=== PATIENT | female | born 1935 | race Two or more races ===

== ENCOUNTER 2020-01-13 12:36 | Inpatient (IN) | payer MEDICARE, OTHER ==
[~2020-01-13] VITALS: Ht 160 cm; Wt 52.6 kg
[2020-01-13] VITALS (15 sets, daily range): BP systolic 106–122; BP diastolic 63–88
--- NOTE | 2020-01-13 12:50 | NUR ---
ED Nurse Note: Pt brought in with ambulance. Pt was picked up from street walking around, but states she lives with larissa. Pt has abdominal pain in lower section 07/03. Pt is primarily swazi speaking. Pt is alerta and orientedx1, confused, rambling. Pt denies nausea and vomiting. Pt is set up on monitor.
--- NOTE | 2020-01-13 13:00 | NUR ---
ED Nurse Note: Pt taken to CT.
[2020-01-13 13:19] LABS: BASOPHILS % (AUTO) 1.7 % (0.0-2.0); EOSINOPHILS % (AUTO) 0.4 % (0.0-3.0); HEMATOCRIT 32.7 % (37.0-47.0); HEMOGLOBIN 11.4 G/DL (12.0-16.0); LYMPHOCYTES % (AUTO) 6.6 % (20.0-45.0); MEAN CORPUSCULAR VOLUME 109 FL (80-99); MONOCYTES % (AUTO) 8.7 % (1.0-10.0); NEUTROPHILS % (AUTO) 82.6 % (45.0-75.0); PLATELET COUNT 309 K/UL (150-450); RED CELL DISTRIBUTION WIDTH 12.2 % (11.6-14.8); WHITE BLOOD COUNT 7.4 K/UL (4.8-10.8)
--- NOTE | 2020-01-13 13:28 | Emergency Room Report ---
History of Present Illness General Chief Complaint: Abdominal Pain Source: Patient Present Illness HPI Patient presents from being found on the street with reports of abdominal pain Patient appears poorly kept disheveled Patient has flight of thought and appears confused Patient does complain of diffuse abdominal pain Denies vomiting or diarrhea however requires multiple times of refocusing in order to obtain any further history Unknown regarding trauma patient denies any pain to the extremities She is also repetitive with complaining of pain without giving any specific location Allergies: Coded Allergies: No Known Allergies (Unverified , 01/13/20) Patient History Limited by: medical condition Past Medical History: see triage record Reviewed Nursing Documentation: PMH: Agreed; PSxH: Agreed Nursing Documentation-PMH Past Medical History: No History, Except For Hx Hypertension: Yes Hx Diabetes: Yes Review of Systems All Other Systems: limited - Other than the ones mentioned in the history of present illness all others are reviewed however they do stay limited due to the patient's mental status Physical Exam Vital Signs Date Time Temp Pulse Resp B/P (MAP) Pulse Ox O2 Delivery O2 Flow Rate FiO2 01/13/20 12:32 98.8 82 18 116/60 (78) 99 Room Air Sp02 EP Interpretation: reviewed, normal General Appearance: mild distress - appears confused Head: normocephalic, atraumatic Eyes: bilateral eye PERRL, bilateral eye EOMI ENT: dry mucus membranes Neck: supple Respiratory: lungs clear, no respiratory distress, no retraction Cardiovascular #1: regular rate, rhythm Gastrointestinal: non tender, soft, other - However subjectively points diffusely throughout the abdomen for discomfort Genitourinary: no CVA tenderness Musculoskeletal: other - Difficult to fully evaluate patient moves both lower extremities, she is holding her left arm at an elevated angle however moving all digits appropriately Neurologic: other - Patient is verbal, follows some commands however,no focal findings Skin: no rash Lymphatic: normal inspection Medical Decision Making Diagnostic Impression: Primary Impression: Encephalopathy ER Course Multiple differentials and consideration including but not limited to neurological, neurosurgical, infectious process CT head does not show any acute process CT abdomen pelvis has multiple Findings will follow further closely patient further hydrated Urine sample is clear and at this time will require further Investigation Labs Test 01/13/20 13:01 White Blood Count 7.4 K/UL (4.8-10.8) Red Blood Count 3.00 M/UL (4.20-5.40) Hemoglobin 11.4 G/DL (12.0-16.0) Hematocrit 32.7 % (37.0-47.0) Mean Corpuscular Volume 109 FL (80-99) Mean Corpuscular Hemoglobin 38.0 PG (27.0-31.0) Mean Corpuscular Hemoglobin Concent 34.9 G/DL (32.0-36.0) Red Cell Distribution Width 12.2 % (11.6-14.8) Platelet Count 309 K/UL (150-450) Mean Platelet Volume 10.9 FL (6.5-10.1) Neutrophils (%) (Auto) 82.6 % (45.0-75.0) Lymphocytes (%) (Auto) 6.6 % (20.0-45.0) Monocytes (%) (Auto) 8.7 % (1.0-10.0) Eosinophils (%) (Auto) 0.4 % (0.0-3.0) Basophils (%) (Auto) 1.7 % (0.0-2.0) Sodium Level 146 MMOL/L (136-145) Potassium Level 4.6 MMOL/L (3.5-5.1) Chloride Level 108 MMOL/L (98-107) Carbon Dioxide Level 27 MMOL/L (21-32) Anion Gap 12 mmol/L (5-15) Blood Urea Nitrogen 43 mg/dL (7-18) Creatinine 1.7 MG/DL (0.55-1.30) Estimat Glomerular Filtration Rate 28.6 mL/min (>60) Glucose Level 118 MG/DL (74-106) Calcium Level 8.8 MG/DL (8.5-10.1) Total Bilirubin 0.4 MG/DL (0.2-1.0) Aspartate Amino Transf (AST/SGOT) 23 U/L (15-37) Alanine Aminotransferase (ALT/SGPT) 29 U/L (12-78) Alkaline Phosphatase 69 U/L (46-116) Total Creatine Kinase 92 U/L (26-308) Troponin I 0.036 ng/mL (0.000-0.056) Total Protein 7.1 G/DL (6.4-8.2) Albumin 3.7 G/DL (3.4-5.0) Globulin 3.4 g/dL Albumin/Globulin Ratio 1.1 (1.0-2.7) Lipase 95 U/L (73-393) Rhythm Strip Diag. Results EP Interpretation: yes Rate: 77 Rhythm: NSR, no PVC's, no ectopy Chest X-Ray Diagnostic Results Chest X-Ray Diagnostic Results : Chest X-Ray Ordered: Yes # of Views/Limited/Complete: 1 View Indication: Chest Pain EP Interpretation: Yes Interpretation: no consolidation, no effusion, no pneumothorax Impression: No acute disease - Chronic findings with nodular regions Electronically Signed by: Radha Wayne DO CT/MRI/US Diagnostic Results CT/MRI/US Diagnostic Results : Impression ct abd/pelvis:mpression: Very questionable subtle tiny foci of hyperattenuation at the left ureteral orifice. Suspect that this is an artifact of image noise, but tiny distal ureteral calculi cannot be ruled out. There is no hydronephrosis or hydroureter, however. Recommend correlation with clinical and laboratory findings Limited assessment of the GI tract, due to lack of enteric contrast administration Mild rectal distention with feces. Early rectal fecal impaction possible. Correlate with clinical findings Moderate retained stool elsewhere throughout the colon. May indicate constipation. Colonic diverticulosis. No evidence of acute diverticulitis borderline cardiomegaly Bilateral basilar pulmonary parenchymal groundglass opacity. This is nonspecific , could indicate mild pulmonary edema, among other possibilities L2 vertebral body wedge compression fracture deformity, age-indeterminate. Consider MRI to better characterize if is considered clinically relevant Other findings as noted, including lumbar spondylosis, bilateral sacral nerve root sleeve cysts, right middle lobe and lingular pulmonary parenchymal scarring, left renal cyst CT head no acute disease Last Vital Signs Date Time Temp Pulse Resp B/P (MAP) Pulse Ox O2 Delivery O2 Flow Rate FiO2 01/13/20 12:32 98.8 82 18 116/60 (78) 99 Room Air Status: improved Disposition: ADMITTED INPATIENT Condition: Serious Scripts Unable to Obtain Active Prescriptions or Reported Meds Radha Wayne DO Jan 13, 2020 13:28
[2020-01-13 13:32] LABS: ANION GAP 12 mmol/L (5-15); BLOOD UREA NITROGEN 43 mg/dL (7-18); CALCIUM 8.8 MG/DL (8.5-10.1); CARBON DIOXIDE 27 MMOL/L (21-32); CHLORIDE 108 MMOL/L (98-107); CREATININE 1.7 MG/DL (0.55-1.30); POTASSIUM 4.6 MMOL/L (3.5-5.1); SODIUM 146 MMOL/L (136-145)
[2020-01-13 13:36] LABS: ALANINE AMINOTRANSFERASE 29 U/L (12-78); ALBUMIN 3.7 G/DL (3.4-5.0); ALBUMIN/GLOBULIN RATIO 1.1 (1.0-2.7); ALKALINE PHOSPHATASE 69 U/L (46-116); ASPARTATE AMINO TRANSFERASE 23 U/L (15-37); BILIRUBIN,TOTAL 0.4 MG/DL (0.2-1.0); CREATINE KINASE 92 U/L (26-308)
--- NOTE | 2020-01-13 13:40 | Diagnostic Imaging Report ---
Indications: Altered mental status Technique: Spiral acquisitions obtained through the brain. Angled axial and coronal 5 x 5 mm slices were reconstructed. Total dose length product 992 mGycm. CTDI vol(s) 53 mGy. Dose reduction achieved using automated exposure control Comparison: None. Findings: There is age-related enlargement of the ventricles and extra-axial CSF spaces. There is extensive periventricular deep white matter low-attenuation, consistent with chronic microvascular ischemic changes. Old lacunar infarct is seen in the left cerebellar hemisphere. No acute intracranial hemorrhage or edema. No mass defect nor midline shift. Visualized orbits are unremarkable. The mastoids are clear. The sinuses are clear. 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
--- NOTE | 2020-01-13 13:55 | Diagnostic Imaging Report ---
Indication: Abdominal pain Technique: Spiral acquisitions obtained through the abdomen and pelvis. No oral contrast utilized, per emergency room physician request No IV contrast utilized, per referring physician request.. Multiplanar reconstructions were generated. Total dose length product 180 mGycm. CTDIvol(s) 3 mGy. Dose reduction achieved using automated exposure control Comparison: None Findings: Lack of enteric contrast limits assessment of the GI tract. The rectum is mildly distended with stool, measures up to 6 x 5 cm in diameter. No rectal wall thickening or perirectal fat infiltration demonstrated. Considerable retained stool is seen throughout the remainder of the colon as well. There is colonic diverticulosis. No evidence of acute diverticulitis. The appendix is not definitely identified, but no findings to suggest acute appendicitis are evident. No small bowel distention. No free or loculated intraperitoneal gas or fluid is evident. The distal esophagus, stomach, duodenum are unremarkable. Lack of IV contrast limits assessment of solid organs. The liver, gallbladder, bile ducts, pancreas, spleen, adrenals, right kidney are all unremarkable. The left kidney demonstrates an upper pole cyst. 2 questionable very subtle foci of high attenuation are seen at the left ureteral orifice. There is no hydronephrosis or hydroureter demonstrated. The bladder is unremarkable. The uterus and adnexal structures are unremarkable. The bones demonstrate a very mild wedge compression deformity of the L2 vertebral body. There are degenerative changes of the lumbar spine. There are multiple sizable sacral nerve root sleeve cysts incidentally noted. The included lung bases demonstrate some scarring in the right middle lobe and in the lingula. There is bilateral basilar groundglass opacity. The heart is borderline enlarged. There are mitral annular calcifications. Impression: Very questionable subtle tiny foci of hyperattenuation at the left ureteral orifice. Suspect that this is an artifact of image noise, but tiny distal ureteral calculi cannot be ruled out. There is no hydronephrosis or hydroureter, however. Recommend correlation with clinical and laboratory findings Limited assessment of the GI tract, due to lack of enteric contrast administration Mild rectal distention with feces. Early rectal fecal impaction possible. Correlate with clinical findings Moderate retained stool elsewhere throughout the colon. May indicate constipation. Colonic diverticulosis. No evidence of acute diverticulitis borderline cardiomegaly Bilateral basilar pulmonary parenchymal groundglass opacity. This is nonspecific, could indicate mild pulmonary edema, among other possibilities L2 vertebral body wedge compression fracture deformity, age-indeterminate. Consider MRI to better characterize if is considered clinically relevant Other findings as noted, including lumbar spondylosis, bilateral sacral nerve root sleeve cysts, right middle lobe and lingular pulmonary parenchymal scarring, left renal cyst The CT scanner at [facility] is accredited by the [employer] and the scans are performed using protocols designed to limit radiation exposure to as low as reasonably achievable to attain images of sufficient resolution adequate for diagnostic evaluation.
[2020-01-13 14:27] LABS: APPEARANCE,URINE CLEAR; BILIRUBIN, URINE NEGATIVE (NEGATIVE); COLOR,URINE PALE YELLOW; GLUCOSE, URINE (UA) NEGATIVE (NEGATIVE); KETONES,URINE NEGATIVE (NEGATIVE); LEUKOCYTE ESTERASE ,URINE NEGATIVE (NEGATIVE); NITRITE,URINE NEGATIVE (NEGATIVE); PH,URINE 5 (4.5-8.0); PROTEIN,URINE NEGATIVE (NEGATIVE); UROBILINOGEN,URINE NORMAL MG/DL (0.0-1.0)
--- NOTE | 2020-01-13 14:59 | Diagnostic Imaging Report ---
Indication: Chest Technique: One view of the chest Comparison: none Findings: Nodular scarring is seen in the right perihilar region. There is central bronchial wall thickening. There is a linear scarring in the left perihilar region. No definite acute infiltrate. Normal heart size. Pleural spaces are clear No definite acute infiltrate Impression: Chronic findings, as described. No definite acute process
[2020-01-13] MEDS ORDERED: Metoclopramide 10mg/2ml Inj IVP PRN (16:00)
[2020-01-13] MEDS ORDERED: DiphenhydrAMINE 25mg Tab ORAL PRN (16:00)
[2020-01-13] MEDS ORDERED: Nitroglycerin Subl 0.4mg tab SL PRN (16:00)
[2020-01-13] MEDS ORDERED: Haloperidol 5mg/ml Inj IM ONE (16:00)
[2020-01-13] MEDS ORDERED: LORazepam Inj 2mg/ml 1ml IV ONE (16:15)
[2020-01-13] MEDS: D5 1/2NS 1,000 ML IV SCH ×2 (16:23→22:26)
--- NOTE | 2020-01-13 18:13 | Diagnostic Imaging Report ---
Indication: Abnormal renal function tests Technique: Trevino-scale and duplex images of the upper abdomen were obtained Comparison: Reference made to abdomen pelvis CT of earlier the same day Findings: Exam is somewhat limited due to patient being restrained and unable to cooperate optimally. Gallbladder demonstrate a questionable gallstone. Versus occult on prior CT No gallbladder wall thickening nor pericholecystic fluid. sonographic Mckeon sign could not be assessed. Common bile duct measures 5 mm in diameter. No intrahepatic biliary ductal dilatation. Liver demonstrates normal echogenicity, no focal abnormality. Portal vein and hepatic veins are patent. Pancreas is unremarkable. Spleen is unremarkable. Left kidney measures 9.2 cm in length. Right kidney measures 9.1 cm length. Both kidneys demonstrate normal echogenicity. There is no hydronephrosis. Left kidney demonstrates a small upper pole cyst. Abdominal aorta is partially obscured by bowel gas, visualized portions are non-aneurysmal . Impression: Suspect cholelithiasis. Negative for dilated bile ducts Incidental finding small left renal cyst Note inability to visualize portions of the abdominal aorta This agrees with the preliminary interpretation [facility].
--- NOTE | 2020-01-13 19:14 | NUR ---
ED Nurse Note: pt received from DADA Kc. pt is in bed repeatedly mumbling, safety precautions are in place, pt does not appear to be in any distress at this time. pt is AOx1 Addendum: 01/13/20 at 2215 by JAVAN restraints were removed from patient, safety precautions are in place, pt no longer needed restraints. TOMI hoang
--- NOTE | 2020-01-13 19:37 | NUR ---
TRANSFER TO FLOOR: Patient transferred to as ordered, per ERMD. Report given to DADA Walker. Belongings and medications sent [facility] pt
--- NOTE | 2020-01-13 19:40 | NUR ---
NURSE NOTES: Recieved report from ER nurse to the unit Lis. Will wait for pt arrival
--- NOTE | 2020-01-13 19:45 | NUR ---
NURSE NOTES: Pt arrived to the unit, via ER bed. Pt is confused and unable to answer simple questions soft restraints in place , Transferred pt. performed skin assessments skin intact.Breaths regular and unlabored .Vitals Bp 128/64 P 98 T 98.1 O2sat 96 at RA RR21.. Pt has Left AC 20g with no i.v fluids . will notify md for orders
--- NOTE | 2020-01-13 20:04 | History & Physical ---
History and Physical History & Physicial Dictated for Int Med-DR High no. [id number] Jonas Scott MD Jan 13, 2020 20:04
[2020-01-13] MEDS ORDERED: Miralax 17gm pkt ORAL PRN (21:00)
--- NOTE | 2020-01-13 21:00 | History and Physical Report ---
DATE OF ADMISSION: 01/13/2020 CHIEF COMPLAINT: The patient is an 84-year-old female, who presents with chief complaint of abdominal pain. HISTORY OF PRESENT ILLNESS: The patient was apparently found wandering on the streets complaining of abdominal pain. The patient was confused. The patient presented to [place] emergency room. The patient appeared to be disheveled and was complaining of generalized abdominal pain. The patient was very confused. The patient is admitted with altered mental status and abdominal pain. REVIEW OF SYSTEMS: Unable to assess secondary to the patient's mental status. PAST MEDICAL HISTORY: Unknown. PAST SURGICAL HISTORY: Unknown. CURRENT MEDICATIONS: Unknown. ALLERGIES: No known drug allergies. SOCIAL HISTORY: Unknown. PHYSICAL EXAMINATION: VITAL SIGNS: Temperature 98.8, respirations 18, pulse 71, blood pressure 113/77. GENERAL: The patient is a well-developed, well-nourished female, disheveled, and very confused. HEENT: Eyes, pupils are equal and responsive to light and accommodation. Extraocular movements are intact. NECK: Supple without lymphadenopathy. CHEST: Lungs are clear to auscultation bilaterally without wheezes or rales. CARDIOVASCULAR: Regular rhythm and rate. S1 and S2 are normal without murmurs, rubs, or gallops. ABDOMEN: Soft, diffusely tender to palpation, with decreased bowel sounds. No evidence of hepatosplenomegaly. Currently, no rebound or guarding noted. EXTREMITIES: Negative for clubbing, cyanosis, or edema. RECTAL: Not performed. GENITAL: Not performed. NEUROLOGIC: Cranial nerves II through XII are grossly intact without focal deficits. Motor strength is 5/5 bilaterally. Deep tendon reflexes are 2+ plantar. LABORATORY AND DIAGNOSTIC DATA: Laboratory studies, WBC 7.4, hemoglobin 11.4, hematocrit 32.7, and platelets 309,000. Sodium 146, potassium 4.6, chloride 108, CO2 27, BUN 43, creatinine 1.7, glucose 118. Urinalysis was within normal limits. A CT scan of the abdomen and pelvis revealed fecal impaction versus constipation. A chest x-ray is reported as no acute disease. A CT scan of the brain failed to demonstrate acute intracranial bleed or mass effect. An abdominal ultrasound was essentially within normal limits. ASSESSMENT: This is an 84-year-old female with: 1. Altered mental status. 2. Abdominal pain. TREATMENT: 1. Altered mental status. Reason for altered mental status is unknown. An MRI of the brain is pending. The patient may have had cerebrovascular accident versus Alzheimer's dementia and just got loss. A Neurology consultation has been obtained with Dr. Navarro. 2. Abdominal pain. Workup so far has been within normal limits. A Gastroenterology consultation has been obtained with Dr. Yomi Sloan. Jonas Scott M.D. DR: MARYANN JOB#: [id number] CC:
--- NOTE | 2020-01-13 21:20 | NUR ---
NURSE NOTES: Orders received and carried
[2020-01-13] MEDS: Heparin 5000 units/ml inj SUBQ SCH (22:12)
[2020-01-13] MEDS: LORazepam Inj 2mg/ml 1ml IV PRN (22:34)
[2020-01-14] VITALS: BP 126/77
[2020-01-14 04:00] VITALS: BP 149/74
[2020-01-14] MEDS: LORazepam Inj 2mg/ml 1ml IV PRN ×4 (04:24→17:42)
[2020-01-14 06:59] LABS: BASOPHILS % (AUTO) 1.3 % (0.0-2.0); EOSINOPHILS % (AUTO) 0.2 % (0.0-3.0); HEMATOCRIT 30.8 % (37.0-47.0); HEMOGLOBIN 10.7 G/DL (12.0-16.0); LYMPHOCYTES % (AUTO) 7.3 % (20.0-45.0); MEAN CORPUSCULAR VOLUME 108 FL (80-99); MONOCYTES % (AUTO) 8.3 % (1.0-10.0); PLATELET COUNT 231 K/UL (150-450); RED BLOOD COUNT 2.85 M/UL (4.20-5.40); RED CELL DISTRIBUTION WIDTH 12.1 % (11.6-14.8); WHITE BLOOD COUNT 7.8 K/UL (4.8-10.8)
--- NOTE | 2020-01-14 07:35 | NUR ---
NURSE NOTES: WALKING ROUNDS DONE WITH NIGHT RN. PATIENT AGITATED . ATTEMPTED TO ORIENT BUT UNSUCCESSFUL. PATIENT CONFUSED UNABLE TO ANSWER SIMPLE QUESTIONS. REPEATING WORDS IN KYRGYZ. PATIENT CARE PROVIDED AND SOFT WRIST RESTRAINTS IN PLACE AND SECURED PROPERLY.SKIN ASSESSMENT CHECKED AND INTACT.OPTIFOAM PLACED TO BONY PROMINENCES FOR PREVENTION.BED IN LOW AND LOCKED POSITION. CALL LIGHT WITHIN REACH. WILL CONTINUE TO MONITOR.
[2020-01-14 08:00] VITALS: BP 138/72
[2020-01-14 08:14] LABS: ALANINE AMINOTRANSFERASE 26 U/L (12-78); ALBUMIN 3.2 G/DL (3.4-5.0); ALKALINE PHOSPHATASE 76 U/L (46-116); AMYLASE 71 U/L (25-115); ANION GAP 15 mmol/L (5-15); ASPARTATE AMINO TRANSFERASE 32 U/L (15-37); BILIRUBIN,TOTAL 0.5 MG/DL (0.2-1.0); BLOOD UREA NITROGEN 32 mg/dL (7-18); CALCIUM 8.8 MG/DL (8.5-10.1); CARBON DIOXIDE 21 MMOL/L (21-32); CHLORIDE 110 MMOL/L (98-107); CREATININE 1.2 MG/DL (0.55-1.30); POTASSIUM 3.8 MMOL/L (3.5-5.1); SODIUM 146 MMOL/L (136-145)
--- NOTE | 2020-01-14 08:19 | NUR ---
HAND-OFF: Report given to DADA Alejandra.
[2020-01-14] MEDS: Pantoprazole Inj IV SCH (09:35)
[2020-01-14] MEDS: Heparin 5000 units/ml inj SUBQ SCH ×2 (09:37→21:20)
--- NOTE | 2020-01-14 10:26 | NUR ---
NURSE NOTES: PATIENT STILL AGITATED AND TRYING TO GET OOB. ATTEMPTED TO RE-ORIENT BUT UNSUCCESSFUL. ADMINISTERED ATIVAN 0.5 MG IVP. PATIENT REPOSITIONED IN BED WITH SOFT WRIST RESTRAINTS SECURED TO WRIST. NO RESPIRATORY DISTRESS NOTED. BED IN LOW AND LOCKED POSITION. CALL LIGHT WITHIN REACH.
[2020-01-14] MEDS: D5 1/2NS 1,000 ML IV SCH (10:28)
--- NOTE | 2020-01-14 11:44 | NUR ---
NURSE NOTES: PATIENT SLEPT APPROXIMATELY 45 MINS. PATIENT AWAKE AND AGITATED AGAIN. DENIES PAIN OR SOB. PATIENT STATES SHE WANTS TO BE LEFT ALONE INTERPRETED BY NURSE THAT SPEAKS TURKISH. ATTEMPTED TO RE-ORIENT AGAIN WHERE SHE IS AND THE MEDICAL ATTENTION NEEDED. PLACED CALL TO PCP. NEW ATIVAN ORDER RECEIVED. MEDICATION ADMINISTERED. PATIENT REPOSITIONED IN BED. BILATERAL WRIST RESTRAINTS SECURED TO PATIENT AND BED PER [facility] [place] [place] [facility]. WILL CONTINUE RE-ASSESS AND PROVIDE ALTERNATE MEASURES.BED REMAINS IN LOW AND LOCKED POSITION.
--- NOTE | 2020-01-14 11:50 | NUR ---
NURSE NOTES: ADMINISTERED ATIVAN 1 MG IVP ORDERED BY . NOTED MED NOT SCANNED WHEN CHECKED ON EMAR. WITNESSED BY AN DY CHARGE NURSE WHEN GIVEN AND WASTED AT [facility].
[2020-01-14 12:00] VITALS: BP 139/64
--- NOTE | 2020-01-14 12:40 | NUR ---
CASE MANAGEMENT:INITIAL REVIEW 84 YR OLD FEMALE BIBA FROM STREET [facility];ABDOMINAL PAIN SI;ENCEPHALOPATHY. 98.8 88 16 113/77 97% ON RA NA+ 146 CL 108 BUN 43 CR 1.7 CXR - CHRONIC FINDINGS. NO ACUTE PROCESS. ABD/PELVIS CT= COLONIC DIVERTICULOSIS.Very questionable subtle tiny foci of hyperattenuation at the left ureteral orifice. HEAD CT = NEGATIVE ABD US=Suspect cholelithiasis. Negative for dilated bile ducts IS;IVF NS BOLUS OLAZAPINE PO ZOFRAN IV ADMITTED TO MED SURG MED SURG STATUS DCP;FROM HOME
--- NOTE | 2020-01-14 14:36 | Consultation ---
History of Present Illness General Date patient seen: Jan 14, 2020 Chief Complaint: Abdominal Pain Present Illness HPI 84 year old female with unknown PMHx brought in by paramedics because she was on street by herself complaining of abdominal pain. Pt was confused and was complaining of pain all over. She had a CT abdomen in ER which showed fecal impaction and L3 fracture. She has been admitted to medical floor and has been confused since then. Allergies: Coded Allergies: No Known Allergies (Unverified , 01/13/20) Medication History Unable to Obtain Active Prescriptions or Reported Meds Patient History Healthcare decision maker Resuscitation status Full Code Advanced Directive on File Past Medical/Surgical History Past Medical/Surgical History: (1) No significant past medical history Review of Systems Constitutional: Reports: no symptoms Eye: Reports: no symptoms Physical Exam General Appearance: cachetic, thin Lines, tubes and drains: peripheral HEENT: normocephalic, atraumatic Neck: non-tender, normal alignment Respiratory/Chest: chest wall non-tender, normal breath sounds Breasts: no masses Cardiovascular/Chest: normal peripheral pulses Genitourinary/Rectal: normal genital exam Extremities: normal range of motion Last 24 Hour Vital Signs Date Time Temp Pulse Resp B/P (MAP) Pulse Ox O2 Delivery O2 Flow Rate FiO2 01/14/20 12:00 97.4 82 20 139/64 (89) 94 01/14/20 09:00 Room Air 01/14/20 08:00 97.9 73 18 138/72 (94) 96 01/14/20 04:00 99.2 92 22 149/74 (99) 96 01/14/20 00:00 98.4 69 19 126/77 (93) 96 01/13/20 23:08 Room Air 01/13/20 19:45 98.8 71 20 122/76 99 Room Air 99 01/13/20 18:56 76 20 99 Room Air 01/13/20 18:41 89 16 96 Room Air 01/13/20 18:26 79 18 96 Room Air 01/13/20 18:11 89 15 99 Room Air 01/13/20 17:56 79 20 96 Room Air 01/13/20 17:41 71 18 98 Room Air 01/13/20 17:26 77 18 97 Room Air 01/13/20 17:20 98.8 71 18 113/77 97 Room Air 01/13/20 17:11 70 17 99 Room Air 01/13/20 16:56 71 16 99 Room Air 01/13/20 16:41 88 16 100 Room Air 01/13/20 16:26 80 16 99 Room Air 01/13/20 16:11 83 19 98 Room Air 01/13/20 15:56 80 16 98 Room Air Intake and Output 01/13/20 01/14/20 19:00 07:00 Intake Total 0 ml 75 ml Balance 0 ml 75 ml Intake Oral 0 ml IV Total 75 ml # Voids 2 Laboratory Tests Test 01/14/20 05:20 White Blood Count 7.8 K/UL (4.8-10.8) Red Blood Count 2.85 M/UL (4.20-5.40) L Hemoglobin 10.7 G/DL (12.0-16.0) L Hematocrit 30.8 % (37.0-47.0) L Mean Corpuscular Volume 108 FL (80-99) H Mean Corpuscular Hemoglobin 37.3 PG (27.0-31.0) H Mean Corpuscular Hemoglobin Concent 34.6 G/DL (32.0-36.0) Red Cell Distribution Width 12.1 % (11.6-14.8) Platelet Count 231 K/UL (150-450) Mean Platelet Volume 9.8 FL (6.5-10.1) Neutrophils (%) (Auto) 83.0 % (45.0-75.0) H Lymphocytes (%) (Auto) 7.3 % (20.0-45.0) L Monocytes (%) (Auto) 8.3 % (1.0-10.0) Eosinophils (%) (Auto) 0.2 % (0.0-3.0) Basophils (%) (Auto) 1.3 % (0.0-2.0) Activated Partial Thromboplast Time 26 SEC (23-33) Sodium Level 146 MMOL/L (136-145) H Potassium Level 3.8 MMOL/L (3.5-5.1) Chloride Level 110 MMOL/L (98-107) H Carbon Dioxide Level 21 MMOL/L (21-32) Anion Gap 15 mmol/L (5-15) Blood Urea Nitrogen 32 mg/dL (7-18) H Creatinine 1.2 MG/DL (0.55-1.30) Estimat Glomerular Filtration Rate 42.7 mL/min (>60) Glucose Level 98 MG/DL (74-106) Calcium Level 8.8 MG/DL (8.5-10.1) Total Bilirubin 0.5 MG/DL (0.2-1.0) Aspartate Amino Transf (AST/SGOT) 32 U/L (15-37) Alanine Aminotransferase (ALT/SGPT) 26 U/L (12-78) Alkaline Phosphatase 76 U/L (46-116) Total Protein 6.3 G/DL (6.4-8.2) L Albumin 3.2 G/DL (3.4-5.0) L Globulin 3.1 g/dL Albumin/Globulin Ratio 1.0 (1.0-2.7) Amylase Level 71 U/L (25-115) Lipase 48 U/L (73-393) L Microbiology Date/Time Source Procedure Growth Status 01/13/20 17:55 Rectum Received Height (Feet): 5 Height (Inches): 3.00 Weight (Pounds): 115 Medications Current Medications Medications (Trade) Dose Ordered Sig/Dewayne Route PRN Reason Start Time Stop Time Status Last Admin Dose Admin Acetaminophen (Tylenol) 650 mg Q4H PRN ORAL fever 01/13/20 16:00 02/12/20 15:59 Dextrose (Dextrose 50%) 25 ml Q30M PRN IV Hypoglycemia 01/13/20 16:00 02/12/20 15:59 Dextrose (Dextrose 50%) 50 ml Q30M PRN IV Hypoglycemia 01/13/20 16:00 02/12/20 15:59 Dextrose/Sodium Chloride 1,000 ml @ 75 mls/hr [id number] IV 01/13/20 15:54 02/12/20 15:53 01/14/20 10:28 Diphenhydramine HCl (Benadryl) 25 mg Q6H PRN ORAL Itching/Pruritis 01/13/20 16:00 02/12/20 15:59 Heparin Sodium (Porcine) (Heparin 5000 units/ml) 5,000 units EVERY 12 HOURS SUBQ 01/13/20 21:00 02/12/20 20:59 01/14/20 09:37 Lorazepam (Ativan 2mg/ml 1ml) 1 mg Q4H PRN IV For Anxiety 2/21/20 11:45 01/21/20 11:44 01/14/20 11:36 Metoclopramide HCl (Reglan) 10 mg Q6H PRN IVP severe nausea 01/13/20 16:00 02/12/20 15:59 Nitroglycerin (Ntg) 0.4 mg Q5M X 3 DOSES PRN SL Prn Chest Pain 01/13/20 16:00 02/12/20 15:59 Ondansetron HCl (Zofran) 4 mg Q6H PRN IVP Nausea & Vomiting 01/13/20 16:00 02/12/20 15:59 Pantoprazole (Protonix) 40 mg DAILY IV 01/14/20 09:00 02/13/20 08:59 01/14/20 09:35 Polyethylene Glycol (Miralax) 17 gm HSPRN PRN ORAL Constipation 01/13/20 21:00 02/12/20 20:59 Temazepam (Restoril) 15 mg HSPRN PRN ORAL Insomnia 01/13/20 21:00 01/20/20 20:59 Assessment/Plan Problem List: (1) Fecal impaction ICD Codes: K56.41 - Fecal impaction SNOMED: 88302363 (2) Renal insufficiency ICD Codes: N28.9 - Disorder of kidney and ureter, unspecified SNOMED: 171909102, 978680712 (3) Encephalopathy ICD Codes: G93.40 - Encephalopathy, unspecified SNOMED: 06089652 (4) L2 vertebral fracture ICD Codes: S32.029A - Unspecified fracture of second lumbar vertebra, initial encounter for closed fracture SNOMED: 35092322, 842125627 (5) No significant past medical history SNOMED: 969632404 Assessment/Plan: NPO IV fluids GI evaluation Mineral oil enema pain management iv fluids check electrolytes renal studies Alyse Oconnor MD Jan 14, 2020 14:36
[2020-01-14] MEDS ORDERED: Fleet's Mineral Oil Enema RECTAL ONE (15:00)
--- NOTE | 2020-01-14 15:36 | NUR ---
*-* NO INSURANCE INFORMATION IN THE BAR UNABLE TO SEND CLINICALS *-*
[2020-01-14 16:00] VITALS: BP 143/78
--- NOTE | 2020-01-14 16:04 | NUR ---
NURSE NOTES: PATIENT CURRENTLY NOT AGITATED; ASLEEP. NEEDS MET AT THIS TIME. FREQUENT VISUAL CHECKS DONE. BED IN LOW AND LOCKED POSITION.
--- NOTE | 2020-01-14 18:26 | NUR ---
NURSE NOTES: PATIENT CONTINUES TO HAVE INTERMITTENT AGITATION REQUIRING ATIVAN ORDERED.PATIENT MANAGED TO SPEAK [place] FROM TIME TO TIME TO ADDRESS HER NEEDS.VSS.AFEBRILE. BED IN LOW AND LOCKED POSITION.
--- NOTE | 2020-01-14 19:12 | NUR ---
NURSE NOTES: Received report from Ny GARLAND, pt in bed sleeping in supine position, no s/s respiratory distress on RA breaths even regular and unlabored .. Pt has R hand 20G with i.v fluids running , patent and asymptomatic. Enema was given to pt . Call light with in reach, bed in low locked position, will continue to monitor.
--- NOTE | 2020-01-14 19:14 | NUR ---
HAND-OFF: Report given to RAMSEY LAURENT RN.
--- NOTE | 2020-01-14 19:15 | Internal Med Progress Note ---
Subjective Date of Service: Jan 14, 2020 Physician Name Jonas Scott Attending Physician Ulices High MD Current Medications Medications (Trade) Dose Ordered Sig/Dewayne Route PRN Reason Start Time Stop Time Status Last Admin Dose Admin Acetaminophen (Tylenol) 650 mg Q4H PRN ORAL fever 01/13/20 16:00 02/12/20 15:59 Dextrose (Dextrose 50%) 25 ml Q30M PRN IV Hypoglycemia 01/13/20 16:00 02/12/20 15:59 Dextrose (Dextrose 50%) 50 ml Q30M PRN IV Hypoglycemia 01/13/20 16:00 02/12/20 15:59 Dextrose/Sodium Chloride 1,000 ml @ 75 mls/hr [id number] IV 01/13/20 15:54 02/12/20 15:53 01/14/20 10:28 Diphenhydramine HCl (Benadryl) 25 mg Q6H PRN ORAL Itching/Pruritis 01/13/20 16:00 02/12/20 15:59 Heparin Sodium (Porcine) (Heparin 5000 units/ml) 5,000 units EVERY 12 HOURS SUBQ 01/13/20 21:00 02/12/20 20:59 01/14/20 09:37 Lorazepam (Ativan 2mg/ml 1ml) 1 mg Q4H PRN IV For Anxiety 01/14/20 11:45 01/21/20 11:44 01/14/20 17:42 Metoclopramide HCl (Reglan) 10 mg Q6H PRN IVP severe nausea 01/13/20 16:00 02/12/20 15:59 Nitroglycerin (Ntg) 0.4 mg Q5M X 3 DOSES PRN SL Prn Chest Pain 01/13/20 16:00 02/12/20 15:59 Ondansetron HCl (Zofran) 4 mg Q6H PRN IVP Nausea & Vomiting 01/13/20 16:00 02/12/20 15:59 Pantoprazole (Protonix) 40 mg DAILY IV 01/14/20 09:00 02/13/20 08:59 01/14/20 09:35 Polyethylene Glycol (Miralax) 17 gm HSPRN PRN ORAL Constipation 01/13/20 21:00 02/12/20 20:59 Temazepam (Restoril) 15 mg HSPRN PRN ORAL Insomnia 01/13/20 21:00 01/20/20 20:59 Allergies: Coded Allergies: No Known Allergies (Unverified , 01/13/20) ROS Limited/Unobtainable: Yes Subjective 84 YO F admitted with altered mental status and abdominal pain. Cover for Int [facility]- Dr High Objective Last Vital Signs Date Time Temp Pulse Resp B/P (MAP) Pulse Ox O2 Delivery O2 Flow Rate FiO2 01/14/20 16:00 97.5 88 18 143/78 (99) 98 01/14/20 09:00 Room Air 01/13/20 19:45 99 Laboratory Tests Test 01/14/20 05:20 White Blood Count 7.8 K/UL (4.8-10.8) Red Blood Count 2.85 M/UL (4.20-5.40) L Hemoglobin 10.7 G/DL (12.0-16.0) L Hematocrit 30.8 % (37.0-47.0) L Mean Corpuscular Volume 108 FL (80-99) H Mean Corpuscular Hemoglobin 37.3 PG (27.0-31.0) H Mean Corpuscular Hemoglobin Concent 34.6 G/DL (32.0-36.0) Red Cell Distribution Width 12.1 % (11.6-14.8) Platelet Count 231 K/UL (150-450) Mean Platelet Volume 9.8 FL (6.5-10.1) Neutrophils (%) (Auto) 83.0 % (45.0-75.0) H Lymphocytes (%) (Auto) 7.3 % (20.0-45.0) L Monocytes (%) (Auto) 8.3 % (1.0-10.0) Eosinophils (%) (Auto) 0.2 % (0.0-3.0) Basophils (%) (Auto) 1.3 % (0.0-2.0) Activated Partial Thromboplast Time 26 SEC (23-33) Sodium Level 146 MMOL/L (136-145) H Potassium Level 3.8 MMOL/L (3.5-5.1) Chloride Level 110 MMOL/L (98-107) H Carbon Dioxide Level 21 MMOL/L (21-32) Anion Gap 15 mmol/L (5-15) Blood Urea Nitrogen 32 mg/dL (7-18) H Creatinine 1.2 MG/DL (0.55-1.30) Estimat Glomerular Filtration Rate 42.7 mL/min (>60) Glucose Level 98 MG/DL (74-106) Calcium Level 8.8 MG/DL (8.5-10.1) Total Bilirubin 0.5 MG/DL (0.2-1.0) Aspartate Amino Transf (AST/SGOT) 32 U/L (15-37) Alanine Aminotransferase (ALT/SGPT) 26 U/L (12-78) Alkaline Phosphatase 76 U/L (46-116) Total Protein 6.3 G/DL (6.4-8.2) L Albumin 3.2 G/DL (3.4-5.0) L Globulin 3.1 g/dL Albumin/Globulin Ratio 1.0 (1.0-2.7) Amylase Level 71 U/L (25-115) Lipase 48 U/L (73-393) L Microbiology Date/Time Source Procedure Growth Status 01/13/20 17:55 Rectum Received Intake and Output 01/13/20 01/14/20 19:00 07:00 Intake Total 0 ml 75 ml Balance 0 ml 75 ml Intake Oral 0 ml IV Total 75 ml # Voids 2 Objective PHYSICAL EXAMINATION: GENERAL: The patient is a well-developed, well-nourished female, disheveled, and very confused. HEENT: Eyes, pupils are equal and responsive to light and accommodation. Extraocular movements are intact. NECK: Supple without lymphadenopathy. CHEST: Lungs are clear to auscultation bilaterally without wheezes or rales. CARDIOVASCULAR: Regular rhythm and rate. S1 and S2 are normal without murmurs, rubs, or gallops. ABDOMEN: Soft, diffusely tender to palpation, with decreased bowel sounds. No evidence of hepatosplenomegaly. Currently, no rebound or guarding noted. EXTREMITIES: Negative for clubbing, cyanosis, or edema. RECTAL: Not performed. GENITAL: Not performed. NEUROLOGIC: Cranial nerves II through XII are grossly intact without focal deficits. Motor strength is 5/5 bilaterally. Deep tendon reflexes are 2+ plantar. Assessment/Plan Assessment/Plan SSESSMENT: This is an 84-year-old female with: 1. Altered mental status. 2. Abdominal pain. TREATMENT: 1. Altered mental status. Reason for altered mental status is unknown. An MRI of the brain is pending. The patient may have had cerebrovascular accident versus Alzheimer's dementia and just got loss. A Neurology consultation has been obtained with Dr. Navarro. 2. Abdominal pain. Workup so far has been within normal limits. A Gastroenterology consultation has been obtained with Dr. Yomi Sloan. Jonas Scott MD Jan 14, 2020 19:15
[2020-01-14 20:00] VITALS: BP 139/78
[2020-01-15] VITALS: BP 142/82
[2020-01-15] MEDS: LORazepam Inj 2mg/ml 1ml IV PRN ×5 (00:30→22:35)
[2020-01-15] MEDS: D5 1/2NS 1,000 ML IV SCH ×2 (00:30→22:36)
[2020-01-15 04:00] VITALS: BP 138/82
[2020-01-15 06:43] LABS: BASOPHILS % (AUTO) 1.3 % (0.0-2.0); EOSINOPHILS % (AUTO) 0.5 % (0.0-3.0); HEMATOCRIT 31.7 % (37.0-47.0); HEMOGLOBIN 11.1 G/DL (12.0-16.0); LYMPHOCYTES % (AUTO) 7.4 % (20.0-45.0); MEAN CORPUSCULAR VOLUME 108 FL (80-99); NEUTROPHILS % (AUTO) 83.8 % (45.0-75.0); PLATELET COUNT 270 K/UL (150-450); RED BLOOD COUNT 2.95 M/UL (4.20-5.40); RED CELL DISTRIBUTION WIDTH 11.2 % (11.6-14.8); WHITE BLOOD COUNT 9.8 K/UL (4.8-10.8)
[2020-01-15 06:50] LABS: ALANINE AMINOTRANSFERASE 28 U/L (12-78); ALBUMIN/GLOBULIN RATIO 0.9 (1.0-2.7); ALKALINE PHOSPHATASE 84 U/L (46-116); ANION GAP 13 mmol/L (5-15); ASPARTATE AMINO TRANSFERASE 29 U/L (15-37); BILIRUBIN,TOTAL 1.1 MG/DL (0.2-1.0); BLOOD UREA NITROGEN 20 mg/dL (7-18); CALCIUM 8.5 MG/DL (8.5-10.1); CARBON DIOXIDE 22 MMOL/L (21-32); CHLORIDE 106 MMOL/L (98-107); CREATININE 1.3 MG/DL (0.55-1.30); PHOSPHORUS 3.4 MG/DL (2.5-4.9); POTASSIUM 4.1 MMOL/L (3.5-5.1); SODIUM 141 MMOL/L (136-145)
[2020-01-15 06:52] LABS: BILIRUBIN,DIRECT 0.3 MG/DL (0.0-0.3)
--- NOTE | 2020-01-15 07:31 | NUR ---
HAND-OFF: Report given to Leonard Greene RN.
--- NOTE | 2020-01-15 07:40 | NUR ---
NURSE NOTES: Patient is in bed moving around and talking to herself. RN attempted to reorient patient, but unsuccessful. Patient is in bilateral wrist restraints, CSM and release assessed, will continue to monitor. Restraints released and patient cleaned, dried, assessment done, then repositioned with 2 staff assist. Patient is agitated and restless. Patient back on restraints in bed in locked and lowest position with all safety measures provided. WIll continue to monitor.
[2020-01-15 08:00] VITALS: BP 147/108
[2020-01-15] MEDS: Lactulose 20gm/30ml UDC ORAL SCH ×2 (08:51→17:28)
[2020-01-15] MEDS: Docusate 100mg cap ORAL SCH ×2 (08:51→17:28)
[2020-01-15] MEDS: Pantoprazole Inj IV SCH (08:52)
[2020-01-15] MEDS: Heparin 5000 units/ml inj SUBQ SCH ×2 (08:54→22:35)
[2020-01-15 12:00] VITALS: BP 155/88
--- NOTE | 2020-01-15 12:12 | Pulmonology Progress Note ---
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 gentle IV fluid CT head noted -> old left lacunar infarct MRI brain pending carotid duplex lipid panel CXR with chronic changes , no acute cardiopulmonary pathology O2 HHN prn bowel regimen neuro and GI eval pending DVT, GI prophylaxis pain management CT abdomen pelvis noted abdominal ultrasound noted possible cholelithiasis monitor H&H with goal to keep hemoglobin above 7 monitor renal parameters, lytes, avoid nephrotoxic, TAMMIE resolved, likely due to dehydration? case discussed and evaluated by supervising physician Subjective Allergies: Coded Allergies: No Known Allergies (Unverified , 01/13/20) Subjective remains altered MRI pending UA unremarkable TSH WNL stable hemodynamically creat down to normal Objective Last 24 Hour Vital Signs Date Time Temp Pulse Resp B/P (MAP) Pulse Ox O2 Delivery O2 Flow Rate FiO2 01/15/20 09:00 Room Air 01/15/20 08:00 98.1 116 20 147/108 (121) 95 01/15/20 04:00 98.0 88 19 138/82 (100) 96 01/15/20 00:00 97.9 94 19 142/82 (102) 97 01/14/20 21:00 Room Air 01/14/20 20:00 98.6 96 17 139/78 (98) 98 01/14/20 16:00 97.5 88 18 143/78 (99) 98 Intake and Output 01/14/20 01/15/20 19:00 07:00 Intake Total 900 ml 525 ml Balance 900 ml 525 ml IV Total 900 ml 525 ml # Voids 4 4 General Appearance: other - drowsy, but arousable female HEENT: normocephalic, atraumatic, anicteric Respiratory/Chest: lungs clear, no respiratory distress, chest wall tender Cardiovascular: normal rate Abdomen: soft, non tender, non distended Extremities: no edema, pedal pulses normal Neurologic/Psychiatric: other - drowsy, arousable Musculoskeletal: atrophy - BLE Microbiology Date/Time Source Procedure Growth Status 01/13/20 17:55 Nasal Nares 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 Complete 01/13/20 17:55 Rectum VRE Culture - Final NO VANCOMYCIN RESISTANT ENTEROCOCCUS ... Complete 01/13/20 17:55 Rectum - Final NO CARBAPENEM-RESISTANT ENTEROBACTERI... Complete Laboratory Tests 01/15/20 05:10: White Blood Count 9.8, Red Blood Count 2.95L, Hemoglobin 11.1L, Hematocrit 31.7L , Mean Corpuscular Volume 108H, Mean Corpuscular Hemoglobin 37.7H, Mean Corpuscular Hemoglobin Concent 35.1, Red Cell Distribution Width 11.2L, Platelet Count 270, Mean Platelet Volume 9.4, Neutrophils (%) (Auto) 83.8H, Lymphocytes (%) (Auto) 7.4L, Monocytes (%) (Auto) 7.0, Eosinophils (%) (Auto) 0.5, Basophils (%) (Auto) 1.3, Erythrocyte Sedimentation Rate 53H, Sodium Level 141, Potassium Level 4.1, Chloride Level 106, Carbon Dioxide Level 22, Anion Gap 13, Blood Urea Nitrogen 20H, Creatinine 1.3, Estimat Glomerular Filtration Rate 39.0, Glucose Level 106, Calcium Level 8.5, Phosphorus Level 3.4, Magnesium Level 1.6L, Total Bilirubin 1.1H, Direct Bilirubin 0.3, Aspartate Amino Transf (AST/SGOT) 29, Alanine Aminotransferase (ALT/SGPT) 28, Alkaline Phosphatase 84, C-Reactive Protein, Quantitative 8.5H, Total Protein 6.5, Albumin 3.0L, Globulin 3.5, Albumin/Globulin Ratio 0.9L, Thyroid Stimulating Hormone (TSH) 1.425 Current Medications Medications (Trade) Dose Ordered Sig/Dewayne Route PRN Reason Start Time Stop Time Status Last Admin Dose Admin Acetaminophen (Tylenol) 650 mg Q4H PRN ORAL fever 01/13/20 16:00 02/12/20 15:59 01/15/20 08:51 Dextrose (Dextrose 50%) 25 ml Q30M PRN IV Hypoglycemia 01/13/20 16:00 02/12/20 15:59 Dextrose (Dextrose 50%) 50 ml Q30M PRN IV Hypoglycemia 01/13/20 16:00 02/12/20 15:59 Dextrose/Sodium Chloride 1,000 ml @ 75 mls/hr [id number] IV 01/13/20 15:54 02/12/20 15:53 01/15/20 00:30 Diphenhydramine HCl (Benadryl) 25 mg Q6H PRN ORAL Itching/Pruritis 01/13/20 16:00 02/12/20 15:59 Docusate Sodium (Colace) 100 mg TWICE A DAY ORAL 01/15/20 09:00 02/14/20 08:59 01/15/20 08:51 Heparin Sodium (Porcine) (Heparin 5000 units/ml) 5,000 units EVERY 12 HOURS SUBQ 01/13/20 21:00 02/12/20 20:59 01/15/20 08:54 Lactulose (Cephulac) 20 gm BID ORAL 01/15/20 09:00 02/14/20 08:59 01/15/20 08:51 Lorazepam (Ativan 2mg/ml 1ml) 1 mg Q4H PRN IV For Anxiety 01/14/20 11:45 01/21/20 11:44 01/15/20 09:47 Metoclopramide HCl (Reglan) 10 mg Q6H PRN IVP severe nausea 01/13/20 16:00 02/12/20 15:59 Nitroglycerin (Ntg) 0.4 mg Q5M X 3 DOSES PRN SL Prn Chest Pain 01/13/20 16:00 02/12/20 15:59 Ondansetron HCl (Zofran) 4 mg Q6H PRN IVP Nausea & Vomiting 01/13/20 16:00 02/12/20 15:59 Pantoprazole (Protonix) 40 mg DAILY IV 01/14/20 09:00 02/13/20 08:59 01/15/20 08:52 Polyethylene Glycol (Miralax) 17 gm HSPRN PRN ORAL Constipation 01/13/20 21:00 02/12/20 20:59 Temazepam (Restoril) 15 mg HSPRN PRN ORAL Insomnia 01/13/20 21:00 01/20/20 20:59 Rosamaria Stallings HOME APPLIANCE TECHNICIAN Jan 15, 2020 12:12
--- NOTE | 2020-01-15 13:15 | Consultation ---
DATE OF CONSULTATION: 01/14/2020 CONSULTING PHYSICIAN: Yomi Sloan M.D. CHIEF COMPLAINT: Abdominal pain. HISTORY OF PRESENT ILLNESS: Most of the history per chart. This is an 84-year-old female, was found on the street, was brought by paramedics to the hospital. She mainly complained of abdominal pain. I cannot get any history from her. She is very confused. PAST MEDICAL HISTORY: Unknown. MEDICATIONS: unknown. ALLERGIES: Unknown. SOCIAL HISTORY: Unknown. PAST SURGICAL HISTORY: Unknown. PHYSICAL EXAMINATION: GENERAL: Very anxious, the patient is currently actually on restraints. VITAL SIGNS: Temperature is 98, pulse is 88, respirations 19, blood pressure is 130/82. HEENT: Normocephalic, atraumatic. Sclerae anicteric. NECK: Supple. No evidence of obvious lymphadenopathy. CARDIOVASCULAR: Tachy. Regular rate. Plus S1 and S2. LUNGS: bilaterally. ABDOMEN: Positive bowel sounds. Soft and nontender. No rebound. No guarding. No peritoneal sign. EXTREMITIES: No cyanosis, no clubbing, no edema. LABORATORY DATA: White count is 9.8, hemoglobin 11, hematocrit 31, MCV of 108, platelet count is 270. Chem-7, sodium 141, potassium 4.1, BUN is 20, creatinine is 1.3. Liver function tests grossly normal. Lipase normal. Imaging studies, the patient had an abdominal ultrasound showed evidence of gallstones. Otherwise, no any other obvious pathology. Had a CT of the abdomen and pelvis done without contrast in the emergency room, which showed evidence of constipation, diverticulosis, and questionable kidney stone. ASSESSMENT AND PLAN: This is an 84-year-old female with abdominal pain, poor historian. Imaging studies are nondiagnostic for any acute findings. There is evidence of stool, maybe constipation, diverticulosis, gallstones, macrocytic anemia. Plan will be to do anemia workup. The patient most probably will benefit from Hematology consultation. Given this macrocytic anemia, possibly a myelodysplastic syndrome, I will going to send iron panel, B12, folate, stool for OB, thyroid panel. Give her bowel regimen to move her bowels. We will start her on diet and advance as tolerated. I want to thank, Dr. High, for this kind referral. Yomi Clay Sloan DR: MARYANNE JOB#: [id number] CC: Ulices High M.D.; Fax#: [phone]
--- NOTE | 2020-01-15 14:38 | Internal Med Progress Note ---
Subjective Date of Service: Jan 15, 2020 Physician Name SoniaJonas Attending Physician Ulices High MD Current Medications Medications (Trade) Dose Ordered Sig/Dewayne Route PRN Reason Start Time Stop Time Status Last Admin Dose Admin Acetaminophen (Tylenol) 650 mg Q4H PRN ORAL fever 01/13/20 16:00 02/12/20 15:59 01/15/20 08:51 Dextrose (Dextrose 50%) 25 ml Q30M PRN IV Hypoglycemia 01/13/20 16:00 02/12/20 15:59 Dextrose (Dextrose 50%) 50 ml Q30M PRN IV Hypoglycemia 01/13/20 16:00 02/12/20 15:59 Dextrose/Sodium Chloride 1,000 ml @ 75 mls/hr [id number] IV 01/13/20 15:54 02/12/20 15:53 01/15/20 00:30 Diphenhydramine HCl (Benadryl) 25 mg Q6H PRN ORAL Itching/Pruritis 01/13/20 16:00 02/12/20 15:59 Docusate Sodium (Colace) 100 mg TWICE A DAY ORAL 01/15/20 09:00 02/14/20 08:59 01/15/20 08:51 Heparin Sodium (Porcine) (Heparin 5000 units/ml) 5,000 units EVERY 12 HOURS SUBQ 01/13/20 21:00 02/12/20 20:59 01/15/20 08:54 Lactulose (Cephulac) 20 gm BID ORAL 01/15/20 09:00 02/14/20 08:59 01/15/20 08:51 Lorazepam (Ativan 2mg/ml 1ml) 1 mg Q4H PRN IV For Anxiety 01/14/20 11:45 01/21/20 11:44 01/15/20 09:47 Metoclopramide HCl (Reglan) 10 mg Q6H PRN IVP severe nausea 01/13/20 16:00 02/12/20 15:59 Nitroglycerin (Ntg) 0.4 mg Q5M X 3 DOSES PRN SL Prn Chest Pain 01/13/20 16:00 02/12/20 15:59 Ondansetron HCl (Zofran) 4 mg Q6H PRN IVP Nausea & Vomiting 01/13/20 16:00 02/12/20 15:59 Pantoprazole (Protonix) 40 mg DAILY IV 01/14/20 09:00 02/13/20 08:59 01/15/20 08:52 Polyethylene Glycol (Miralax) 17 gm HSPRN PRN ORAL Constipation 01/13/20 21:00 02/12/20 20:59 Temazepam (Restoril) 15 mg HSPRN PRN ORAL Insomnia 01/13/20 21:00 01/20/20 20:59 Allergies: Coded Allergies: No Known Allergies (Unverified , 01/13/20) ROS Limited/Unobtainable: Yes Subjective 84 YO F admitted with altered mental status and abdominal pain. Cover for Int Med- Dr High Objective Last Vital Signs Date Time Temp Pulse Resp B/P (MAP) Pulse Ox O2 Delivery O2 Flow Rate FiO2 01/15/20 12:00 98.4 20 155/88 (110) 95 01/15/20 09:00 Room Air 01/15/20 08:00 116 01/13/20 19:45 99 Laboratory Tests Test 01/15/20 05:10 White Blood Count 9.8 K/UL (4.8-10.8) Red Blood Count 2.95 M/UL (4.20-5.40) L Hemoglobin 11.1 G/DL (12.0-16.0) L Hematocrit 31.7 % (37.0-47.0) L Mean Corpuscular Volume 108 FL (80-99) H Mean Corpuscular Hemoglobin 37.7 PG (27.0-31.0) H Mean Corpuscular Hemoglobin Concent 35.1 G/DL (32.0-36.0) Red Cell Distribution Width 11.2 % (11.6-14.8) L Platelet Count 270 K/UL (150-450) Mean Platelet Volume 9.4 FL (6.5-10.1) Neutrophils (%) (Auto) 83.8 % (45.0-75.0) H Lymphocytes (%) (Auto) 7.4 % (20.0-45.0) L Monocytes (%) (Auto) 7.0 % (1.0-10.0) Eosinophils (%) (Auto) 0.5 % (0.0-3.0) Basophils (%) (Auto) 1.3 % (0.0-2.0) Erythrocyte Sedimentation Rate 53 MM/HR (0-30) H Sodium Level 141 MMOL/L (136-145) Potassium Level 4.1 MMOL/L (3.5-5.1) Chloride Level 106 MMOL/L (98-107) Carbon Dioxide Level 22 MMOL/L (21-32) Anion Gap 13 mmol/L (5-15) Blood Urea Nitrogen 20 mg/dL (7-18) H Creatinine 1.3 MG/DL (0.55-1.30) Estimat Glomerular Filtration Rate 39.0 mL/min (>60) Glucose Level 106 MG/DL (74-106) Calcium Level 8.5 MG/DL (8.5-10.1) Phosphorus Level 3.4 MG/DL (2.5-4.9) Magnesium Level 1.6 MG/DL (1.8-2.4) L Total Bilirubin 1.1 MG/DL (0.2-1.0) H Direct Bilirubin 0.3 MG/DL (0.0-0.3) Aspartate Amino Transf (AST/SGOT) 29 U/L (15-37) Alanine Aminotransferase (ALT/SGPT) 28 U/L (12-78) Alkaline Phosphatase 84 U/L (46-116) C-Reactive Protein, Quantitative 8.5 mg/dL (0.00-0.90) H Total Protein 6.5 G/DL (6.4-8.2) Albumin 3.0 G/DL (3.4-5.0) L Globulin 3.5 g/dL Albumin/Globulin Ratio 0.9 (1.0-2.7) L Thyroid Stimulating Hormone (TSH) 1.425 uiU/mL (0.358-3.740) Microbiology Date/Time Source Procedure Growth Status 01/13/20 17:55 Nasal Nares 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 Complete 01/13/20 17:55 Rectum VRE Culture - Final NO VANCOMYCIN RESISTANT ENTEROCOCCUS ... Complete 01/13/20 17:55 Rectum - Final NO CARBAPENEM-RESISTANT ENTEROBACTERI... Complete Intake and Output 01/14/20 01/15/20 19:00 07:00 Intake Total 900 ml 525 ml Balance 900 ml 525 ml IV Total 900 ml 525 ml # Voids 4 4 Objective PHYSICAL EXAMINATION: GENERAL: The patient is a well-developed, well-nourished female, disheveled, and very confused. HEENT: Eyes, pupils are equal and responsive to light and accommodation. Extraocular movements are intact. NECK: Supple without lymphadenopathy. CHEST: Lungs are clear to auscultation bilaterally without wheezes or rales. CARDIOVASCULAR: Regular rhythm and rate. S1 and S2 are normal without murmurs, rubs, or gallops. ABDOMEN: Soft, diffusely tender to palpation, with decreased bowel sounds. No evidence of hepatosplenomegaly. Currently, no rebound or guarding noted. EXTREMITIES: Negative for clubbing, cyanosis, or edema. RECTAL: Not performed. GENITAL: Not performed. NEUROLOGIC: Cranial nerves II through XII are grossly intact without focal deficits. Motor strength is 5/5 bilaterally. Deep tendon reflexes are 2+ plantar. Assessment/Plan Assessment/Plan SSESSMENT: This is an 84-year-old female with: 1. Altered mental status. 2. Abdominal pain. 3. Anemia TREATMENT: 1. Altered mental status. Reason for altered mental status is unknown. An MRI of the brain is pending. The patient may have had cerebrovascular accident versus Alzheimer's dementia and just got loss. A Neurology consultation has been obtained with Dr. Navarro. 2. Abdominal pain. Workup so far has been within normal limits. A Gastroenterology consultation has been obtained with Dr. Yomi Sloan. 3. Anemia workup Jonas Scott MD Jan 15, 2020 14:38
[2020-01-15 15:54] VITALS: BP 126/83
[2020-01-15] MEDS ORDERED: D5 1/2NS 1000ml IV ONE (16:02)
--- NOTE | 2020-01-15 19:00 | NUR ---
NURSE NOTES: Received report from Leonard Greene RN, pt in bed sleeping in supine position, agitated no s/s respiratory distress on RA breaths even regular and unlabored .. Pt has R hand 20G with i.v fluids running , patent and asymptomatic.lactulose was given to pt . Call light with in reach, bed in low locked position, will continue to monitor.
--- NOTE | 2020-01-15 19:47 | NUR ---
HAND-OFF: Report given to Aaron GARLAND. Patient is stable.
[2020-01-15 20:00] VITALS: BP 144/82
[2020-01-16] VITALS (9 sets, daily range): BP systolic 123–151; BP diastolic 73–95
--- NOTE | 2020-01-16 05:55 | NUR ---
NURSE NOTES: Pt found on the floor at the foot of the bed, with i.v fluids disconnected, pt was sitting and i asked what happened she was unable to described what happened because she is confused . Called rapid response. After team response , pt was helped up to the bed.Checked vital signs Bp 156/96 HR 129 RR22 O2sat 63 RR 24 , pt c/o of a headache and hip pain.
--- NOTE | 2020-01-16 06:00 | NUR ---
Continued to monitor pt,Notified Dr Sims , stat orders for CT and xray received and carried , also left ms for primary Md. Post fall paper work filled
--- NOTE | 2020-01-16 06:27 | General Progress Note ---
Assessment/Plan Assessment/Plan: macrocytic anemia constipation s/p fall gallstones diverticulosis start diet anemia work up bowel regimen will fu Subjective Allergies: Coded Allergies: No Known Allergies (Unverified , 01/13/20) Objective Last 24 Hour Vital Signs Date Time Temp Pulse Resp B/P (MAP) Pulse Ox O2 Delivery O2 Flow Rate FiO2 01/16/20 04:00 98.0 108 20 134/80 (98) 98 01/16/20 00:00 97.4 96 20 150/95 (113) 96 01/15/20 21:00 Room Air 01/15/20 20:00 97.4 104 20 144/82 (102) 96 01/15/20 15:54 97.5 127 20 126/83 (97) 96 01/15/20 12:00 98.4 20 155/88 (110) 95 01/15/20 09:00 Room Air 01/15/20 08:00 98.1 116 20 147/108 (121) 95 Intake and Output 01/15/20 01/16/20 19:00 07:00 # Voids 2 Laboratory Tests 01/16/20 04:45: White Blood Count [Pending], Red Blood Count [Pending], Hemoglobin [Pending], Hematocrit [Pending], Mean Corpuscular Volume [Pending], Mean Corpuscular Hemoglobin [Pending], Mean Corpuscular Hemoglobin Concent [Pending], Red Cell Distribution Width [Pending], Platelet Count [Pending], Mean Platelet Volume [ Pending], Neutrophils (%) (Auto) [Pending], Lymphocytes (%) (Auto) [Pending], Monocytes (%) (Auto) [Pending], Eosinophils (%) (Auto) [Pending], Basophils (%) (Auto) [Pending], Reticulocyte Count [Pending], Prothrombin Time [Pending], Prothromb Time International Ratio [Pending], Sodium Level [Pending], Potassium Level [Pending], Chloride Level [Pending], Carbon Dioxide Level [Pending], Blood Urea Nitrogen [Pending], Creatinine [Pending], Estimat Glomerular Filtration Rate [Pending], Glucose Level [Pending], Calcium Level [Pending], Phosphorus Level [Pending], Magnesium Level [Pending], Iron Level [Pending], Unsaturated Iron Binding [Pending], Ferritin [Pending], Total Bilirubin [Pending ], Aspartate Amino Transf (AST/SGOT) [Pending], Alanine Aminotransferase (ALT/ SGPT) [Pending], Alkaline Phosphatase [Pending], Total Protein [Pending], Albumin [Pending], Globulin [Pending], Amylase Level [Pending], Lipase [Pending] , Carcinoembryonic Antigen [Pending], Vitamin B12 Level [Pending], Free Thyroxine [Pending] Height (Feet): 5 Height (Inches): 3.00 Weight (Pounds): 115 General Appearance: confused EENT: normal ENT inspection Neck: supple Cardiovascular: normal rate Respiratory/Chest: decreased breath sounds Abdomen: normal bowel sounds, non tender, soft Extremities: non-tender Yomi Sloan MD Jan 16, 2020 06:27
[2020-01-16 07:18] LABS: HEMATOCRIT 31.6 % (37.0-47.0); HEMOGLOBIN 11.6 G/DL (12.0-16.0); MEAN CORPUSCULAR VOLUME 103 FL (80-99); PLATELET COUNT 269 K/UL (150-450); RED BLOOD COUNT 3.06 M/UL (4.20-5.40); WHITE BLOOD COUNT 7.9 K/UL (4.8-10.8)
[2020-01-16 07:31] LABS: ALANINE AMINOTRANSFERASE 30 U/L (12-78); ALBUMIN 2.9 G/DL (3.4-5.0); ALBUMIN/GLOBULIN RATIO 0.8 (1.0-2.7); ALKALINE PHOSPHATASE 94 U/L (46-116); AMYLASE 40 U/L (25-115); ANION GAP 10 mmol/L (5-15); ASPARTATE AMINO TRANSFERASE 21 U/L (15-37); BILIRUBIN,TOTAL 0.5 MG/DL (0.2-1.0); BLOOD UREA NITROGEN 16 mg/dL (7-18); CALCIUM 8.7 MG/DL (8.5-10.1); CARBON DIOXIDE 26 MMOL/L (21-32); CHLORIDE 107 MMOL/L (98-107); CREATININE 1.1 MG/DL (0.55-1.30); PHOSPHORUS 3.3 MG/DL (2.5-4.9); POTASSIUM 3.4 MMOL/L (3.5-5.1); SODIUM 143 MMOL/L (136-145)
[2020-01-16] MEDS: LORazepam Inj 2mg/ml 1ml IV PRN ×4 (07:36→20:47)
--- NOTE | 2020-01-16 08:00 | NUR ---
NURSE NOTES: Patient is in bed and is restless. Patient is moving around the bed with bilateral arms restrained. Safety measures provided. Patient is confused and is unable to follow commands. Patient kept clean and dry. Skin is c/d/i. Patient is in bed in locked and lowest position with call light within reach. All needs met at this time. Will continue to monitor.
[2020-01-16 08:08] LABS: % IRON SATURATION 11 % (15-50); IRON 24 ug/dL (50-175); TOTAL IRON BINDING CAPACITY 215 ug/dL (250-450)
[2020-01-16] MEDS ORDERED: LORazepam Inj 2mg/ml 1ml IV PRN (08:15)
--- NOTE | 2020-01-16 08:22 | NUR ---
HAND-OFF: Report given to DADA Valle.
--- NOTE | 2020-01-16 08:35 | Consultation ---
History of Present Illness General Chief Complaint: Abdominal Pain Present Illness Allergies: Coded Allergies: No Known Allergies (Unverified , 01/13/20) Medication History Unable to Obtain Active Prescriptions or Reported Meds Patient History Healthcare decision maker Resuscitation status Full Code Advanced Directive on File Physical Exam Last 24 Hour Vital Signs Date Time Temp Pulse Resp B/P (MAP) Pulse Ox O2 Delivery O2 Flow Rate FiO2 01/16/20 04:00 98.0 108 20 134/80 (98) 98 01/16/20 00:00 97.4 96 20 150/95 (113) 96 01/15/20 21:00 Room Air 01/15/20 20:00 97.4 104 20 144/82 (102) 96 01/15/20 15:54 97.5 127 20 126/83 (97) 96 01/15/20 12:00 98.4 20 155/88 (110) 95 01/15/20 09:00 Room Air Intake and Output 01/15/20 01/16/20 19:00 07:00 # Voids 2 3 Laboratory Tests Test 01/16/20 04:45 01/16/20 08:15 White Blood Count 7.9 K/UL (4.8-10.8) Red Blood Count 3.06 M/UL (4.20-5.40) L Hemoglobin 11.6 G/DL (12.0-16.0) L Hematocrit 31.6 % (37.0-47.0) L Mean Corpuscular Volume 103 FL (80-99) H Mean Corpuscular Hemoglobin 37.9 PG (27.0-31.0) H Mean Corpuscular Hemoglobin Concent 36.7 G/DL (32.0-36.0) H Red Cell Distribution Width 11.0 % (11.6-14.8) L Platelet Count 269 K/UL (150-450) Mean Platelet Volume 10.2 FL (6.5-10.1) H Neutrophils (%) (Auto) % (45.0-75.0) Lymphocytes (%) (Auto) % (20.0-45.0) Monocytes (%) (Auto) % (1.0-10.0) Eosinophils (%) (Auto) % (0.0-3.0) Basophils (%) (Auto) % (0.0-2.0) Neutrophils % (Manual) Pending Lymphocytes % (Manual) Pending Platelet Estimate Pending Platelet Morphology Pending Reticulocyte Count Pending Sodium Level 143 MMOL/L (136-145) Potassium Level 3.4 MMOL/L (3.5-5.1) L Chloride Level 107 MMOL/L (98-107) Carbon Dioxide Level 26 MMOL/L (21-32) Anion Gap 10 mmol/L (5-15) Blood Urea Nitrogen 16 mg/dL (7-18) Creatinine 1.1 MG/DL (0.55-1.30) Estimat Glomerular Filtration Rate 47.2 mL/min (>60) Glucose Level 104 MG/DL (74-106) Calcium Level 8.7 MG/DL (8.5-10.1) Phosphorus Level 3.3 MG/DL (2.5-4.9) Magnesium Level 1.8 MG/DL (1.8-2.4) Iron Level 24 ug/dL (50-175) L Total Iron Binding Capacity 215 ug/dL (250-450) L Percent Iron Saturation 11 % (15-50) L Unsaturated Iron Binding 191 ug/dL (112-346) Ferritin 204 NG/ML (8-388) Total Bilirubin 0.5 MG/DL (0.2-1.0) Aspartate Amino Transf (AST/SGOT) 21 U/L (15-37) Alanine Aminotransferase (ALT/SGPT) 30 U/L (12-78) Alkaline Phosphatase 94 U/L (46-116) Total Protein 6.5 G/DL (6.4-8.2) Albumin 2.9 G/DL (3.4-5.0) L Globulin 3.6 g/dL Albumin/Globulin Ratio 0.8 (1.0-2.7) L Amylase Level 40 U/L (25-115) Lipase 52 U/L (73-393) L Carcinoembryonic Antigen Pending Vitamin B12 Level 1095 PG/ML (193-986) H Free Thyroxine 1.32 NG/DL (0.76-1.46) Prothrombin Time Pending Prothromb Time International Ratio Pending Height (Feet): 5 Height (Inches): 3.00 Weight (Pounds): 115 Medications Current Medications Medications (Trade) Dose Ordered Sig/Dewayne Route PRN Reason Start Time Stop Time Status Last Admin Dose Admin Acetaminophen (Tylenol) 650 mg Q4H PRN ORAL fever 01/13/20 16:00 02/12/20 15:59 01/15/20 08:51 Dextrose (Dextrose 50%) 25 ml Q30M PRN IV Hypoglycemia 01/13/20 16:00 02/12/20 15:59 Dextrose (Dextrose 50%) 50 ml Q30M PRN IV Hypoglycemia 01/13/20 16:00 02/12/20 15:59 Dextrose/Sodium Chloride 1,000 ml @ 75 mls/hr [id number] IV 01/13/20 15:54 02/12/20 15:53 01/15/20 22:36 Diphenhydramine HCl (Benadryl) 25 mg Q6H PRN ORAL Itching/Pruritis 01/13/20 16:00 02/12/20 15:59 Docusate Sodium (Colace) 100 mg TWICE A DAY ORAL 01/15/20 09:00 02/14/20 08:59 01/15/20 17:28 Heparin Sodium (Porcine) (Heparin 5000 units/ml) 5,000 units EVERY 12 HOURS SUBQ 01/13/20 21:00 02/12/20 20:59 01/15/20 22:35 Lactulose (Cephulac) 20 gm BID ORAL 01/15/20 09:00 02/14/20 08:59 01/15/20 17:28 Lorazepam (Ativan 2mg/ml 1ml) 1 mg ONCE PRN IV prior to procedure 01/16/20 08:15 01/16/20 10:00 01/16/20 08:15 Lorazepam (Ativan 2mg/ml 1ml) 1 mg Q4H PRN IV For Anxiety 01/14/20 11:45 01/21/20 11:44 01/16/20 07:36 Metoclopramide HCl (Reglan) 10 mg Q6H PRN IVP severe nausea 01/13/20 16:00 02/12/20 15:59 Nitroglycerin (Ntg) 0.4 mg Q5M X 3 DOSES PRN SL Prn Chest Pain 01/13/20 16:00 02/12/20 15:59 Ondansetron HCl (Zofran) 4 mg Q6H PRN IVP Nausea & Vomiting 01/13/20 16:00 02/12/20 15:59 Pantoprazole (Protonix) 40 mg DAILY IV 01/14/20 09:00 02/13/20 08:59 01/15/20 08:52 Polyethylene Glycol (Miralax) 17 gm HSPRN PRN ORAL Constipation 01/13/20 21:00 02/12/20 20:59 Temazepam (Restoril) 15 mg HSPRN PRN ORAL Insomnia 01/13/20 21:00 01/20/20 20:59 Assessment/Plan Assessment/Plan: Hematology Consultation REJamshid MD: Jonas Scott RFC: Anemia DOS: 01/16/2020 ID 84y old presents from being found on the street with reports of abdominal pain Patient appears poorly kept disheveled Patient has flight of thought and appears confused Patient does complain of diffuse abdominal pain Denies vomiting or diarrhea however requires multiple times of refocusing in order to obtain any further history Unknown regarding trauma patient denies any pain to the extremities She is also repetitive with complaining of pain without giving any specific location GI eval is pending, consulted for anemia Allergies: No Known Allergies (Unverified , 01/13/20) Patient History Limited by: medical condition Past Medical History: see triage record Reviewed Nursing Documentation: PMH: Agreed; PSxH: Agreed Nursing Documentation-PMH Past Medical History: No History, Except For Hx Hypertension: Yes Hx Diabetes: Yes Review of Systems Limited - Other than the ones mentioned in the history of present illness all others are reviewed however they do stay limited due to the patient's mental status Physical Exam General: mild distress - confused Head: normocephalic, atraumatic, b/l eomi, dry mucus membranes Resp: lungs clear, no respiratory distress Cardiovascular: regular rate, rhythm Gastrointestinal: non tender, soft, ttp throughout Genitourinary: no CVA tenderness Musculoskeletal: other - Difficult to fully evaluate patient moves both lower extremities, lower ex pain Neurologic: other - Patient is verbal, follows some commands however Skin: no rash Labs: reviewed Imaging: reviewed Assessment and Recs: # Macrocytic anemia -- dec in h/h, wth elev mcv --> meds have been reviewed, unlikely contributors --> no hemolysis is noted --> tsh and b12 noted --> consider gi eval, recs noted --> hold off further eval with a bone marrow biopsy, may follow as outpatient # Constipation --> senna colace prn # s/p fall --> orthostatics reviewed # Gallstones --> gi aware # Diverticulosis --> on diet, per gi, monitor Appreciate consultation and dw David Velasquez MD Jan 16, 2020 08:35
[2020-01-16 08:42] LABS: INR 1.1 (0.9-1.1)
--- NOTE | 2020-01-16 08:48 | Diagnostic Imaging Report ---
EXAM: CT Head Without Intravenous Contrast CLINICAL HISTORY: FALL TECHNIQUE: Axial computed tomography images of the head/brain without intravenous contrast. CTDI is 53 to mGy and DLP is 992 mGy-cm. One or more of the following dose reduction techniques were used: automated exposure control, adjustment of the mA and/or kV according to patient size, use of iterative reconstruction technique. COMPARISON: 01/13/20 FINDINGS: Brain: There is low-density in the roustabout head white matter consistent with chronic microvascular ischemic change. No acute infarcts identified. No hemorrhage. Ventricles: Unremarkable. No ventriculomegaly. Bones/joints: Unremarkable. No acute fracture. Soft tissues: Unremarkable. Sinuses: Unremarkable as visualized. No acute sinusitis. Mastoid air cells: Unremarkable as visualized. No mastoid effusion. IMPRESSION: No acute findings in the head/brain.
--- NOTE | 2020-01-16 08:58 | Diagnostic Imaging Report ---
EXAM: XR Pelvis, 1 or 2 Views CLINICAL HISTORY: FALL TECHNIQUE: Frontal view of the pelvis. COMPARISON: No relevant prior studies available. FINDINGS: Bones/joints: Unremarkable. No acute fracture. No dislocation. Soft tissues: Unremarkable. Gastrointestinal tract: Incidental note is made of moderate constipation. IMPRESSION: No acute fracture of the pelvis. Moderate constipation
[2020-01-16] MEDS: Docusate 100mg cap ORAL SCH ×2 (09:00→17:33)
[2020-01-16] MEDS: Lactulose 20gm/30ml UDC ORAL SCH ×2 (09:00→17:33)
[2020-01-16] MEDS: Pantoprazole Inj IV SCH (09:00)
--- NOTE | 2020-01-16 09:09 | Diagnostic Imaging Report ---
EXAM: XR Lumbosacral Spine, 1 view CLINICAL HISTORY: FALL TECHNIQUE: Frontal and lateral views of the lumbar spine and sacrum. COMPARISON: No relevant prior studies available. FINDINGS: Vertebrae: Only a single AP projection was performed and submitted by the technologist per request. The study is inadequate for evaluation of the lumbar spine. There appear to be compression deformities of L1 and L2 however correlation with dedicated CT of the lumbar spine or MRI is recommended. Note is made of moderate constipation. IMPRESSION: Inadequate study for evaluation of lumbar spine. Correlation with dedicated CT or MRI is recommended for further evaluation
[2020-01-16] MEDS ORDERED: D5 1/2NS 1,000 ML IV SCH (10:00)
--- NOTE | 2020-01-16 10:00 | NUR ---
NURSE NOTES: Heart rate 133 reported to Rosamaria Stallings [employer]ET[employer]IST. New orders to give 20 meq kdur read back and carried out. IVF running.
[2020-01-16] MEDS: Heparin 5000 units/ml inj SUBQ SCH ×2 (10:01→20:33)
[2020-01-16] MEDS: D5 1/2NS 1,000 ML IV SCH (10:34)
--- NOTE | 2020-01-16 11:07 | Pulmonology Progress Note ---
Assessment/Plan Assessment/Plan ASSESSMENT Acute encephalopathy Abdominal pain Fecal impaction Cerebrovascular disease with history of old left lacunar infarct Acute kidney injury, probably due to dehydration -resolved Anemia Possible cholelithiasis Hypokalemia tachycardia PLAN OF CARE MS floor N.p.o. gentle IV fluid CT head noted -> old left lacunar infarct MRI brain pending carotid duplex lipid panel CXR with chronic changes , no acute cardiopulmonary pathology O2 HHN prn bowel regimen neuro and GI eval pending DVT, GI prophylaxis pain management CT abdomen pelvis noted abdominal ultrasound noted possible cholelithiasis replace K monitor H&H with goal to keep hemoglobin above 7 monitor renal parameters, lytes, avoid nephrotoxic, TAMMIE resolved, likely due to dehydration? cause of AMS unclear, consider psych eval -per primary team tachycardia in low 100,? due to dehydration; start IVF get troponin, ECG s/p fall 01/15 evening ( got herself off restraints), CT head, X ray pelvis negative case discussed and evaluated by supervising physician Subjective Allergies: Coded Allergies: No Known Allergies (Unverified , 01/13/20) Subjective remains altered MRI pending UA unremarkable TSH WNL stable hemodynamically creat down to normal s/p fall 01/15, CT head negative, X ray pelvis - no fracture Objective Last 24 Hour Vital Signs Date Time Temp Pulse Resp B/P (MAP) Pulse Ox O2 Delivery O2 Flow Rate FiO2 01/16/20 08:59 97.2 95 Room Air 01/16/20 04:00 98.0 108 20 134/80 (98) 98 01/16/20 00:00 97.4 96 20 150/95 (113) 96 01/15/20 21:00 Room Air 01/15/20 20:00 97.4 104 20 144/82 (102) 96 01/15/20 15:54 97.5 127 20 126/83 (97) 96 01/15/20 12:00 98.4 20 155/88 (110) 95 Intake and Output 01/15/20 01/16/20 19:00 07:00 # Voids 2 3 Objective General Appearance: drowsy, but easily arousable female HEENT: normocephalic, atraumatic, anicteric Respiratory/Chest: lungs clear, no respiratory distress, chest wall tender Cardiovascular: normal rate Abdomen: soft, non tender, non distended Extremities: no edema, pedal pulses normal Neurologic/Psychiatric: drowsy, easily arousable Musculoskeletal: atrophy - BLE Microbiology Date/Time Source Procedure Growth Status 01/13/20 17:55 Nasal Nares 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 Complete 01/13/20 17:55 Rectum VRE Culture - Final NO VANCOMYCIN RESISTANT ENTEROCOCCUS ... Complete 01/13/20 17:55 Rectum - Final NO CARBAPENEM-RESISTANT ENTEROBACTERI... Complete Laboratory Tests 01/16/20 04:45: White Blood Count 7.9, Red Blood Count 3.06L, Hemoglobin 11.6L, Hematocrit 31.6L , Mean Corpuscular Volume 103H, Mean Corpuscular Hemoglobin 37.9H, Mean Corpuscular Hemoglobin Concent 36.7H, Red Cell Distribution Width 11.0L, Platelet Count 269, Mean Platelet Volume 10.2H, Neutrophils (%) (Auto) , Lymphocytes (%) (Auto) , Monocytes (%) (Auto) , Eosinophils (%) (Auto) , Basophils (%) (Auto) , Differential Total Cells Counted 100, Neutrophils % ( Manual) 84H, Lymphocytes % (Manual) 9L, Monocytes % (Manual) 5, Eosinophils % ( Manual) 2, Basophils % (Manual) 0, Band Neutrophils 0, Platelet Estimate Adequate, Platelet Morphology Normal, Macrocytosis 1+, Reticulocyte Count [ Pending], Sodium Level 143, Potassium Level 3.4L, Chloride Level 107, Carbon Dioxide Level 26, Anion Gap 10, Blood Urea Nitrogen 16, Creatinine 1.1, Estimat Glomerular Filtration Rate 47.2, Glucose Level 104, Calcium Level 8.7, Phosphorus Level 3.3, Magnesium Level 1.8, Iron Level 24L, Total Iron Binding Capacity 215L, Percent Iron Saturation 11L, Unsaturated Iron Binding 191, Ferritin 204, Total Bilirubin 0.5, Aspartate Amino Transf (AST/SGOT) 21, Alanine Aminotransferase (ALT/SGPT) 30, Alkaline Phosphatase 94, Total Protein 6.5, Albumin 2.9L, Globulin 3.6, Albumin/Globulin Ratio 0.8L, Amylase Level 40, Lipase 52L, Carcinoembryonic Antigen [Pending], Vitamin B12 Level 1095H, Free Thyroxine 1.32 01/16/20 08:15: Prothrombin Time 11.5, Prothromb Time International Ratio 1.1 Current Medications Medications (Trade) Dose Ordered Sig/Dewayne Route PRN Reason Start Time Stop Time Status Last Admin Dose Admin Acetaminophen (Tylenol) 650 mg Q4H PRN ORAL fever 01/13/20 16:00 02/12/20 15:59 01/15/20 08:51 Dextrose (Dextrose 50%) 25 ml Q30M PRN IV Hypoglycemia 01/13/20 16:00 02/12/20 15:59 Dextrose (Dextrose 50%) 50 ml Q30M PRN IV Hypoglycemia 01/13/20 16:00 02/12/20 15:59 Dextrose/Sodium Chloride 1,000 ml @ 75 mls/hr [id number] IV 01/13/20 15:54 02/12/20 15:53 01/15/20 22:36 Diphenhydramine HCl (Benadryl) 25 mg Q6H PRN ORAL Itching/Pruritis 01/13/20 16:00 02/12/20 15:59 Docusate Sodium (Colace) 100 mg TWICE A DAY ORAL 01/15/20 09:00 02/14/20 08:59 01/15/20 17:28 Heparin Sodium (Porcine) (Heparin 5000 units/ml) 5,000 units EVERY 12 HOURS SUBQ 01/13/20 21:00 02/12/20 20:59 01/16/20 10:01 Lactulose (Cephulac) 20 gm BID ORAL 01/15/20 09:00 02/14/20 08:59 01/15/20 17:28 Lorazepam (Ativan 2mg/ml 1ml) 1 mg Q4H PRN IV For Anxiety 01/14/20 11:45 01/21/20 11:44 01/16/20 07:36 Metoclopramide HCl (Reglan) 10 mg Q6H PRN IVP severe nausea 01/13/20 16:00 02/12/20 15:59 Nitroglycerin (Ntg) 0.4 mg Q5M X 3 DOSES PRN SL Prn Chest Pain 01/13/20 16:00 02/12/20 15:59 Ondansetron HCl (Zofran) 4 mg Q6H PRN IVP Nausea & Vomiting 01/13/20 16:00 02/12/20 15:59 Pantoprazole (Protonix) 40 mg DAILY IV 01/14/20 09:00 02/13/20 08:59 01/15/20 08:52 Polyethylene Glycol (Miralax) 17 gm HSPRN PRN ORAL Constipation 01/13/20 21:00 02/12/20 20:59 Potassium Chloride (K-Dur) 20 meq ONCE ORAL 01/16/20 12:00 01/16/20 13:00 Temazepam (Restoril) 15 mg HSPRN PRN ORAL Insomnia 01/13/20 21:00 01/20/20 20:59 Rosamaria Stallings NP Jan 16, 2020 11:07
--- NOTE | 2020-01-16 13:00 | NUR ---
NURSE NOTES: EKG done at bedside. Dr. Scott made aware of troponin level. Order to transfer to tele read back. Awaiting bed availbility.
--- NOTE | 2020-01-16 13:53 | NUR ---
NURSE NOTES: Patient is extremely restless and talking incomprehensibly. Patient's bilateral extremities restrained as ordered. CSM assessed. Skin is c/d/i.
[2020-01-16] MEDS ORDERED: D5 1/2NS 1000ml IV ONE (13:54)
--- NOTE | 2020-01-16 14:15 | NUR ---
HAND-OFF: Report given to Mony GARLAND. Patient is stable.
--- NOTE | 2020-01-16 14:45 | Internal Med Progress Note ---
Subjective Date of Service: Jan 16, 2020 Physician Name SoniaJonas Attending Physician Ulices High MD Current Medications Medications (Trade) Dose Ordered Sig/Dewayne Route PRN Reason Start Time Stop Time Status Last Admin Dose Admin Acetaminophen (Tylenol) 650 mg Q4H PRN ORAL fever 01/13/20 16:00 02/12/20 15:59 01/15/20 08:51 Dextrose (Dextrose 50%) 25 ml Q30M PRN IV Hypoglycemia 01/13/20 16:00 02/12/20 15:59 Dextrose (Dextrose 50%) 50 ml Q30M PRN IV Hypoglycemia 01/13/20 16:00 02/12/20 15:59 Dextrose/Sodium Chloride 1,000 ml @ 75 mls/hr [id number] IV 01/13/20 15:54 02/12/20 15:53 01/15/20 22:36 Diphenhydramine HCl (Benadryl) 25 mg Q6H PRN ORAL Itching/Pruritis 01/13/20 16:00 02/12/20 15:59 Docusate Sodium (Colace) 100 mg TWICE A DAY ORAL 01/15/20 09:00 02/14/20 08:59 01/15/20 17:28 Heparin Sodium (Porcine) (Heparin 5000 units/ml) 5,000 units EVERY 12 HOURS SUBQ 01/13/20 21:00 02/12/20 20:59 01/16/20 10:01 Lactulose (Cephulac) 20 gm BID ORAL 01/15/20 09:00 02/14/20 08:59 01/15/20 17:28 Lorazepam (Ativan 2mg/ml 1ml) 1 mg Q4H PRN IV For Anxiety 01/14/20 11:45 01/21/20 11:44 01/16/20 12:48 Metoclopramide HCl (Reglan) 10 mg Q6H PRN IVP severe nausea 01/13/20 16:00 02/12/20 15:59 Nitroglycerin (Ntg) 0.4 mg Q5M X 3 DOSES PRN SL Prn Chest Pain 01/13/20 16:00 02/12/20 15:59 Ondansetron HCl (Zofran) 4 mg Q6H PRN IVP Nausea & Vomiting 01/13/20 16:00 02/12/20 15:59 Pantoprazole (Protonix) 40 mg DAILY IV 01/14/20 09:00 02/13/20 08:59 01/15/20 08:52 Polyethylene Glycol (Miralax) 17 gm HSPRN PRN ORAL Constipation 01/13/20 21:00 02/12/20 20:59 Temazepam (Restoril) 15 mg HSPRN PRN ORAL Insomnia 01/13/20 21:00 01/20/20 20:59 Allergies: Coded Allergies: No Known Allergies (Unverified , 01/13/20) ROS Limited/Unobtainable: Yes Subjective 84 YO F admitted with altered mental status and abdominal pain. Cover for Int Med- Dr High Objective Last Vital Signs Date Time Temp Pulse Resp B/P (MAP) Pulse Ox O2 Delivery O2 Flow Rate FiO2 01/16/20 12:00 98.9 136 18 147/95 (112) 95 01/16/20 09:00 Room Air 01/13/20 19:45 99 Laboratory Tests Test 01/16/20 04:45 01/16/20 08:15 White Blood Count 7.9 K/UL (4.8-10.8) Red Blood Count 3.06 M/UL (4.20-5.40) L Hemoglobin 11.6 G/DL (12.0-16.0) L Hematocrit 31.6 % (37.0-47.0) L Mean Corpuscular Volume 103 FL (80-99) H Mean Corpuscular Hemoglobin 37.9 PG (27.0-31.0) H Mean Corpuscular Hemoglobin Concent 36.7 G/DL (32.0-36.0) H Red Cell Distribution Width 11.0 % (11.6-14.8) L Platelet Count 269 K/UL (150-450) Mean Platelet Volume 10.2 FL (6.5-10.1) H Neutrophils (%) (Auto) % (45.0-75.0) Lymphocytes (%) (Auto) % (20.0-45.0) Monocytes (%) (Auto) % (1.0-10.0) Eosinophils (%) (Auto) % (0.0-3.0) Basophils (%) (Auto) % (0.0-2.0) Differential Total Cells Counted 100 Neutrophils % (Manual) 84 % (45-75) H Lymphocytes % (Manual) 9 % (20-45) L Monocytes % (Manual) 5 % (1-10) Eosinophils % (Manual) 2 % (0-3) Basophils % (Manual) 0 % (0-2) Band Neutrophils 0 % (0-8) Platelet Estimate Adequate Platelet Morphology Normal Macrocytosis 1+ Reticulocyte Count 0.7 % (0.5-2.0) Sodium Level 143 MMOL/L (136-145) Potassium Level 3.4 MMOL/L (3.5-5.1) L Chloride Level 107 MMOL/L (98-107) Carbon Dioxide Level 26 MMOL/L (21-32) Anion Gap 10 mmol/L (5-15) Blood Urea Nitrogen 16 mg/dL (7-18) Creatinine 1.1 MG/DL (0.55-1.30) Estimat Glomerular Filtration Rate 47.2 mL/min (>60) Glucose Level 104 MG/DL (74-106) Calcium Level 8.7 MG/DL (8.5-10.1) Phosphorus Level 3.3 MG/DL (2.5-4.9) Magnesium Level 1.8 MG/DL (1.8-2.4) Iron Level 24 ug/dL (50-175) L Total Iron Binding Capacity 215 ug/dL (250-450) L Percent Iron Saturation 11 % (15-50) L Unsaturated Iron Binding 191 ug/dL (112-346) Ferritin 204 NG/ML (8-388) Total Bilirubin 0.5 MG/DL (0.2-1.0) Aspartate Amino Transf (AST/SGOT) 21 U/L (15-37) Alanine Aminotransferase (ALT/SGPT) 30 U/L (12-78) Alkaline Phosphatase 94 U/L (46-116) Troponin I 0.152 ng/mL (0.000-0.056) Total Protein 6.5 G/DL (6.4-8.2) Albumin 2.9 G/DL (3.4-5.0) L Globulin 3.6 g/dL Albumin/Globulin Ratio 0.8 (1.0-2.7) L Amylase Level 40 U/L (25-115) Lipase 52 U/L (73-393) L Carcinoembryonic Antigen Pending Vitamin B12 Level 1095 PG/ML (193-986) H Free Thyroxine 1.32 NG/DL (0.76-1.46) Prothrombin Time 11.5 SEC (9.30-11.50) Prothromb Time International Ratio 1.1 (0.9-1.1) Microbiology Date/Time Source Procedure Growth Status 01/13/20 17:55 Nasal Nares 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 Complete 01/13/20 17:55 Rectum VRE Culture - Final NO VANCOMYCIN RESISTANT ENTEROCOCCUS ... Complete 01/13/20 17:55 Rectum - Final NO CARBAPENEM-RESISTANT ENTEROBACTERI... Complete Intake and Output 01/15/20 01/16/20 19:00 07:00 # Voids 2 3 Objective PHYSICAL EXAMINATION: GENERAL: The patient is a well-developed, well-nourished female, disheveled, and very confused. HEENT: Eyes, pupils are equal and responsive to light and accommodation. Extraocular movements are intact. NECK: Supple without lymphadenopathy. CHEST: Lungs are clear to auscultation bilaterally without wheezes or rales. CARDIOVASCULAR: Regular rhythm and rate. S1 and S2 are normal without murmurs, rubs, or gallops. ABDOMEN: Soft, diffusely tender to palpation, with decreased bowel sounds. No evidence of hepatosplenomegaly. Currently, no rebound or guarding noted. EXTREMITIES: Negative for clubbing, cyanosis, or edema. RECTAL: Not performed. GENITAL: Not performed. NEUROLOGIC: Cranial nerves II through XII are grossly intact without focal deficits. Motor strength is 5/5 bilaterally. Deep tendon reflexes are 2+ plantar. Assessment/Plan Assessment/Plan SSESSMENT: This is an 84-year-old female with: 1. Altered mental status. 2. Abdominal pain. 3. Anemia TREATMENT: 1. Altered mental status. Reason for altered mental status is unknown. An MRI of the brain is pending. The patient may have had cerebrovascular accident versus Alzheimer's dementia and just got loss. A Neurology consultation has been obtained with Dr. Navarro. 2. Abdominal pain. Workup so far has been within normal limits. A Gastroenterology consultation has been obtained with Dr. Yomi Sloan. 3. Anemia workup Jonas Scott MD Jan 16, 2020 14:45
[2020-01-16] MEDS ORDERED: Nitroglycerin Subl 0.4mg tab SL PRN (15:15)
[2020-01-16] MEDS ORDERED: Metoclopramide 10mg/2ml Inj IVP PRN (15:17)
[2020-01-16] MEDS ORDERED: Miralax 17gm pkt ORAL PRN (15:18)
[2020-01-16] MEDS ORDERED: D5 1/2NS w/KCl 20mEq 1,000 ML IV SCH (15:30)
[2020-01-16] MEDS: D5 1/2NS w/KCl 20mEq 1,000 ML IV SCH (15:49)
--- NOTE | 2020-01-16 16:45 | NUR ---
NURSE NOTES: notified doctor Sonia about latest labs and high troponin levels there is no carriage feeder consult. Awaiting new orders
[2020-01-16] MEDS ORDERED: Metoprolol Tartrate 5mg/5ml Inj IVP SCH ×2 (17:14→19:30)
[2020-01-16] MEDS ORDERED: Metoprolol Tartrate 5mg/5ml Inj IVP PRN ×2 (17:15→17:23)
--- NOTE | 2020-01-16 17:16 | Cardiology Progress Note ---
Assessment/Plan Assessment/Plan repeat ekg ekg appear lead placement error but atrial tachy 2:1 block is suspected iv bb ivf echo and serial enzyme ekg [id number] Objective Last 24 Hour Vital Signs Date Time Temp Pulse Resp B/P (MAP) Pulse Ox O2 Delivery O2 Flow Rate FiO2 01/16/20 12:00 98.9 136 18 147/95 (112) 95 01/16/20 11:00 98.3 133 22 151/95 (113) 94 01/16/20 10:00 97.9 130 24 142/87 (105) 92 01/16/20 09:00 Room Air 01/16/20 08:59 97.2 95 Room Air 01/16/20 08:00 98.3 128 20 132/74 (93) 94 01/16/20 04:00 98.0 108 20 134/80 (98) 98 01/16/20 00:00 97.4 96 20 150/95 (113) 96 01/15/20 21:00 Room Air 01/15/20 20:00 97.4 104 20 144/82 (102) 96 Intake and Output 01/15/20 01/16/20 19:00 07:00 # Voids 2 3 Laboratory Tests Test 01/16/20 04:45 01/16/20 08:15 White Blood Count 7.9 K/UL (4.8-10.8) Red Blood Count 3.06 M/UL (4.20-5.40) L Hemoglobin 11.6 G/DL (12.0-16.0) L Hematocrit 31.6 % (37.0-47.0) L Mean Corpuscular Volume 103 FL (80-99) H Mean Corpuscular Hemoglobin 37.9 PG (27.0-31.0) H Mean Corpuscular Hemoglobin Concent 36.7 G/DL (32.0-36.0) H Red Cell Distribution Width 11.0 % (11.6-14.8) L Platelet Count 269 K/UL (150-450) Mean Platelet Volume 10.2 FL (6.5-10.1) H Neutrophils (%) (Auto) % (45.0-75.0) Lymphocytes (%) (Auto) % (20.0-45.0) Monocytes (%) (Auto) % (1.0-10.0) Eosinophils (%) (Auto) % (0.0-3.0) Basophils (%) (Auto) % (0.0-2.0) Differential Total Cells Counted 100 Neutrophils % (Manual) 84 % (45-75) H Lymphocytes % (Manual) 9 % (20-45) L Monocytes % (Manual) 5 % (1-10) Eosinophils % (Manual) 2 % (0-3) Basophils % (Manual) 0 % (0-2) Band Neutrophils 0 % (0-8) Platelet Estimate Adequate Platelet Morphology Normal Macrocytosis 1+ Reticulocyte Count 0.7 % (0.5-2.0) Sodium Level 143 MMOL/L (136-145) Potassium Level 3.4 MMOL/L (3.5-5.1) L Chloride Level 107 MMOL/L (98-107) Carbon Dioxide Level 26 MMOL/L (21-32) Anion Gap 10 mmol/L (5-15) Blood Urea Nitrogen 16 mg/dL (7-18) Creatinine 1.1 MG/DL (0.55-1.30) Estimat Glomerular Filtration Rate 47.2 mL/min (>60) Glucose Level 104 MG/DL (74-106) Calcium Level 8.7 MG/DL (8.5-10.1) Phosphorus Level 3.3 MG/DL (2.5-4.9) Magnesium Level 1.8 MG/DL (1.8-2.4) Iron Level 24 ug/dL (50-175) L Total Iron Binding Capacity 215 ug/dL (250-450) L Percent Iron Saturation 11 % (15-50) L Unsaturated Iron Binding 191 ug/dL (112-346) Ferritin 204 NG/ML (8-388) Total Bilirubin 0.5 MG/DL (0.2-1.0) Aspartate Amino Transf (AST/SGOT) 21 U/L (15-37) Alanine Aminotransferase (ALT/SGPT) 30 U/L (12-78) Alkaline Phosphatase 94 U/L (46-116) Troponin I 0.152 ng/mL (0.000-0.056) Total Protein 6.5 G/DL (6.4-8.2) Albumin 2.9 G/DL (3.4-5.0) L Globulin 3.6 g/dL Albumin/Globulin Ratio 0.8 (1.0-2.7) L Amylase Level 40 U/L (25-115) Lipase 52 U/L (73-393) L Carcinoembryonic Antigen Pending Vitamin B12 Level 1095 PG/ML (193-986) H Free Thyroxine 1.32 NG/DL (0.76-1.46) Prothrombin Time 11.5 SEC (9.30-11.50) Prothromb Time International Ratio 1.1 (0.9-1.1) Microbiology Date/Time Source Procedure Growth Status 01/13/20 17:55 Nasal Nares 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 Complete 01/13/20 17:55 Rectum VRE Culture - Final NO VANCOMYCIN RESISTANT ENTEROCOCCUS ... Complete 01/13/20 17:55 Rectum - Final NO CARBAPENEM-RESISTANT ENTEROBACTERI... Complete Erasmo Faust MD Jan 16, 2020 17:16
[2020-01-16] MEDS: Aspirin EC 81mg tab ORAL SCH (17:33)
--- NOTE | 2020-01-16 19:05 | NUR ---
NURSE NOTES: Pt very agitated and pulling shoe parts caser off, cloth and trying to get out of bed. Proceeded to take to out Ativan first, without taking santos out, closed the refrigerator door and this created a discrepancy that didn't allow me to pull ativan right away. Jamal cleared message I was then able to pull out medication; however at 191, once I arrived to the pt room pt was not agitated and now she was sleeping. Using my nursing judgement I decided pt no longer having the need of this med., so I waisted the rest of medication with another nurse.
--- NOTE | 2020-01-16 19:30 | NUR ---
NURSE NOTES: RECEIVED PATIENT AGITATED, BILATERAL SOFT WRIST RESTRAINTS ON. PATIENT TRYING TO GET OUT OF BED WITHOUT ASSISTANCE. TRIED TO REORIENT PATIENT TO ENVIRONMENT WITHOUT SUCCESS, PATIENT REMAINS CONFUSED. NOTED PATIENT ST ON A MONITOR WITH HR RATE IN 130'S. WILL DO EKG AND ADMINISTER LOPRESSOR AND ATIVAN ORDERED. FALL PRECAUTIONS IN PLACE: CALL LIGHT WITHIN REACH, BED IN LOW POSITION AND BED ALARM ON. WILL CONTINUE WITH PLAN OF CARE.
--- NOTE | 2020-01-16 19:50 | NUR ---
HAND-OFF: Report given to Sandrine/DADA, pt in stable condition, Unable to do EKG, this was due to pt was agitated and pulling on everything she can get her hands on. EKG tracing endorse to noman RN. ordered a 2nd dose of Metoprolol 2.5mg IV push, pt HR is still 125-130 doctor is aware.
[2020-01-16] MEDS: Atorvastatin 20mg tab ORAL SCH (20:33)
--- NOTE | 2020-01-16 22:45 | Consultation ---
DATE OF CONSULTATION: 01/16/2020 CARDIOLOGY CONSULTATION CONSULTING PHYSICIAN: Erasmo Faust M.D. REFERRING PHYSICIAN: Ulices High M.D. REASON FOR REFERRAL: Abnormal cardiac enzymes. HISTORY OF PRESENT ILLNESS: This is an elderly female, who has been admitted to the hospital on the and really is unable to provide any meaningful history whatsoever. She was apparently found wandering on the streets complaining of abdominal pain, was confused, and was brought to the emergency room, was disheveled and complaining of generalized abdominal pain and very confused. No other abnormalities were noted. The patient has been admitted to the hospital and was evaluated by several consultants including the otolaryngology rep as well as GI and Internal Medicine and Pulmonary for several problems. Today, she was noted to be tachycardic and EKG was performed and showed possibility of an acute ID; therefore, this consultation requested. The patient remains confused, but denies pain. She states she is feeling well. PAST MEDICAL HISTORY: Really unknown. SOCIAL HISTORY: Really unknown. REVIEW OF SYSTEMS: Unable to obtain. MEDICATIONS: Unknown. PHYSICAL EXAMINATION: GENERAL: Shows to be an elderly confused female, in no respiratory distress. NECK: Supple. No jugular venous distention. LUNGS: Clear to auscultation and percussion. CARDIAC: Regular rhythm, tachycardic. No heaves or thrills. There is a holosystolic regurgitant murmur noted at the apex. ABDOMEN: Soft and nontender. Positive bowel sounds. EXTREMITIES: There is no edema. NEUROLOGIC: Confused. LABORATORY AND DIAGNOSTIC DATA: White count 7.9, hemoglobin 11.6, and platelet count of 269,000. Chemistries - sodium 143, potassium 3.4, chloride 107, bicarb 26, BUN of 16, creatinine 1.1, and glucose of 104. Calcium is 8.7. Iron is 11% saturation, ferritin of 204. Liver function tests looked relatively good except for the fact that the albumin is 2.9 suggestive of malnutrition of some liver disease. Lipase of 52. B12 of 1095. TSH of 1.42, free T4 of 1.32. Troponin is 0.1532, was 0.036 two days ago. Her creatinine was as high as 1.7 and has improved to 1.1 with hydration and her BUN was 43 and has improved to 16 with hydration. Magnesium was down to 1.6. INR was 1.1 and PTT of 36. Urinalysis was unremarkable. She has had a head CT scan that was performed today that showed no acute findings and she has had x-rays of hip and pelvis that was performed that showed no acute fractures. Moderate constipation was noted. Lumbar spine x-rays showed inadequate study for evaluation and abdominal ultrasound showed cholelithiasis, negative for common bile duct dilatation, left renal cyst. CT scan of the abdomen and pelvis was performed and showed moderate retained stool everywhere, colonic diverticulosis, no evidence of diverticulitis, cardiomegaly, bilateral pulmonary ground-glass opacities. Mild pulmonary edema can be a possibility. Compression fracture of L2 was noted. EKG initially showed sinus rhythm, normal QRS axis. Subsequent EKG shows what appears to be intraventricular conduction delay. However, lead placement error is suspected, but there may be atrial flutter with 2:1 block that there is ST-segment depression that is now present in the form of IVCD that the patient has, which may be related to intraventricular conduction delay. The patient's minor ST elevation in lead V1 that was present even previously, but exaggerated by the fact that she probably has atrial tachycardia or flutter with 2:1 block. She will be given urgently some dosages of metoprolol to see if her heart rate does improve. EKG will be repeated, cardiac enzymes will be repeated, and echocardiogram will be ordered. Depending on the findings, further treatment may become necessary. Erasmo Faust M.D. DR: KENIA JOB#: [id number] CC:
[2020-01-17] VITALS (7 sets, daily range): BP systolic 139–171; BP diastolic 67–94
[2020-01-17] MEDS: D5 1/2NS w/KCl 20mEq 1,000 ML IV SCH ×2 (06:03→17:32)
--- NOTE | 2020-01-17 07:14 | NUR ---
HAND-OFF: Report given to Parvez LOBO RN. PATIENT RESTING IN BED, NO SIGNS OF DISTRESS NOTED.
[2020-01-17 07:46] LABS: HEMATOCRIT 29.1 % (37.0-47.0); HEMOGLOBIN 10.6 G/DL (12.0-16.0); MEAN CORPUSCULAR VOLUME 104 FL (80-99); PLATELET COUNT 246 K/UL (150-450); RED BLOOD COUNT 2.79 M/UL (4.20-5.40); RED CELL DISTRIBUTION WIDTH 11.9 % (11.6-14.8); WHITE BLOOD COUNT 10.2 K/UL (4.8-10.8)
--- NOTE | 2020-01-17 07:54 | NUR ---
NURSE NOTES: pt in bed, eating breakfast assisted by sitter. Continuing restrains, bed alarm on side rails up for safety. Call light within reach. Bed is in lowest position and locked bed alarm on of safety
--- NOTE | 2020-01-17 07:59 | NUR ---
NURSE NOTES: pt in bed having breakfast assisted by sitter. AOx 1. Pt is not complaining of pain at this moment. Restraints are continued, pt is confused and trying to get out of bed all the time, side rails are up x3, bed alarm is on. Bed is locked and in lowest position. Call light within reach. Will continue to monitor and follow care plan.
[2020-01-17 08:28] LABS: ANION GAP 11 mmol/L (5-15); BLOOD UREA NITROGEN 15 mg/dL (7-18); CALCIUM 8.6 MG/DL (8.5-10.1); CARBON DIOXIDE 23 MMOL/L (21-32); CHLORIDE 108 MMOL/L (98-107); CREATININE 1.2 MG/DL (0.55-1.30); POTASSIUM 4.3 MMOL/L (3.5-5.1); SODIUM 142 MMOL/L (136-145)
[2020-01-17] MEDS: LORazepam Inj 2mg/ml 1ml IV PRN ×2 (08:44→14:47)
--- NOTE | 2020-01-17 08:46 | Hematology/Onc Progress Note ---
Assessment/Plan Assessment/Plan Assessment and Recs: # Macrocytic anemia -- dec in h/h, wth elev mcv --> meds have been reviewed, unlikely contributors --> no hemolysis is noted --> tsh and b12 noted --> consider gi eval, recs noted --> hold off further eval with a bone marrow biopsy, may follow as outpatient --> hgb trend 10.6 # Constipation --> senna colace prn --> uptitrate as needed # s/p fall --> orthostatics reviewed # Gallstones --> gi aware # Diverticulosis --> on diet, per gi, monitor Appreciate consultation and dw Rn Subjective Constitutional: Denies: no symptoms, chills, fever, malaise, weakness, other HEENT: Denies: no symptoms, eye pain, blurred vision, tearing, double vision, ear pain, ear discharge, nose pain, nose congestion, throat pain, throat swelling, mouth pain, mouth swelling, other Respiratory: Denies: no symptoms, cough, shortness of breath, SOB with excertion, SOB at rest, sputum, wheezing, other Genitourinary: Denies: no symptoms, burning, discharge, frequency, flank pain, hematuria, incontinence, pain, urgency, other Neurologic/Psychiatric: Denies: no symptoms, anxiety, depressed, emotional problems, headache, numbness, paresthesia, pre-existing deficit, seizure, tingling, tremors, weakness, other Endocrine: Denies: no symptoms, excessive sweating, flushing, intolerance to cold, intolerance to heat, increased hunger, increased thirst, increased urine, unexplained weight gain, unexplained weight loss, other Hematologic/Lymphatic: Denies: no symptoms, anemia, easy bleeding, easy bruising, adenopathy, other Allergies: Coded Allergies: No Known Allergies (Unverified , 01/13/20) Subjective 01/17: no major events, no bleeding or chills, no major changes, labs noted, mcv 104 Objective Objective Current Medications Medications (Trade) Dose Ordered Sig/Dewayne Route PRN Reason Start Time Stop Time Status Last Admin Dose Admin Acetaminophen (Tylenol) 650 mg Q4H PRN ORAL fever 01/16/20 15:17 02/15/20 15:16 Aspirin (Ecotrin) 81 mg DAILY ORAL 01/16/20 17:20 02/15/20 17:19 01/16/20 17:33 Atorvastatin Calcium (Lipitor) 20 mg BEDTIME ORAL 01/16/20 21:00 02/15/20 20:59 01/16/20 20:33 Dextrose (Dextrose 50%) 25 ml Q30M PRN IV Hypoglycemia 01/16/20 15:30 02/12/20 15:59 Dextrose (Dextrose 50%) 50 ml Q30M PRN IV Hypoglycemia 01/16/20 15:30 02/12/20 15:59 Dextrose/ Electrolytes 1,000 ml @ 75 mls/hr [id number] IV 01/16/20 15:17 02/15/20 15:16 01/17/20 06:03 Diphenhydramine HCl (Benadryl) 25 mg Q6H PRN ORAL Itching/Pruritis 01/16/20 15:17 02/15/20 15:16 Docusate Sodium (Colace) 100 mg TWICE A DAY ORAL 01/16/20 18:00 02/14/20 08:59 01/16/20 17:33 Heparin Sodium (Porcine) (Heparin 5000 units/ml) 5,000 units EVERY 12 HOURS SUBQ 01/16/20 21:00 02/12/20 20:59 01/16/20 20:33 Lactulose (Cephulac) 20 gm BID ORAL 01/16/20 18:00 02/14/20 08:59 01/16/20 17:33 Lorazepam (Ativan 2mg/ml 1ml) 1 mg Q4H PRN IV For Anxiety 01/16/20 15:17 01/23/20 15:16 01/17/20 08:44 Metoclopramide HCl (Reglan) 10 mg Q6H PRN IVP severe nausea 01/16/20 15:17 02/15/20 15:16 Metoprolol Tartrate (Lopressor) 2.5 mg Q4H PRN IVP for HR >115 01/16/20 17:23 02/15/20 17:22 Nitroglycerin (Ntg) 0.4 mg Q5M X 3 DOSES PRN SL Prn Chest Pain 01/16/20 15:15 02/12/20 15:59 Ondansetron HCl (Zofran) 4 mg Q6H PRN IVP Nausea & Vomiting 01/16/20 16:00 02/12/20 15:59 Pantoprazole (Protonix) 40 mg DAILY IV 01/17/20 09:00 02/13/20 08:59 Polyethylene Glycol (Miralax) 17 gm HSPRN PRN ORAL Constipation 01/16/20 15:18 02/15/20 15:17 Temazepam (Restoril) 15 mg HSPRN PRN ORAL Insomnia 01/16/20 15:18 01/23/20 15:17 Last 24 Hour Vital Signs Date Time Temp Pulse Resp B/P (MAP) Pulse Ox O2 Delivery O2 Flow Rate FiO2 01/17/20 08:19 97.3 79 18 139/67 (91) 99 01/17/20 06:00 97.5 102 22 160/80 (106) 96 01/17/20 04:00 78 01/17/20 04:00 97.5 102 22 160/80 (106) 96 01/17/20 00:00 83 01/17/20 00:00 97.7 81 18 152/87 (108) 99 01/16/20 21:00 Room Air 01/16/20 20:23 128 140/87 01/16/20 20:00 98.3 128 24 140/87 (104) 97 01/16/20 20:00 119 01/16/20 17:26 128 137/76 01/16/20 16:00 98.9 126 20 142/88 (106) 94 01/16/20 16:00 128 01/16/20 12:00 98.9 136 18 147/95 (112) 95 01/16/20 11:00 98.3 133 22 151/95 (113) 94 01/16/20 10:00 97.9 130 24 142/87 (105) 92 01/16/20 09:00 Room Air 01/16/20 08:59 97.2 95 Room Air 01/16/20 08:00 98.3 128 20 132/74 (93) 94 01/16/20 04:00 98.0 108 20 134/80 (98) 98 01/16/20 00:00 97.4 96 20 150/95 (113) 96 01/15/20 21:00 Room Air 01/15/20 20:00 97.4 104 20 144/82 (102) 96 01/15/20 15:54 97.5 127 20 126/83 (97) 96 01/15/20 12:00 98.4 20 155/88 (110) 95 01/15/20 09:00 Room Air Intake and Output 01/16/20 01/17/20 19:00 07:00 Intake Total 193 ml 825 ml Balance 193 ml 825 ml Intake Oral 118 ml IV Total 75 ml 825 ml # Voids 1 2 # Bowel Movements 1 2 Labs Test 01/15/20 05:10 01/16/20 04:45 01/16/20 08:15 01/16/20 18:15 White Blood Count 9.8 K/UL (4.8-10.8) 7.9 K/UL (4.8-10.8) Red Blood Count 2.95 M/UL (4.20-5.40) 3.06 M/UL (4.20-5.40) Hemoglobin 11.1 G/DL (12.0-16.0) 11.6 G/DL (12.0-16.0) Hematocrit 31.7 % (37.0-47.0) 31.6 % (37.0-47.0) Mean Corpuscular Volume 108 FL (80-99) 103 FL (80-99) Mean Corpuscular Hemoglobin 37.7 PG (27.0-31.0) 37.9 PG (27.0-31.0) Mean Corpuscular Hemoglobin Concent 35.1 G/DL (32.0-36.0) 36.7 G/DL (32.0-36.0) Red Cell Distribution Width 11.2 % (11.6-14.8) 11.0 % (11.6-14.8) Platelet Count 270 K/UL (150-450) 269 K/UL (150-450) Mean Platelet Volume 9.4 FL (6.5-10.1) 10.2 FL (6.5-10.1) Neutrophils (%) (Auto) 83.8 % (45.0-75.0) % (45.0-75.0) Lymphocytes (%) (Auto) 7.4 % (20.0-45.0) % (20.0-45.0) Monocytes (%) (Auto) 7.0 % (1.0-10.0) % (1.0-10.0) Eosinophils (%) (Auto) 0.5 % (0.0-3.0) % (0.0-3.0) Basophils (%) (Auto) 1.3 % (0.0-2.0) % (0.0-2.0) Erythrocyte Sedimentation Rate 53 MM/HR (0-30) Sodium Level 141 MMOL/L (136-145) 143 MMOL/L (136-145) Potassium Level 4.1 MMOL/L (3.5-5.1) 3.4 MMOL/L (3.5-5.1) Chloride Level 106 MMOL/L (98-107) 107 MMOL/L (98-107) Carbon Dioxide Level 22 MMOL/L (21-32) 26 MMOL/L (21-32) Anion Gap 13 mmol/L (5-15) 10 mmol/L (5-15) Blood Urea Nitrogen 20 mg/dL (7-18) 16 mg/dL (7-18) Creatinine 1.3 MG/DL (0.55-1.30) 1.1 MG/DL (0.55-1.30) Estimat Glomerular Filtration Rate 39.0 mL/min (>60) 47.2 mL/min (>60) Glucose Level 106 MG/DL (74-106) 104 MG/DL (74-106) Calcium Level 8.5 MG/DL (8.5-10.1) 8.7 MG/DL (8.5-10.1) Phosphorus Level 3.4 MG/DL (2.5-4.9) 3.3 MG/DL (2.5-4.9) Magnesium Level 1.6 MG/DL (1.8-2.4) 1.8 MG/DL (1.8-2.4) Total Bilirubin 1.1 MG/DL (0.2-1.0) 0.5 MG/DL (0.2-1.0) Direct Bilirubin 0.3 MG/DL (0.0-0.3) Aspartate Amino Transf (AST/SGOT) 29 U/L (15-37) 21 U/L (15-37) Alanine Aminotransferase (ALT/SGPT) 28 U/L (12-78) 30 U/L (12-78) Alkaline Phosphatase 84 U/L (46-116) 94 U/L (46-116) C-Reactive Protein, Quantitative 8.5 mg/dL (0.00-0.90) Total Protein 6.5 G/DL (6.4-8.2) 6.5 G/DL (6.4-8.2) Albumin 3.0 G/DL (3.4-5.0) 2.9 G/DL (3.4-5.0) Globulin 3.5 g/dL 3.6 g/dL Albumin/Globulin Ratio 0.9 (1.0-2.7) 0.8 (1.0-2.7) Thyroid Stimulating Hormone (TSH) 1.425 uiU/mL (0.358-3.740) Differential Total Cells Counted 100 Neutrophils % (Manual) 84 % (45-75) Lymphocytes % (Manual) 9 % (20-45) Monocytes % (Manual) 5 % (1-10) Eosinophils % (Manual) 2 % (0-3) Basophils % (Manual) 0 % (0-2) Band Neutrophils 0 % (0-8) Platelet Estimate Adequate Platelet Morphology Normal Macrocytosis 1+ Reticulocyte Count 0.7 % (0.5-2.0) Iron Level 24 ug/dL (50-175) Total Iron Binding Capacity 215 ug/dL (250-450) Percent Iron Saturation 11 % (15-50) Unsaturated Iron Binding 191 ug/dL (112-346) Ferritin 204 NG/ML (8-388) Troponin I 0.152 ng/mL (0.000-0.056) 0.170 ng/mL (0.000-0.056) Amylase Level 40 U/L (25-115) Lipase 52 U/L (73-393) Vitamin B12 Level 1095 PG/ML (193-986) Free Thyroxine 1.32 NG/DL (0.76-1.46) Prothrombin Time 11.5 SEC (9.30-11.50) Prothromb Time International Ratio 1.1 (0.9-1.1) Test 01/17/20 01:15 01/17/20 07:25 Troponin I 0.114 ng/mL (0.000-0.056) White Blood Count 10.2 K/UL (4.8-10.8) Red Blood Count 2.79 M/UL (4.20-5.40) Hemoglobin 10.6 G/DL (12.0-16.0) Hematocrit 29.1 % (37.0-47.0) Mean Corpuscular Volume 104 FL (80-99) Mean Corpuscular Hemoglobin 37.9 PG (27.0-31.0) Mean Corpuscular Hemoglobin Concent 36.3 G/DL (32.0-36.0) Red Cell Distribution Width 11.9 % (11.6-14.8) Platelet Count 246 K/UL (150-450) Mean Platelet Volume 10.7 FL (6.5-10.1) Neutrophils (%) (Auto) % (45.0-75.0) Lymphocytes (%) (Auto) % (20.0-45.0) Monocytes (%) (Auto) % (1.0-10.0) Eosinophils (%) (Auto) % (0.0-3.0) Basophils (%) (Auto) % (0.0-2.0) Sodium Level 142 MMOL/L (136-145) Potassium Level 4.3 MMOL/L (3.5-5.1) Chloride Level 108 MMOL/L (98-107) Carbon Dioxide Level 23 MMOL/L (21-32) Anion Gap 11 mmol/L (5-15) Blood Urea Nitrogen 15 mg/dL (7-18) Creatinine 1.2 MG/DL (0.55-1.30) Estimat Glomerular Filtration Rate 42.7 mL/min (>60) Glucose Level 115 MG/DL (74-106) Calcium Level 8.6 MG/DL (8.5-10.1) Height (Feet): 5 Height (Inches): 3.00 Weight (Pounds): 115 Objective Physical Exam General: mild distress - confused Head: normocephalic, atraumatic, b/l eomi, dry mucus membranes Resp: lungs clear, no respiratory distress Cardiovascular: regular rate, rhythm Gastrointestinal: non tender, soft, ttp throughout Genitourinary: no CVA tenderness Musculoskeletal: other - Difficult to fully evaluate patient moves both lower extremities, lower ex pain Neurologic: other - Patient is verbal, follows some commands however Skin: no rash David Rock MD Jan 17, 2020 08:46
[2020-01-17] MEDS: Aspirin EC 81mg tab ORAL SCH (09:27)
[2020-01-17] MEDS: Lactulose 20gm/30ml UDC ORAL SCH ×2 (09:27→17:32)
[2020-01-17] MEDS: Docusate 100mg cap ORAL SCH ×2 (09:27→17:30)
[2020-01-17] MEDS: Pantoprazole Inj IV SCH (09:27)
[2020-01-17] MEDS: Heparin 5000 units/ml inj SUBQ SCH ×2 (09:28→21:52)
--- NOTE | 2020-01-17 09:29 | General Progress Note ---
Assessment/Plan Assessment/Plan: macrocytic anemia constipation s/p fall gallstones diverticulosis on diet anemia work up bowel regimen hem in put appreciated fu cardiology recs GI procedures on hold for now will fu Subjective ROS Limited/Unobtainable: No Allergies: Coded Allergies: No Known Allergies (Unverified , 01/13/20) Objective Last 24 Hour Vital Signs Date Time Temp Pulse Resp B/P (MAP) Pulse Ox O2 Delivery O2 Flow Rate FiO2 01/17/20 08:19 97.3 79 18 139/67 (91) 99 01/17/20 06:00 97.5 102 22 160/80 (106) 96 01/17/20 04:00 78 01/17/20 04:00 97.5 102 22 160/80 (106) 96 01/17/20 00:00 83 01/17/20 00:00 97.7 81 18 152/87 (108) 99 01/16/20 21:00 Room Air 01/16/20 20:23 128 140/87 01/16/20 20:00 98.3 128 24 140/87 (104) 97 01/16/20 20:00 119 01/16/20 17:26 128 137/76 01/16/20 16:00 98.9 126 20 142/88 (106) 94 01/16/20 16:00 128 01/16/20 12:00 98.9 136 18 147/95 (112) 95 01/16/20 11:00 98.3 133 22 151/95 (113) 94 01/16/20 10:00 97.9 130 24 142/87 (105) 92 Intake and Output 01/16/20 01/17/20 19:00 07:00 Intake Total 193 ml 825 ml Balance 193 ml 825 ml Intake Oral 118 ml IV Total 75 ml 825 ml # Voids 1 2 # Bowel Movements 1 2 Laboratory Tests 01/16/20 18:15: Troponin I 0.170H 01/17/20 01:15: Troponin I 0.114H 01/17/20 07:25: White Blood Count 10.2, Red Blood Count 2.79L, Hemoglobin 10.6L, Hematocrit 29.1L, Mean Corpuscular Volume 104H, Mean Corpuscular Hemoglobin 37.9H, Mean Corpuscular Hemoglobin Concent 36.3H, Red Cell Distribution Width 11.9, Platelet Count 246, Mean Platelet Volume 10.7H, Neutrophils (%) (Auto) , Lymphocytes (%) (Auto) , Monocytes (%) (Auto) , Eosinophils (%) (Auto) , Basophils (%) (Auto) , Neutrophils % (Manual) [Pending], Lymphocytes % (Manual) [Pending], Platelet Estimate [Pending], Platelet Morphology [Pending], Sodium Level 142, Potassium Level 4.3, Chloride Level 108H, Carbon Dioxide Level 23, Anion Gap 11, Blood Urea Nitrogen 15, Creatinine 1.2, Estimat Glomerular Filtration Rate 42.7, Glucose Level 115H, Calcium Level 8.6 Height (Feet): 5 Height (Inches): 3.00 Weight (Pounds): 115 General Appearance: confused EENT: normal ENT inspection Neck: supple Cardiovascular: normal rate Respiratory/Chest: decreased breath sounds Abdomen: normal bowel sounds, non tender, soft Extremities: non-tender Yomi Sloan MD Jan 17, 2020 09:29
--- NOTE | 2020-01-17 09:58 | NUR ---
NOTES: REFERRED FOR SWALLOWING EVALUATION BY DR LEIJA (GI), SEE FULL REPORT IN CARE ACTIVITY SECTION. DYSPHAGIA RISK FACTORS FOR THIS 84 Y.O. ADVANCED AGED [place] AND IVORIAN-SPEAKING FEMALE: ACUTE ISSUES: AMS ENCEPHALOPATHY, CONFUSED FOUND ON STREET/FLOOR, GENERALIZED ABDOMINAL PAIN (SEE GI DR LEIJA'S REPORT BUT NO C/O OF THIS PAIN WITH ENGINE BUILDUP MECHANIC) LUNGS CLEAR PER MD AND CXR, ON ROOM AIR WITH RESP RATE AT 18 BPM WITH GOOD SP02 AT 99%. 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 MRI PENDING PER ER MD NOTE TO R/O CVA VERSUS ALZHEIMER'S DISEASE DIAGNOSES. ON GERD MEDS, ATIVAN, AND BENADRYL NOW. COMORBIDITIES: OLD LEFT CEREBELLAR LACUNAR INFARCT, HTN, DIABETES. NO POLST/ADVANCE DIRECTIVE FOUND REGARDING ARTIFICIAL NUTRITION PREFERENCES. QUESTIONABLE DIET PRIOR TO ADMIT, LIVES IN AN APT. NOW ON A SOFT CHEW DIET AND THIN LIQUIDS. PER MAIL PROCESSOR, NO OVERT S/S OF ASPIRATION WITH DURING MEAL BUT ONLY TOOK 25% OF EGG (DID NOT WANT MORE) BUT TOOK 100% OF HER HOT CEREAL. POOR INTAKE FOR OTHER MEALS RECORDED AT 10 TO 25% INTAKE SINCE YESTERDAY. TODAY. REGULAR TYPE DIET AND NO DIETITIAN REPORT TO DATE. PER GRANT GARLAND, NO PROBLEMS WITH TAKING THICK LIQUID MEDS. ALERT WHEN STIMULATED BUT WILL CLOSE EYES WHEN NOT STIMULATED (JUST GIVEN ATIVAN FOR MRI OF BRAIN). SHE STATES SHE IS FROM [place] BUT SHE ALSO IS SPONTANEOUSLY SPEAKING IN [place]. 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 SHE HAS FULL UPPER AND LOWER DENTURES AT BEDSIDE BUT NO ADHESIVE NOR STOCK LETTERER SO WILL LEAVE OUT UNTIL FAMILY/FRIENDS BRING IN ADHESIVE AND STOCK LETTERER. SHE IS CONFUSED AND WILL NOT ANSWER THE SPECIFIC QUESTION AT TIMES. INITIAL IMPRESSIONS: S/S OF AT LEAST A MILD DYSPHAGIA WITH MILDLY INCREASED OROPHARYNGEAL TRANSIT TIMES COMPOUNDED BY REDUCED COGNITIVE-BEHAVIORAL SKILLS (AGITATION AND TALKS WITH FOOD/LIQUIDS IN MOUTH). GIVEN THIN LIQUIDS VIA TSP AND SMALL SIPS VIA STRAW, SWALLOWS WITH FAIR HYOLARYNGEAL EXCURSIONS AFTER 2 SECONDS W/O OVERT ASPIRATION BUT HAS RISK GIVEN TALKING WITH LIQUIDS IN HER MOUTH WHEN AGITATED. GIVEN APPLESAUCE TSP, ALSO TALKED AND NEEDED TO SWALLOWS TO CLEAR W/O OVERT ASPIRATION HAS A SILENT ASPIRATION RISK DUE TO OLD CVA AND QUESTIONABLY NEW CVA (? IF MRI WILL BE COMPLETED NOW DUE TO AGITATION) POOR AND SLOW INTAKE RECOMMENDATIONS CONSIDER COMPLETING MOD BARIUM SWALLOW STUDY IP OR OP IF DC TO FURTHER ASSESS SWALLOW, DETERMINE SILENT ASP RISK AND ATTEMPT TRIAL TX IF PO CONTINUES FOR QUALITY OF LIFE, CONSIDER DOWNGRADE FOR NOW TO MOIST PUREED AND NECTAR THICK LIQUIDS WITH POSTED ASP/REFLUX PRECAUTIONS AND ONE TO ONE FEEDING. SEE RD NOTE FOR DIET TYPE AND HIGH CALORIE SUPPLEMENTS. EDUCATED/TRAINED STAFF IN POSTED ASP/REFLUX PRECAUTIONS. SKILLED DYSPHAGIA MANAGEMENT AND TX
--- NOTE | 2020-01-17 10:41 | NUR ---
01/17..PT UNABLE TO STAY STILL FOR THE 15-20 MINUTES TO PERFORM THE MRI EXAM, EVEN WITH ATIVAN SEDATION AND RESTRAINTS. RN GRACY IS AWARE AND WILL CALL DR. RAMIREZ ABOUT THE PT. VIDHI
--- NOTE | 2020-01-17 11:30 | NUR ---
NURSE NOTES: Notified Dr. Landeros pt is too agitated and restless with Ativan and restrains. MRI and 2D echo not done yet for the same reason.
--- NOTE | 2020-01-17 11:32 | NUR ---
Social Work This Sw received a consult to assist with a home safety evaluation and locate family. Reported by nursing staff that patient was found wandering in the street prior to this admission. This SW met with patient who is severely confused, restless, restraints and making attempts to get out of bed (has a sitter at bedside). This SW left a message with missing persons unit: [facility] Police Department: [phone] (awaiting call back at this time). Family has not been here to visit patient, according to nursing.
--- NOTE | 2020-01-17 11:50 | NUR ---
NURSE NOTES: pt is very agitated pulling on IV and front desk monitor, Pt is very weak and confused. pt is trying to get up even after being medicated.
--- NOTE | 2020-01-17 12:33 | Pulmonology Progress Note ---
Assessment/Plan Problems: (1) L2 vertebral fracture (2) Fecal impaction (3) Renal insufficiency (4) Encephalopathy (5) No significant past medical history Assessment/Plan MRI of L spine to assess acuity of the L2 fracture symptomatic treatment sinus rhythm CT of head reviewed, no acute findings. Subjective ROS Limited/Unobtainable: No Constitutional: Reports: no symptoms HEENT: Repors: no symptoms Allergies: Coded Allergies: No Known Allergies (Unverified , 01/13/20) Objective Last 24 Hour Vital Signs Date Time Temp Pulse Resp B/P (MAP) Pulse Ox O2 Delivery O2 Flow Rate FiO2 01/17/20 09:00 Room Air 01/17/20 08:19 97.3 79 18 139/67 (91) 99 01/17/20 08:00 78 01/17/20 06:00 97.5 102 22 160/80 (106) 96 01/17/20 04:00 78 01/17/20 04:00 97.5 102 22 160/80 (106) 96 01/17/20 00:00 83 01/17/20 00:00 97.7 81 18 152/87 (108) 99 01/16/20 21:00 Room Air 01/16/20 20:23 128 140/87 01/16/20 20:00 98.3 128 24 140/87 (104) 97 01/16/20 20:00 119 01/16/20 17:26 128 137/76 01/16/20 16:00 98.9 126 20 142/88 (106) 94 01/16/20 16:00 128 Intake and Output 01/16/20 01/17/20 19:00 07:00 Intake Total 193 ml 825 ml Balance 193 ml 825 ml Intake Oral 118 ml IV Total 75 ml 825 ml # Voids 1 2 # Bowel Movements 1 2 General Appearance: WD/WN HEENT: atraumatic, anicteric Respiratory/Chest: chest wall non-tender, lungs clear Breasts: no masses Cardiovascular: normal rate Genitourinary: normal external genitalia Neurologic/Psychiatric: hospice volunteer coordinator II-XII grossly normal Laboratory Tests 01/16/20 18:15: Troponin I 0.170H 01/17/20 01:15: Troponin I 0.114H 01/17/20 07:25: White Blood Count 10.2, Red Blood Count 2.79L, Hemoglobin 10.6L, Hematocrit 29.1L, Mean Corpuscular Volume 104H, Mean Corpuscular Hemoglobin 37.9H, Mean Corpuscular Hemoglobin Concent 36.3H, Red Cell Distribution Width 11.9, Platelet Count 246, Mean Platelet Volume 10.7H, Neutrophils (%) (Auto) , Lymphocytes (%) (Auto) , Monocytes (%) (Auto) , Eosinophils (%) (Auto) , Basophils (%) (Auto) , Differential Total Cells Counted 100, Neutrophils % ( Manual) 88H, Lymphocytes % (Manual) 6L, Monocytes % (Manual) 6, Eosinophils % ( Manual) 0, Basophils % (Manual) 0, Band Neutrophils 0, Platelet Estimate Adequate, Platelet Morphology Normal, Hypochromasia 1+, Anisocytosis 1+, Macrocytosis 1+, Sodium Level 142, Potassium Level 4.3, Chloride Level 108H, Carbon Dioxide Level 23, Anion Gap 11, Blood Urea Nitrogen 15, Creatinine 1.2, Estimat Glomerular Filtration Rate 42.7, Glucose Level 115H, Calcium Level 8.6 01/17/20 09:30: Troponin I 0.111H Current Medications Medications (Trade) Dose Ordered Sig/Dewayne Route PRN Reason Start Time Stop Time Status Last Admin Dose Admin Acetaminophen (Tylenol) 650 mg Q4H PRN ORAL fever 01/16/20 15:17 02/15/20 15:16 Aspirin (Ecotrin) 81 mg DAILY ORAL 01/16/20 17:20 02/15/20 17:19 01/17/20 09:27 Atorvastatin Calcium (Lipitor) 20 mg BEDTIME ORAL 01/16/20 21:00 02/15/20 20:59 01/16/20 20:33 Dextrose (Dextrose 50%) 25 ml Q30M PRN IV Hypoglycemia 01/16/20 15:30 02/12/20 15:59 Dextrose (Dextrose 50%) 50 ml Q30M PRN IV Hypoglycemia 01/16/20 15:30 02/12/20 15:59 Dextrose/ Electrolytes 1,000 ml @ 75 mls/hr [id number] IV 01/16/20 15:17 02/15/20 15:16 01/17/20 06:03 Diphenhydramine HCl (Benadryl) 25 mg Q6H PRN ORAL Itching/Pruritis 01/16/20 15:17 02/15/20 15:16 Docusate Sodium (Colace) 100 mg TWICE A DAY ORAL 01/16/20 18:00 02/14/20 08:59 01/17/20 09:27 Heparin Sodium (Porcine) (Heparin 5000 units/ml) 5,000 units EVERY 12 HOURS SUBQ 01/16/20 21:00 02/12/20 20:59 01/17/20 09:28 Lactulose (Cephulac) 20 gm BID ORAL 01/16/20 18:00 02/14/20 08:59 01/17/20 09:27 Lorazepam (Ativan 2mg/ml 1ml) 1 mg Q4H PRN IV For Anxiety 01/16/20 15:17 01/23/20 15:16 01/17/20 08:44 Metoclopramide HCl (Reglan) 10 mg Q6H PRN IVP severe nausea 01/16/20 15:17 02/15/20 15:16 Metoprolol Tartrate (Lopressor) 2.5 mg Q4H PRN IVP for HR >115 01/16/20 17:23 02/15/20 17:22 Nitroglycerin (Ntg) 0.4 mg Q5M X 3 DOSES PRN SL Prn Chest Pain 01/16/20 15:15 02/12/20 15:59 Ondansetron HCl (Zofran) 4 mg Q6H PRN IVP Nausea & Vomiting 01/16/20 16:00 02/12/20 15:59 Pantoprazole (Protonix) 40 mg DAILY IV 01/17/20 09:00 02/13/20 08:59 01/17/20 09:27 Polyethylene Glycol (Miralax) 17 gm HSPRN PRN ORAL Constipation 01/16/20 15:18 02/15/20 15:17 Temazepam (Restoril) 15 mg HSPRN PRN ORAL Insomnia 01/16/20 15:18 01/23/20 15:17 Alyse Oconnor MD Jan 17, 2020 12:33
[2020-01-17] MEDS: Metoprolol Tartrate 5mg/5ml Inj IVP SCH ×3 (13:00→21:50)
--- NOTE | 2020-01-17 13:28 | NUR ---
notified doctor Elvin pt agitation is increasing as well as blood pressure. Doctor prescribed seroquel 25mg po BID (agitation), Metoprolol was ordered 2.5mg BID Q 4hrs. and added doctor Conrad to the case.
--- NOTE | 2020-01-17 14:54 | NUR ---
Social Work This Sw spoke with Jaspreet Gomez @ Missing persons ([phone]) who explained a report was filed last , stating patient had been missing. This SW spoke with Rivet Tosser, [facility] @ [phone], who explains patient does not have any family, pending conservatorship at this time through Public Guardian. Patient was in SNF and transferred to Board and Care: "[facility]": [phone]. This SW left a message with [facility], awaiting call return at this time, to determine if they will accept patient back there when ready for discharge. SW Sha Cabrera expressed concerns that he does not feel patient is safe to return back to the Board and Care, may require higher level of care due to high risk for wandering. DADA Love CM informed regarding possible SNF required.
--- NOTE | 2020-01-17 15:02 | NUR ---
CASE MANAGEMENT:INITIAL REVIEW 01/17/20 SI:S/P FALL 01/16 -NO FRACTURE . ENCEPHALOPATHY. MACROCYTIC ANEMIA . FECAL IMPACT 97.3 107 18 162/103 99% ON RA H/H 10.6/29.1 CO2- 108 BG 115 IS:IVF D5@75ML/HR IV PROTONIX QD LACTULOSE PO BID HEPARIN SQ BID SEROQUEL BID LIPITOR PO QHS \: 2E TELE UNIT DCP: FROM HOME PLAN: SW CONSULT
--- NOTE | 2020-01-17 16:47 | NUR ---
NURSE NOTES: notified doctor Elvin that pt is still very confused, agitated and attempting to get up from bed. Pt is ok to have both a sitter and restraints pt is extremely hard to keep in bed.
--- NOTE | 2020-01-17 17:03 | NUR ---
NURSE NOTES: notified dr. Martines about pt extreme agitation.
[2020-01-17] MEDS ORDERED: DiphenhydrAMINE 50mg/ml Inj IM SCH (17:45)
[2020-01-17] MEDS ORDERED: Haloperidol 5mg/ml Inj IM SCH (17:45)
[2020-01-17] MEDS ORDERED: LORazepam Inj 2mg/ml 1ml IM SCH (17:45)
--- NOTE | 2020-01-17 17:50 | NUR ---
NURSE NOTES: T/O Haldol 5mg q 6rhs PRN IM for agitation from Dr. Martines
--- NOTE | 2020-01-17 19:18 | Internal Med Progress Note ---
Subjective Date of Service: Jan 17, 2020 Physician Name Jonas Scott Attending Physician Ulices High MD Current Medications Medications (Trade) Dose Ordered Sig/Dewayne Route PRN Reason Start Time Stop Time Status Last Admin Dose Admin Acetaminophen (Tylenol) 650 mg Q4H PRN ORAL fever 01/16/20 15:17 02/15/20 15:16 Aspirin (Ecotrin) 81 mg DAILY ORAL 01/16/20 17:20 02/15/20 17:19 01/17/20 09:27 Atorvastatin Calcium (Lipitor) 20 mg BEDTIME ORAL 01/16/20 21:00 02/15/20 20:59 01/16/20 20:33 Dextrose (Dextrose 50%) 25 ml Q30M PRN IV Hypoglycemia 01/16/20 15:30 02/12/20 15:59 Dextrose (Dextrose 50%) 50 ml Q30M PRN IV Hypoglycemia 01/16/20 15:30 02/12/20 15:59 Dextrose/ Electrolytes 1,000 ml @ 75 mls/hr [id number] IV 01/16/20 15:17 02/15/20 15:16 01/17/20 06:03 Diphenhydramine HCl (Benadryl) 25 mg Q6H PRN ORAL Itching/Pruritis 01/16/20 15:17 02/15/20 15:16 Docusate Sodium (Colace) 100 mg TWICE A DAY ORAL 01/16/20 18:00 02/14/20 08:59 01/17/20 17:30 Heparin Sodium (Porcine) (Heparin 5000 units/ml) 5,000 units EVERY 12 HOURS SUBQ 01/16/20 21:00 02/12/20 20:59 01/17/20 09:28 Iron Sucrose 100 mg/Sodium Chloride 60 ml @ 240 mls/hr BEDTIME IV 01/17/20 21:00 01/21/20 21:14 Lactulose (Cephulac) 20 gm BID ORAL 01/16/20 18:00 02/14/20 08:59 01/17/20 17:32 Metoclopramide HCl (Reglan) 10 mg Q6H PRN IVP severe nausea 01/16/20 15:17 02/15/20 15:16 Metoprolol Tartrate (Lopressor) 2.5 mg Q4H PRN IVP for HR >115 01/16/20 17:23 02/15/20 17:22 Metoprolol Tartrate (Lopressor) 2.5 mg Q4HR IVP 01/17/20 13:00 02/16/20 12:59 01/17/20 17:31 Nitroglycerin (Ntg) 0.4 mg Q5M X 3 DOSES PRN SL Prn Chest Pain 01/16/20 15:15 02/12/20 15:59 Ondansetron HCl (Zofran) 4 mg Q6H PRN IVP Nausea & Vomiting 01/16/20 16:00 02/12/20 15:59 Pantoprazole (Protonix) 40 mg DAILY IV 01/17/20 09:00 02/13/20 08:59 01/17/20 09:27 Polyethylene Glycol (Miralax) 17 gm HSPRN PRN ORAL Constipation 01/16/20 15:18 02/15/20 15:17 Risperidone (RisperDAL) 1 mg BID ORAL 01/17/20 18:00 02/16/20 17:59 Temazepam (Restoril) 15 mg HSPRN PRN ORAL Insomnia 01/16/20 15:18 01/23/20 15:17 Allergies: Coded Allergies: No Known Allergies (Unverified , 01/13/20) ROS Limited/Unobtainable: Yes Subjective 84 YO F admitted with altered mental status and abdominal pain. Cover for Int [facility]- Dr High. MRI cancelled due to agitation Objective Last Vital Signs Date Time Temp Pulse Resp B/P (MAP) Pulse Ox O2 Delivery O2 Flow Rate FiO2 01/17/20 17:31 115 161/94 01/17/20 16:00 97.8 18 96 01/17/20 09:00 Room Air 01/13/20 19:45 99 Laboratory Tests Test 01/17/20 01:15 01/17/20 07:25 01/17/20 09:30 Troponin I 0.114 ng/mL (0.000-0.056) 0.111 ng/mL (0.000-0.056) White Blood Count 10.2 K/UL (4.8-10.8) Red Blood Count 2.79 M/UL (4.20-5.40) L Hemoglobin 10.6 G/DL (12.0-16.0) L Hematocrit 29.1 % (37.0-47.0) L Mean Corpuscular Volume 104 FL (80-99) H Mean Corpuscular Hemoglobin 37.9 PG (27.0-31.0) H Mean Corpuscular Hemoglobin Concent 36.3 G/DL (32.0-36.0) H Red Cell Distribution Width 11.9 % (11.6-14.8) Platelet Count 246 K/UL (150-450) Mean Platelet Volume 10.7 FL (6.5-10.1) H Neutrophils (%) (Auto) % (45.0-75.0) Lymphocytes (%) (Auto) % (20.0-45.0) Monocytes (%) (Auto) % (1.0-10.0) Eosinophils (%) (Auto) % (0.0-3.0) Basophils (%) (Auto) % (0.0-2.0) Differential Total Cells Counted 100 Neutrophils % (Manual) 88 % (45-75) H Lymphocytes % (Manual) 6 % (20-45) L Monocytes % (Manual) 6 % (1-10) Eosinophils % (Manual) 0 % (0-3) Basophils % (Manual) 0 % (0-2) Band Neutrophils 0 % (0-8) Platelet Estimate Adequate Platelet Morphology Normal Hypochromasia 1+ Anisocytosis 1+ Macrocytosis 1+ Sodium Level 142 MMOL/L (136-145) Potassium Level 4.3 MMOL/L (3.5-5.1) Chloride Level 108 MMOL/L (98-107) H Carbon Dioxide Level 23 MMOL/L (21-32) Anion Gap 11 mmol/L (5-15) Blood Urea Nitrogen 15 mg/dL (7-18) Creatinine 1.2 MG/DL (0.55-1.30) Estimat Glomerular Filtration Rate 42.7 mL/min (>60) Glucose Level 115 MG/DL (74-106) H Calcium Level 8.6 MG/DL (8.5-10.1) Intake and Output 01/16/20 01/17/20 19:00 07:00 Intake Total 193 ml 825 ml Balance 193 ml 825 ml Intake Oral 118 ml IV Total 75 ml 825 ml # Voids 1 2 # Bowel Movements 1 2 Objective PHYSICAL EXAMINATION: GENERAL: The patient is a well-developed, well-nourished female, disheveled, and very confused. HEENT: Eyes, pupils are equal and responsive to light and accommodation. Extraocular movements are intact. NECK: Supple without lymphadenopathy. CHEST: Lungs are clear to auscultation bilaterally without wheezes or rales. CARDIOVASCULAR: Regular rhythm and rate. S1 and S2 are normal without murmurs, rubs, or gallops. ABDOMEN: Soft, diffusely tender to palpation, with decreased bowel sounds. No evidence of hepatosplenomegaly. Currently, no rebound or guarding noted. EXTREMITIES: Negative for clubbing, cyanosis, or edema. RECTAL: Not performed. GENITAL: Not performed. NEUROLOGIC: Cranial nerves II through XII are grossly intact without focal deficits. Motor strength is 5/5 bilaterally. Deep tendon reflexes are 2+ plantar. Assessment/Plan Assessment/Plan SSESSMENT: This is an 84-year-old female with: 1. Altered mental status. 2. Abdominal pain. 3. Anemia TREATMENT: 1. Altered mental status. Reason for altered mental status is unknown. Patient unable to tolerate an MRI of the brain. The patient may have had cerebrovascular accident versus Alzheimer's dementia and just got loss. A Neurology consultation has been obtained with Dr. Navarro. 2. Abdominal pain. Workup so far has been within normal limits. A Gastroenterology consultation has been obtained with Dr. Yomi Sloan. 3. Anemia workup Jonas Scott MD Jan 17, 2020 19:18
--- NOTE | 2020-01-17 19:45 | NUR ---
NURSE NOTES: Received pt and report from DADA Sykes. Observed pt resting in bed with both eyes closed. Pt is confused and agitated. Pt is currently trying to get out of bed and pulling on restraints. Pt is on bilateral soft wrist restraints; pulses and sensations are present, skin is intact, no swelling noted. desk monitor is in placed; pt is NSR. IV site intact, asymptomatic, and patent; currently running D5 1/2NS w/KCL 20mEq @ 75cc/hr. Bed is in the lowest position, locked, and alarmed. Call light and beside table is within reach. No signs/symptoms of acute distress noted at this time. Will continue plan of care and monitor pt closely.
--- NOTE | 2020-01-17 19:55 | NUR ---
HAND-OFF: Report given to Gayathri/rn, pt in stable condition but agitated even after administering medication.
[2020-01-17] MEDS: Atorvastatin 20mg tab ORAL SCH (21:47)
[2020-01-17] MEDS: Iron Sucrose 100 MG in NS 55 ML IV SCH (21:47)
[2020-01-18] VITALS: BP 146/72
[2020-01-18] MEDS: Metoprolol Tartrate 5mg/5ml Inj IVP SCH ×6 (01:16→21:22)
[2020-01-18 04:00] VITALS: BP 138/61
--- NOTE | 2020-01-18 04:14 | NUR ---
NURSE NOTES: Observed pt asleep in bed. No signs/symptoms of acute distress noted at this time. Will continue plan of care.
--- NOTE | 2020-01-18 07:30 | NUR ---
NURSE NOTES: Received report from DADA Trinh. Observed pt sleeping, no s/sx of acute distress. Sitter at bedside. pt on bilateral soft wrist restraint, no swelling, pulses are present. Bed on lowest position, call light within reach. Will continue plan of care
--- NOTE | 2020-01-18 07:49 | NUR ---
HAND-OFF: Report given to DADA Fernandez. Plan of care endorsed.
[2020-01-18 07:58] LABS: HEMATOCRIT 28.6 % (37.0-47.0); HEMOGLOBIN 10.3 G/DL (12.0-16.0); MEAN CORPUSCULAR VOLUME 104 FL (80-99); PLATELET COUNT 292 K/UL (150-450); RED BLOOD COUNT 2.76 M/UL (4.20-5.40); RED CELL DISTRIBUTION WIDTH 12.6 % (11.6-14.8); WHITE BLOOD COUNT 9.7 K/UL (4.8-10.8)
[2020-01-18 08:00] VITALS: BP 127/63
[2020-01-18 08:15] LABS: ANION GAP 10 mmol/L (5-15); BLOOD UREA NITROGEN 11 mg/dL (7-18); CARBON DIOXIDE 25 MMOL/L (21-32); CHLORIDE 107 MMOL/L (98-107); CREATININE 1.2 MG/DL (0.55-1.30); POTASSIUM 4.5 MMOL/L (3.5-5.1); SODIUM 142 MMOL/L (136-145)
--- NOTE | 2020-01-18 08:19 | CDS Physician Query ---
Clarification is required for compliance, coding accuracy, and to reflect severity of illness for this patient Dear Alyse Pitt MD Date: 01/18/2020 Family Practitioner/CDS Name: César Villanueva The patient is an 84-year-old female, who presents with chief complaint of abdominal pain. Problems: (1) L2 vertebral fracture (2) Fecal impaction (3) Renal insufficiency (4) Encephalopathy "Encephalopathy" documented in Progress notes Please indicate the nature and chronicity of the condition below: [] Metabolic Encephalopathy [] Toxic Encephalopathy [] Toxic - Metabolic Encephalopathy [] Encephalopathy, Other [] Dementia with Delirium [] Hypoxic encephalopathy [] Posterior reversible encephalopathy syndrome [] Other: [] Not Applicable Present on Admission: [] Yes [] No [] Clinically Undetermined Physician signature Date Please also document in your Progress Notes and/or Discharge Summary and indicate if the condition was present on admission. MTDD
--- NOTE | 2020-01-18 09:16 | General Progress Note ---
Assessment/Plan Assessment/Plan: macrocytic anemia constipation s/p fall gallstones diverticulosis on diet anemia work up on iv iron bowel regimen hem in put appreciated fu cardiology recs GI procedures on hold for now repeat cbc Stool for ob will fu Subjective ROS Limited/Unobtainable: No Allergies: Coded Allergies: No Known Allergies (Unverified , 01/13/20) Objective Last 24 Hour Vital Signs Date Time Temp Pulse Resp B/P (MAP) Pulse Ox O2 Delivery O2 Flow Rate FiO2 01/18/20 08:00 98.2 87 17 127/63 (84) 98 01/18/20 05:10 82 143/58 01/18/20 04:00 98.9 95 20 138/61 (86) 97 01/18/20 04:00 77 01/18/20 01:16 83 149/76 01/18/20 01:09 109 01/18/20 00:00 97.9 109 20 146/72 (96) 96 01/17/20 21:50 115 153/76 01/17/20 21:00 Room Air 01/17/20 20:00 88 01/17/20 20:00 98.9 88 18 153/76 (101) 98 01/17/20 17:31 115 161/94 01/17/20 16:00 109 01/17/20 16:00 97.8 83 18 161/94 (116) 96 01/17/20 13:00 107 162/103 01/17/20 12:00 78 01/17/20 12:00 97.4 81 20 171/92 (118) 98 Intake and Output 01/17/20 01/18/20 19:00 07:00 Intake Total 240 ml 200 ml Balance 240 ml 200 ml Intake Oral 240 ml 200 ml # Voids 3 5 # Bowel Movements 5 1 Laboratory Tests 01/17/20 09:30: Troponin I 0.111H 01/18/20 06:57: White Blood Count 9.7, Red Blood Count 2.76L, Hemoglobin 10.3L, Hematocrit 28.6L , Mean Corpuscular Volume 104H, Mean Corpuscular Hemoglobin 37.4H, Mean Corpuscular Hemoglobin Concent 36.1H, Red Cell Distribution Width 12.6, Platelet Count 292, Mean Platelet Volume 10.8H, Neutrophils (%) (Auto) , Lymphocytes (%) (Auto) , Monocytes (%) (Auto) , Eosinophils (%) (Auto) , Basophils (%) (Auto) , Neutrophils % (Manual) [Pending], Lymphocytes % (Manual) [Pending], Platelet Estimate [Pending], Platelet Morphology [Pending], Sodium Level 142, Potassium Level 4.5, Chloride Level 107, Carbon Dioxide Level 25, Anion Gap 10, Blood Urea Nitrogen 11, Creatinine 1.2, Estimat Glomerular Filtration Rate 42.7, Glucose Level 106, Calcium Level 9.0 Height (Feet): 5 Height (Inches): 3.00 Weight (Pounds): 115 General Appearance: no apparent distress EENT: normal ENT inspection Neck: supple Cardiovascular: normal rate Respiratory/Chest: decreased breath sounds Abdomen: normal bowel sounds, non tender, soft Extremities: non-tender Yomi Sloan MD Jan 18, 2020 09:16
--- NOTE | 2020-01-18 09:17 | Cardiology Progress Note ---
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 oral bb will be restarted has a sitter at bedside apparently able to take meds po d/w rn minor trop abn likely demand due to tachy is on asa and statin to discuss with dr sierra message left Subjective ROS Limited/Unobtainable: Yes Subjective confused sitter at bedside Objective Last 24 Hour Vital Signs Date Time Temp Pulse Resp B/P (MAP) Pulse Ox O2 Delivery O2 Flow Rate FiO2 01/18/20 08:00 98.2 87 17 127/63 (84) 98 01/18/20 05:10 82 143/58 01/18/20 04:00 98.9 95 20 138/61 (86) 97 01/18/20 04:00 77 01/18/20 01:16 83 149/76 01/18/20 01:09 109 01/18/20 00:00 97.9 109 20 146/72 (96) 96 01/17/20 21:50 115 153/76 01/17/20 21:00 Room Air 01/17/20 20:00 88 01/17/20 20:00 98.9 88 18 153/76 (101) 98 01/17/20 17:31 115 161/94 01/17/20 16:00 109 01/17/20 16:00 97.8 83 18 161/94 (116) 96 01/17/20 13:00 107 162/103 01/17/20 12:00 78 01/17/20 12:00 97.4 81 20 171/92 (118) 98 General Appearance: no apparent distress, alert Neck: supple Cardiovascular: normal rate Respiratory/Chest: crackles/rales Abdomen: normal bowel sounds, non tender, soft Extremities: no swelling Intake and Output 01/17/20 01/18/20 19:00 07:00 Intake Total 240 ml 200 ml Balance 240 ml 200 ml Intake Oral 240 ml 200 ml # Voids 3 5 # Bowel Movements 5 1 Laboratory Tests Test 01/17/20 09:30 01/18/20 06:57 Troponin I 0.111 ng/mL (0.000-0.056) White Blood Count 9.7 K/UL (4.8-10.8) Red Blood Count 2.76 M/UL (4.20-5.40) L Hemoglobin 10.3 G/DL (12.0-16.0) L Hematocrit 28.6 % (37.0-47.0) L Mean Corpuscular Volume 104 FL (80-99) H Mean Corpuscular Hemoglobin 37.4 PG (27.0-31.0) H Mean Corpuscular Hemoglobin Concent 36.1 G/DL (32.0-36.0) H Red Cell Distribution Width 12.6 % (11.6-14.8) Platelet Count 292 K/UL (150-450) Mean Platelet Volume 10.8 FL (6.5-10.1) H Neutrophils (%) (Auto) % (45.0-75.0) Lymphocytes (%) (Auto) % (20.0-45.0) Monocytes (%) (Auto) % (1.0-10.0) Eosinophils (%) (Auto) % (0.0-3.0) Basophils (%) (Auto) % (0.0-2.0) Neutrophils % (Manual) Pending Lymphocytes % (Manual) Pending Platelet Estimate Pending Platelet Morphology Pending Sodium Level 142 MMOL/L (136-145) Potassium Level 4.5 MMOL/L (3.5-5.1) Chloride Level 107 MMOL/L (98-107) Carbon Dioxide Level 25 MMOL/L (21-32) Anion Gap 10 mmol/L (5-15) Blood Urea Nitrogen 11 mg/dL (7-18) Creatinine 1.2 MG/DL (0.55-1.30) Estimat Glomerular Filtration Rate 42.7 mL/min (>60) Glucose Level 106 MG/DL (74-106) Calcium Level 9.0 MG/DL (8.5-10.1) Erasmo Faust MD Jan 18, 2020 09:17
[2020-01-18] MEDS: Aspirin EC 81mg tab ORAL SCH (09:29)
[2020-01-18] MEDS: Pantoprazole Inj IV SCH (09:29)
[2020-01-18] MEDS: Docusate 100mg cap ORAL SCH ×2 (09:29→17:55)
[2020-01-18] MEDS: D5 1/2NS w/KCl 20mEq 1,000 ML IV SCH ×2 (09:29→21:21)
[2020-01-18] MEDS: Lactulose 20gm/30ml UDC ORAL SCH ×2 (09:30→17:35)
[2020-01-18] MEDS: Heparin 5000 units/ml inj SUBQ SCH ×2 (09:31→21:23)
--- NOTE | 2020-01-18 10:44 | NUR ---
FORGE OPERATOR HELPER NOTE ROSEMARIE spoke w/ Allyson, cad administrator of [facility] [phone], confirmed pt can return upon DC. Allyson wants to be notified of DC. ROSEMARIE spoke w/ Sha Cabrera from [facility] program [phone] that probate conservatorship is currently in investigation w/ Kimber, investigating [facility], unit 10. There is no court date scheduled. Per Sha, pt was at [facility] then was transferred to [facility]. Sha addressed his concern that [facility] is not locked facility and advocated pt to be placed in a locked facility. ROSEMARIE explained [facility] cannot be locked and SNF may have a guard/24 hour watch but cannot be locked. Sha is advocating pt to be placed at [facility]. Signed: 01/18/20 at 1048 by WASHINGTON HOUSTON <Co-Signature Required>
[2020-01-18 12:00] VITALS: BP 150/92
--- NOTE | 2020-01-18 12:29 | Pulmonology Progress Note ---
Assessment/Plan Problems: (1) NSTEMI (non-ST elevated myocardial infarction) (2) L2 vertebral fracture (3) Fecal impaction (4) Renal insufficiency (5) Encephalopathy (6) No significant past medical history Assessment/Plan f/u cardiology recommendations might need stress studies Echo was poor quality MRI of L spine to assess acuity of the L2 fracture symptomatic treatment sinus rhythm CT of head reviewed, no acute findings. Subjective ROS Limited/Unobtainable: No Interval Events: awake, confused Allergies: Coded Allergies: No Known Allergies (Unverified , 01/13/20) Objective Last 24 Hour Vital Signs Date Time Temp Pulse Resp B/P (MAP) Pulse Ox O2 Delivery O2 Flow Rate FiO2 01/18/20 09:30 87 127/63 01/18/20 09:00 Room Air 01/18/20 08:00 98.2 87 17 127/63 (84) 98 01/18/20 07:53 83 01/18/20 05:10 82 143/58 01/18/20 04:00 98.9 95 20 138/61 (86) 97 01/18/20 04:00 77 01/18/20 01:16 83 149/76 01/18/20 01:09 109 01/18/20 00:00 97.9 109 20 146/72 (96) 96 01/17/20 21:50 115 153/76 01/17/20 21:00 Room Air 01/17/20 20:00 88 01/17/20 20:00 98.9 88 18 153/76 (101) 98 01/17/20 17:31 115 161/94 01/17/20 16:00 109 01/17/20 16:00 97.8 83 18 161/94 (116) 96 01/17/20 13:00 107 162/103 Intake and Output 01/17/20 01/18/20 19:00 07:00 Intake Total 240 ml 200 ml Balance 240 ml 200 ml Intake Oral 240 ml 200 ml # Voids 3 5 # Bowel Movements 5 1 General Appearance: cachetic HEENT: normocephalic Respiratory/Chest: chest wall non-tender, lungs clear Breasts: no masses Cardiovascular: normal rate Abdomen: normal bowel sounds, soft, non tender, no mass, no scars Genitourinary: normal external genitalia Neurologic/Psychiatric: chocolate refining roller II-XII grossly normal Laboratory Tests 01/18/20 06:57: White Blood Count 9.7, Red Blood Count 2.76L, Hemoglobin 10.3L, Hematocrit 28.6L , Mean Corpuscular Volume 104H, Mean Corpuscular Hemoglobin 37.4H, Mean Corpuscular Hemoglobin Concent 36.1H, Red Cell Distribution Width 12.6, Platelet Count 292, Mean Platelet Volume 10.8H, Neutrophils (%) (Auto) , Lymphocytes (%) (Auto) , Monocytes (%) (Auto) , Eosinophils (%) (Auto) , Basophils (%) (Auto) , Neutrophils % (Manual) [Pending], Lymphocytes % (Manual) [Pending], Platelet Estimate [Pending], Platelet Morphology [Pending], Sodium Level 142, Potassium Level 4.5, Chloride Level 107, Carbon Dioxide Level 25, Anion Gap 10, Blood Urea Nitrogen 11, Creatinine 1.2, Estimat Glomerular Filtration Rate 42.7, Glucose Level 106, Calcium Level 9.0 Current Medications Medications (Trade) Dose Ordered Sig/Dewayne Route PRN Reason Start Time Stop Time Status Last Admin Dose Admin Acetaminophen (Tylenol) 650 mg Q4H PRN ORAL fever 01/16/20 15:17 02/15/20 15:16 Aspirin (Ecotrin) 81 mg DAILY ORAL 01/16/20 17:20 02/15/20 17:19 01/18/20 09:29 Atorvastatin Calcium (Lipitor) 20 mg BEDTIME ORAL 01/16/20 21:00 02/15/20 20:59 01/17/20 21:47 Dextrose (Dextrose 50%) 25 ml Q30M PRN IV Hypoglycemia 01/16/20 15:30 02/12/20 15:59 Dextrose (Dextrose 50%) 50 ml Q30M PRN IV Hypoglycemia 01/16/20 15:30 02/12/20 15:59 Dextrose/ Electrolytes 1,000 ml @ 75 mls/hr [id number] IV 01/16/20 15:17 02/15/20 15:16 01/18/20 09:29 Diphenhydramine HCl (Benadryl) 25 mg Q6H PRN ORAL Itching/Pruritis 01/16/20 15:17 02/15/20 15:16 Docusate Sodium (Colace) 100 mg TWICE A DAY ORAL 01/16/20 18:00 02/14/20 08:59 01/18/20 09:29 Haloperidol Lactate (Haldol) 5 mg Q6H PRN IM Agitation 01/17/20 19:30 02/16/20 19:29 Heparin Sodium (Porcine) (Heparin 5000 units/ml) 5,000 units EVERY 12 HOURS SUBQ 01/16/20 21:00 02/12/20 20:59 01/18/20 09:31 Iron Sucrose 100 mg/Sodium Chloride 60 ml @ 240 mls/hr BEDTIME IV 01/17/20 21:00 01/21/20 21:14 01/17/20 21:47 Lactulose (Cephulac) 20 gm BID ORAL 01/16/20 18:00 02/14/20 08:59 01/18/20 09:30 Metoclopramide HCl (Reglan) 10 mg Q6H PRN IVP severe nausea 01/16/20 15:17 02/15/20 15:16 Metoprolol Tartrate (Lopressor) 2.5 mg Q4H PRN IVP for HR >115 01/16/20 17:23 02/15/20 17:22 Metoprolol Tartrate (Lopressor) 2.5 mg Q4HR IVP 01/17/20 13:00 02/16/20 12:59 01/18/20 09:30 Nitroglycerin (Ntg) 0.4 mg Q5M X 3 DOSES PRN SL Prn Chest Pain 01/16/20 15:15 02/12/20 15:59 Ondansetron HCl (Zofran) 4 mg Q6H PRN IVP Nausea & Vomiting 01/16/20 16:00 02/12/20 15:59 Pantoprazole (Protonix) 40 mg DAILY IV 01/17/20 09:00 02/13/20 08:59 01/18/20 09:29 Polyethylene Glycol (Miralax) 17 gm HSPRN PRN ORAL Constipation 01/16/20 15:18 02/15/20 15:17 Risperidone (RisperDAL) 1 mg BID ORAL 01/17/20 18:00 02/16/20 17:59 01/18/20 09:29 Temazepam (Restoril) 15 mg HSPRN PRN ORAL Insomnia 01/16/20 15:18 3/1/20 15:17 Alyse Oconnor MD Jan 18, 2020 12:29
[2020-01-18] MEDS: Haloperidol 5mg/ml Inj IM PRN (13:11)
--- NOTE | 2020-01-18 13:24 | NUR ---
NURSE NOTES: Informed Dr Lynn that haldol did not work for the pt. pt is very agitated and restless, needed at least 3 staff members to assist. Received new order for ativan.
[2020-01-18] MEDS ORDERED: LORazepam Inj 2mg/ml 1ml IV SCH (13:39)
--- NOTE | 2020-01-18 14:15 | NUR ---
NURSE NOTES: Communicated with Dr Lynn that Ativan did not work as well. Pt still very agitated and restless, trying to get out of bed. pt able to remove restraints. Awaiting for reply.
--- NOTE | 2020-01-18 14:56 | NUR ---
NURSE NOTES: pt. still very restless and agitated, with constant movement, unable to stay still in bed, able to removed her restraint, pt repositioned, assisted by 3 person assist, still with uncontrolled behavior, message left to dr nicole.
[2020-01-18 16:00] VITALS: BP 159/92
[2020-01-18] MEDS ORDERED: LORazepam Inj 2mg/ml 1ml IM SCH (17:00)
[2020-01-18] MEDS ORDERED: DiphenhydrAMINE 50mg/ml Inj IM SCH (17:00)
[2020-01-18] MEDS ORDERED: Haloperidol 5mg/ml Inj IM SCH (17:00)
--- NOTE | 2020-01-18 17:17 | Hematology/Onc Progress Note ---
Assessment/Plan Assessment/Plan Assessment and Recs: # Macrocytic anemia -- dec in h/h, wth elev mcv --> meds have been reviewed, unlikely contributors --> no hemolysis is noted --> cont iv iron --> tsh and b12 noted --> consider gi eval, recs noted --> hold off further eval with a bone marrow biopsy, may follow as outpatient --> hgb trend 10.6-->10.3 --> stool ob negative # Constipation --> senna colace prn --> uptitrate as needed # s/p fall --> orthostatics reviewed # Gallstones --> gi aware # Diverticulosis --> on diet, per gi, monitor Appreciate consultation and dw Rn Subjective Allergies: Coded Allergies: No Known Allergies (Unverified , 01/13/20) Subjective 01/17: no major events, no bleeding or chills, no major changes, labs noted, mcv 104 01/18: alert, no overnight events, stool ob negative, on iv iron, h/h stable Objective Objective Current Medications Medications (Trade) Dose Ordered Sig/Dewayne Route PRN Reason Start Time Stop Time Status Last Admin Dose Admin Acetaminophen (Tylenol) 650 mg Q4H PRN ORAL fever 01/16/20 15:17 02/15/20 15:16 Aspirin (Ecotrin) 81 mg DAILY ORAL 01/16/20 17:20 02/15/20 17:19 01/18/20 09:29 Atorvastatin Calcium (Lipitor) 20 mg BEDTIME ORAL 01/16/20 21:00 02/15/20 20:59 01/17/20 21:47 Dextrose (Dextrose 50%) 25 ml Q30M PRN IV Hypoglycemia 01/16/20 15:30 02/12/20 15:59 Dextrose (Dextrose 50%) 50 ml Q30M PRN IV Hypoglycemia 01/16/20 15:30 02/12/20 15:59 Dextrose/ Electrolytes 1,000 ml @ 75 mls/hr [id number] IV 01/16/20 15:17 02/15/20 15:16 01/18/20 09:29 Diphenhydramine HCl (Benadryl) 25 mg ONCE IM 01/18/20 17:00 01/18/20 18:00 Diphenhydramine HCl (Benadryl) 25 mg Q6H PRN ORAL Itching/Pruritis 01/16/20 15:17 02/15/20 15:16 Docusate Sodium (Colace) 100 mg TWICE A DAY ORAL 01/16/20 18:00 02/14/20 08:59 01/18/20 09:29 Haloperidol Lactate (Haldol) 5 mg ONCE IM 01/18/20 17:00 01/18/20 18:00 Haloperidol Lactate (Haldol) 5 mg Q6H PRN IM Agitation 01/17/20 19:30 02/16/20 19:29 01/18/20 13:11 Heparin Sodium (Porcine) (Heparin 5000 units/ml) 5,000 units EVERY 12 HOURS SUBQ 01/16/20 21:00 02/12/20 20:59 01/18/20 09:31 Iron Sucrose 100 mg/Sodium Chloride 60 ml @ 240 mls/hr BEDTIME IV 01/17/20 21:00 01/21/20 21:14 01/17/20 21:47 Lactulose (Cephulac) 20 gm BID ORAL 01/16/20 18:00 02/14/20 08:59 01/18/20 09:30 Metoclopramide HCl (Reglan) 10 mg Q6H PRN IVP severe nausea 01/16/20 15:17 02/15/20 15:16 Metoprolol Tartrate (Lopressor) 2.5 mg Q4H PRN IVP for HR >115 01/16/20 17:23 02/15/20 17:22 Metoprolol Tartrate (Lopressor) 2.5 mg Q4HR IVP 01/17/20 13:00 02/16/20 12:59 01/18/20 13:56 Nitroglycerin (Ntg) 0.4 mg Q5M X 3 DOSES PRN SL Prn Chest Pain 01/16/20 15:15 02/12/20 15:59 Ondansetron HCl (Zofran) 4 mg Q6H PRN IVP Nausea & Vomiting 01/16/20 16:00 02/12/20 15:59 Pantoprazole (Protonix) 40 mg DAILY IV 01/17/20 09:00 02/13/20 08:59 01/18/20 09:29 Polyethylene Glycol (Miralax) 17 gm HSPRN PRN ORAL Constipation 01/16/20 15:18 02/15/20 15:17 Risperidone (RisperDAL) 1 mg BID ORAL 01/17/20 18:00 02/16/20 17:59 01/18/20 09:29 Temazepam (Restoril) 15 mg HSPRN PRN ORAL Insomnia 01/16/20 15:18 01/23/20 15:17 Last 24 Hour Vital Signs Date Time Temp Pulse Resp B/P (MAP) Pulse Ox O2 Delivery O2 Flow Rate FiO2 01/18/20 16:00 97.0 109 20 159/92 (114) 92 01/18/20 13:56 83 150/92 01/18/20 12:00 97.0 85 20 150/92 (111) 91 01/18/20 11:50 84 01/18/20 09:30 87 127/63 01/18/20 09:00 Room Air 01/18/20 08:00 98.2 87 17 127/63 (84) 98 01/18/20 07:53 83 01/18/20 05:10 82 143/58 01/18/20 04:00 98.9 95 20 138/61 (86) 97 01/18/20 04:00 77 01/18/20 01:16 83 149/76 01/18/20 01:09 109 01/18/20 00:00 97.9 109 20 146/72 (96) 96 01/17/20 21:50 115 153/76 01/17/20 21:00 Room Air 01/17/20 20:00 88 01/17/20 20:00 98.9 88 18 153/76 (101) 98 01/17/20 17:31 115 161/94 01/17/20 16:00 109 01/17/20 16:00 97.8 83 18 161/94 (116) 96 01/17/20 13:00 107 162/103 01/17/20 12:00 78 01/17/20 12:00 97.4 81 20 171/92 (118) 98 01/17/20 09:00 Room Air 01/17/20 08:19 97.3 79 18 139/67 (91) 99 01/17/20 08:00 78 01/17/20 06:00 97.5 102 22 160/80 (106) 96 01/17/20 04:00 78 01/17/20 04:00 97.5 102 22 160/80 (106) 96 01/17/20 00:00 83 01/17/20 00:00 97.7 81 18 152/87 (108) 99 01/16/20 21:00 Room Air 01/16/20 20:23 128 140/87 01/16/20 20:00 98.3 128 24 140/87 (104) 97 01/16/20 20:00 119 01/16/20 17:26 128 137/76 Intake and Output 01/17/20 01/18/20 19:00 07:00 Intake Total 240 ml 200 ml Balance 240 ml 200 ml Intake Oral 240 ml 200 ml # Voids 3 5 # Bowel Movements 5 1 Labs Test 01/16/20 04:45 01/16/20 08:15 01/16/20 18:15 01/17/20 01:15 White Blood Count 7.9 K/UL (4.8-10.8) Red Blood Count 3.06 M/UL (4.20-5.40) Hemoglobin 11.6 G/DL (12.0-16.0) Hematocrit 31.6 % (37.0-47.0) Mean Corpuscular Volume 103 FL (80-99) Mean Corpuscular Hemoglobin 37.9 PG (27.0-31.0) Mean Corpuscular Hemoglobin Concent 36.7 G/DL (32.0-36.0) Red Cell Distribution Width 11.0 % (11.6-14.8) Platelet Count 269 K/UL (150-450) Mean Platelet Volume 10.2 FL (6.5-10.1) Neutrophils (%) (Auto) % (45.0-75.0) Lymphocytes (%) (Auto) % (20.0-45.0) Monocytes (%) (Auto) % (1.0-10.0) Eosinophils (%) (Auto) % (0.0-3.0) Basophils (%) (Auto) % (0.0-2.0) Differential Total Cells Counted 100 Neutrophils % (Manual) 84 % (45-75) Lymphocytes % (Manual) 9 % (20-45) Monocytes % (Manual) 5 % (1-10) Eosinophils % (Manual) 2 % (0-3) Basophils % (Manual) 0 % (0-2) Band Neutrophils 0 % (0-8) Platelet Estimate Adequate Platelet Morphology Normal Macrocytosis 1+ Reticulocyte Count 0.7 % (0.5-2.0) Sodium Level 143 MMOL/L (136-145) Potassium Level 3.4 MMOL/L (3.5-5.1) Chloride Level 107 MMOL/L (98-107) Carbon Dioxide Level 26 MMOL/L (21-32) Anion Gap 10 mmol/L (5-15) Blood Urea Nitrogen 16 mg/dL (7-18) Creatinine 1.1 MG/DL (0.55-1.30) Estimat Glomerular Filtration Rate 47.2 mL/min (>60) Glucose Level 104 MG/DL (74-106) Calcium Level 8.7 MG/DL (8.5-10.1) Phosphorus Level 3.3 MG/DL (2.5-4.9) Magnesium Level 1.8 MG/DL (1.8-2.4) Iron Level 24 ug/dL (50-175) Total Iron Binding Capacity 215 ug/dL (250-450) Percent Iron Saturation 11 % (15-50) Unsaturated Iron Binding 191 ug/dL (112-346) Ferritin 204 NG/ML (8-388) Total Bilirubin 0.5 MG/DL (0.2-1.0) Aspartate Amino Transf (AST/SGOT) 21 U/L (15-37) Alanine Aminotransferase (ALT/SGPT) 30 U/L (12-78) Alkaline Phosphatase 94 U/L (46-116) Troponin I 0.152 ng/mL (0.000-0.056) 0.170 ng/mL (0.000-0.056) 0.114 ng/mL (0.000-0.056) Total Protein 6.5 G/DL (6.4-8.2) Albumin 2.9 G/DL (3.4-5.0) Globulin 3.6 g/dL Albumin/Globulin Ratio 0.8 (1.0-2.7) Amylase Level 40 U/L (25-115) Lipase 52 U/L (73-393) Carcinoembryonic Antigen 3.1 ng/mL (0.0-4.7) Vitamin B12 Level 1095 PG/ML (193-986) Free Thyroxine 1.32 NG/DL (0.76-1.46) Prothrombin Time 11.5 SEC (9.30-11.50) Prothromb Time International Ratio 1.1 (0.9-1.1) Test 01/17/20 07:25 01/17/20 09:30 01/18/20 06:57 01/18/20 12:00 White Blood Count 10.2 K/UL (4.8-10.8) 9.7 K/UL (4.8-10.8) Red Blood Count 2.79 M/UL (4.20-5.40) 2.76 M/UL (4.20-5.40) Hemoglobin 10.6 G/DL (12.0-16.0) 10.3 G/DL (12.0-16.0) Hematocrit 29.1 % (37.0-47.0) 28.6 % (37.0-47.0) Mean Corpuscular Volume 104 FL (80-99) 104 FL (80-99) Mean Corpuscular Hemoglobin 37.9 PG (27.0-31.0) 37.4 PG (27.0-31.0) Mean Corpuscular Hemoglobin Concent 36.3 G/DL (32.0-36.0) 36.1 G/DL (32.0-36.0) Red Cell Distribution Width 11.9 % (11.6-14.8) 12.6 % (11.6-14.8) Platelet Count 246 K/UL (150-450) 292 K/UL (150-450) Mean Platelet Volume 10.7 FL (6.5-10.1) 10.8 FL (6.5-10.1) Neutrophils (%) (Auto) % (45.0-75.0) % (45.0-75.0) Lymphocytes (%) (Auto) % (20.0-45.0) % (20.0-45.0) Monocytes (%) (Auto) % (1.0-10.0) % (1.0-10.0) Eosinophils (%) (Auto) % (0.0-3.0) % (0.0-3.0) Basophils (%) (Auto) % (0.0-2.0) % (0.0-2.0) Differential Total Cells Counted 100 100 Neutrophils % (Manual) 88 % (45-75) 77 % (45-75) Lymphocytes % (Manual) 6 % (20-45) 11 % (20-45) Monocytes % (Manual) 6 % (1-10) 9 % (1-10) Eosinophils % (Manual) 0 % (0-3) 2 % (0-3) Basophils % (Manual) 0 % (0-2) 1 % (0-2) Band Neutrophils 0 % (0-8) 0 % (0-8) Platelet Estimate Adequate Adequate Platelet Morphology Normal Normal Hypochromasia 1+ 1+ Anisocytosis 1+ 1+ Macrocytosis 1+ 1+ Sodium Level 142 MMOL/L (136-145) 142 MMOL/L (136-145) Potassium Level 4.3 MMOL/L (3.5-5.1) 4.5 MMOL/L (3.5-5.1) Chloride Level 108 MMOL/L (98-107) 107 MMOL/L (98-107) Carbon Dioxide Level 23 MMOL/L (21-32) 25 MMOL/L (21-32) Anion Gap 11 mmol/L (5-15) 10 mmol/L (5-15) Blood Urea Nitrogen 15 mg/dL (7-18) 11 mg/dL (7-18) Creatinine 1.2 MG/DL (0.55-1.30) 1.2 MG/DL (0.55-1.30) Estimat Glomerular Filtration Rate 42.7 mL/min (>60) 42.7 mL/min (>60) Glucose Level 115 MG/DL (74-106) 106 MG/DL (74-106) Calcium Level 8.6 MG/DL (8.5-10.1) 9.0 MG/DL (8.5-10.1) Troponin I 0.111 ng/mL (0.000-0.056) Stool Occult Blood Negative (NEGATIVE) Height (Feet): 5 Height (Inches): 3.00 Weight (Pounds): 115 Objective Physical Exam General: mild distress - confused Head: normocephalic, atraumatic, b/l eomi, dry mucus membranes Resp: lungs clear, no respiratory distress Cardiovascular: regular rate, rhythm Gastrointestinal: non tender, soft, ttp throughout Genitourinary: no CVA tenderness Musculoskeletal: other - Difficult to fully evaluate patient moves both lower extremities, lower ex pain Neurologic: other - Patient is verbal, follows some commands however Skin: no rash David Rock MD Jan 18, 2020 17:17
--- NOTE | 2020-01-18 17:34 | NUR ---
NURSE NOTES: Administered new order of ativan, haldol, and benadryl. Pt is still trying to get out of bed, still agitated and restless, able to remove restraints.
[2020-01-18] MEDS ORDERED: Thiamine HCl 500 MG in D5W 55 ML IVPB SCH (17:45)
--- NOTE | 2020-01-18 18:29 | NUR ---
NURSE NOTES: Pt able to sleep.
--- NOTE | 2020-01-18 19:09 | Internal Med Progress Note ---
Subjective Date of Service: Jan 18, 2020 Physician Name Jonas Scott Attending Physician Ulices High MD Current Medications Medications (Trade) Dose Ordered Sig/Dewayne Route PRN Reason Start Time Stop Time Status Last Admin Dose Admin Acetaminophen (Tylenol) 650 mg Q4H PRN ORAL fever 01/16/20 15:17 02/15/20 15:16 Aspirin (Ecotrin) 81 mg DAILY ORAL 01/16/20 17:20 02/15/20 17:19 01/18/20 09:29 Atorvastatin Calcium (Lipitor) 20 mg BEDTIME ORAL 01/16/20 21:00 02/15/20 20:59 01/17/20 21:47 Dextrose (Dextrose 50%) 25 ml Q30M PRN IV Hypoglycemia 01/16/20 15:30 02/12/20 15:59 Dextrose (Dextrose 50%) 50 ml Q30M PRN IV Hypoglycemia 01/16/20 15:30 02/12/20 15:59 Dextrose/ Electrolytes 1,000 ml @ 75 mls/hr [id number] IV 01/16/20 15:17 02/15/20 15:16 01/18/20 09:29 Diphenhydramine HCl (Benadryl) 25 mg Q6H PRN ORAL Itching/Pruritis 01/16/20 15:17 02/15/20 15:16 Docusate Sodium (Colace) 100 mg TWICE A DAY ORAL 01/16/20 18:00 02/14/20 08:59 01/18/20 17:55 Haloperidol Lactate (Haldol) 5 mg Q6H PRN IM Agitation 01/17/20 19:30 02/16/20 19:29 01/18/20 13:11 Heparin Sodium (Porcine) (Heparin 5000 units/ml) 5,000 units EVERY 12 HOURS SUBQ 01/16/20 21:00 02/12/20 20:59 01/18/20 09:31 Iron Sucrose 100 mg/Sodium Chloride 60 ml @ 240 mls/hr BEDTIME IV 01/17/20 21:00 01/21/20 21:14 01/17/20 21:47 Lactulose (Cephulac) 20 gm BID ORAL 01/16/20 18:00 02/14/20 08:59 01/18/20 17:35 Metoclopramide HCl (Reglan) 10 mg Q6H PRN IVP severe nausea 01/16/20 15:17 02/15/20 15:16 Metoprolol Tartrate (Lopressor) 2.5 mg Q4H PRN IVP for HR >115 01/16/20 17:23 02/15/20 17:22 Metoprolol Tartrate (Lopressor) 2.5 mg Q4HR IVP 01/17/20 13:00 02/16/20 12:59 01/18/20 17:35 Nitroglycerin (Ntg) 0.4 mg Q5M X 3 DOSES PRN SL Prn Chest Pain 01/16/20 15:15 02/12/20 15:59 Ondansetron HCl (Zofran) 4 mg Q6H PRN IVP Nausea & Vomiting 01/16/20 16:00 02/12/20 15:59 Pantoprazole (Protonix) 40 mg DAILY IV 01/17/20 09:00 02/13/20 08:59 01/18/20 09:29 Polyethylene Glycol (Miralax) 17 gm HSPRN PRN ORAL Constipation 01/16/20 15:18 02/15/20 15:17 Risperidone (RisperDAL) 1 mg BID ORAL 01/17/20 18:00 02/16/20 17:59 01/18/20 17:55 Temazepam (Restoril) 15 mg HSPRN PRN ORAL Insomnia 01/16/20 15:18 01/23/20 15:17 Thiamine HCl 500 mg/Dextrose 280 ml @ 280 mls/hr Q8HR@0200,1000,1800 IVPB 01/18/20 19:30 01/20/20 10:59 Allergies: Coded Allergies: No Known Allergies (Unverified , 01/13/20) ROS Limited/Unobtainable: Yes Subjective 84 YO F admitted with altered mental status and abdominal pain. Cover for Int [facility]- Dr High. MRI cancelled due to agitation Objective Last Vital Signs Date Time Temp Pulse Resp B/P (MAP) Pulse Ox O2 Delivery O2 Flow Rate FiO2 01/18/20 17:35 109 159/92 01/18/20 16:00 97.0 20 92 01/18/20 09:00 Room Air 01/13/20 19:45 99 Laboratory Tests Test 01/18/20 06:57 01/18/20 12:00 White Blood Count 9.7 K/UL (4.8-10.8) Red Blood Count 2.76 M/UL (4.20-5.40) L Hemoglobin 10.3 G/DL (12.0-16.0) L Hematocrit 28.6 % (37.0-47.0) L Mean Corpuscular Volume 104 FL (80-99) H Mean Corpuscular Hemoglobin 37.4 PG (27.0-31.0) H Mean Corpuscular Hemoglobin Concent 36.1 G/DL (32.0-36.0) H Red Cell Distribution Width 12.6 % (11.6-14.8) Platelet Count 292 K/UL (150-450) Mean Platelet Volume 10.8 FL (6.5-10.1) H Neutrophils (%) (Auto) % (45.0-75.0) Lymphocytes (%) (Auto) % (20.0-45.0) Monocytes (%) (Auto) % (1.0-10.0) Eosinophils (%) (Auto) % (0.0-3.0) Basophils (%) (Auto) % (0.0-2.0) Differential Total Cells Counted 100 Neutrophils % (Manual) 77 % (45-75) H Lymphocytes % (Manual) 11 % (20-45) L Monocytes % (Manual) 9 % (1-10) Eosinophils % (Manual) 2 % (0-3) Basophils % (Manual) 1 % (0-2) Band Neutrophils 0 % (0-8) Platelet Estimate Adequate Platelet Morphology Normal Hypochromasia 1+ Anisocytosis 1+ Macrocytosis 1+ Sodium Level 142 MMOL/L (136-145) Potassium Level 4.5 MMOL/L (3.5-5.1) Chloride Level 107 MMOL/L (98-107) Carbon Dioxide Level 25 MMOL/L (21-32) Anion Gap 10 mmol/L (5-15) Blood Urea Nitrogen 11 mg/dL (7-18) Creatinine 1.2 MG/DL (0.55-1.30) Estimat Glomerular Filtration Rate 42.7 mL/min (>60) Glucose Level 106 MG/DL (74-106) Calcium Level 9.0 MG/DL (8.5-10.1) Vitamin B12 Level 1099 PG/ML (193-986) H Methylmalonic Acid Pending Thyroid Stimulating Hormone (TSH) 1.205 uiU/mL (0.358-3.740) Stool Occult Blood Negative (NEGATIVE) Intake and Output 01/17/20 01/18/20 19:00 07:00 Intake Total 240 ml 200 ml Balance 240 ml 200 ml Intake Oral 240 ml 200 ml # Voids 3 5 # Bowel Movements 5 1 Objective PHYSICAL EXAMINATION: GENERAL: The patient is a well-developed, well-nourished female, disheveled, and very confused. HEENT: Eyes, pupils are equal and responsive to light and accommodation. Extraocular movements are intact. NECK: Supple without lymphadenopathy. CHEST: Lungs are clear to auscultation bilaterally without wheezes or rales. CARDIOVASCULAR: Regular rhythm and rate. S1 and S2 are normal without murmurs, rubs, or gallops. ABDOMEN: Soft, diffusely tender to palpation, with decreased bowel sounds. No evidence of hepatosplenomegaly. Currently, no rebound or guarding noted. EXTREMITIES: Negative for clubbing, cyanosis, or edema. RECTAL: Not performed. GENITAL: Not performed. NEUROLOGIC: Cranial nerves II through XII are grossly intact without focal deficits. Motor strength is 5/5 bilaterally. Deep tendon reflexes are 2+ plantar. Assessment/Plan Assessment/Plan SSESSMENT: This is an 84-year-old female with: 1. Altered mental status. 2. Abdominal pain. 3. Anemia TREATMENT: 1. Altered mental status. Reason for altered mental status is unknown. Patient unable to tolerate an MRI of the brain. The patient may have had cerebrovascular accident versus Alzheimer's dementia and just got loss. A Neurology consultation has been obtained with Dr. Navarro. 2. Abdominal pain. Workup so far has been within normal limits. A Gastroenterology consultation has been obtained with Dr. Yomi Sloan. 3. Anemia workup Jonas Scott MD Jan 18, 2020 19:09
--- NOTE | 2020-01-18 19:55 | NUR ---
HAND-OFF: Report given to DADA Trinh. Endorsed plan of care. Pt in stable condition.
[2020-01-18 20:00] VITALS: BP 139/80
--- NOTE | 2020-01-18 20:09 | NUR ---
NURSE NOTES: Received pt and report from DADA Fernandez. Pt is A/Ox1. Observed pt in bed currently pulling on restraints. Pt was able to lay still for about 15 min but now continues to be agitated. Pt is on bilateral soft wrist restraints; pulses and sensations are present, skin is intact, no swelling noted. cardiac monitor is in placed; pt is NSR. IV site intact, asymptomatic, and patent; currently running D5 1/2NS w/KCL 20mEq @ 75cc/hr. Bed is in the lowest position, locked, and alarmed. Call light and beside table is within reach. No signs/symptoms of acute distress noted at this time. Will continue plan of care and monitor pt closely.
[2020-01-18] MEDS: D5W IVPB SCH (21:21)
[2020-01-18] MEDS: THIAMINE HCL IVPB SCH (21:21)
[2020-01-18] MEDS: Iron Sucrose 100 MG in NS 55 ML IV SCH (21:22)
[2020-01-18] MEDS: Atorvastatin 20mg tab ORAL SCH (21:23)
[2020-01-19] VITALS: BP 158/76
--- NOTE | 2020-01-19 01:15 | NUR ---
NURSE NOTES: Pt is still agitated/confused and continues to pull on restraints with legs on top of bed side rails. Attempted therapeutic touch and communication, but pt continues to be agitated. Will continue to monitor pt closely.
[2020-01-19] MEDS: D5W IVPB SCH ×3 (01:44→17:30)
[2020-01-19] MEDS: THIAMINE HCL IVPB SCH ×3 (01:44→17:30)
[2020-01-19] MEDS: Metoprolol Tartrate 5mg/5ml Inj IVP SCH ×6 (01:45→21:17)
[2020-01-19] MEDS: LORazepam 0.5mg tab ORAL SCH ×2 (02:51→08:35)
[2020-01-19 04:00] VITALS: BP 152/75
--- NOTE | 2020-01-19 04:10 | NUR ---
NURSE NOTES: Observed pt resting in bed with both eyes closed. Pt has calmed down and is currently asleep. Will continue to monitor pt closely.
--- NOTE | 2020-01-19 05:30 | Consultation ---
DATE OF CONSULTATION: 01/18/2020 CONSULTING PHYSICIAN: Cornelia Lynn M.D. HISTORY OF PRESENT ILLNESS: This is an 84-year-old female with a history of multiple medical issues who has been admitted to the hospital for medical stabilization. The patient has a history of multiple medical comorbidities including dementia and renal insufficiency. The patient is alert, confused, but attempting to come out of bed, easily agitated. Not able to be engaged and is having waxing and waning consciousness. The patient was ordered for Haldol, Benadryl, and Ativan after one hour. PAST PSYCHIATRY HISTORY: Dementia with behavior disturbance. PAST MEDICAL HISTORY: As above. ALLERGIES: No known drug allergies. SUBSTANCE ABUSE HISTORY: No known history of illicit drug use or alcohol. MENTAL STATUS EXAMINATION: She is alert and oriented times self. Mood is agitated. Affect is flat. Thought process is concrete. Thought content, no suicidal or homicidal ideation. Cognition is impaired. Insight and judgment are impaired. ASSESSMENT: Elkins I Dementia with behavior disturbance. PLAN: Provide the patient with reality orientation and supportive therapy. Cornelia Lynn M.D. DR: NIGEL JOB#: [id number] CC: [id number]
--- NOTE | 2020-01-19 06:31 | Hematology/Onc Progress Note ---
Assessment/Plan Assessment/Plan Assessment and Recs: # Macrocytic anemia -- dec in h/h, wth elev mcv --> meds have been reviewed, unlikely contributors --> no hemolysis is noted --> cont iv iron --> tsh and b12 noted --> consider gi eval, recs noted --> hold off further eval with a bone marrow biopsy, may follow as outpatient --> hgb trend 10.6-->10.3 --> stool ob negative # Constipation --> senna colace prn --> uptitrate as needed # s/p fall --> orthostatics reviewed # Gallstones --> gi aware # Diverticulosis --> on diet, per gi, monitor Appreciate consultation and dw Rn Subjective HEENT: Denies: no symptoms, eye pain, blurred vision, tearing, double vision, ear pain, ear discharge, nose pain, nose congestion, throat pain, throat swelling, mouth pain, mouth swelling, other Cardiovascular: Denies: no symptoms, chest pain, edema, irregular heart rate, lightheadedness, palpitations, syncope, other Gastrointestinal/Abdominal: Denies: no symptoms, abdomen distended, abdominal pain, black stools, tarry stools, blood in stool, constipated, diarrhea, difficulty swallowing, nausea, poor appetite, poor fluid intake, rectal bleeding , vomiting, other Genitourinary: Denies: no symptoms, burning, discharge, frequency, flank pain, hematuria, incontinence, pain, urgency, other Neurologic/Psychiatric: Denies: no symptoms, anxiety, depressed, emotional problems, headache, numbness, paresthesia, pre-existing deficit, seizure, tingling, tremors, weakness, other Endocrine: Denies: no symptoms, excessive sweating, flushing, intolerance to cold, intolerance to heat, increased hunger, increased thirst, increased urine, unexplained weight gain, unexplained weight loss, other Hematologic/Lymphatic: Denies: no symptoms, anemia, easy bleeding, easy bruising, adenopathy, other Allergies: Coded Allergies: No Known Allergies (Unverified , 01/13/20) Subjective 01/17: no major events, no bleeding or chills, no major changes, labs noted, mcv 104 01/18: alert, no overnight events, stool ob negative, on iv iron, h/h stable 01/19: gi workup thus far neg, seen by Dr. Lynn, recs are noted Objective Objective Current Medications Medications (Trade) Dose Ordered Sig/Dewayne Route PRN Reason Start Time Stop Time Status Last Admin Dose Admin Acetaminophen (Tylenol) 650 mg Q4H PRN ORAL fever 01/16/20 15:17 02/15/20 15:16 Aspirin (Ecotrin) 81 mg DAILY ORAL 01/16/20 17:20 02/15/20 17:19 01/18/20 09:29 Atorvastatin Calcium (Lipitor) 20 mg BEDTIME ORAL 01/16/20 21:00 02/15/20 20:59 01/18/20 21:23 Dextrose (Dextrose 50%) 25 ml Q30M PRN IV Hypoglycemia 01/16/20 15:30 02/12/20 15:59 Dextrose (Dextrose 50%) 50 ml Q30M PRN IV Hypoglycemia 01/16/20 15:30 02/12/20 15:59 Dextrose/ Electrolytes 1,000 ml @ 75 mls/hr [id number] IV 01/16/20 15:17 02/15/20 15:16 01/18/20 21:21 Diphenhydramine HCl (Benadryl) 25 mg Q6H PRN ORAL Itching/Pruritis 01/16/20 15:17 02/15/20 15:16 Docusate Sodium (Colace) 100 mg TWICE A DAY ORAL 01/16/20 18:00 02/14/20 08:59 01/18/20 17:55 Haloperidol Lactate (Haldol) 5 mg Q6H PRN IM Agitation 01/17/20 19:30 02/16/20 19:29 01/18/20 13:11 Heparin Sodium (Porcine) (Heparin 5000 units/ml) 5,000 units EVERY 12 HOURS SUBQ 01/16/20 21:00 02/12/20 20:59 01/18/20 21:23 Iron Sucrose 100 mg/Sodium Chloride 60 ml @ 240 mls/hr BEDTIME IV 01/17/20 21:00 01/21/20 21:14 01/18/20 21:22 Lactulose (Cephulac) 20 gm BID ORAL 01/16/20 18:00 02/14/20 08:59 01/18/20 17:35 Lorazepam (Ativan) 1 mg BID@0900,2100 ORAL 01/19/20 02:00 01/26/20 01:59 01/19/20 02:51 Metoclopramide HCl (Reglan) 10 mg Q6H PRN IVP severe nausea 01/16/20 15:17 02/15/20 15:16 Metoprolol Tartrate (Lopressor) 2.5 mg Q4H PRN IVP for HR >115 01/16/20 17:23 02/15/20 17:22 Metoprolol Tartrate (Lopressor) 2.5 mg Q4HR IVP 01/17/20 13:00 02/16/20 12:59 01/19/20 05:46 Nitroglycerin (Ntg) 0.4 mg Q5M X 3 DOSES PRN SL Prn Chest Pain 01/16/20 15:15 02/12/20 15:59 Ondansetron HCl (Zofran) 4 mg Q6H PRN IVP Nausea & Vomiting 01/16/20 16:00 02/12/20 15:59 Pantoprazole (Protonix) 40 mg DAILY IV 01/17/20 09:00 02/13/20 08:59 01/18/20 09:29 Polyethylene Glycol (Miralax) 17 gm HSPRN PRN ORAL Constipation 01/16/20 15:18 02/15/20 15:17 Risperidone (RisperDAL) 1 mg BID ORAL 01/17/20 18:00 02/16/20 17:59 01/18/20 17:55 Temazepam (Restoril) 15 mg HSPRN PRN ORAL Insomnia 01/16/20 15:18 01/23/20 15:17 Thiamine HCl 500 mg/Dextrose 280 ml @ 280 mls/hr Q8HR@0200,1000,1800 IVPB 01/18/20 19:30 01/20/20 10:59 01/19/20 01:44 Last 24 Hour Vital Signs Date Time Temp Pulse Resp B/P (MAP) Pulse Ox O2 Delivery O2 Flow Rate FiO2 01/19/20 05:46 98 148/83 01/19/20 04:00 76 01/19/20 04:00 97.8 76 19 152/75 (100) 98 01/19/20 01:45 116 163/78 01/19/20 00:00 88 01/19/20 00:00 97.8 98 20 158/76 (103) 95 01/18/20 21:22 107 139/80 01/18/20 21:00 Room Air 01/18/20 20:00 97.7 96 19 139/80 (99) 97 01/18/20 20:00 82 01/18/20 17:35 109 159/92 01/18/20 16:00 97.0 109 20 159/92 (114) 92 01/18/20 15:33 98 01/18/20 13:56 83 150/92 01/18/20 12:00 97.0 85 20 150/92 (111) 91 01/18/20 11:50 84 01/18/20 09:30 87 127/63 01/18/20 09:00 Room Air 01/18/20 08:00 98.2 87 17 127/63 (84) 98 01/18/20 07:53 83 01/18/20 05:10 82 143/58 01/18/20 04:00 98.9 95 20 138/61 (86) 97 01/18/20 04:00 77 01/18/20 01:16 83 149/76 01/18/20 01:09 109 01/18/20 00:00 97.9 109 20 146/72 (96) 96 01/17/20 21:50 115 153/76 01/17/20 21:00 Room Air 01/17/20 20:00 88 01/17/20 20:00 98.9 88 18 153/76 (101) 98 01/17/20 17:31 115 161/94 01/17/20 16:00 109 01/17/20 16:00 97.8 83 18 161/94 (116) 96 01/17/20 13:00 107 162/103 01/17/20 12:00 78 01/17/20 12:00 97.4 81 20 171/92 (118) 98 01/17/20 09:00 Room Air 01/17/20 08:19 97.3 79 18 139/67 (91) 99 01/17/20 08:00 78 Intake and Output 01/18/20 01/19/20 19:00 07:00 Intake Total 490 ml 320 ml Balance 490 ml 320 ml Intake Oral 490 ml 320 ml # Voids 4 4 # Bowel Movements 3 Labs Test 01/16/20 08:15 01/16/20 18:15 01/17/20 01:15 01/17/20 07:25 Prothrombin Time 11.5 SEC (9.30-11.50) Prothromb Time International Ratio 1.1 (0.9-1.1) Troponin I 0.170 ng/mL (0.000-0.056) 0.114 ng/mL (0.000-0.056) White Blood Count 10.2 K/UL (4.8-10.8) Red Blood Count 2.79 M/UL (4.20-5.40) Hemoglobin 10.6 G/DL (12.0-16.0) Hematocrit 29.1 % (37.0-47.0) Mean Corpuscular Volume 104 FL (80-99) Mean Corpuscular Hemoglobin 37.9 PG (27.0-31.0) Mean Corpuscular Hemoglobin Concent 36.3 G/DL (32.0-36.0) Red Cell Distribution Width 11.9 % (11.6-14.8) Platelet Count 246 K/UL (150-450) Mean Platelet Volume 10.7 FL (6.5-10.1) Neutrophils (%) (Auto) % (45.0-75.0) Lymphocytes (%) (Auto) % (20.0-45.0) Monocytes (%) (Auto) % (1.0-10.0) Eosinophils (%) (Auto) % (0.0-3.0) Basophils (%) (Auto) % (0.0-2.0) Differential Total Cells Counted 100 Neutrophils % (Manual) 88 % (45-75) Lymphocytes % (Manual) 6 % (20-45) Monocytes % (Manual) 6 % (1-10) Eosinophils % (Manual) 0 % (0-3) Basophils % (Manual) 0 % (0-2) Band Neutrophils 0 % (0-8) Platelet Estimate Adequate Platelet Morphology Normal Hypochromasia 1+ Anisocytosis 1+ Macrocytosis 1+ Sodium Level 142 MMOL/L (136-145) Potassium Level 4.3 MMOL/L (3.5-5.1) Chloride Level 108 MMOL/L (98-107) Carbon Dioxide Level 23 MMOL/L (21-32) Anion Gap 11 mmol/L (5-15) Blood Urea Nitrogen 15 mg/dL (7-18) Creatinine 1.2 MG/DL (0.55-1.30) Estimat Glomerular Filtration Rate 42.7 mL/min (>60) Glucose Level 115 MG/DL (74-106) Calcium Level 8.6 MG/DL (8.5-10.1) Test 01/17/20 09:30 01/18/20 06:57 01/18/20 12:00 Troponin I 0.111 ng/mL (0.000-0.056) White Blood Count 9.7 K/UL (4.8-10.8) Red Blood Count 2.76 M/UL (4.20-5.40) Hemoglobin 10.3 G/DL (12.0-16.0) Hematocrit 28.6 % (37.0-47.0) Mean Corpuscular Volume 104 FL (80-99) Mean Corpuscular Hemoglobin 37.4 PG (27.0-31.0) Mean Corpuscular Hemoglobin Concent 36.1 G/DL (32.0-36.0) Red Cell Distribution Width 12.6 % (11.6-14.8) Platelet Count 292 K/UL (150-450) Mean Platelet Volume 10.8 FL (6.5-10.1) Neutrophils (%) (Auto) % (45.0-75.0) Lymphocytes (%) (Auto) % (20.0-45.0) Monocytes (%) (Auto) % (1.0-10.0) Eosinophils (%) (Auto) % (0.0-3.0) Basophils (%) (Auto) % (0.0-2.0) Differential Total Cells Counted 100 Neutrophils % (Manual) 77 % (45-75) Lymphocytes % (Manual) 11 % (20-45) Monocytes % (Manual) 9 % (1-10) Eosinophils % (Manual) 2 % (0-3) Basophils % (Manual) 1 % (0-2) Band Neutrophils 0 % (0-8) Platelet Estimate Adequate Platelet Morphology Normal Hypochromasia 1+ Anisocytosis 1+ Macrocytosis 1+ Sodium Level 142 MMOL/L (136-145) Potassium Level 4.5 MMOL/L (3.5-5.1) Chloride Level 107 MMOL/L (98-107) Carbon Dioxide Level 25 MMOL/L (21-32) Anion Gap 10 mmol/L (5-15) Blood Urea Nitrogen 11 mg/dL (7-18) Creatinine 1.2 MG/DL (0.55-1.30) Estimat Glomerular Filtration Rate 42.7 mL/min (>60) Glucose Level 106 MG/DL (74-106) Calcium Level 9.0 MG/DL (8.5-10.1) Vitamin B12 Level 1099 PG/ML (193-986) Thyroid Stimulating Hormone (TSH) 1.205 uiU/mL (0.358-3.740) Stool Occult Blood Negative (NEGATIVE) Height (Feet): 5 Height (Inches): 3.00 Weight (Pounds): 115 Objective Physical Exam General: mild distress - confused Head: normocephalic, atraumatic, b/l eomi, dry mucus membranes Resp: lungs clear, no respiratory distress Cardiovascular: regular rate, rhythm Gastrointestinal: non tender, soft, ttp throughout Genitourinary: no CVA tenderness Musculoskeletal: other - Difficult to fully evaluate patient moves both lower extremities, lower ex pain Neurologic: other - Patient is verbal, follows some commands however Skin: no rash David Rock MD Jan 19, 2020 06:31
--- NOTE | 2020-01-19 07:35 | NUR ---
HAND-OFF: Report given to DADA Altamirano. Plan of care endorsed.
[2020-01-19 07:38] LABS: ANION GAP 14 mmol/L (5-15); BLOOD UREA NITROGEN 15 mg/dL (7-18); CARBON DIOXIDE 21 MMOL/L (21-32); CHLORIDE 107 MMOL/L (98-107); CREATININE 1.2 MG/DL (0.55-1.30); POTASSIUM 4.5 MMOL/L (3.5-5.1); SODIUM 142 MMOL/L (136-145)
[2020-01-19 07:53] LABS: HEMATOCRIT 29.8 % (37.0-47.0); HEMOGLOBIN 10.3 G/DL (12.0-16.0); MEAN CORPUSCULAR VOLUME 106 FL (80-99); PLATELET COUNT 280 K/UL (150-450); RED BLOOD COUNT 2.82 M/UL (4.20-5.40); RED CELL DISTRIBUTION WIDTH 11.4 % (11.6-14.8); WHITE BLOOD COUNT 10.9 K/UL (4.8-10.8)
--- NOTE | 2020-01-19 08:05 | NUR ---
NURSE NOTES: RECVD PT. PT IS CONFUSED AND DISORIENTED. PT IS ON ROOM AIR WITH NO SIGN OF SOB OR RESP DISTRESS. PT HAS BILAT SOFT RESTRAINTS ON. PT HAS IV SITE, THAT APPEARS INFILTRATED, WILL BE REMOVING AND RE-INSERTING NEW IV ACCESS. BED IN LOWEST POSITION, CALL LIGHT WITHIN REACH, WILL CONTINUE WITH PLAN OF CARE
[2020-01-19 08:10] VITALS: BP 134/73
[2020-01-19] MEDS: Pantoprazole Inj IV SCH (08:26)
[2020-01-19] MEDS: Lactulose 20gm/30ml UDC ORAL SCH ×2 (08:26→17:30)
[2020-01-19] MEDS: Docusate 100mg cap ORAL SCH ×2 (08:27→17:31)
[2020-01-19] MEDS: Heparin 5000 units/ml inj SUBQ SCH ×2 (08:33→21:15)
[2020-01-19] MEDS: Aspirin EC 81mg tab ORAL SCH (08:35)
[2020-01-19] MEDS: D5 1/2NS w/KCl 20mEq 1,000 ML IV SCH ×2 (08:35→23:43)
--- NOTE | 2020-01-19 09:14 | General Progress Note ---
Assessment/Plan Assessment/Plan: macrocytic anemia constipation s/p fall gallstones diverticulosis on diet anemia work up on iv iron bowel regimen hem in put appreciated fu cardiology recs GI procedures on hold for now repeat cbc>>stable Stool for ob>>> neg will fu Subjective ROS Limited/Unobtainable: No Allergies: Coded Allergies: No Known Allergies (Unverified , 01/13/20) Objective Last 24 Hour Vital Signs Date Time Temp Pulse Resp B/P (MAP) Pulse Ox O2 Delivery O2 Flow Rate FiO2 01/19/20 08:36 88 159/73 01/19/20 08:10 97.8 88 19 134/73 (93) 98 01/19/20 08:05 Room Air 01/19/20 05:46 98 148/83 01/19/20 04:00 76 01/19/20 04:00 97.8 76 19 152/75 (100) 98 01/19/20 01:45 116 163/78 01/19/20 00:00 88 01/19/20 00:00 97.8 98 20 158/76 (103) 95 01/18/20 21:22 107 139/80 01/18/20 21:00 Room Air 01/18/20 20:00 97.7 96 19 139/80 (99) 97 01/18/20 20:00 82 01/18/20 17:35 109 159/92 01/18/20 16:00 97.0 109 20 159/92 (114) 92 01/18/20 15:33 98 01/18/20 13:56 83 150/92 01/18/20 12:00 97.0 85 20 150/92 (111) 91 01/18/20 11:50 84 01/18/20 09:30 87 127/63 Intake and Output 01/18/20 01/19/20 19:00 07:00 Intake Total 490 ml 320 ml Balance 490 ml 320 ml Intake Oral 490 ml 320 ml # Voids 4 4 # Bowel Movements 3 Laboratory Tests 01/18/20 12:00: Stool Occult Blood Negative 01/19/20 06:19: White Blood Count 10.9H, Red Blood Count 2.82L, Hemoglobin 10.3L, Hematocrit 29.8L, Mean Corpuscular Volume 106H, Mean Corpuscular Hemoglobin 36.5H, Mean Corpuscular Hemoglobin Concent 34.5, Red Cell Distribution Width 11.4L, Platelet Count 280, Mean Platelet Volume 9.8, Neutrophils (%) (Auto) , Lymphocytes (%) (Auto) , Monocytes (%) (Auto) , Eosinophils (%) (Auto) , Basophils (%) (Auto) , Neutrophils % (Manual) [Pending], Lymphocytes % (Manual) [Pending], Platelet Estimate [Pending], Platelet Morphology [Pending], Sodium Level 142, Potassium Level 4.5, Chloride Level 107, Carbon Dioxide Level 21, Anion Gap 14, Blood Urea Nitrogen 15, Creatinine 1.2, Estimat Glomerular Filtration Rate 42.7, Glucose Level 111H, Calcium Level 9.0 Height (Feet): 5 Height (Inches): 3.00 Weight (Pounds): 116 General Appearance: no apparent distress EENT: normal ENT inspection Neck: supple Cardiovascular: normal rate Respiratory/Chest: decreased breath sounds Abdomen: normal bowel sounds, non tender, soft Extremities: non-tender Yomi Sloan MD Jan 19, 2020 09:14
--- NOTE | 2020-01-19 10:30 | Consultation ---
DATE OF CONSULTATION: 01/18/2020 NEUROLOGY CONSULTATION CONSULTING PHYSICIAN: Ashutosh Navarro M.D. HISTORY OF PRESENT ILLNESS: This is the first [facility] admission for this 84-year-old white woman with very little history. She was admitted with abdominal pain and confusion on 01/13/2020. I was asked to see the patient because of altered mental status. The patient was found wandering in the street and was brought to this hospital. Her initial workup revealed a TSH of 1.425, free T4 of 1.32, B12 of 1095. Normal liver functions except for low albumin, low iron, and low potassium. The patient had a slightly elevated sodium and high chloride and a slightly elevated BUN of 43 with a creatinine 1.7. Creatinine went down to normal range. The troponins became slightly elevated. CEA was in the normal range. Microbiology studies were negative. The chest x-ray on 01/13/2020 revealed chronic findings with linear scarring in the left perihilar region. No definite acute infiltrate. The abdomen and pelvis CT scan on 01/13/2020 was abnormal revealing L2 vertebral body wedge compression fracture deformity, lumbar spondylosis, bilateral sacral nerve root cysts, right middle lobe and lingular pulmonary parenchymal scarring, left renal cyst. There is colonic diverticulosis. The liver, gallbladder, bile ducts, pancreas, spleen, adrenals, and right kidney were all unremarkable. Left kidney had an upper pole cyst and a very subtle foci of high attenuation seen on the left ureteral orifice. 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 The abdominal ultrasound was essentially unremarkable except for suspected cholelithiasis. Hip pelvis x-rays were basically negative except for moderate constipation. The patient had a 2D echocardiogram on 01/17/2020, which was not a very good study, was basically negative. The patient had several EKGs. First one revealed normal sinus rhythm with ST and T-wave abnormality. The other EKG yesterday revealed sinus tachycardia and left ventricular hypertrophy. EKG on 01/17/2020 revealed sinus rhythm, premature atrial complexes, and left ventricular hypertrophy with repolarization abnormality. The patient saw Dr. Sloan for abdominal pain on 01/14/2020. A new diagnosis was made. The patient had a cardiology consultation on 01/16/2020. The patient had tachycardia, was given metoprolol and a diagnosis of DE was seen. The patient did have elevated troponin. The patient also saw a alumni relations manager on 01/15/2020. I was asked to see the patient in neurologic consultation. There is no family history of neurologic disease available. The patient cannot give a history. PHYSICAL EXAMINATION: GENERAL: The patient is a well-developed, disheveled woman, appearing well nourished, in no acute distress. VITAL SIGNS: The blood pressure is 159/92, pulse is 109, and temperature is 97 degrees, which is low. HEENT: Revealed poor dentition. Dry mucous membranes. 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 NECK: Neck was basically supple. Carotids are +2. No bruits were appreciated. LUNGS: Probably clear to auscultation. CARDIOVASCULAR: PMI could not be felt. JVP was flat. No S3, S4, murmurs, or rubs appreciated. ABDOMEN: The bowel sounds are slightly increased. There is no tenderness, masses, or organomegaly appreciated. BACK: There is no tenderness to percussion. EXTREMITIES: Revealed degenerative joint disease and bandages on the heel. NEUROLOGIC EXAMINATION: MENTAL STATUS: The patient is combative and agitated. Moving all 4 extremities. She did not answer to her name. Did not know the year or the place where she is at. She could not do one-step commands. CRANIAL NERVE EXAMINATION: CRANIAL NERVE II: Difficult to evaluate due to blepharospasm. CRANIAL NERVES III, IV, AND : The eyes were in the midline. Pupils appear to be at least 4 mm and round and partially reactive to light. CRANIAL NERVE V: Corneal sensation is intact to fine touch. CRANIAL NERVE VII: There is no obvious facial asymmetry. CRANIAL NERVES VIII: Could not be determined. CRANIAL NERVES IX AND X: She bulldogged on tongue depressor. CRANIAL NERVE XI AND XII: Could not be tested. MUSCLE EXAMINATION: She moves all 4 extremities. REFLEXES: Trace to +1 in the upper extremities, probably +1 at the knees, 0 at the ankles with an upgoing toe on the left side and downgoing toe on the right side on testing for Babinski response. COORDINATION, GAIT, STATION: Could not be tested. SENSORY EXAMINATION: There was withdrawal to pain in all 4 extremities. IMPRESSION: This patient has an agitated delirium, the cause of which is unclear. I do not think she has herpes simplex encephalitis. I guess that the initial mental status problems . She also has macrocytic anemia in the past. I do not think these are partial complex seizures. . Thiamine deficiency should be considered encephalitis is a possibility. I do not think she has any other HEAD [employer]IMAL TRAINER infection at this time, but the only way to prove it is to do a lumbar puncture. 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 The patient has evidence for small stroke, but there is no evidence that she has a right parietal temporal stroke, which can cause what appears to be metabolic encephalopathy. The anti-LGI1 encephalitis is unlikely, [id number] encephalitis is unlikely as well as and other autoimmune encephalitis. SPLE is unlikely. PLAN: 1. See the order sheet. 2. Get a serum ammonia. 3. IFA. 4. EEG. 5. Consider lumbar puncture. 6. this case. Thank you for this interesting case. Ashutosh Navarro MD DR: GEREMIAS JOB#: [id number] CC:
--- NOTE | 2020-01-19 11:55 | Pulmonology Progress Note ---
Assessment/Plan Problems: (1) NSTEMI (non-ST elevated myocardial infarction) (2) L2 vertebral fracture (3) Fecal impaction (4) Renal insufficiency (5) Encephalopathy (6) No significant past medical history Assessment/Plan still agitated f/u cardiology recommendations might need stress studies Echo was poor quality MRI of L spine to assess acuity of the L2 fracture, can not be done since she is agitated all the time symptomatic treatment sinus rhythm CT of head reviewed, no acute findings. Subjective ROS Limited/Unobtainable: No Constitutional: Reports: no symptoms HEENT: Repors: no symptoms Respiratory: Reports: no symptoms Allergies: Coded Allergies: No Known Allergies (Unverified , 01/13/20) Objective Last 24 Hour Vital Signs Date Time Temp Pulse Resp B/P (MAP) Pulse Ox O2 Delivery O2 Flow Rate FiO2 01/19/20 08:36 88 159/73 01/19/20 08:10 97.8 88 19 134/73 (93) 98 01/19/20 08:05 Room Air 01/19/20 08:00 92 01/19/20 05:46 98 148/83 01/19/20 04:00 76 01/19/20 04:00 97.8 76 19 152/75 (100) 98 01/19/20 01:45 116 163/78 01/19/20 00:00 88 01/19/20 00:00 97.8 98 20 158/76 (103) 95 01/18/20 21:22 107 139/80 01/18/20 21:00 Room Air 01/18/20 20:00 97.7 96 19 139/80 (99) 97 01/18/20 20:00 82 01/18/20 17:35 109 159/92 01/18/20 16:00 97.0 109 20 159/92 (114) 92 01/18/20 15:33 98 01/18/20 13:56 83 150/92 01/18/20 12:00 97.0 85 20 150/92 (111) 91 Intake and Output 01/18/20 01/19/20 19:00 07:00 Intake Total 490 ml 320 ml Balance 490 ml 320 ml Intake Oral 490 ml 320 ml # Voids 4 4 # Bowel Movements 3 General Appearance: WD/WN HEENT: normocephalic, atraumatic Respiratory/Chest: chest wall non-tender, lungs clear Cardiovascular: normal peripheral pulses, normal rate Abdomen: normal bowel sounds, soft, non tender Genitourinary: normal external genitalia Extremities: no cyanosis Skin: no rash Laboratory Tests 01/18/20 12:00: Stool Occult Blood Negative 01/19/20 06:19: White Blood Count 10.9H, Red Blood Count 2.82L, Hemoglobin 10.3L, Hematocrit 29.8L, Mean Corpuscular Volume 106H, Mean Corpuscular Hemoglobin 36.5H, Mean Corpuscular Hemoglobin Concent 34.5, Red Cell Distribution Width 11.4L, Platelet Count 280, Mean Platelet Volume 9.8, Neutrophils (%) (Auto) , Lymphocytes (%) (Auto) , Monocytes (%) (Auto) , Eosinophils (%) (Auto) , Basophils (%) (Auto) , Differential Total Cells Counted 100, Neutrophils % ( Manual) 86H, Lymphocytes % (Manual) 6L, Monocytes % (Manual) 8, Eosinophils % ( Manual) 0, Basophils % (Manual) 0, Band Neutrophils 0, Platelet Estimate Adequate, Platelet Morphology Normal, Sodium Level 142, Potassium Level 4.5, Chloride Level 107, Carbon Dioxide Level 21, Anion Gap 14, Blood Urea Nitrogen 15, Creatinine 1.2, Estimat Glomerular Filtration Rate 42.7, Glucose Level 111H , Calcium Level 9.0 Current Medications Medications (Trade) Dose Ordered Sig/Dewayne Route PRN Reason Start Time Stop Time Status Last Admin Dose Admin Acetaminophen (Tylenol) 650 mg Q4H PRN ORAL fever 01/16/20 15:17 02/15/20 15:16 Aspirin (Ecotrin) 81 mg DAILY ORAL 01/16/20 17:20 02/15/20 17:19 01/19/20 08:35 Atorvastatin Calcium (Lipitor) 20 mg BEDTIME ORAL 01/16/20 21:00 02/15/20 20:59 01/18/20 21:23 Dextrose (Dextrose 50%) 25 ml Q30M PRN IV Hypoglycemia 01/16/20 15:30 02/12/20 15:59 Dextrose (Dextrose 50%) 50 ml Q30M PRN IV Hypoglycemia 01/16/20 15:30 02/12/20 15:59 Dextrose/ Electrolytes 1,000 ml @ 75 mls/hr [id number] IV 01/16/20 15:17 02/15/20 15:16 01/19/20 08:35 Diphenhydramine HCl (Benadryl) 25 mg Q6H PRN ORAL Itching/Pruritis 01/16/20 15:17 02/15/20 15:16 Docusate Sodium (Colace) 100 mg TWICE A DAY ORAL 01/16/20 18:00 02/14/20 08:59 01/19/20 08:27 Haloperidol Lactate (Haldol) 5 mg Q6H PRN IM Agitation 01/17/20 19:30 02/16/20 19:29 01/18/20 13:11 Heparin Sodium (Porcine) (Heparin 5000 units/ml) 5,000 units EVERY 12 HOURS SUBQ 01/16/20 21:00 02/12/20 20:59 01/19/20 08:33 Iron Sucrose 100 mg/Sodium Chloride 60 ml @ 240 mls/hr BEDTIME IV 01/17/20 21:00 01/21/20 21:14 01/18/20 21:22 Lactulose (Cephulac) 20 gm BID ORAL 01/16/20 18:00 02/14/20 08:59 01/19/20 08:26 Lorazepam (Ativan) 1 mg BID@0900,2100 ORAL 01/19/20 02:00 01/26/20 01:59 01/19/20 08:35 Metoclopramide HCl (Reglan) 10 mg Q6H PRN IVP severe nausea 01/16/20 15:17 02/15/20 15:16 Metoprolol Tartrate (Lopressor) 2.5 mg Q4H PRN IVP for HR >115 01/16/20 17:23 02/15/20 17:22 Metoprolol Tartrate (Lopressor) 2.5 mg Q4HR IVP 01/17/20 13:00 02/16/20 12:59 01/19/20 08:36 Nitroglycerin (Ntg) 0.4 mg Q5M X 3 DOSES PRN SL Prn Chest Pain 01/16/20 15:15 02/12/20 15:59 Ondansetron HCl (Zofran) 4 mg Q6H PRN IVP Nausea & Vomiting 01/16/20 16:00 02/12/20 15:59 Pantoprazole (Protonix) 40 mg DAILY IV 01/17/20 09:00 02/13/20 08:59 01/19/20 08:26 Polyethylene Glycol (Miralax) 17 gm HSPRN PRN ORAL Constipation 01/16/20 15:18 02/15/20 15:17 Risperidone (RisperDAL) 1 mg BID ORAL 01/17/20 18:00 02/16/20 17:59 01/19/20 08:26 Temazepam (Restoril) 15 mg HSPRN PRN ORAL Insomnia 01/16/20 15:18 01/23/20 15:17 Thiamine HCl 500 mg/Dextrose 280 ml @ 280 mls/hr Q8HR@0200,1000,1800 IVPB 01/18/20 19:30 01/20/20 10:59 01/19/20 11:27 Alyse Oconnor MD Jan 19, 2020 11:55
[2020-01-19 12:00] VITALS: BP 113/92
[2020-01-19] MEDS: Haloperidol 5mg/ml Inj IM PRN (12:15)
--- NOTE | 2020-01-19 12:19 | Internal Med Progress Note ---
Subjective Date of Service: Jan 19, 2020 Physician Name SoniaJonas Attending Physician Ulices High MD Current Medications Medications (Trade) Dose Ordered Sig/Dewayne Route PRN Reason Start Time Stop Time Status Last Admin Dose Admin Acetaminophen (Tylenol) 650 mg Q4H PRN ORAL fever 01/16/20 15:17 02/15/20 15:16 Aspirin (Ecotrin) 81 mg DAILY ORAL 01/16/20 17:20 02/15/20 17:19 01/19/20 08:35 Atorvastatin Calcium (Lipitor) 20 mg BEDTIME ORAL 01/16/20 21:00 02/15/20 20:59 01/18/20 21:23 Dextrose (Dextrose 50%) 25 ml Q30M PRN IV Hypoglycemia 01/16/20 15:30 02/12/20 15:59 Dextrose (Dextrose 50%) 50 ml Q30M PRN IV Hypoglycemia 01/16/20 15:30 02/12/20 15:59 Dextrose/ Electrolytes 1,000 ml @ 75 mls/hr [id number] IV 01/16/20 15:17 02/15/20 15:16 01/19/20 08:35 Diphenhydramine HCl (Benadryl) 25 mg Q6H PRN ORAL Itching/Pruritis 01/16/20 15:17 02/15/20 15:16 Docusate Sodium (Colace) 100 mg TWICE A DAY ORAL 01/16/20 18:00 02/14/20 08:59 01/19/20 08:27 Haloperidol Lactate (Haldol) 5 mg Q6H PRN IM Agitation 01/17/20 19:30 02/16/20 19:29 01/18/20 13:11 Heparin Sodium (Porcine) (Heparin 5000 units/ml) 5,000 units EVERY 12 HOURS SUBQ 01/16/20 21:00 02/12/20 20:59 01/19/20 08:33 Iron Sucrose 100 mg/Sodium Chloride 60 ml @ 240 mls/hr BEDTIME IV 01/17/20 21:00 01/21/20 21:14 01/18/20 21:22 Lactulose (Cephulac) 20 gm BID ORAL 01/16/20 18:00 02/14/20 08:59 01/19/20 08:26 Lorazepam (Ativan) 1 mg BID@0900,2100 ORAL 01/19/20 02:00 01/26/20 01:59 01/19/20 08:35 Metoclopramide HCl (Reglan) 10 mg Q6H PRN IVP severe nausea 01/16/20 15:17 02/15/20 15:16 Metoprolol Tartrate (Lopressor) 2.5 mg Q4H PRN IVP for HR >115 01/16/20 17:23 02/15/20 17:22 Metoprolol Tartrate (Lopressor) 2.5 mg Q4HR IVP 01/17/20 13:00 02/16/20 12:59 01/19/20 08:36 Nitroglycerin (Ntg) 0.4 mg Q5M X 3 DOSES PRN SL Prn Chest Pain 01/16/20 15:15 02/12/20 15:59 Ondansetron HCl (Zofran) 4 mg Q6H PRN IVP Nausea & Vomiting 01/16/20 16:00 02/12/20 15:59 Pantoprazole (Protonix) 40 mg DAILY IV 01/17/20 09:00 02/13/20 08:59 01/19/20 08:26 Polyethylene Glycol (Miralax) 17 gm HSPRN PRN ORAL Constipation 01/16/20 15:18 02/15/20 15:17 Risperidone (RisperDAL) 1 mg BID ORAL 01/17/20 18:00 02/16/20 17:59 01/19/20 08:26 Temazepam (Restoril) 15 mg HSPRN PRN ORAL Insomnia 01/16/20 15:18 01/23/20 15:17 Thiamine HCl 500 mg/Dextrose 280 ml @ 280 mls/hr Q8HR@0200,1000,1800 IVPB 01/18/20 19:30 01/20/20 10:59 01/19/20 11:27 Allergies: Coded Allergies: No Known Allergies (Unverified , 01/13/20) ROS Limited/Unobtainable: Yes Subjective 84 YO F admitted with altered mental status and abdominal pain. Cover for Int [facility]- Dr High. MRI cancelled due to agitation Objective Last Vital Signs Date Time Temp Pulse Resp B/P (MAP) Pulse Ox O2 Delivery O2 Flow Rate FiO2 01/19/20 12:00 98.0 59 19 113/92 (99) 96 01/19/20 08:05 Room Air 01/13/20 19:45 99 Laboratory Tests Test 01/19/20 06:19 White Blood Count 10.9 K/UL (4.8-10.8) H Red Blood Count 2.82 M/UL (4.20-5.40) L Hemoglobin 10.3 G/DL (12.0-16.0) L Hematocrit 29.8 % (37.0-47.0) L Mean Corpuscular Volume 106 FL (80-99) H Mean Corpuscular Hemoglobin 36.5 PG (27.0-31.0) H Mean Corpuscular Hemoglobin Concent 34.5 G/DL (32.0-36.0) Red Cell Distribution Width 11.4 % (11.6-14.8) L Platelet Count 280 K/UL (150-450) Mean Platelet Volume 9.8 FL (6.5-10.1) Neutrophils (%) (Auto) % (45.0-75.0) Lymphocytes (%) (Auto) % (20.0-45.0) Monocytes (%) (Auto) % (1.0-10.0) Eosinophils (%) (Auto) % (0.0-3.0) Basophils (%) (Auto) % (0.0-2.0) Differential Total Cells Counted 100 Neutrophils % (Manual) 86 % (45-75) H Lymphocytes % (Manual) 6 % (20-45) L Monocytes % (Manual) 8 % (1-10) Eosinophils % (Manual) 0 % (0-3) Basophils % (Manual) 0 % (0-2) Band Neutrophils 0 % (0-8) Platelet Estimate Adequate Platelet Morphology Normal Sodium Level 142 MMOL/L (136-145) Potassium Level 4.5 MMOL/L (3.5-5.1) Chloride Level 107 MMOL/L (98-107) Carbon Dioxide Level 21 MMOL/L (21-32) Anion Gap 14 mmol/L (5-15) Blood Urea Nitrogen 15 mg/dL (7-18) Creatinine 1.2 MG/DL (0.55-1.30) Estimat Glomerular Filtration Rate 42.7 mL/min (>60) Glucose Level 111 MG/DL (74-106) H Calcium Level 9.0 MG/DL (8.5-10.1) Intake and Output 01/18/20 01/19/20 19:00 07:00 Intake Total 490 ml 320 ml Balance 490 ml 320 ml Intake Oral 490 ml 320 ml # Voids 4 4 # Bowel Movements 3 Objective PHYSICAL EXAMINATION: GENERAL: The patient is a well-developed, well-nourished female, disheveled, and very confused. HEENT: Eyes, pupils are equal and responsive to light and accommodation. Extraocular movements are intact. NECK: Supple without lymphadenopathy. CHEST: Lungs are clear to auscultation bilaterally without wheezes or rales. CARDIOVASCULAR: Regular rhythm and rate. S1 and S2 are normal without murmurs, rubs, or gallops. ABDOMEN: Soft, diffusely tender to palpation, with decreased bowel sounds. No evidence of hepatosplenomegaly. Currently, no rebound or guarding noted. EXTREMITIES: Negative for clubbing, cyanosis, or edema. RECTAL: Not performed. GENITAL: Not performed. NEUROLOGIC: Cranial nerves II through XII are grossly intact without focal deficits. Motor strength is 5/5 bilaterally. Deep tendon reflexes are 2+ plantar. Assessment/Plan Assessment/Plan SSESSMENT: This is an 84-year-old female with: 1. Altered mental status. 2. Abdominal pain. 3. Anemia TREATMENT: 1. Altered mental status. Reason for altered mental status is unknown. Patient unable to tolerate an MRI of the brain. The patient may have had cerebrovascular accident versus Alzheimer's dementia and just got loss. A Neurology consultation has been obtained with Dr. Navarro. Await EEG and ammonia level 2. Abdominal pain. Workup so far has been within normal limits. A Gastroenterology consultation has been obtained with Dr. Yomi Sloan. 3. Anemia workup Jonas Scott MD Jan 19, 2020 12:19
[2020-01-19] MEDS: DiphenhydrAMINE 25mg Tab ORAL PRN (14:48)
[2020-01-19] MEDS: LORazepam 1mg tab ORAL SCH ×2 (15:53→22:26)
[2020-01-19 16:00] VITALS: BP 118/89
[2020-01-19 20:00] VITALS: BP 140/69
--- NOTE | 2020-01-19 20:00 | NUR ---
NURSE NOTES: RECEIVED PATIENT LYING IN BED, APPEAR TO BE ASLEEP, AWAKENED TO NAME, NOTED WITH GARBLED SPEECH, NO SIGNS AND SYMPTOMS OF PAIN, NO FACIAL GRIMACING. BILATERAL WRIST RESTRAINTS INTACT TO PREVENT PATIENT FROM CLIMBING OUT OF BED. IV INTACT TO RIGHT FOREARM/GAUGE 22, IV FLUIDS INFUSING WITHOUT DIFFICULTY, NO REDNESS/SWELLING NOTED. NO SIGNS AND SYMPTOMS OF ACUTE CARDIO RESPIRATORY DISTRESS/SHORTNESS OF BREATH, DENIES CHEST PAIN, NO EDEMA NOTED. SIDE RAILS UP X3/BED IN LOWEST POSITION FOR SAFETY, FREQUENT ROUNDING FOR SAFETY/NEEDS. CONTINUE WITH CURRENT PLAN OF CARE. NAD.
--- NOTE | 2020-01-19 20:38 | Cardiology Progress Note ---
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 oral bb will be restarted has a sitter at bedside apparently able to take meds po d/w rn minor trop abn likely demand due to tachy is on asa and statin neurro noted tachy at times tele revewieed Subjective ROS Limited/Unobtainable: Yes Subjective confused sitter at bedside Objective Last 24 Hour Vital Signs Date Time Temp Pulse Resp B/P (MAP) Pulse Ox O2 Delivery O2 Flow Rate FiO2 01/19/20 17:00 62 118/89 01/19/20 16:00 122 01/19/20 16:00 97.1 62 20 118/89 (99) 96 01/19/20 13:00 59 113/92 01/19/20 12:00 110 01/19/20 12:00 98.0 59 19 113/92 (99) 96 01/19/20 08:36 88 159/73 01/19/20 08:10 97.8 88 19 134/73 (93) 98 01/19/20 08:05 Room Air 01/19/20 08:00 92 01/19/20 05:46 98 148/83 01/19/20 04:00 76 01/19/20 04:00 97.8 76 19 152/75 (100) 98 01/19/20 01:45 116 163/78 01/19/20 00:00 88 01/19/20 00:00 97.8 98 20 158/76 (103) 95 01/18/20 21:22 107 139/80 01/18/20 21:00 Room Air General Appearance: no apparent distress EENT: other - having eeg performed Intake and Output 01/18/20 01/19/20 19:00 07:00 Intake Total 490 ml 320 ml Balance 490 ml 320 ml Intake Oral 490 ml 320 ml # Voids 4 4 # Bowel Movements 3 Laboratory Tests Test 01/19/20 06:19 01/19/20 13:30 White Blood Count 10.9 K/UL (4.8-10.8) H Red Blood Count 2.82 M/UL (4.20-5.40) L Hemoglobin 10.3 G/DL (12.0-16.0) L Hematocrit 29.8 % (37.0-47.0) L Mean Corpuscular Volume 106 FL (80-99) H Mean Corpuscular Hemoglobin 36.5 PG (27.0-31.0) H Mean Corpuscular Hemoglobin Concent 34.5 G/DL (32.0-36.0) Red Cell Distribution Width 11.4 % (11.6-14.8) L Platelet Count 280 K/UL (150-450) Mean Platelet Volume 9.8 FL (6.5-10.1) Neutrophils (%) (Auto) % (45.0-75.0) Lymphocytes (%) (Auto) % (20.0-45.0) Monocytes (%) (Auto) % (1.0-10.0) Eosinophils (%) (Auto) % (0.0-3.0) Basophils (%) (Auto) % (0.0-2.0) Differential Total Cells Counted 100 Neutrophils % (Manual) 86 % (45-75) H Lymphocytes % (Manual) 6 % (20-45) L Monocytes % (Manual) 8 % (1-10) Eosinophils % (Manual) 0 % (0-3) Basophils % (Manual) 0 % (0-2) Band Neutrophils 0 % (0-8) Platelet Estimate Adequate Platelet Morphology Normal Sodium Level 142 MMOL/L (136-145) Potassium Level 4.5 MMOL/L (3.5-5.1) Chloride Level 107 MMOL/L (98-107) Carbon Dioxide Level 21 MMOL/L (21-32) Anion Gap 14 mmol/L (5-15) Blood Urea Nitrogen 15 mg/dL (7-18) Creatinine 1.2 MG/DL (0.55-1.30) Estimat Glomerular Filtration Rate 42.7 mL/min (>60) Glucose Level 111 MG/DL (74-106) H Calcium Level 9.0 MG/DL (8.5-10.1) Rheumatoid Factor Screen Pending Anti-Nuclear Antibody Screen Pending Ammonia < 10 umol/L (11-32) Erasmo Salazar MD Jan 19, 2020 20:38
[2020-01-19] MEDS: Atorvastatin 20mg tab ORAL SCH (21:13)
[2020-01-19] MEDS: Iron Sucrose 100 MG in NS 55 ML IV SCH (21:17)
[2020-01-20] VITALS: BP 118/72
[2020-01-20] MEDS: Metoprolol Tartrate 5mg/5ml Inj IVP SCH ×6 (01:00→17:57)
[2020-01-20] MEDS: D5W IVPB SCH ×2 (02:08→09:37)
[2020-01-20] MEDS: THIAMINE HCL IVPB SCH ×2 (02:08→09:37)
--- NOTE | 2020-01-20 03:00 | Progress Note ---
DATE: 01/19/2020 SUBJECTIVE: The patient is still agitated more medication today. The patient is confused, unable to answer the questions to come out of the bed. MENTAL STATUS EXAMINATION: The patient is alert and confused. Mood is agitated. Affect is flat. Thought process is concrete. Thought content, no suicidal or homicidal ideation. Cognition is impaired. Insight and judgment is impaired. ASSESSMENT: Dementia with behavior disturbance. PLAN: We will continue current medications. Cornelia Lynn M.D. DR: MAMTA JOB#: [id number] CC: [id number]
[2020-01-20 04:00] VITALS: BP 151/59
[2020-01-20] MEDS: LORazepam 1mg tab ORAL SCH ×2 (05:18→13:06)
[2020-01-20 07:08] LABS: HEMOGLOBIN 9.9 G/DL (12.0-16.0); MEAN CORPUSCULAR VOLUME 106 FL (80-99); PLATELET COUNT 289 K/UL (150-450); RED BLOOD COUNT 2.64 M/UL (4.20-5.40); RED CELL DISTRIBUTION WIDTH 11.7 % (11.6-14.8); WHITE BLOOD COUNT 11.6 K/UL (4.8-10.8)
[2020-01-20 07:14] LABS: ANION GAP 10 mmol/L (5-15); BLOOD UREA NITROGEN 15 mg/dL (7-18); CALCIUM 9.2 MG/DL (8.5-10.1); CARBON DIOXIDE 24 MMOL/L (21-32); CHLORIDE 106 MMOL/L (98-107); CREATININE 1.2 MG/DL (0.55-1.30); POTASSIUM 4.9 MMOL/L (3.5-5.1); SODIUM 140 MMOL/L (136-145)
--- NOTE | 2020-01-20 07:30 | NUR ---
HAND-OFF: Report given to ISAEL.
--- NOTE | 2020-01-20 07:53 | NUR ---
NURSE NOTES: recvd pt. Pt is sleeping in bed comfortably. Pt is on room air with no sign of sob or resp distress. Pt has bilat soft restraints. Bed in lowest locked position, call light within reach, will continue with plan of care
[2020-01-20 08:00] VITALS: BP 145/60
[2020-01-20] MEDS: Docusate 100mg cap ORAL SCH ×2 (08:27→17:57)
--- NOTE | 2020-01-20 08:29 | General Progress Note ---
Assessment/Plan Assessment/Plan: macrocytic anemia constipation s/p fall gallstones diverticulosis on diet anemia work up on iv iron bowel regimen hem in put appreciated fu cardiology recs GI procedures on hold for now repeat cbc>>stable Stool for ob>>> neg psych in put appreciated will fu Subjective ROS Limited/Unobtainable: No Allergies: Coded Allergies: No Known Allergies (Unverified , 01/13/20) Objective Last 24 Hour Vital Signs Date Time Temp Pulse Resp B/P (MAP) Pulse Ox O2 Delivery O2 Flow Rate FiO2 01/20/20 08:12 Room Air 01/20/20 05:11 98 146/96 01/20/20 04:00 96.7 96 20 151/59 (89) 01/20/20 04:00 89 01/20/20 01:00 75 112/62 01/20/20 00:00 77 01/20/20 00:00 98.1 85 20 118/72 (87) 97 01/19/20 21:17 81 140/60 01/19/20 21:00 Room Air 01/19/20 20:00 98.1 112 20 140/69 (92) 95 01/19/20 20:00 108 01/19/20 17:00 62 118/89 01/19/20 16:00 122 01/19/20 16:00 97.1 62 20 118/89 (99) 96 01/19/20 13:00 59 113/92 01/19/20 12:00 110 01/19/20 12:00 98.0 59 19 113/92 (99) 96 01/19/20 08:36 88 159/73 Intake and Output 01/19/20 01/20/20 19:00 07:00 Intake Total 75 ml 1582 ml Balance 75 ml 1582 ml Intake Oral 180 ml IV Total 75 ml 902 ml Other 500 ml # Voids 3 Laboratory Tests 01/19/20 13:30: Ammonia < 10L 01/20/20 05:45: White Blood Count 11.6H, Red Blood Count 2.64L, Hemoglobin 9.9L, Hematocrit 28.0L, Mean Corpuscular Volume 106H, Mean Corpuscular Hemoglobin 37.5H, Mean Corpuscular Hemoglobin Concent 35.3, Red Cell Distribution Width 11.7, Platelet Count 289, Mean Platelet Volume 10.1, Neutrophils (%) (Auto) , Lymphocytes (%) ( Auto) , Monocytes (%) (Auto) , Eosinophils (%) (Auto) , Basophils (%) (Auto) , Neutrophils % (Manual) [Pending], Lymphocytes % (Manual) [Pending], Platelet Estimate [Pending], Platelet Morphology [Pending], Sodium Level 140, Potassium Level 4.9, Chloride Level 106, Carbon Dioxide Level 24, Anion Gap 10, Blood Urea Nitrogen 15, Creatinine 1.2, Estimat Glomerular Filtration Rate 42.7, Glucose Level 128H, Calcium Level 9.2 Height (Feet): 5 Height (Inches): 3.00 Weight (Pounds): 116 General Appearance: no apparent distress EENT: normal ENT inspection Neck: supple Cardiovascular: normal rate Respiratory/Chest: decreased breath sounds Abdomen: normal bowel sounds, non tender, soft Extremities: non-tender Yomi Sloan MD Jan 20, 2020 08:29
[2020-01-20] MEDS: Lactulose 20gm/30ml UDC ORAL SCH ×3 (09:00→18:00)
[2020-01-20] MEDS: Aspirin EC 81mg tab ORAL SCH (09:00)
[2020-01-20] MEDS: Pantoprazole Inj IV SCH (09:35)
[2020-01-20] MEDS: Heparin 5000 units/ml inj SUBQ SCH ×2 (09:36→21:22)
--- NOTE | 2020-01-20 10:29 | NUR ---
RD ASSESSMENT & RECOMMENDATIONS SEE CARE ACTIVITY FOR COMPLETE ASSESSMENT DAILY ESTIMATED NEEDS: Needs based on Advanced age 51kg 25-30 kcals/kg 7134-8115 total kcals 1-1.2 g protein/kg 52-62 g total protein 20-25 mL/kg 7121-8140 total fluid mLs NUTRITION DIAGNOSIS: Chewing difficulty r/t encephalopathy as evidenced by pt found on streets, s/p DESIGN DIRECTOR eval, recs for soft easy chew texture, po intake has been variable. CURRENT DIET: Regular soft easy chew PO DIET RECOMMENDATIONS: Maintain Regular diet. Texture per motor vehicle clerk. ADDITIONAL RECOMMENDATIONS: 1) Obtain a calibrated standing weight as able 2) Add Ensure w/ meals w/ continued variable to poor intake 3) Rec accuchecks, need for ssi 4) Pt w/ multiple psych meds/ sedatives-> rec to HOLD AT MEALTIMES for improved po intake.
[2020-01-20 12:00] VITALS: BP 115/53
--- NOTE | 2020-01-20 12:20 | Pulmonology Progress Note ---
Assessment/Plan Problems: (1) NSTEMI (non-ST elevated myocardial infarction) (2) L2 vertebral fracture (3) Fecal impaction (4) Renal insufficiency (5) Encephalopathy (6) No significant past medical history (7) Acute encephalopathy (8) Agitation Assessment/Plan still agitated or severely sedated, we have not been able to get her calm and comfortable f/u cardiology recommendations might need stress studies Echo was poor quality f/u Neuro recommendations. symptomatic treatment sinus rhythm CT of head reviewed, no acute findings. Subjective ROS Limited/Unobtainable: No Constitutional: Reports: no symptoms HEENT: Repors: no symptoms Allergies: Coded Allergies: No Known Allergies (Unverified , 01/13/20) Objective Last 24 Hour Vital Signs Date Time Temp Pulse Resp B/P (MAP) Pulse Ox O2 Delivery O2 Flow Rate FiO2 01/20/20 09:35 91 145/60 01/20/20 08:12 Room Air 01/20/20 08:00 97.3 91 24 145/60 (88) 98 01/20/20 08:00 84 01/20/20 05:11 98 146/96 01/20/20 04:00 96.7 96 20 151/59 (89) 01/20/20 04:00 89 01/20/20 01:00 75 112/62 01/20/20 00:00 77 01/20/20 00:00 98.1 85 20 118/72 (87) 97 01/19/20 21:17 81 140/60 01/19/20 21:00 Room Air 01/19/20 20:00 98.1 112 20 140/69 (92) 95 01/19/20 20:00 108 01/19/20 17:00 62 118/89 01/19/20 16:00 122 01/19/20 16:00 97.1 62 20 118/89 (99) 96 01/19/20 13:00 59 113/92 Intake and Output 01/19/20 01/20/20 19:00 07:00 Intake Total 75 ml 1582 ml Balance 75 ml 1582 ml Intake Oral 180 ml IV Total 75 ml 902 ml Other 500 ml # Voids 3 General Appearance: cachetic HEENT: normocephalic, atraumatic Respiratory/Chest: chest wall non-tender, lungs clear Breasts: no masses Cardiovascular: normal peripheral pulses Abdomen: normal bowel sounds, soft, non tender Extremities: no cyanosis 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 Laboratory Tests 01/19/20 13:30: Ammonia < 10L 01/20/20 05:45: White Blood Count 11.6H, Red Blood Count 2.64L, Hemoglobin 9.9L, Hematocrit 28.0L, Mean Corpuscular Volume 106H, Mean Corpuscular Hemoglobin 37.5H, Mean Corpuscular Hemoglobin Concent 35.3, Red Cell Distribution Width 11.7, Platelet Count 289, Mean Platelet Volume 10.1, Neutrophils (%) (Auto) , Lymphocytes (%) ( Auto) , Monocytes (%) (Auto) , Eosinophils (%) (Auto) , Basophils (%) (Auto) , Differential Total Cells Counted 100, Neutrophils % (Manual) 88H, Lymphocytes % (Manual) 4L, Monocytes % (Manual) 7, Eosinophils % (Manual) 1, Basophils % ( Manual) 0, Band Neutrophils 0, Platelet Estimate Adequate, Platelet Morphology Normal, Macrocytosis 1+, Sodium Level 140, Potassium Level 4.9, Chloride Level 106, Carbon Dioxide Level 24, Anion Gap 10, Blood Urea Nitrogen 15, Creatinine 1.2, Estimat Glomerular Filtration Rate 42.7, Glucose Level 128H, Calcium Level 9.2 Current Medications Medications (Trade) Dose Ordered Sig/Dewayne Route PRN Reason Start Time Stop Time Status Last Admin Dose Admin Acetaminophen (Tylenol) 650 mg Q4H PRN ORAL fever 01/16/20 15:17 02/15/20 15:16 Aspirin (Ecotrin) 81 mg DAILY ORAL 01/16/20 17:20 02/15/20 17:19 01/19/20 08:35 Atorvastatin Calcium (Lipitor) 20 mg BEDTIME ORAL 01/16/20 21:00 02/15/20 20:59 01/19/20 21:13 Dextrose (Dextrose 50%) 25 ml Q30M PRN IV Hypoglycemia 01/16/20 15:30 02/12/20 15:59 Dextrose (Dextrose 50%) 50 ml Q30M PRN IV Hypoglycemia 01/16/20 15:30 02/12/20 15:59 Dextrose/ Electrolytes 1,000 ml @ 75 mls/hr [id number] IV 01/16/20 15:17 02/15/20 15:16 01/19/20 23:43 Diphenhydramine HCl (Benadryl) 25 mg Q6H PRN ORAL Itching/Pruritis 01/16/20 15:17 02/15/20 15:16 01/19/20 14:48 Docusate Sodium (Colace) 100 mg TWICE A DAY ORAL 01/16/20 18:00 02/14/20 08:59 01/19/20 08:27 Haloperidol Lactate (Haldol) 5 mg Q6H PRN IM Agitation 01/17/20 19:30 02/16/20 19:29 01/19/20 12:15 Heparin Sodium (Porcine) (Heparin 5000 units/ml) 5,000 units EVERY 12 HOURS SUBQ 01/16/20 21:00 02/12/20 20:59 01/20/20 09:36 Iron Sucrose 100 mg/Sodium Chloride 60 ml @ 240 mls/hr BEDTIME IV 01/17/20 21:00 01/21/20 21:14 01/19/20 21:17 Lactulose (Cephulac) 20 gm BID ORAL 01/16/20 18:00 02/14/20 08:59 01/19/20 08:26 Lorazepam (Ativan) 1 mg Q8HR ORAL 01/19/20 15:45 01/26/20 15:44 01/20/20 05:18 Metoclopramide HCl (Reglan) 10 mg Q6H PRN IVP severe nausea 01/16/20 15:17 02/15/20 15:16 Metoprolol Tartrate (Lopressor) 2.5 mg Q4H PRN IVP for HR >115 01/16/20 17:23 02/15/20 17:22 Metoprolol Tartrate (Lopressor) 2.5 mg Q4HR IVP 01/17/20 13:00 02/16/20 12:59 01/20/20 09:35 Nitroglycerin (Ntg) 0.4 mg Q5M X 3 DOSES PRN SL Prn Chest Pain 01/16/20 15:15 02/12/20 15:59 Ondansetron HCl (Zofran) 4 mg Q6H PRN IVP Nausea & Vomiting 01/16/20 16:00 02/12/20 15:59 Pantoprazole (Protonix) 40 mg DAILY IV 01/17/20 09:00 02/13/20 08:59 01/20/20 09:35 Polyethylene Glycol (Miralax) 17 gm HSPRN PRN ORAL Constipation 01/16/20 15:18 02/15/20 15:17 Quetiapine Fumarate (SEROqueL) 100 mg Q8HR ORAL 01/19/20 23:00 02/18/20 22:59 01/20/20 05:18 Temazepam (Restoril) 15 mg HSPRN PRN ORAL Insomnia 01/16/20 15:18 01/23/20 15:17 Alyse Oconnor MD Jan 20, 2020 12:20
[2020-01-20] MEDS: D5 1/2NS w/KCl 20mEq 1,000 ML IV SCH (12:37)
--- NOTE | 2020-01-20 13:29 | NUR ---
SUPERVISOR INVENTORY MERCHANDISING NOTE- DC TO BE INFORMED TO THE OUTPATIENT PHYTOPATHOLOGIST PT'S PHYTOPATHOLOGIST, PAU DUENAS FROM [facility] PRO[facility] [phone] TO BE INFORMED OF PT'S DC. Signed: 01/20/20 at 1330 by WASHINGTON HOUSTON <Co-Signature Required>
[2020-01-20 16:00] VITALS: BP 109/75
--- NOTE | 2020-01-20 16:00 | Electroencephalogram ---
DATE OF PROCEDURE: 01/19/2020 REQUESTING PHYSICIAN: Ashutosh Navarro M.D. READING PHYSICIAN: Evin Campos M.D. PROCEDURE PERFORMED: EEG. HISTORY: This EEG was performed on an 84-year-old lady who was hospitalized for an alteration in her mental state. The purpose of this EEG was to evaluate the patient for the degree and type of cerebral dysfunction. TECHNICAL NOTE: This EEG was performed on a [employer] with electrodes placed on the scalp according to the International 10-20 system. A single scalp to scalp montage was utilized. The EEG was of technically mediocre quality due to the fact that a whole set of electrodes was not used and in addition, the EEG was only done while the patient was in a sedated sleep state. The patient had been given Ativan and Seroquel to sedate her. OBSERVATIONS: In the sedated sleep state, the background activity consisted of delta and theta frequency activity with some intermixed vertex waves and in addition anteriorly predominant 12 Hz spindle like activity. No definite focal abnormalities or epileptiform discharges were seen. IMPRESSION: This is a possibly normal sedated sleep EEG. COMMENT: The study is consistent with a toxic encephalopathy, in this case most probably related to the Ativan and Seroquel the patient got prior to the EEG. An underlying encephalopathy due to other reasons cannot be excluded. If clinically indicated, an EEG without sedation should be performed. Evin Campos M.D., M.S.P.H. Clinical Neurophysiologist DR: DAVID JOB#: [id number] [facility]ITAL[facility]illes
--- NOTE | 2020-01-20 16:21 | Hematology/Onc Progress Note ---
Assessment/Plan Assessment/Plan Assessment and Recs: # Macrocytic anemia -- dec in h/h, wth elev mcv --> meds have been reviewed, unlikely contributors --> no hemolysis is noted --> cont iv iron --> tsh and b12 noted --> consider gi eval, recs noted --> hold off further eval with a bone marrow biopsy, may follow as outpatient --> hgb trend 10.6-->10.3-->9.9 --> stool ob negative # Constipation --> senna colace prn --> uptitrate as needed # s/p fall --> orthostatics reviewed # Gallstones --> gi aware # Diverticulosis --> on diet, per gi, monitor Appreciate consultation and dw Rn Subjective Allergies: Coded Allergies: No Known Allergies (Unverified , 01/13/20) Subjective 01/17: no major events, no bleeding or chills, no major changes, labs noted, mcv 104 01/18: alert, no overnight events, stool ob negative, on iv iron, h/h stable 01/19: gi workup thus far neg, seen by Dr. Lynn, recs are noted 01/20: confused, bilat restraints. gatito and rheumatoid factor pending Objective Objective Current Medications Medications (Trade) Dose Ordered Sig/Dewayne Route PRN Reason Start Time Stop Time Status Last Admin Dose Admin Acetaminophen (Tylenol) 650 mg Q4H PRN ORAL fever 01/16/20 15:17 02/15/20 15:16 Aspirin (Ecotrin) 81 mg DAILY ORAL 01/16/20 17:20 02/15/20 17:19 01/19/20 08:35 Atorvastatin Calcium (Lipitor) 20 mg BEDTIME ORAL 01/16/20 21:00 02/15/20 20:59 01/19/20 21:13 Dextrose (Dextrose 50%) 25 ml Q30M PRN IV Hypoglycemia 01/16/20 15:30 02/12/20 15:59 Dextrose (Dextrose 50%) 50 ml Q30M PRN IV Hypoglycemia 01/16/20 15:30 02/12/20 15:59 Diphenhydramine HCl (Benadryl) 25 mg Q6H PRN ORAL Itching/Pruritis 01/16/20 15:17 02/15/20 15:16 01/19/20 14:48 Docusate Sodium (Colace) 100 mg TWICE A DAY ORAL 01/16/20 18:00 02/14/20 08:59 01/19/20 08:27 Haloperidol Lactate (Haldol) 5 mg Q6H PRN IM Agitation 01/17/20 19:30 02/16/20 19:29 01/19/20 12:15 Heparin Sodium (Porcine) (Heparin 5000 units/ml) 5,000 units EVERY 12 HOURS SUBQ 01/16/20 21:00 02/12/20 20:59 01/20/20 09:36 Iron Sucrose 100 mg/Sodium Chloride 60 ml @ 240 mls/hr BEDTIME IV 01/17/20 21:00 01/21/20 21:14 01/19/20 21:17 Lactulose (Cephulac) 20 gm BID ORAL 01/16/20 18:00 02/14/20 08:59 01/19/20 08:26 Lorazepam (Ativan) 1 mg Q6H PRN ORAL For Anxiety 01/20/20 14:45 01/27/20 14:44 Metoclopramide HCl (Reglan) 10 mg Q6H PRN IVP severe nausea 01/16/20 15:17 02/15/20 15:16 Metoprolol Tartrate (Lopressor) 2.5 mg Q4H PRN IVP for HR >115 01/16/20 17:23 02/15/20 17:22 Metoprolol Tartrate (Lopressor) 2.5 mg Q4HR IVP 01/17/20 13:00 02/16/20 12:59 01/20/20 13:06 Nitroglycerin (Ntg) 0.4 mg Q5M X 3 DOSES PRN SL Prn Chest Pain 01/16/20 15:15 02/12/20 15:59 Ondansetron HCl (Zofran) 4 mg Q6H PRN IVP Nausea & Vomiting 01/16/20 16:00 02/12/20 15:59 Pantoprazole (Protonix) 40 mg DAILY IV 01/17/20 09:00 02/13/20 08:59 01/20/20 09:35 Polyethylene Glycol (Miralax) 17 gm HSPRN PRN ORAL Constipation 01/16/20 15:18 02/15/20 15:17 Quetiapine Fumarate (SEROqueL) 100 mg Q8HR ORAL 01/19/20 23:00 02/18/20 22:59 01/20/20 13:06 Temazepam (Restoril) 15 mg HSPRN PRN ORAL Insomnia 01/16/20 15:18 01/23/20 15:17 Last 24 Hour Vital Signs Date Time Temp Pulse Resp B/P (MAP) Pulse Ox O2 Delivery O2 Flow Rate FiO2 01/20/20 13:06 85 115/53 01/20/20 12:00 82 01/20/20 12:00 98.4 85 24 115/53 (73) 95 01/20/20 09:35 91 145/60 01/20/20 08:12 Room Air 01/20/20 08:00 97.3 91 24 145/60 (88) 98 01/20/20 08:00 84 01/20/20 05:11 98 146/96 01/20/20 04:00 96.7 96 20 151/59 (89) 01/20/20 04:00 89 01/20/20 01:00 75 112/62 01/20/20 00:00 77 01/20/20 00:00 98.1 85 20 118/72 (87) 97 01/19/20 21:17 81 140/60 01/19/20 21:00 Room Air 01/19/20 20:00 98.1 112 20 140/69 (92) 95 01/19/20 20:00 108 01/19/20 17:00 62 118/89 01/19/20 16:00 122 01/19/20 16:00 97.1 62 20 118/89 (99) 96 01/19/20 13:00 59 113/92 01/19/20 12:00 110 01/19/20 12:00 98.0 59 19 113/92 (99) 96 01/19/20 08:36 88 159/73 01/19/20 08:10 97.8 88 19 134/73 (93) 98 01/19/20 08:05 Room Air 01/19/20 08:00 92 01/19/20 05:46 98 148/83 01/19/20 04:00 76 01/19/20 04:00 97.8 76 19 152/75 (100) 98 01/19/20 01:45 116 163/78 01/19/20 00:00 88 01/19/20 00:00 97.8 98 20 158/76 (103) 95 01/18/20 21:22 107 139/80 01/18/20 21:00 Room Air 01/18/20 20:00 97.7 96 19 139/80 (99) 97 01/18/20 20:00 82 01/18/20 17:35 109 159/92 Intake and Output 01/19/20 01/20/20 19:00 07:00 Intake Total 75 ml 1582 ml Balance 75 ml 1582 ml Intake Oral 180 ml IV Total 75 ml 902 ml Other 500 ml # Voids 3 Labs Test 01/18/20 06:57 01/18/20 12:00 01/19/20 06:19 01/19/20 13:30 White Blood Count 9.7 K/UL (4.8-10.8) 10.9 K/UL (4.8-10.8) Red Blood Count 2.76 M/UL (4.20-5.40) 2.82 M/UL (4.20-5.40) Hemoglobin 10.3 G/DL (12.0-16.0) 10.3 G/DL (12.0-16.0) Hematocrit 28.6 % (37.0-47.0) 29.8 % (37.0-47.0) Mean Corpuscular Volume 104 FL (80-99) 106 FL (80-99) Mean Corpuscular Hemoglobin 37.4 PG (27.0-31.0) 36.5 PG (27.0-31.0) Mean Corpuscular Hemoglobin Concent 36.1 G/DL (32.0-36.0) 34.5 G/DL (32.0-36.0) Red Cell Distribution Width 12.6 % (11.6-14.8) 11.4 % (11.6-14.8) Platelet Count 292 K/UL (150-450) 280 K/UL (150-450) Mean Platelet Volume 10.8 FL (6.5-10.1) 9.8 FL (6.5-10.1) Neutrophils (%) (Auto) % (45.0-75.0) % (45.0-75.0) Lymphocytes (%) (Auto) % (20.0-45.0) % (20.0-45.0) Monocytes (%) (Auto) % (1.0-10.0) % (1.0-10.0) Eosinophils (%) (Auto) % (0.0-3.0) % (0.0-3.0) Basophils (%) (Auto) % (0.0-2.0) % (0.0-2.0) Differential Total Cells Counted 100 100 Neutrophils % (Manual) 77 % (45-75) 86 % (45-75) Lymphocytes % (Manual) 11 % (20-45) 6 % (20-45) Monocytes % (Manual) 9 % (1-10) 8 % (1-10) Eosinophils % (Manual) 2 % (0-3) 0 % (0-3) Basophils % (Manual) 1 % (0-2) 0 % (0-2) Band Neutrophils 0 % (0-8) 0 % (0-8) Platelet Estimate Adequate Adequate Platelet Morphology Normal Normal Hypochromasia 1+ Anisocytosis 1+ Macrocytosis 1+ Sodium Level 142 MMOL/L (136-145) 142 MMOL/L (136-145) Potassium Level 4.5 MMOL/L (3.5-5.1) 4.5 MMOL/L (3.5-5.1) Chloride Level 107 MMOL/L (98-107) 107 MMOL/L (98-107) Carbon Dioxide Level 25 MMOL/L (21-32) 21 MMOL/L (21-32) Anion Gap 10 mmol/L (5-15) 14 mmol/L (5-15) Blood Urea Nitrogen 11 mg/dL (7-18) 15 mg/dL (7-18) Creatinine 1.2 MG/DL (0.55-1.30) 1.2 MG/DL (0.55-1.30) Estimat Glomerular Filtration Rate 42.7 mL/min (>60) 42.7 mL/min (>60) Glucose Level 106 MG/DL (74-106) 111 MG/DL (74-106) Calcium Level 9.0 MG/DL (8.5-10.1) 9.0 MG/DL (8.5-10.1) Vitamin B12 Level 1099 PG/ML (193-986) Thyroid Stimulating Hormone (TSH) 1.205 uiU/mL (0.358-3.740) Stool Occult Blood Negative (NEGATIVE) Ammonia < 10 umol/L (11-32) Test 01/20/20 05:45 White Blood Count 11.6 K/UL (4.8-10.8) Red Blood Count 2.64 M/UL (4.20-5.40) Hemoglobin 9.9 G/DL (12.0-16.0) Hematocrit 28.0 % (37.0-47.0) Mean Corpuscular Volume 106 FL (80-99) Mean Corpuscular Hemoglobin 37.5 PG (27.0-31.0) Mean Corpuscular Hemoglobin Concent 35.3 G/DL (32.0-36.0) Red Cell Distribution Width 11.7 % (11.6-14.8) Platelet Count 289 K/UL (150-450) Mean Platelet Volume 10.1 FL (6.5-10.1) Neutrophils (%) (Auto) % (45.0-75.0) Lymphocytes (%) (Auto) % (20.0-45.0) Monocytes (%) (Auto) % (1.0-10.0) Eosinophils (%) (Auto) % (0.0-3.0) Basophils (%) (Auto) % (0.0-2.0) Differential Total Cells Counted 100 Neutrophils % (Manual) 88 % (45-75) Lymphocytes % (Manual) 4 % (20-45) Monocytes % (Manual) 7 % (1-10) Eosinophils % (Manual) 1 % (0-3) Basophils % (Manual) 0 % (0-2) Band Neutrophils 0 % (0-8) Platelet Estimate Adequate Platelet Morphology Normal Macrocytosis 1+ Sodium Level 140 MMOL/L (136-145) Potassium Level 4.9 MMOL/L (3.5-5.1) Chloride Level 106 MMOL/L (98-107) Carbon Dioxide Level 24 MMOL/L (21-32) Anion Gap 10 mmol/L (5-15) Blood Urea Nitrogen 15 mg/dL (7-18) Creatinine 1.2 MG/DL (0.55-1.30) Estimat Glomerular Filtration Rate 42.7 mL/min (>60) Glucose Level 128 MG/DL (74-106) Calcium Level 9.2 MG/DL (8.5-10.1) Height (Feet): 5 Height (Inches): 3.00 Weight (Pounds): 116 Objective Physical Exam General: mild distress - confused Head: normocephalic, atraumatic, b/l eomi, dry mucus membranes Resp: lungs clear, no respiratory distress Cardiovascular: regular rate, rhythm Gastrointestinal: non tender, soft, ttp throughout Genitourinary: no CVA tenderness Musculoskeletal: other - Difficult to fully evaluate patient moves both lower extremities, lower ex pain Neurologic: other - Patient is verbal, follows some commands however Skin: no rash David Rock MD Jan 20, 2020 16:21
--- NOTE | 2020-01-20 18:00 | Internal Med Progress Note ---
Subjective Date of Service: Jan 20, 2020 Physician Name SoniaJonas Attending Physician Ulices High MD Current Medications Medications (Trade) Dose Ordered Sig/Dewayne Route PRN Reason Start Time Stop Time Status Last Admin Dose Admin Acetaminophen (Tylenol) 650 mg Q4H PRN ORAL fever 01/16/20 15:17 02/15/20 15:16 Aspirin (Ecotrin) 81 mg DAILY ORAL 01/16/20 17:20 02/15/20 17:19 01/19/20 08:35 Atorvastatin Calcium (Lipitor) 20 mg BEDTIME ORAL 01/16/20 21:00 02/15/20 20:59 01/19/20 21:13 Dextrose (Dextrose 50%) 25 ml Q30M PRN IV Hypoglycemia 01/16/20 15:30 02/12/20 15:59 Dextrose (Dextrose 50%) 50 ml Q30M PRN IV Hypoglycemia 01/16/20 15:30 02/12/20 15:59 Diphenhydramine HCl (Benadryl) 25 mg Q6H PRN ORAL Itching/Pruritis 01/16/20 15:17 02/15/20 15:16 01/19/20 14:48 Docusate Sodium (Colace) 100 mg TWICE A DAY ORAL 01/16/20 18:00 02/14/20 08:59 01/20/20 17:57 Haloperidol Lactate (Haldol) 5 mg Q6H PRN IM Agitation 01/17/20 19:30 02/16/20 19:29 01/19/20 12:15 Heparin Sodium (Porcine) (Heparin 5000 units/ml) 5,000 units EVERY 12 HOURS SUBQ 01/16/20 21:00 02/12/20 20:59 01/20/20 09:36 Iron Sucrose 100 mg/Sodium Chloride 60 ml @ 240 mls/hr BEDTIME IV 01/17/20 21:00 01/21/20 21:14 01/19/20 21:17 Lactulose (Cephulac) 20 gm BID ORAL 01/16/20 18:00 02/14/20 08:59 01/20/20 17:57 Lorazepam (Ativan) 1 mg Q6H PRN ORAL For Anxiety 01/20/20 14:45 01/27/20 14:44 Metoclopramide HCl (Reglan) 10 mg Q6H PRN IVP severe nausea 01/16/20 15:17 02/15/20 15:16 Metoprolol Tartrate (Lopressor) 2.5 mg Q4H PRN IVP for HR >115 01/16/20 17:23 02/15/20 17:22 Metoprolol Tartrate (Lopressor) 2.5 mg Q4HR IVP 01/17/20 13:00 02/16/20 12:59 01/20/20 17:57 Nitroglycerin (Ntg) 0.4 mg Q5M X 3 DOSES PRN SL Prn Chest Pain 01/16/20 15:15 02/12/20 15:59 Ondansetron HCl (Zofran) 4 mg Q6H PRN IVP Nausea & Vomiting 01/16/20 16:00 02/12/20 15:59 Pantoprazole (Protonix) 40 mg DAILY IV 01/17/20 09:00 02/13/20 08:59 01/20/20 09:35 Polyethylene Glycol (Miralax) 17 gm HSPRN PRN ORAL Constipation 01/16/20 15:18 02/15/20 15:17 Quetiapine Fumarate (SEROqueL) 100 mg Q8HR ORAL 01/19/20 23:00 02/18/20 22:59 01/20/20 13:06 Temazepam (Restoril) 15 mg HSPRN PRN ORAL Insomnia 01/16/20 15:18 01/23/20 15:17 Allergies: Coded Allergies: No Known Allergies (Unverified , 01/13/20) ROS Limited/Unobtainable: Yes Subjective 84 YO F admitted with altered mental status and abdominal pain. Cover for Int Med- Dr High. MRI cancelled due to agitation Objective Last Vital Signs Date Time Temp Pulse Resp B/P (MAP) Pulse Ox O2 Delivery O2 Flow Rate FiO2 01/20/20 17:57 85 115/53 01/20/20 12:00 98.4 24 95 01/20/20 08:12 Room Air 01/13/20 19:45 99 Laboratory Tests Test 01/20/20 05:45 White Blood Count 11.6 K/UL (4.8-10.8) H Red Blood Count 2.64 M/UL (4.20-5.40) L Hemoglobin 9.9 G/DL (12.0-16.0) L Hematocrit 28.0 % (37.0-47.0) L Mean Corpuscular Volume 106 FL (80-99) H Mean Corpuscular Hemoglobin 37.5 PG (27.0-31.0) H Mean Corpuscular Hemoglobin Concent 35.3 G/DL (32.0-36.0) Red Cell Distribution Width 11.7 % (11.6-14.8) Platelet Count 289 K/UL (150-450) Mean Platelet Volume 10.1 FL (6.5-10.1) Neutrophils (%) (Auto) % (45.0-75.0) Lymphocytes (%) (Auto) % (20.0-45.0) Monocytes (%) (Auto) % (1.0-10.0) Eosinophils (%) (Auto) % (0.0-3.0) Basophils (%) (Auto) % (0.0-2.0) Differential Total Cells Counted 100 Neutrophils % (Manual) 88 % (45-75) H Lymphocytes % (Manual) 4 % (20-45) L Monocytes % (Manual) 7 % (1-10) Eosinophils % (Manual) 1 % (0-3) Basophils % (Manual) 0 % (0-2) Band Neutrophils 0 % (0-8) Platelet Estimate Adequate Platelet Morphology Normal Macrocytosis 1+ Sodium Level 140 MMOL/L (136-145) Potassium Level 4.9 MMOL/L (3.5-5.1) Chloride Level 106 MMOL/L (98-107) Carbon Dioxide Level 24 MMOL/L (21-32) Anion Gap 10 mmol/L (5-15) Blood Urea Nitrogen 15 mg/dL (7-18) Creatinine 1.2 MG/DL (0.55-1.30) Estimat Glomerular Filtration Rate 42.7 mL/min (>60) Glucose Level 128 MG/DL (74-106) H Calcium Level 9.2 MG/DL (8.5-10.1) Intake and Output 01/19/20 01/20/20 18:59 06:59 Intake Total 1657 ml Balance 1657 ml Intake Oral 180 ml IV Total 977 ml Other 500 ml # Voids 3 Objective PHYSICAL EXAMINATION: GENERAL: The patient is a well-developed, well-nourished female, disheveled, and very confused. HEENT: Eyes, pupils are equal and responsive to light and accommodation. Extraocular movements are intact. NECK: Supple without lymphadenopathy. CHEST: Lungs are clear to auscultation bilaterally without wheezes or rales. CARDIOVASCULAR: Regular rhythm and rate. S1 and S2 are normal without murmurs, rubs, or gallops. ABDOMEN: Soft, diffusely tender to palpation, with decreased bowel sounds. No evidence of hepatosplenomegaly. Currently, no rebound or guarding noted. EXTREMITIES: Negative for clubbing, cyanosis, or edema. RECTAL: Not performed. GENITAL: Not performed. NEUROLOGIC: Cranial nerves II through XII are grossly intact without focal deficits. Motor strength is 5/5 bilaterally. Deep tendon reflexes are 2+ plantar. Assessment/Plan Assessment/Plan SSESSMENT: This is an 84-year-old female with: 1. Altered mental status. 2. Abdominal pain. 3. Anemia 4. Delirium TREATMENT: 1. Altered mental status. Reason for altered mental status is unknown. Patient unable to tolerate an MRI of the brain. The patient may have had cerebrovascular accident versus Alzheimer's dementia and just got loss. A Neurology consultation has been obtained with Dr. Navarro. Await EEG and ammonia level 2. Abdominal pain. Workup so far has been within normal limits. A Gastroenterology consultation has been obtained with Dr. Yomi Sloan. 3. Anemia workup Jonas Scott MD Jan 20, 2020 18:00
--- NOTE | 2020-01-20 19:08 | NUR ---
HAND-OFF: Report given to Lee Ann .
--- NOTE | 2020-01-20 19:09 | Cardiology Progress Note ---
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 minor trop abn likely demand due to tachy is on asa and statin neuro noted tachy at times tele reviewed Subjective ROS Limited/Unobtainable: Yes Subjective restraint in palce Objective Last 24 Hour Vital Signs Date Time Temp Pulse Resp B/P (MAP) Pulse Ox O2 Delivery O2 Flow Rate FiO2 01/20/20 17:00 95 109/75 01/20/20 16:00 97 01/20/20 16:00 97.7 95 20 109/75 (86) 95 01/20/20 13:06 85 115/53 01/20/20 12:00 82 01/20/20 12:00 98.4 85 24 115/53 (73) 95 01/20/20 09:35 91 145/60 01/20/20 08:12 Room Air 01/20/20 08:00 97.3 91 24 145/60 (88) 98 01/20/20 08:00 84 01/20/20 05:11 98 146/96 01/20/20 04:00 96.7 96 20 151/59 (89) 01/20/20 04:00 89 01/20/20 01:00 75 112/62 01/20/20 00:00 77 01/20/20 00:00 98.1 85 20 118/72 (87) 97 01/19/20 21:17 81 140/60 01/19/20 21:00 Room Air 01/19/20 20:00 98.1 112 20 140/69 (92) 95 01/19/20 20:00 108 General Appearance: no apparent distress, alert Neck: supple Cardiovascular: normal rate Respiratory/Chest: lungs clear Abdomen: normal bowel sounds, non tender, soft Extremities: no swelling Intake and Output 01/19/20 01/20/20 19:00 07:00 Intake Total 75 ml 1582 ml Balance 75 ml 1582 ml Intake Oral 180 ml IV Total 75 ml 902 ml Other 500 ml # Voids 3 Laboratory Tests Test 01/20/20 05:45 White Blood Count 11.6 K/UL (4.8-10.8) H Red Blood Count 2.64 M/UL (4.20-5.40) L Hemoglobin 9.9 G/DL (12.0-16.0) L Hematocrit 28.0 % (37.0-47.0) L Mean Corpuscular Volume 106 FL (80-99) H Mean Corpuscular Hemoglobin 37.5 PG (27.0-31.0) H Mean Corpuscular Hemoglobin Concent 35.3 G/DL (32.0-36.0) Red Cell Distribution Width 11.7 % (11.6-14.8) Platelet Count 289 K/UL (150-450) Mean Platelet Volume 10.1 FL (6.5-10.1) Neutrophils (%) (Auto) % (45.0-75.0) Lymphocytes (%) (Auto) % (20.0-45.0) Monocytes (%) (Auto) % (1.0-10.0) Eosinophils (%) (Auto) % (0.0-3.0) Basophils (%) (Auto) % (0.0-2.0) Differential Total Cells Counted 100 Neutrophils % (Manual) 88 % (45-75) H Lymphocytes % (Manual) 4 % (20-45) L Monocytes % (Manual) 7 % (1-10) Eosinophils % (Manual) 1 % (0-3) Basophils % (Manual) 0 % (0-2) Band Neutrophils 0 % (0-8) Platelet Estimate Adequate Platelet Morphology Normal Macrocytosis 1+ Sodium Level 140 MMOL/L (136-145) Potassium Level 4.9 MMOL/L (3.5-5.1) Chloride Level 106 MMOL/L (98-107) Carbon Dioxide Level 24 MMOL/L (21-32) Anion Gap 10 mmol/L (5-15) Blood Urea Nitrogen 15 mg/dL (7-18) Creatinine 1.2 MG/DL (0.55-1.30) Estimat Glomerular Filtration Rate 42.7 mL/min (>60) Glucose Level 128 MG/DL (74-106) H Calcium Level 9.2 MG/DL (8.5-10.1) Erasmo Faust MD Jan 20, 2020 19:09
--- NOTE | 2020-01-20 19:30 | NUR ---
NURSE NOTES: RECEIVED PATIENT LYING IN BED, AWAKE/EYES OPEN, SPEECH INCOHERENT. NEEDS ANTICIPATED AND MET BY NURSING STAFF. NO SIGNS AND SYMPTOMS OF ACUTE CARDIO RESPIRATORY DISTRESS/SHORTNESS OF BREATH, NO EDEMA NOTED. CONTINUE ON DIE ENGRAVER.; BILATERAL WRIST RESTRAINTS INTACT TO PREVENT PATIENT FROM CLIMBING OUT OF BED, APPROPRIATE DOCUMENTATION ONGOING. IV INTACT, NO REDNESS/SWELLING NOTED. ABDOMEN SOFT/NON DISTENDED/NON TENDER, BOWEL SOUNDS AUDIBLE, NO REPORT OF N/V/D, INCONTINENT CARE PROVIDED, ASSISTED WITH REPOSITIONING. SIDE RAILS UP X3/BED IN LOWEST POSITION FOR SAFETY. BED ALARM ACTIVATED. FREQUENT ROUNDING FOR SAFETY/NEEDS. NAD.
--- NOTE | 2020-01-20 19:45 | Progress Note ---
DATE: 01/20/2020 SUBJECTIVE: The patient is less agitated. Calm, manageable now. The patient this morning. The patient is asleep. MENTAL STATUS EXAMINATION: The patient is asleep, arousable. Mood is neutral. Affect is flat. Thought process is concrete. Thought content, no suicidal or homicidal ideations. Cognition is impaired. Insight and judgment is impaired. ASSESSMENT: Dementia with behavior disturbance. PLAN: 1. Seroquel 100 t.i.d. 2. Discontinue the Ativan. 3. We will continue to follow and readjust the medications. Cornelia Lynn M.D. DR: KATHE JOB#: [id number] CC: [id number]
[2020-01-20] MEDS: LORazepam 1mg tab ORAL PRN (19:57)
[2020-01-20 20:00] VITALS: BP 128/79
[2020-01-20] MEDS: Atorvastatin 20mg tab ORAL SCH (21:21)
[2020-01-20] MEDS: Iron Sucrose 100 MG in NS 55 ML IV SCH (21:29)
[2020-01-21] VITALS: BP 138/64
[2020-01-21] MEDS: DiphenhydrAMINE 25mg Tab ORAL PRN (03:58)
[2020-01-21 04:00] VITALS: BP 121/71
--- NOTE | 2020-01-21 06:14 | NUR ---
NURSE NOTES: SAFETY MAINTAINED, NO SIGNIFICANT CHANGE OF CONDITION NOTED THROUGHOUT THE NIGHT. NAD.
[2020-01-21 06:41] LABS: ANION GAP 13 mmol/L (5-15); BLOOD UREA NITROGEN 19 mg/dL (7-18); CALCIUM 9.1 MG/DL (8.5-10.1); CARBON DIOXIDE 23 MMOL/L (21-32); CHLORIDE 109 MMOL/L (98-107); CREATININE 1.2 MG/DL (0.55-1.30); POTASSIUM 4.2 MMOL/L (3.5-5.1); SODIUM 145 MMOL/L (136-145)
[2020-01-21 07:01] LABS: HEMATOCRIT 29.4 % (37.0-47.0); HEMOGLOBIN 10.3 G/DL (12.0-16.0); MEAN CORPUSCULAR VOLUME 107 FL (80-99); PLATELET COUNT 315 K/UL (150-450); RED BLOOD COUNT 2.75 M/UL (4.20-5.40); RED CELL DISTRIBUTION WIDTH 11.5 % (11.6-14.8); WHITE BLOOD COUNT 8.9 K/UL (4.8-10.8)
--- NOTE | 2020-01-21 07:35 | NUR ---
HAND-OFF: Report given to DADA AMBROSIO.
--- NOTE | 2020-01-21 07:40 | NUR ---
HAND-OFF: Report given to DADA HAYDEN.
[2020-01-21 08:00] VITALS: BP 115/55
--- NOTE | 2020-01-21 08:31 | NUR ---
NURSE NOTES: Patient oriented to self. RR even and unlabored on RA. No s/sx of distress. Pt fed her breakfast. Side rails upx2, call light within reach, bed low and locked. Will continue to monitor.
[2020-01-21] MEDS: LORazepam 1mg tab ORAL PRN ×2 (09:11→18:45)
[2020-01-21] MEDS: Docusate 100mg cap ORAL SCH ×2 (09:11→18:00)
[2020-01-21] MEDS: Pantoprazole Inj IV SCH (09:11)
[2020-01-21] MEDS: Lactulose 20gm/30ml UDC ORAL SCH ×2 (09:11→18:00)
[2020-01-21] MEDS: Aspirin EC 81mg tab ORAL SCH (09:11)
[2020-01-21] MEDS: Heparin 5000 units/ml inj SUBQ SCH (09:12)
--- NOTE | 2020-01-21 10:30 | GI Progress Note ---
Assessment/Plan Problems: (1) Encephalopathy ICD Codes: G93.40 - Encephalopathy, unspecified SNOMED: 82329306 (2) Fecal impaction ICD Codes: K56.41 - Fecal impaction SNOMED: 53069869 (3) Acute encephalopathy ICD Codes: G93.40 - Encephalopathy, unspecified SNOMED: 61925936, 781753679 (4) Agitation ICD Codes: R45.1 - Restlessness and agitation SNOMED: 815880505 Status: stable Status Narrative Discussed with Dr. Sloan. Assessment/Plan macrocytic anemia constipation s/p fall gallstones diverticulosis hem in put appreciated on diet anemia work up on iv iron bowel regimen fu cardiology recs GI procedures on hold for now repeat cbc>>stable Stool for ob>>> neg psych in put appreciated will fu dc planning The patient was seen and examined at bedside and all new and available data was reviewed in the patients chart. I agree with the above findings, impression and plan. (Patient seen earlier today. Signature stamp does not reflect patient encounter time.). - Yomi Sloan MD Subjective Gastrointestinal/Abdominal: Reports: no symptoms Objective Last 24 Hour Vital Signs Date Time Temp Pulse Resp B/P (MAP) Pulse Ox O2 Delivery O2 Flow Rate FiO2 01/21/20 09:10 87 115/55 01/21/20 08:36 Room Air 01/21/20 08:00 97.7 87 22 115/55 (75) 97 01/21/20 04:00 98.0 86 18 121/71 (88) 96 01/21/20 04:00 74 01/21/20 00:00 89 01/21/20 00:00 97.2 99 18 138/64 (88) 94 01/20/20 21:21 87 133/68 01/20/20 21:00 Room Air 01/20/20 20:00 97.4 93 18 128/79 (95) 95 01/20/20 17:00 95 109/75 01/20/20 16:00 97 01/20/20 16:00 97.7 95 20 109/75 (86) 95 01/20/20 13:06 85 115/53 01/20/20 12:00 82 01/20/20 12:00 98.4 85 24 115/53 (73) 95 Intake and Output 01/20/20 01/21/20 19:00 07:00 Intake Total 236 ml 480 ml Balance 236 ml 480 ml Intake Oral 236 ml 420 ml IV Total 60 ml # Voids 3 3 # Bowel Movements 1 Laboratory Tests Test 01/21/20 05:35 White Blood Count 8.9 K/UL (4.8-10.8) Red Blood Count 2.75 M/UL (4.20-5.40) L Hemoglobin 10.3 G/DL (12.0-16.0) L Hematocrit 29.4 % (37.0-47.0) L Mean Corpuscular Volume 107 FL (80-99) H Mean Corpuscular Hemoglobin 37.5 PG (27.0-31.0) H Mean Corpuscular Hemoglobin Concent 35.0 G/DL (32.0-36.0) Red Cell Distribution Width 11.5 % (11.6-14.8) L Platelet Count 315 K/UL (150-450) Mean Platelet Volume 9.2 FL (6.5-10.1) Neutrophils (%) (Auto) % (45.0-75.0) Lymphocytes (%) (Auto) % (20.0-45.0) Monocytes (%) (Auto) % (1.0-10.0) Eosinophils (%) (Auto) % (0.0-3.0) Basophils (%) (Auto) % (0.0-2.0) Neutrophils % (Manual) Pending Lymphocytes % (Manual) Pending Platelet Estimate Pending Platelet Morphology Pending Erythrocyte Sedimentation Rate 107 MM/HR (0-30) H Sodium Level 145 MMOL/L (136-145) Potassium Level 4.2 MMOL/L (3.5-5.1) Chloride Level 109 MMOL/L (98-107) H Carbon Dioxide Level 23 MMOL/L (21-32) Anion Gap 13 mmol/L (5-15) Blood Urea Nitrogen 19 mg/dL (7-18) H Creatinine 1.2 MG/DL (0.55-1.30) Estimat Glomerular Filtration Rate 42.7 mL/min (>60) Glucose Level 95 MG/DL (74-106) Calcium Level 9.1 MG/DL (8.5-10.1) Height (Feet): 5 Height (Inches): 3.00 Weight (Pounds): 116 General Appearance: no apparent distress, alert, thin Cardiovascular: normal rate Respiratory/Chest: normal breath sounds, no respiratory distress Abdominal Exam: normal bowel sounds, non tender, soft Extremities: non-tender Tru Reyes NP Jan 21, 2020 10:30
--- NOTE | 2020-01-21 10:52 | NUR ---
CASE MANAGEMENT: REVIEW 01/21/2020 SI:FECAL IMPACTION T: 97.7 HR 87 RR 22 B/P 115/55 SATS 97% ON RA LABS: CL 109 BUN 19 IS:LIPITOR PO QHS VENOFER IV QHS ASA PO QD LOPRESSOR PO Q12H SEROQUEL PO Q8H TELE
[2020-01-21 12:00] VITALS: BP 134/64
--- NOTE | 2020-01-21 12:45 | Pulmonology Progress Note ---
Assessment/Plan Problems: (1) NSTEMI (non-ST elevated myocardial infarction) (2) L2 vertebral fracture (3) Fecal impaction (4) Renal insufficiency (5) Encephalopathy (6) No significant past medical history (7) Acute encephalopathy (8) Agitation Assessment/Plan still agitated or severely sedated, we have not been able to get her calm and comfortable f/u cardiology recommendations might need stress studies Echo was poor quality f/u Neuro recommendations. symptomatic treatment sinus rhythm pt/ot ordered, pt won't cooperate. Subjective Interval Events: still on restrains Allergies: Coded Allergies: No Known Allergies (Unverified , 01/13/20) Objective Last 24 Hour Vital Signs Date Time Temp Pulse Resp B/P (MAP) Pulse Ox O2 Delivery O2 Flow Rate FiO2 01/21/20 12:00 97.3 71 20 134/64 (87) 97 01/21/20 09:10 87 115/55 01/21/20 08:36 Room Air 01/21/20 08:00 97.7 87 22 115/55 (75) 97 01/21/20 07:56 90 01/21/20 04:00 98.0 86 18 121/71 (88) 96 01/21/20 04:00 74 01/21/20 00:00 89 01/21/20 00:00 97.2 99 18 138/64 (88) 94 01/20/20 21:21 87 133/68 01/20/20 21:00 Room Air 01/20/20 20:00 97.4 93 18 128/79 (95) 95 01/20/20 17:00 95 109/75 01/20/20 16:00 97 01/20/20 16:00 97.7 95 20 109/75 (86) 95 01/20/20 13:06 85 115/53 Intake and Output 01/20/20 01/21/20 19:00 07:00 Intake Total 236 ml 480 ml Balance 236 ml 480 ml Intake Oral 236 ml 420 ml IV Total 60 ml # Voids 3 3 # Bowel Movements 1 General Appearance: WD/WN HEENT: normocephalic, atraumatic Respiratory/Chest: chest wall non-tender, lungs clear, normal breath sounds Breasts: no masses Cardiovascular: normal rate Abdomen: normal bowel sounds, soft, non tender Genitourinary: normal external genitalia Extremities: no cyanosis Neurologic/Psychiatric: 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 normal Laboratory Tests 01/21/20 05:35: White Blood Count 8.9, Red Blood Count 2.75L, Hemoglobin 10.3L, Hematocrit 29.4L , Mean Corpuscular Volume 107H, Mean Corpuscular Hemoglobin 37.5H, Mean Corpuscular Hemoglobin Concent 35.0, Red Cell Distribution Width 11.5L, Platelet Count 315, Mean Platelet Volume 9.2, Neutrophils (%) (Auto) , Lymphocytes (%) (Auto) , Monocytes (%) (Auto) , Eosinophils (%) (Auto) , Basophils (%) (Auto) , Differential Total Cells Counted 100, Neutrophils % ( Manual) 86H, Lymphocytes % (Manual) 8L, Monocytes % (Manual) 6, Eosinophils % ( Manual) 0, Basophils % (Manual) 0, Band Neutrophils 0, Platelet Estimate Adequate, Platelet Morphology Normal, Macrocytosis 1+, Erythrocyte Sedimentation Rate 107H, Sodium Level 145, Potassium Level 4.2, Chloride Level 109H, Carbon Dioxide Level 23, Anion Gap 13, Blood Urea Nitrogen 19H, Creatinine 1.2, Estimat Glomerular Filtration Rate 42.7, Glucose Level 95, Calcium Level 9.1 Current Medications Medications (Trade) Dose Ordered Sig/Dewayne Route PRN Reason Start Time Stop Time Status Last Admin Dose Admin Acetaminophen (Tylenol) 650 mg Q4H PRN ORAL fever 01/16/20 15:17 02/15/20 15:16 Aspirin (Ecotrin) 81 mg DAILY ORAL 01/16/20 17:20 02/15/20 17:19 01/21/20 09:11 Atorvastatin Calcium (Lipitor) 20 mg BEDTIME ORAL 01/16/20 21:00 02/15/20 20:59 01/20/20 21:21 Dextrose (Dextrose 50%) 25 ml Q30M PRN IV Hypoglycemia 01/16/20 15:30 02/12/20 15:59 Dextrose (Dextrose 50%) 50 ml Q30M PRN IV Hypoglycemia 01/16/20 15:30 02/12/20 15:59 Diphenhydramine HCl (Benadryl) 25 mg Q6H PRN ORAL Itching/Pruritis 01/16/20 15:17 02/15/20 15:16 01/21/20 03:58 Docusate Sodium (Colace) 100 mg TWICE A DAY ORAL 01/16/20 18:00 02/14/20 08:59 01/21/20 09:11 Haloperidol Lactate (Haldol) 5 mg Q6H PRN IM Agitation 01/17/20 19:30 02/16/20 19:29 01/19/20 12:15 Heparin Sodium (Porcine) (Heparin 5000 units/ml) 5,000 units EVERY 12 HOURS SUBQ 01/16/20 21:00 02/12/20 20:59 01/21/20 09:12 Iron Sucrose 100 mg/Sodium Chloride 60 ml @ 240 mls/hr BEDTIME IV 01/17/20 21:00 01/21/20 21:14 01/20/20 21:29 Lactulose (Cephulac) 20 gm BID ORAL 01/16/20 18:00 02/14/20 08:59 01/21/20 09:11 Lorazepam (Ativan) 1 mg Q6H PRN ORAL For Anxiety 01/20/20 14:45 01/27/20 14:44 01/21/20 09:11 Metoclopramide HCl (Reglan) 10 mg Q6H PRN IVP severe nausea 01/16/20 15:17 02/15/20 15:16 Metoprolol Tartrate (Lopressor) 2.5 mg Q4H PRN IVP for HR >115 01/16/20 17:23 02/15/20 17:22 Metoprolol Tartrate (Lopressor) 25 mg Q12HR ORAL 01/20/20 21:00 02/19/20 20:59 01/21/20 09:10 Nitroglycerin (Ntg) 0.4 mg Q5M X 3 DOSES PRN SL Prn Chest Pain 01/16/20 15:15 02/12/20 15:59 Ondansetron HCl (Zofran) 4 mg Q6H PRN IVP Nausea & Vomiting 01/16/20 16:00 02/12/20 15:59 Pantoprazole (Protonix) 40 mg DAILY IV 01/17/20 09:00 02/13/20 08:59 01/21/20 09:11 Polyethylene Glycol (Miralax) 17 gm HSPRN PRN ORAL Constipation 01/16/20 15:18 02/15/20 15:17 Quetiapine Fumarate (SEROqueL) 100 mg Q8HR ORAL 01/19/20 23:00 02/18/20 22:59 01/21/20 06:04 Temazepam (Restoril) 15 mg HSPRN PRN ORAL Insomnia 01/16/20 15:18 01/23/20 15:17 01/20/20 23:42 Alyse Oconnor MD Jan 21, 2020 12:45
--- NOTE | 2020-01-21 13:20 | NUR ---
P.T Note: P.T evaluation completed and tx initiated. Please refer to P.T evaluation for current functional status. Pt is alert, oriented self but not time, place and current situation. Pt is confused and follows commands inconsistently through constant verbal and manual cues. Pt currently require MIN A X 1 for bed mobility and transfers activities. Pt able to ambulate 10 ft w/o AD however needed MIN A/hand in hand assist to maintain ambulatory balance. Pt is generally weak affecting her balance and mobility performance and independence. Skilled P.T service is warranted to increase her strength and balance to improve mobility independence and safety. Recommend SNF for further Rehab intervention.
--- NOTE | 2020-01-21 14:15 | Progress Note ---
DATE: 01/21/2020 SUBJECTIVE: The patient had an EEG, which showed diffuse slowing with increased spindle like activity anteriorly suggestive of diffuse encephalopathy, probably drug related. No focal abnormalities were noted. The patient is still confused, but more awake and alert. PHYSICAL EXAMINATION: VITAL SIGNS: Blood pressure is 121/71, temperature is 98 degrees, pulse is 86 and regular, respiration rate is 18. MENTAL STATUS: The patient knows her name. Speaking some sentences in Icelandic, but cannot follow commands. Does not know the date or the year. Does not know where she is. Asking her to stick her tongue out to command, she cannot do it. 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 CRANIAL NERVES III, IV, AND : The eyes were in the midline. CRANIAL NERVE V: Corneals are intact bilaterally. CRANIAL NERVE VII: Facial strength appeared to be bilaterally symmetrical. CRANIAL NERVE VIII: Partially intact. CRANIAL NERVES IX THROUGH XII: Could not be examined. MUSCLE EXAMINATION: She moves all 4 extremities. There is decreased bulk bilaterally. IMPRESSION: The patient does not have herpes simplex encephalitis. I think she probably has underlying dementia most likely Alzheimer disease. The EEG suggests a diffuse encephalopathy, drug related. Whether or not there is a secondary encephalopathy superimposed is unclear. The cause of the patient's anemia is unclear, may be related to an occult carcinoma. The question is should she have a lumbar puncture. I doubt that she has carcinomatous meningitis or another form of meningoencephalitis, so possibly carcinoma. C-reactive protein is pretty high suggesting inflammatory illness. Doubt temporal arteritis. PLAN: 1. Sedimentation rate. 2. Consider lumbar puncture. Ashutosh Navarro MD DR: GEREMIAS JOB#: [id number] CC:
--- NOTE | 2020-01-21 14:39 | NUR ---
DISCHARGE DISPOSITION: PLEASE READ PATIENT TO BE DISCHARGED TO [facility] [address] T: [phone]>> CALL FOR REPORT [facility] ETA 1700 SSW TO NOTIFY CM OF DC NO OTHER FAMILY TO NOTIFY TRANSFER PACKET TO BE DELIVERED
--- NOTE | 2020-01-21 14:43 | NUR ---
POLICE PATROL LIEUTENANT NOTE Pt to be discharged to [facility] [address] [facility] [place] today. ROSEMARIE left a vm to outpatient family caseworker, Sha Cabrera at [phone] informing pt's DC. Signed: 01/21/20 at 1444 by WASHINGTON HOUSTON <Co-Signature Required>
[2020-01-21 16:00] VITALS: BP 120/64
--- NOTE | 2020-01-21 18:56 | Internal Med Progress Note ---
Subjective Date of Service: Jan 21, 2020 Physician Name SoniaJonas Attending Physician Ulices High MD Current Medications Medications (Trade) Dose Ordered Sig/Dewayne Route PRN Reason Start Time Stop Time Status Last Admin Dose Admin Acetaminophen (Tylenol) 650 mg Q4H PRN ORAL fever 01/16/20 15:17 02/15/20 15:16 Aspirin (Ecotrin) 81 mg DAILY ORAL 01/16/20 17:20 02/15/20 17:19 01/21/20 09:11 Atorvastatin Calcium (Lipitor) 20 mg BEDTIME ORAL 01/16/20 21:00 02/15/20 20:59 01/20/20 21:21 Dextrose (Dextrose 50%) 25 ml Q30M PRN IV Hypoglycemia 01/16/20 15:30 02/12/20 15:59 Dextrose (Dextrose 50%) 50 ml Q30M PRN IV Hypoglycemia 01/16/20 15:30 02/12/20 15:59 Diphenhydramine HCl (Benadryl) 25 mg Q6H PRN ORAL Itching/Pruritis 01/16/20 15:17 02/15/20 15:16 01/21/20 03:58 Docusate Sodium (Colace) 100 mg TWICE A DAY ORAL 01/16/20 18:00 02/14/20 08:59 01/21/20 09:11 Haloperidol Lactate (Haldol) 5 mg Q6H PRN IM Agitation 01/17/20 19:30 02/16/20 19:29 01/19/20 12:15 Heparin Sodium (Porcine) (Heparin 5000 units/ml) 5,000 units EVERY 12 HOURS SUBQ 01/16/20 21:00 02/12/20 20:59 01/21/20 09:12 Iron Sucrose 100 mg/Sodium Chloride 60 ml @ 240 mls/hr BEDTIME IV 01/17/20 21:00 01/21/20 21:14 01/20/20 21:29 Lactulose (Cephulac) 20 gm BID ORAL 01/16/20 18:00 02/14/20 08:59 01/21/20 09:11 Lorazepam (Ativan) 1 mg Q6H PRN ORAL For Anxiety 01/20/20 14:45 01/27/20 14:44 01/21/20 18:45 Metoclopramide HCl (Reglan) 10 mg Q6H PRN IVP severe nausea 01/16/20 15:17 02/15/20 15:16 Metoprolol Tartrate (Lopressor) 2.5 mg Q4H PRN IVP for HR >115 01/16/20 17:23 02/15/20 17:22 Metoprolol Tartrate (Lopressor) 25 mg Q12HR ORAL 01/20/20 21:00 02/19/20 20:59 01/21/20 09:10 Nitroglycerin (Ntg) 0.4 mg Q5M X 3 DOSES PRN SL Prn Chest Pain 01/16/20 15:15 02/12/20 15:59 Ondansetron HCl (Zofran) 4 mg Q6H PRN IVP Nausea & Vomiting 01/16/20 16:00 02/12/20 15:59 Pantoprazole (Protonix) 40 mg DAILY IV 01/17/20 09:00 02/13/20 08:59 01/21/20 09:11 Polyethylene Glycol (Miralax) 17 gm HSPRN PRN ORAL Constipation 01/16/20 15:18 02/15/20 15:17 Quetiapine Fumarate (SEROqueL) 100 mg Q8HR ORAL 01/19/20 23:00 02/18/20 22:59 01/21/20 13:30 Temazepam (Restoril) 15 mg HSPRN PRN ORAL Insomnia 01/16/20 15:18 01/23/20 15:17 01/20/20 23:42 Allergies: Coded Allergies: No Known Allergies (Unverified , 01/13/20) ROS Limited/Unobtainable: Yes Subjective 84 YO F admitted with altered mental status and abdominal pain. Cover for Int [facility]- Dr High. MRI cancelled due to agitation Objective Last Vital Signs Date Time Temp Pulse Resp B/P (MAP) Pulse Ox O2 Delivery O2 Flow Rate FiO2 01/21/20 16:00 97.8 80 20 120/64 (82) 98 01/21/20 08:36 Room Air 01/13/20 19:45 99 Laboratory Tests Test 01/21/20 05:35 White Blood Count 8.9 K/UL (4.8-10.8) Red Blood Count 2.75 M/UL (4.20-5.40) L Hemoglobin 10.3 G/DL (12.0-16.0) L Hematocrit 29.4 % (37.0-47.0) L Mean Corpuscular Volume 107 FL (80-99) H Mean Corpuscular Hemoglobin 37.5 PG (27.0-31.0) H Mean Corpuscular Hemoglobin Concent 35.0 G/DL (32.0-36.0) Red Cell Distribution Width 11.5 % (11.6-14.8) L Platelet Count 315 K/UL (150-450) Mean Platelet Volume 9.2 FL (6.5-10.1) Neutrophils (%) (Auto) % (45.0-75.0) Lymphocytes (%) (Auto) % (20.0-45.0) Monocytes (%) (Auto) % (1.0-10.0) Eosinophils (%) (Auto) % (0.0-3.0) Basophils (%) (Auto) % (0.0-2.0) Differential Total Cells Counted 100 Neutrophils % (Manual) 86 % (45-75) H Lymphocytes % (Manual) 8 % (20-45) L Monocytes % (Manual) 6 % (1-10) Eosinophils % (Manual) 0 % (0-3) Basophils % (Manual) 0 % (0-2) Band Neutrophils 0 % (0-8) Platelet Estimate Adequate Platelet Morphology Normal Macrocytosis 1+ Erythrocyte Sedimentation Rate 107 MM/HR (0-30) H Sodium Level 145 MMOL/L (136-145) Potassium Level 4.2 MMOL/L (3.5-5.1) Chloride Level 109 MMOL/L (98-107) H Carbon Dioxide Level 23 MMOL/L (21-32) Anion Gap 13 mmol/L (5-15) Blood Urea Nitrogen 19 mg/dL (7-18) H Creatinine 1.2 MG/DL (0.55-1.30) Estimat Glomerular Filtration Rate 42.7 mL/min (>60) Glucose Level 95 MG/DL (74-106) Calcium Level 9.1 MG/DL (8.5-10.1) Intake and Output 01/20/20 01/21/20 19:00 07:00 Intake Total 236 ml 480 ml Balance 236 ml 480 ml Intake Oral 236 ml 420 ml IV Total 60 ml # Voids 3 3 # Bowel Movements 1 Objective PHYSICAL EXAMINATION: GENERAL: The patient is a well-developed, well-nourished female, disheveled, and very confused. HEENT: Eyes, pupils are equal and responsive to light and accommodation. Extraocular movements are intact. NECK: Supple without lymphadenopathy. CHEST: Lungs are clear to auscultation bilaterally without wheezes or rales. CARDIOVASCULAR: Regular rhythm and rate. S1 and S2 are normal without murmurs, rubs, or gallops. ABDOMEN: Soft, diffusely tender to palpation, with decreased bowel sounds. No evidence of hepatosplenomegaly. Currently, no rebound or guarding noted. EXTREMITIES: Negative for clubbing, cyanosis, or edema. RECTAL: Not performed. GENITAL: Not performed. NEUROLOGIC: Cranial nerves II through XII are grossly intact without focal deficits. Motor strength is 5/5 bilaterally. Deep tendon reflexes are 2+ plantar. Assessment/Plan Assessment/Plan SSESSMENT: This is an 84-year-old female with: 1. Altered mental status. 2. Abdominal pain. 3. Anemia 4. Delirium TREATMENT: 1. Altered mental status. Reason for altered mental status is unknown. Patient unable to tolerate an MRI of the brain. The patient may have had cerebrovascular accident versus Alzheimer's dementia and just got loss. A Neurology consultation has been obtained with Dr. Navarro. Await EEG and ammonia level 2. Abdominal pain. Workup so far has been within normal limits. A Gastroenterology consultation has been obtained with Dr. Yomi Sloan. 3. Anemia workup 4. Discharge to Rehab [facility] [address] today Jonas Scott MD Jan 21, 2020 18:56
--- NOTE | 2020-01-21 19:04 | Cardiology Progress Note ---
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 difficult as pt was combative minor trop abn likely demand due to tachy is on asa and statin neuro noted tachy at times tele reviewed Subjective ROS Limited/Unobtainable: Yes Subjective restraint in palce Objective Last 24 Hour Vital Signs Date Time Temp Pulse Resp B/P (MAP) Pulse Ox O2 Delivery O2 Flow Rate FiO2 01/21/20 16:00 97.8 80 20 120/64 (82) 98 01/21/20 16:00 80 01/21/20 12:00 70 01/21/20 12:00 97.3 71 20 134/64 (87) 97 01/21/20 09:10 87 115/55 01/21/20 08:36 Room Air 01/21/20 08:00 97.7 87 22 115/55 (75) 97 01/21/20 07:56 90 01/21/20 04:00 98.0 86 18 121/71 (88) 96 01/21/20 04:00 74 01/21/20 00:00 89 01/21/20 00:00 97.2 99 18 138/64 (88) 94 01/20/20 21:21 87 133/68 01/20/20 21:00 Room Air 01/20/20 20:00 97.4 93 18 128/79 (95) 95 General Appearance: no apparent distress, agitated Cardiovascular: normal rate Respiratory/Chest: lungs clear Abdomen: non tender, soft Extremities: no swelling Intake and Output 01/20/20 01/21/20 19:00 07:00 Intake Total 236 ml 480 ml Balance 236 ml 480 ml Intake Oral 236 ml 420 ml IV Total 60 ml # Voids 3 3 # Bowel Movements 1 Laboratory Tests Test 01/21/20 05:35 White Blood Count 8.9 K/UL (4.8-10.8) Red Blood Count 2.75 M/UL (4.20-5.40) L Hemoglobin 10.3 G/DL (12.0-16.0) L Hematocrit 29.4 % (37.0-47.0) L Mean Corpuscular Volume 107 FL (80-99) H Mean Corpuscular Hemoglobin 37.5 PG (27.0-31.0) H Mean Corpuscular Hemoglobin Concent 35.0 G/DL (32.0-36.0) Red Cell Distribution Width 11.5 % (11.6-14.8) L Platelet Count 315 K/UL (150-450) Mean Platelet Volume 9.2 FL (6.5-10.1) Neutrophils (%) (Auto) % (45.0-75.0) Lymphocytes (%) (Auto) % (20.0-45.0) Monocytes (%) (Auto) % (1.0-10.0) Eosinophils (%) (Auto) % (0.0-3.0) Basophils (%) (Auto) % (0.0-2.0) Differential Total Cells Counted 100 Neutrophils % (Manual) 86 % (45-75) H Lymphocytes % (Manual) 8 % (20-45) L Monocytes % (Manual) 6 % (1-10) Eosinophils % (Manual) 0 % (0-3) Basophils % (Manual) 0 % (0-2) Band Neutrophils 0 % (0-8) Platelet Estimate Adequate Platelet Morphology Normal Macrocytosis 1+ Erythrocyte Sedimentation Rate 107 MM/HR (0-30) H Sodium Level 145 MMOL/L (136-145) Potassium Level 4.2 MMOL/L (3.5-5.1) Chloride Level 109 MMOL/L (98-107) H Carbon Dioxide Level 23 MMOL/L (21-32) Anion Gap 13 mmol/L (5-15) Blood Urea Nitrogen 19 mg/dL (7-18) H Creatinine 1.2 MG/DL (0.55-1.30) Estimat Glomerular Filtration Rate 42.7 mL/min (>60) Glucose Level 95 MG/DL (74-106) Calcium Level 9.1 MG/DL (8.5-10.1) Erasmo Faust MD Jan 21, 2020 19:04
--- NOTE | 2020-01-21 19:30 | NUR ---
HAND-OFF: Report given to Nolberto GARLAND. Patient stable. Plan of care endorsed. Endorsed that [facility] still needs to be called and belonginings collected from nursing locker room supervisor priot to discharge.
[2020-01-21] MEDS ORDERED: Tubing IV Secondary IV ONE (21:19)
--- NOTE | 2020-01-21 22:06 | NUR ---
Patient was discharged to [facility] report was given to Tianna. All belongins left with patient including her $160 and other personal information.
--- NOTE | 2020-01-22 02:30 | Progress Note ---
DATE: 01/21/2020 SUBJECTIVE: The patient was sitting up in chair. No behavior issues noted. Calmer, more manageable. The patient the restraint today, sitting up. MENTAL STATUS EXAMINATION: Alert and oriented x1. Mood is neutral. Affect is flat. Thought process is concrete. Thought content, no suicidal or homicidal ideation. Cognition is impaired. Insight and judgment is impaired. ASSESSMENT: Dementia with behavior disturbance. PLAN: 1. We will continue current psychotropic medications. 2. Provide the patient with reality orientation. Cornelia Lynn M.D. DR: SAMRA JOB#: [id number] CC: [id number]
--- NOTE | 2020-01-22 08:15 | Hematology/Onc Progress Note ---
Assessment/Plan Assessment/Plan Assessment and Recs: # Macrocytic anemia -- dec in h/h, wth elev mcv --> meds have been reviewed, unlikely contributors --> no hemolysis is noted --> cont iv iron --> tsh and b12 noted --> consider gi eval, recs noted --> hold off further eval with a bone marrow biopsy, may follow as outpatient --> hgb trend 10.6-->10.3-->9.9 --> stool ob negative # Constipation --> senna colace prn --> uptitrate as needed # s/p fall --> orthostatics reviewed # Gallstones --> gi aware # Diverticulosis --> on diet, per gi, monitor Appreciate consultation and dw Rn Subjective Allergies: Coded Allergies: No Known Allergies (Unverified , 01/13/20) Subjective 01/17: no major events, no bleeding or chills, no major changes, labs noted, mcv 104 01/18: alert, no overnight events, stool ob negative, on iv iron, h/h stable 01/19: gi workup thus far neg, seen by Dr. Lynn, recs are noted 01/20: confused, bilat restraints. gatito and rheumatoid factor pending 01/21: awake and alert, no acute events, dc planning Objective Objective Last 24 Hour Vital Signs Date Time Temp Pulse Resp B/P (MAP) Pulse Ox O2 Delivery O2 Flow Rate FiO2 01/21/20 16:00 97.8 80 20 120/64 (82) 98 01/21/20 16:00 80 01/21/20 12:00 70 01/21/20 12:00 97.3 71 20 134/64 (87) 97 01/21/20 09:10 87 115/55 01/21/20 08:36 Room Air 01/21/20 08:00 97.7 87 22 115/55 (75) 97 01/21/20 07:56 90 01/21/20 04:00 98.0 86 18 121/71 (88) 96 01/21/20 04:00 74 01/21/20 00:00 89 01/21/20 00:00 97.2 99 18 138/64 (88) 94 01/20/20 21:21 87 133/68 01/20/20 21:00 Room Air 01/20/20 20:00 97.4 93 18 128/79 (95) 95 01/20/20 17:00 95 109/75 01/20/20 16:00 97 01/20/20 16:00 97.7 95 20 109/75 (86) 95 01/20/20 13:06 85 115/53 01/20/20 12:00 82 01/20/20 12:00 98.4 85 24 115/53 (73) 95 01/20/20 09:35 91 145/60 Intake and Output 01/21/20 01/22/20 19:00 07:00 # Voids 3 Labs Test 01/19/20 13:30 01/20/20 05:45 01/21/20 05:35 Ammonia < 10 umol/L (11-32) White Blood Count 11.6 K/UL (4.8-10.8) 8.9 K/UL (4.8-10.8) Red Blood Count 2.64 M/UL (4.20-5.40) 2.75 M/UL (4.20-5.40) Hemoglobin 9.9 G/DL (12.0-16.0) 10.3 G/DL (12.0-16.0) Hematocrit 28.0 % (37.0-47.0) 29.4 % (37.0-47.0) Mean Corpuscular Volume 106 FL (80-99) 107 FL (80-99) Mean Corpuscular Hemoglobin 37.5 PG (27.0-31.0) 37.5 PG (27.0-31.0) Mean Corpuscular Hemoglobin Concent 35.3 G/DL (32.0-36.0) 35.0 G/DL (32.0-36.0) Red Cell Distribution Width 11.7 % (11.6-14.8) 11.5 % (11.6-14.8) Platelet Count 289 K/UL (150-450) 315 K/UL (150-450) Mean Platelet Volume 10.1 FL (6.5-10.1) 9.2 FL (6.5-10.1) Neutrophils (%) (Auto) % (45.0-75.0) % (45.0-75.0) Lymphocytes (%) (Auto) % (20.0-45.0) % (20.0-45.0) Monocytes (%) (Auto) % (1.0-10.0) % (1.0-10.0) Eosinophils (%) (Auto) % (0.0-3.0) % (0.0-3.0) Basophils (%) (Auto) % (0.0-2.0) % (0.0-2.0) Differential Total Cells Counted 100 100 Neutrophils % (Manual) 88 % (45-75) 86 % (45-75) Lymphocytes % (Manual) 4 % (20-45) 8 % (20-45) Monocytes % (Manual) 7 % (1-10) 6 % (1-10) Eosinophils % (Manual) 1 % (0-3) 0 % (0-3) Basophils % (Manual) 0 % (0-2) 0 % (0-2) Band Neutrophils 0 % (0-8) 0 % (0-8) Platelet Estimate Adequate Adequate Platelet Morphology Normal Normal Macrocytosis 1+ 1+ Sodium Level 140 MMOL/L (136-145) 145 MMOL/L (136-145) Potassium Level 4.9 MMOL/L (3.5-5.1) 4.2 MMOL/L (3.5-5.1) Chloride Level 106 MMOL/L (98-107) 109 MMOL/L (98-107) Carbon Dioxide Level 24 MMOL/L (21-32) 23 MMOL/L (21-32) Anion Gap 10 mmol/L (5-15) 13 mmol/L (5-15) Blood Urea Nitrogen 15 mg/dL (7-18) 19 mg/dL (7-18) Creatinine 1.2 MG/DL (0.55-1.30) 1.2 MG/DL (0.55-1.30) Estimat Glomerular Filtration Rate 42.7 mL/min (>60) 42.7 mL/min (>60) Glucose Level 128 MG/DL (74-106) 95 MG/DL (74-106) Calcium Level 9.2 MG/DL (8.5-10.1) 9.1 MG/DL (8.5-10.1) Erythrocyte Sedimentation Rate 107 MM/HR (0-30) Height (Feet): 5 Height (Inches): 3.00 Weight (Pounds): 116 Objective Physical Exam General: mild distress - confused Head: normocephalic, atraumatic, b/l eomi, dry mucus membranes Resp: lungs clear, no respiratory distress Cardiovascular: regular rate, rhythm Gastrointestinal: non tender, soft, ttp throughout Genitourinary: no CVA tenderness Musculoskeletal: other - Difficult to fully evaluate patient moves both lower extremities, lower ex pain Neurologic: other - Patient is verbal, follows some commands however Skin: no rash David Rock MD Jan 22, 2020 08:15
--- NOTE | 2020-01-23 16:52 | Discharge Summary ---
Discharge Summary Discharge Summary _ DATE OF ADMISSION: 01/13/2020 DATE OF DISCHARGE: 01/21/2020 CONSULTANTS: Dr. Erasmo Oconnor [facility] COURSE: Patient is an 84-year-old female who presented with chief complaint of abdominal pain. The patient was found wandering on the streets complaining of abdominal pain. Patient was confused. Patient was disheveled. She denied vomiting or diarrhea. She has flight of thoughts. Upon evaluation at ED, vital signs stable. Blood work did not show any leukocytosis. Hemoglobin 11.4 and hematocrit 33.. Electrolytes were normal. Creatinine was elevated to 1.7. Troponin was negative. CT of the head did not show any acute process. 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 Abdominal and pelvic CT showed tiny foci of hypoattenuation at the left ureteral orifice. No hydronephrosis or hydroureter. Mild rectal distention. Colonic diverticulosis with no evidence of acute diverticulitis. Bilateral groundglass opacity. L2 wedge compression deformity, age indeterminate. Lumbar spondylosis. Bilateral sacral nerve root cysts and left renal cyst. She was admitted for evaluation of altered mental status. She was initially placed n.p.o. She was given IV fluids. She was given bowel regimen and enema. Etiology of altered mental status unknown. Anemia work-up was done. Patient had macrocytic anemia. She had elevated MCV. There was no hemolysis noted. She had low iron levels. B12 was normal. She was given IV iron. TAMMIE resolved with IV hydration. She was noted to be tachycardic.. EKG performed showed possibility of acute OK. Consignee was consulted. EKG was reviewed and suspect lead placement. But there may be atrial flutter with 2: 1 block she was given metoprolol repeat EKG was performed. There was minor increase in troponin likely demand due to tachycardia. Patient was continued on beta-angella. Continued on aspirin and statin. Echocardiogram was technically difficult to perform due to patient being combative. She underwent psychiatric evaluation. Patient had waxing and waning of consciousness. She is confused and attempting to come out of the brain. She was diagnosed with dementia with behavioral disturbance. Neurologist was consulted. Patient has agitation and delirium. 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 There was no evidence of right parietal temporal stroke. EEG showed toxic encephalopathy most probably related to Ativan and Seroquel the patient received prior to the EEG. She was eventually discharged to [facility] rehab. FINAL DIAGNOSES: Toxic encephalopathy NSTEMI type II Dehydration Acute kidney injury Atrial tachyarrhythmia Delirium Dementia with behavioral disturbance Macrocytic anemia Constipation Status post fall Diverticulosis Gallstones DISPOSITION: Patient was discharged to a SNF. DISCHARGE MEDICATIONS: Refer to Discharge Medication List. I have been assigned to complete a discharge summary on this account, I was not involved with the patient's management.--NEHA Lamb Jacqueline Robles NP Jan 23, 2020 16:52
== END 2020-01-21 21:20 | DRG 91 ==
LOC: EDBD 12:36 → EMR 14:08 → 3E 14:12 → EDBEDREQ 18:36 → 3E 01-16 10:04 → 2E 01-16 15:19
DX: G92 Toxic encephalopathy (principal); I21.A1 Myocardial infarction type 2; S32.020A Wedge compression fracture of second lumbar vertebra, initial encounter for closed fracture; N17.9 Acute kidney failure, unspecified; I48.92 Unspecified atrial flutter; I47.1 Supraventricular tachycardia; F03.91 Unspecified dementia, unspecified severity, with behavioral disturbance; F05 Delirium due to known physiological condition; K59.00 Constipation, unspecified; R10.9 Unspecified abdominal pain; E86.0 Dehydration; Z91.83 Wandering in diseases classified elsewhere; D53.9 Nutritional anemia, unspecified; Z91.81 History of falling; K57.90 Diverticulosis of intestine, part unspecified, without perforation or abscess without bleeding; K80.80 Other cholelithiasis without obstruction; Z86.73 Personal history of transient ischemic attack (TIA), and cerebral infarction without residual deficits; E87.6 Hypokalemia; T42.4X5A Adverse effect of benzodiazepines, initial encounter; T43.595A Adverse effect of other antipsychotics and neuroleptics, initial encounter; X58.XXXA Exposure to other specified factors, initial encounter
CPT/HCPCS: 36415; 70450; 71045; 72020; 72170; 74176; 76700; 80048; 80053; 81003; 82140; 82150; 82248; 82270; 82378; 82550; 82607; 82728; 82962; 83540; 83550; 83690; 83735; 83921; 84100; 84439; 84443; 84484; 85007; 85025; 85044; 85060; 85610; 85651; 85730; 86039; 86140; 86431; 87081; 93005; 93306; 95819; 96372; 96374; 96375; 99285; J2405; J8499

== ENCOUNTER 2020-04-11 09:33 | Inpatient (IN) | payer MEDICARE, OTHER ==
[~2020-04-11] VITALS: Ht 157.5 cm; Wt 48.8 kg
--- NOTE | 2020-04-11 09:55 | NUR ---
ED Nurse Note: Pt brought in by ambulance from [facility] d/t poor PO intake since yesterday. Pt also had a hgb of 8.3. SNF reports patient positive for COVID on 03/28. Respirations even and unlabored on room air. Vitals stable as documented. No cough or fever noted. Pt refuses to keep on mask, pulling it off. Pt very restless and screaming. Pt placed on monitored bed.
[2020-04-11] MEDS ORDERED: Haloperidol 5mg/ml Inj ONE (09:56)
[2020-04-11] MEDS ORDERED: Haloperidol 5mg/ml Inj IM ONE (10:00)
--- NOTE | 2020-04-11 10:00 | NUR ---
ED Nurse Note: Pt extremely restless and kicking her legs at staff and being non compliant with care. Per ED MD, give haldol IM, then wait for all other orders until patient is more calm. Noted and carried out. Haldol given.
[2020-04-11] MEDS ORDERED: HEPARIN SO5000 UNIT2 SUBQ (10:03)
[2020-04-11] MEDS ORDERED: DOCUSATE SODIU100 MG ORAL (10:03)
[2020-04-11] MEDS ORDERED: LACTULOSE20 GM/301 ORAL (10:03)
[2020-04-11] MEDS ORDERED: ACETAMINOPHEN325 M1 ORAL (10:03)
[2020-04-11] MEDS ORDERED: AMIODARONE HCL200 MG ORAL (10:03)
[2020-04-11] MEDS ORDERED: XARELTO10 MG ORAL (10:03)
[2020-04-11] MEDS ORDERED: MELATONIN5 M2 SL (10:03)
[2020-04-11] MEDS ORDERED: DEPAKOTE ER250 MG ORAL (10:03)
[2020-04-11] MEDS ORDERED: ATORVASTATIN CA20 MG ORAL (10:03)
[2020-04-11] MEDS ORDERED: PANTOPRAZOLE SO40 MG ORAL (10:03)
[2020-04-11] MEDS ORDERED: Toprol XL PO (10:03)
[2020-04-11] MEDS ORDERED: RISPERDAL1 MG PO (10:03)
[2020-04-11] MEDS ORDERED: METOPROLOL TART25 MG ORAL (10:03)
--- NOTE | 2020-04-11 10:18 | Emergency Room Report ---
History of Present Illness General Chief Complaint: General Complaint Source: Medical Record, EMS Present Illness HPI 84-year-old female presents for evaluation of abnormal labs. Tested positive for COVID. Residing in [facility] facility. Has not been eating for the last several days. History of dementia and psych. Also reported low hemoglobin. No fevers or chills. No chest pain or shortness of breath. No other aggravating relieving factors. 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 COVID-19 Screening: Positive COVID-19 COVID-19 Testing Source: [facility] on 03/28 Patient History Past Medical History: DM, HTN, dementia, psych hx Past Surgical History: none Pertinent Family History: none Social History: Denies: smoking, alcohol use, drug use Last Menstrual Period: na Now: No Immunizations: UTD Reviewed Nursing Documentation: PMH: Agreed; PSxH: Agreed Nursing Documentation-PMH Past Medical History: No History, Except For Hx Cardiac Problems: Yes - anemia, atrial flutter, covi 19, high cholesterol, FTT Hx Hypertension: Yes Hx Diabetes: Yes History Of Psychiatric Problem: Yes - bipolar, dementia, alzheimers Hx Neurological Problems: Yes - encephalopathy Review of Systems All Other Systems: negative except mentioned in HPI Physical Exam Vital Signs Date Time Temp Pulse Resp B/P (MAP) Pulse Ox O2 Delivery O2 Flow Rate FiO2 04/11/20 09:34 97.7 62 24 147/90 (109) 97 Room Air Sp02 EP Interpretation: reviewed, normal General Appearance: alert, GCS 15, non-toxic, cachetic Head: normocephalic, atraumatic Eyes: bilateral eye normal inspection, bilateral eye PERRL ENT: hearing grossly normal, normal pharynx, no angioedema, normal voice Neck: full range of motion, supple/symm/no masses Respiratory: chest non-tender, lungs clear, normal breath sounds, speaking full sentences Cardiovascular #1: regular rate, rhythm, no edema Cardiovascular #2: 2+ carotid (R), 2+ carotid (L), 2+ radial (R), 2+ radial (L) , 2+ dorsalis pedis (R), 2+ dorsalis pedis (L) Gastrointestinal: normal bowel sounds, non tender, soft, non-distended, no guarding, no rebound Rectal: deferred Genitourinary: normal inspection, no CVA tenderness Musculoskeletal: back normal, normal range of motion, gait/station normal, non- tender Neurologic: other - dementia Psychiatric: judgement/insight normal, memory normal, mood/affect normal, no suicidal/homicidal ideation, anxious, other - dementia Reflexes: 3+ bicep (R), 3+ bicep (L), 3+ tricep (R), 3+ tricep (L), 3+ knee (R) , 3+ knee (L) Skin: other - see nursing skin notes Lymphatic: no adenopathy Medical Decision Making Diagnostic Impression: Primary Impression: COVID-19 Additional Impressions: Pneumonia Qualified Codes: J18.9 - Pneumonia, unspecified organism Dehydration ER Course Hospital Course 84-year-old F presenting to ED with poor appetite, reported + COVID test Differential diagnoses include: Pneumonia, dehydation, sepsis Clinical course Patient placed on stretcher. In isolation. I wore full PPE. On nurse advisor with stable vitals. After initial history and physical, I ordered labs , IV fluids, EKG, chest x-ray, blood cultures, UA. Labs - no leukocytosis, hemoglobin/hematocrit stable, K 5.9, BUN/Cr 36/1.8, lactic ok. UA + bacteria EKG - sinus bradycardia no acute ischemic changes interpreted by me CXR - bilateral atelectasis COVID swab sent. Given antibiotics. given insulin/D50. Given IV fluids. History of psych and dementia. Given Haldol and Ativan for sedation. Case discussed with Dr. High and he agreed to the patient to his service for further care and support I feel this is a highly complex case requiring extensive working including EKG/ Rhythm strip, Xray/CT/US, Blood/urine lab work, repeat exams while in ED, and administration of strong opiates/narcotics for pain control, admission to hospital or close patient follow up. Diagnosis - COVID-19, dehydration, pneumonia Patient admitted to floor in serious condition Labs Test 04/11/20 10:36 04/11/20 10:42 White Blood Count 4.9 K/UL (4.8-10.8) Red Blood Count 2.45 M/UL (4.20-5.40) Hemoglobin 9.3 G/DL (12.0-16.0) Hematocrit 26.4 % (37.0-47.0) Mean Corpuscular Volume 108 FL (80-99) Mean Corpuscular Hemoglobin 38.1 PG (27.0-31.0) Mean Corpuscular Hemoglobin Concent 35.3 G/DL (32.0-36.0) Red Cell Distribution Width 14.8 % (11.6-14.8) Platelet Count 253 K/UL (150-450) Mean Platelet Volume 8.9 FL (6.5-10.1) Neutrophils (%) (Auto) % (45.0-75.0) Lymphocytes (%) (Auto) % (20.0-45.0) Monocytes (%) (Auto) % (1.0-10.0) Eosinophils (%) (Auto) % (0.0-3.0) Basophils (%) (Auto) % (0.0-2.0) Differential Total Cells Counted 100 Neutrophils % (Manual) 77 % (45-75) Lymphocytes % (Manual) 20 % (20-45) Monocytes % (Manual) 3 % (1-10) Eosinophils % (Manual) 0 % (0-3) Basophils % (Manual) 0 % (0-2) Band Neutrophils 0 % (0-8) Platelet Estimate Adequate Platelet Morphology Normal Hypochromasia 2+ Anisocytosis 1+ Macrocytosis 1+ Sodium Level 142 MMOL/L (136-145) Potassium Level 5.9 MMOL/L (3.5-5.1) Chloride Level 107 MMOL/L (98-107) Carbon Dioxide Level 27 MMOL/L (21-32) Anion Gap 8 mmol/L (5-15) Blood Urea Nitrogen 36 mg/dL (7-18) Creatinine 1.8 MG/DL (0.55-1.30) Estimat Glomerular Filtration Rate 26.7 mL/min (>60) Glucose Level 98 MG/DL (74-106) Lactic Acid Level 1.40 mmol/L (0.4-2.0) Calcium Level 8.3 MG/DL (8.5-10.1) Total Bilirubin 0.3 MG/DL (0.2-1.0) Aspartate Amino Transf (AST/SGOT) 24 U/L (15-37) Alanine Aminotransferase (ALT/SGPT) 32 U/L (12-78) Alkaline Phosphatase 93 U/L (46-116) Pro-B-Type Natriuretic Peptide 1635 pg/mL (0-125) Total Protein 7.2 G/DL (6.4-8.2) Albumin 3.1 G/DL (3.4-5.0) Globulin 4.1 g/dL Albumin/Globulin Ratio 0.8 (1.0-2.7) EKG Diagnostic Results Rate: bradycardiac Rhythm: NSR ST Segments: no acute changes ASA given to the pt in ED: No Rhythm Strip Diag. Results EP Interpretation: yes Rhythm: NSR, no PVC's, no ectopy Chest X-Ray Diagnostic Results Chest X-Ray Diagnostic Results : Chest X-Ray Ordered: Yes # of Views/Limited/Complete: 1 View Indication: Other - cough EP Interpretation: Yes Interpretation: no pneumothorax, other - atelectasis bilateral Impression: Other - pneumonia Electronically Signed by: Electronically signed by Richard Olvia MD Last Vital Signs Date Time Temp Pulse Resp B/P (MAP) Pulse Ox O2 Delivery O2 Flow Rate FiO2 04/11/20 09:34 97.7 62 24 147/90 (109) 97 Room Air Status: improved Disposition: ADMITTED INPATIENT Condition: Serious Referrals: Ulices High MD (PCP) Richard Oliva MD April 11, 2020 10:18
[2020-04-11 10:30] VITALS: BP 142/87
--- NOTE | 2020-04-11 10:57 | NUR ---
ED Nurse Note: urine and blood collected and sent to lab
[2020-04-11 10:59] LABS: HEMATOCRIT 26.4 % (37.0-47.0); HEMOGLOBIN 9.3 G/DL (12.0-16.0); MEAN CORPUSCULAR VOLUME 108 FL (80-99); PLATELET COUNT 253 K/UL (150-450); RED BLOOD COUNT 2.45 M/UL (4.20-5.40); RED CELL DISTRIBUTION WIDTH 14.8 % (11.6-14.8); WHITE BLOOD COUNT 4.9 K/UL (4.8-10.8)
[2020-04-11 11:12] LABS: ALANINE AMINOTRANSFERASE 32 U/L (12-78); ALBUMIN 3.1 G/DL (3.4-5.0); ALBUMIN/GLOBULIN RATIO 0.8 (1.0-2.7); ALKALINE PHOSPHATASE 93 U/L (46-116); ANION GAP 8 mmol/L (5-15); ASPARTATE AMINO TRANSFERASE 24 U/L (15-37); BILIRUBIN,TOTAL 0.3 MG/DL (0.2-1.0); BLOOD UREA NITROGEN 36 mg/dL (7-18); CALCIUM 8.3 MG/DL (8.5-10.1); CARBON DIOXIDE 27 MMOL/L (21-32); CHLORIDE 107 MMOL/L (98-107); CREATININE 1.8 MG/DL (0.55-1.30); SODIUM 142 MMOL/L (136-145)
[2020-04-11 11:17] LABS: POTASSIUM 5.9 MMOL/L (3.5-5.1)
--- NOTE | 2020-04-11 11:34 | Diagnostic Imaging Report ---
Procedure: XRAY Chest 1v Reason for study: Shortness of breath. Weakness. Comparison films: 01/13/2020. FINDINGS: A single one view chest is obtained. Vascularity is normal. Streaky atelectasis is noted in both upper lobes. There is cardiomegaly. CP angles are sharp. The bony thorax appear unremarkable. IMPRESSION: Bilateral upper lobe streaky atelectasis.
[2020-04-11 11:42] LABS: APPEARANCE,URINE TURBID; BILIRUBIN, URINE NEGATIVE (NEGATIVE); GLUCOSE, URINE (UA) NEGATIVE (NEGATIVE); KETONES,URINE NEGATIVE (NEGATIVE); LEUKOCYTE ESTERASE ,URINE 3+ (NEGATIVE); NITRITE,URINE POSITIVE (NEGATIVE); PH,URINE 7 (4.5-8.0); PROTEIN,URINE 2+ (NEGATIVE); UROBILINOGEN,URINE NORMAL MG/DL (0.0-1.0)
[2020-04-11 11:46] LABS: COLOR,URINE YELLOW
[2020-04-11 11:47] LABS: INR 1.1 (0.9-1.1)
[2020-04-11] MEDS ORDERED: Insulin Human Regular 100units/ml 3ml IV ONE (12:15)
[2020-04-11] MEDS ORDERED: LORazepam Inj 2mg/ml 1ml IV ONE (13:00)
--- NOTE | 2020-04-11 13:08 | NUR ---
ED Nurse Note: Pt pulled out IV. Pt still very restless, yelling, kicking, spitting. New IV inserted. Ativan ordered and given.
[2020-04-11 13:10] VITALS: BP 135/75
[2020-04-11] MEDS ORDERED: Miralax 17gm pkt ORAL PRN ×3 (13:15→19:00)
[2020-04-11] MEDS ORDERED: Albuterol/Ipratropium 3ml neb HHN PRN ×3 (13:15→21:15)
--- NOTE | 2020-04-11 13:29 | Consultation ---
History of Present Illness General Date patient seen: April 11, 2020 Chief Complaint: General Complaint Present Illness HPI 84 year old female with hx of dementia, Atrial fibrillation, on chronic anticoagulation, psychiatric disorder was brought in from custodial because she was diagnosed to have COVID 19. She has had poor oral intake and was refusing to eat. She was not cooperative in the ER and was trying to pull her mask. Allergies: Coded Allergies: No Known Allergies (Unverified , 01/13/20) Medication History Scheduled Amiodarone Hcl* (Cordarone*), 200 MG ORAL DAILY, (Reported) Atorvastatin Calcium* (Atorvastatin Calcium*), 20 MG ORAL BEDTIME, (Reported) Divalproex Sodium* (Depakote Er*), 125 MG ORAL EVERY 8 HOURS, (Reported) Docusate Sodium* (Docusate Sodium*), 100 MG ORAL TWICE A DAY, (Reported) Heparin Sod (Porcine) (Heparin Sodium*), 5,000 UNITS SUBQ EVERY 12 HOURS, ( Reported) Metoprolol Tartrate* (Metoprolol Tartrate*), 25 MG ORAL EVERY 12 HOURS, ( Reported) Pantoprazole* (Pantoprazole*), 40 MG ORAL DAILY, (Reported) Risperidone* (Risperdal*), 1 MG PO Q8HR, (Reported) Rivaroxaban (Xarelto*), 15 MG ORAL DAILY, (Reported) [Toprol XL], 25 MG PO BID, (Reported) Scheduled PRN Acetaminophen* (Acetaminophen 325MG Tablet*), 650 MG ORAL Q4H PRN for , ( Reported) Melatonin (Melatonin), 5 MG SL BEDTIME PRN for Insomnia, (Reported) Miscellaneous Medications Lactulose (Lactulose*), 30 ML ORAL, (Reported) Patient History Healthcare decision maker Resuscitation status Advanced Directive on File Past Medical/Surgical History Past Medical/Surgical History: (1) Chronic anticoagulation (2) Dementia with behavioral disturbance Review of Systems All Other Systems: negative except mentioned in HPI Physical Exam General Appearance: cachetic, thin Lines, tubes and drains: peripheral HEENT: anicteric Neck: non-tender Respiratory/Chest: chest wall non-tender, rhonchi - left, rhonchi - right Cardiovascular/Chest: normal peripheral pulses, normal rate Abdomen: normal bowel sounds, non tender Genitourinary/Rectal: normal genital exam Extremities: normal range of motion, non-tender Last 24 Hour Vital Signs Date Time Temp Pulse Resp B/P (MAP) Pulse Ox O2 Delivery O2 Flow Rate FiO2 04/11/20 13:10 98.0 78 24 135/75 99 Room Air 04/11/20 10:30 97.9 64 24 142/87 98 Room Air 04/11/20 10:30 64 24 Room Air 04/11/20 09:34 97.7 62 24 147/90 (109) 97 Room Air Laboratory Tests Test 04/11/20 10:36 04/11/20 10:42 White Blood Count 4.9 K/UL (4.8-10.8) Red Blood Count 2.45 M/UL (4.20-5.40) L Hemoglobin 9.3 G/DL (12.0-16.0) L Hematocrit 26.4 % (37.0-47.0) L Mean Corpuscular Volume 108 FL (80-99) H Mean Corpuscular Hemoglobin 38.1 PG (27.0-31.0) H Mean Corpuscular Hemoglobin Concent 35.3 G/DL (32.0-36.0) Red Cell Distribution Width 14.8 % (11.6-14.8) Platelet Count 253 K/UL (150-450) Mean Platelet Volume 8.9 FL (6.5-10.1) Neutrophils (%) (Auto) % (45.0-75.0) Lymphocytes (%) (Auto) % (20.0-45.0) Monocytes (%) (Auto) % (1.0-10.0) Eosinophils (%) (Auto) % (0.0-3.0) Basophils (%) (Auto) % (0.0-2.0) Differential Total Cells Counted 100 Neutrophils % (Manual) 77 % (45-75) H Lymphocytes % (Manual) 20 % (20-45) Monocytes % (Manual) 3 % (1-10) Eosinophils % (Manual) 0 % (0-3) Basophils % (Manual) 0 % (0-2) Band Neutrophils 0 % (0-8) Platelet Estimate Adequate Platelet Morphology Normal Hypochromasia 2+ Anisocytosis 1+ Macrocytosis 1+ Sodium Level 142 MMOL/L (136-145) Potassium Level 5.9 MMOL/L (3.5-5.1) H Chloride Level 107 MMOL/L (98-107) Carbon Dioxide Level 27 MMOL/L (21-32) Anion Gap 8 mmol/L (5-15) Blood Urea Nitrogen 36 mg/dL (7-18) H Creatinine 1.8 MG/DL (0.55-1.30) H Estimat Glomerular Filtration Rate 26.7 mL/min (>60) Glucose Level 98 MG/DL (74-106) Lactic Acid Level 1.40 mmol/L (0.4-2.0) Calcium Level 8.3 MG/DL (8.5-10.1) L Total Bilirubin 0.3 MG/DL (0.2-1.0) Aspartate Amino Transf (AST/SGOT) 24 U/L (15-37) Alanine Aminotransferase (ALT/SGPT) 32 U/L (12-78) Alkaline Phosphatase 93 U/L (46-116) Pro-B-Type Natriuretic Peptide 1635 pg/mL (0-125) H Total Protein 7.2 G/DL (6.4-8.2) Albumin 3.1 G/DL (3.4-5.0) L Globulin 4.1 g/dL Albumin/Globulin Ratio 0.8 (1.0-2.7) L Prothrombin Time 12.2 SEC (9.30-11.50) H Prothromb Time International Ratio 1.1 (0.9-1.1) Activated Partial Thromboplast Time 25 SEC (23-33) Urine Color Yellow Urine Appearance Turbid Urine pH 7 (4.5-8.0) Urine Specific [place] 1.010 (1.005-1.035) Urine Protein 2+ (NEGATIVE) H Urine Glucose (UA) Negative (NEGATIVE) Urine Ketones Negative (NEGATIVE) Urine Blood 2+ (NEGATIVE) H Urine Nitrite Positive (NEGATIVE) H Urine Bilirubin Negative (NEGATIVE) Urine Urobilinogen Normal MG/DL (0.0-1.0) Urine Leukocyte Esterase 3+ (NEGATIVE) H Urine RBC 5-10 /HPF (0 - 2) H Urine WBC Tntc /HPF (0 - 2) H Urine Squamous Epithelial Cells Few /LPF (NONE/OCC) Urine Bacteria Many /HPF (NONE) H Height (Feet): 5 Height (Inches): 2.00 Weight (Pounds): 106 Medications Current Medications Medications (Trade) Dose Ordered Sig/Dewayne Route PRN Reason Start Time Stop Time Status Last Admin Dose Admin Acetaminophen (Tylenol) 650 mg Q4H PRN ORAL fever 04/11/20 13:15 05/11/20 13:14 Albuterol/ Ipratropium (Albuterol/ Ipratropium) 3 ml Q4H PRN HHN Shortness of Breath 04/11/20 13:15 04/16/20 13:14 Amiodarone HCl (Cordarone) 200 mg DAILY ORAL 04/12/20 09:00 07/11/20 08:59 Cefepime HCl 2 gm/ Dextrose 110 ml @ 220 mls/hr EVERY 12 HOURS IV 04/11/20 21:00 04/18/20 20:59 UNV Divalproex Sodium (Depakote Sprinkles) 125 mg EVERY 8 HOURS ORAL 04/11/20 14:00 05/11/20 13:59 Ondansetron HCl (Zofran) 4 mg Q6H PRN IVP Nausea & Vomiting 04/11/20 13:15 05/11/20 13:14 Polyethylene Glycol (Miralax) 17 gm DAILYPRN PRN ORAL Constipation 04/11/20 13:15 05/11/20 13:14 Risperidone (RisperDAL) 1 mg Q8HR ORAL 04/11/20 14:00 05/26/20 13:59 Rivaroxaban (Xarelto) 15 mg DAILY ORAL 04/12/20 09:00 07/11/20 08:59 Sodium Chloride 1,000 ml @ 150 mls/hr Q6H40M IV 04/11/20 12:15 05/11/20 12:14 04/11/20 12:19 Temazepam (Restoril) 15 mg HSPRN PRN ORAL Insomnia 04/11/20 13:15 04/18/20 13:14 Vancomycin HCl (Vanco rx to dose) 1 ea DAILY PRN MISC Per rx protocol 04/11/20 13:30 05/11/20 13:29 Vancomycin HCl 1 gm/Dextrose 275 ml @ 183.3 mls/ hr Q24H IV 04/12/20 00:30 04/17/20 00:29 UNV Assessment/Plan Problem List: (1) COVID-19 ICD Codes: U07.1 - COVID-19 SNOMED: 622563893 (2) Severe anemia ICD Codes: D64.9 - Anemia, unspecified SNOMED: 785578907 (3) Acute encephalopathy ICD Codes: G93.40 - Encephalopathy, unspecified SNOMED: 24788228, 655661790 (4) Dehydration ICD Codes: E86.0 - Dehydration SNOMED: 32805657 (5) Dementia with behavioral disturbance ICD Codes: F03.91 - Unspecified dementia with behavioral disturbance SNOMED: 1137869035599 (6) Chronic anticoagulation ICD Codes: 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 Alyse Oconnor MD April 11, 2020 13:29
--- NOTE | 2020-04-11 13:35 | NUR ---
ED Nurse Note: REPORT GIVEN TO DADA MOMIN
--- NOTE | 2020-04-11 13:50 | NUR ---
ED Nurse Note: Pt transferred safely to 4E with clothing.
[2020-04-11] MEDS ORDERED: Depakote 125mg Sprinkles ORAL SCH ×2 (14:00→22:00)
[2020-04-11 14:04] LABS: CREATINE KINASE 121 U/L (26-308)
--- NOTE | 2020-04-11 14:10 | Consultation ---
History of Present Illness General Date patient seen: April 11, 2020 Chief Complaint: General Complaint Present Illness HPI 84 y/o F with hx of Dm2, HLD, HTN, Dementia, Afib on chronic anticoagulation, bipolar disorder, NH resident presented to ED on 04/11 with poor intake and with diagnosis of COVID19 from ID. Tested positive for COVID on 03/28 at [facility]. No fevers, chills, CP, SOB. Allergies: Coded Allergies: No Known Allergies (Unverified , 01/13/20) Medication History Scheduled Amiodarone Hcl* (Cordarone*), 200 MG ORAL DAILY, (Reported) Atorvastatin Calcium* (Atorvastatin Calcium*), 20 MG ORAL BEDTIME, (Reported) Divalproex Sodium* (Depakote Er*), 125 MG ORAL EVERY 8 HOURS, (Reported) Docusate Sodium* (Docusate Sodium*), 100 MG ORAL TWICE A DAY, (Reported) Heparin Sod (Porcine) (Heparin Sodium*), 5,000 UNITS SUBQ EVERY 12 HOURS, ( Reported) Metoprolol Tartrate* (Metoprolol Tartrate*), 25 MG ORAL EVERY 12 HOURS, ( Reported) Pantoprazole* (Pantoprazole*), 40 MG ORAL DAILY, (Reported) Risperidone* (Risperdal*), 1 MG PO Q8HR, (Reported) Rivaroxaban (Xarelto*), 15 MG ORAL DAILY, (Reported) [Toprol XL], 25 MG PO BID, (Reported) Scheduled PRN Acetaminophen* (Acetaminophen 325MG Tablet*), 650 MG ORAL Q4H PRN for , ( Reported) Melatonin (Melatonin), 5 MG SL BEDTIME PRN for Insomnia, (Reported) Miscellaneous Medications Lactulose (Lactulose*), 30 ML ORAL, (Reported) Patient History Healthcare decision maker Resuscitation status Advanced Directive on File Patient History Narrative Pmhx: as above SHx: Denies: smoking, alcohol use, drug use Fhx: non contributory Review of Systems All Other Systems: negative except mentioned in HPI Physical Exam Physical Exam Narrative General Appearance: cachetic, thin HEENT: anicteric Neck: non-tender Respiratory/Chest: chest wall non-tender, rhonchi - left, rhonchi - right Cardiovascular/Chest: normal peripheral pulses, normal rate Abdomen: normal bowel sounds, non tender Extremities: normal range of motion, non-tender Last 24 Hour Vital Signs Date Time Temp Pulse Resp B/P (MAP) Pulse Ox O2 Delivery O2 Flow Rate FiO2 04/11/20 13:10 98.0 78 24 135/75 99 Room Air 04/11/20 10:30 97.9 64 24 142/87 98 Room Air 04/11/20 10:30 64 24 Room Air 04/11/20 09:34 97.7 62 24 147/90 (109) 97 Room Air Laboratory Tests Test 04/11/20 10:36 04/11/20 10:42 White Blood Count 4.9 K/UL (4.8-10.8) Red Blood Count 2.45 M/UL (4.20-5.40) L Hemoglobin 9.3 G/DL (12.0-16.0) L Hematocrit 26.4 % (37.0-47.0) L Mean Corpuscular Volume 108 FL (80-99) H Mean Corpuscular Hemoglobin 38.1 PG (27.0-31.0) H Mean Corpuscular Hemoglobin Concent 35.3 G/DL (32.0-36.0) Red Cell Distribution Width 14.8 % (11.6-14.8) Platelet Count 253 K/UL (150-450) Mean Platelet Volume 8.9 FL (6.5-10.1) Neutrophils (%) (Auto) % (45.0-75.0) Lymphocytes (%) (Auto) % (20.0-45.0) Monocytes (%) (Auto) % (1.0-10.0) Eosinophils (%) (Auto) % (0.0-3.0) Basophils (%) (Auto) % (0.0-2.0) Differential Total Cells Counted 100 Neutrophils % (Manual) 77 % (45-75) H Lymphocytes % (Manual) 20 % (20-45) Monocytes % (Manual) 3 % (1-10) Eosinophils % (Manual) 0 % (0-3) Basophils % (Manual) 0 % (0-2) Band Neutrophils 0 % (0-8) Platelet Estimate Adequate Platelet Morphology Normal Hypochromasia 2+ Anisocytosis 1+ Macrocytosis 1+ Sodium Level 142 MMOL/L (136-145) Potassium Level 5.9 MMOL/L (3.5-5.1) H Chloride Level 107 MMOL/L (98-107) Carbon Dioxide Level 27 MMOL/L (21-32) Anion Gap 8 mmol/L (5-15) Blood Urea Nitrogen 36 mg/dL (7-18) H Creatinine 1.8 MG/DL (0.55-1.30) H Estimat Glomerular Filtration Rate 26.7 mL/min (>60) Glucose Level 98 MG/DL (74-106) Lactic Acid Level 1.40 mmol/L (0.4-2.0) Uric Acid Pending Calcium Level 8.3 MG/DL (8.5-10.1) L Total Bilirubin 0.3 MG/DL (0.2-1.0) Aspartate Amino Transf (AST/SGOT) 24 U/L (15-37) Alanine Aminotransferase (ALT/SGPT) 32 U/L (12-78) Alkaline Phosphatase 93 U/L (46-116) Total Creatine Kinase Pending Pro-B-Type Natriuretic Peptide 1635 pg/mL (0-125) H Total Protein 7.2 G/DL (6.4-8.2) Albumin 3.1 G/DL (3.4-5.0) L Globulin 4.1 g/dL Albumin/Globulin Ratio 0.8 (1.0-2.7) L Prothrombin Time 12.2 SEC (9.30-11.50) H Prothromb Time International Ratio 1.1 (0.9-1.1) Activated Partial Thromboplast Time 25 SEC (23-33) Urine Color Yellow Urine Appearance Turbid Urine pH 7 (4.5-8.0) Urine Specific [place] 1.010 (1.005-1.035) Urine Protein 2+ (NEGATIVE) H Urine Glucose (UA) Negative (NEGATIVE) Urine Ketones Negative (NEGATIVE) Urine Blood 2+ (NEGATIVE) H Urine Nitrite Positive (NEGATIVE) H Urine Bilirubin Negative (NEGATIVE) Urine Urobilinogen Normal MG/DL (0.0-1.0) Urine Leukocyte Esterase 3+ (NEGATIVE) H Urine RBC 5-10 /HPF (0 - 2) H Urine WBC Tntc /HPF (0 - 2) H Urine Squamous Epithelial Cells Few /LPF (NONE/OCC) Urine Bacteria Many /HPF (NONE) H Height (Feet): 5 Height (Inches): 2.00 Weight (Pounds): 106 Medications Current Medications Medications (Trade) Dose Ordered Sig/Dewayne Route PRN Reason Start Time Stop Time Status Last Admin Dose Admin Acetaminophen (Tylenol) 650 mg Q4H PRN ORAL fever 04/11/20 13:15 05/11/20 13:14 Albuterol/ Ipratropium (Albuterol/ Ipratropium) 3 ml Q4H PRN HHN Shortness of Breath 04/11/20 13:15 04/16/20 13:14 Amiodarone HCl (Cordarone) 200 mg DAILY ORAL 04/12/20 09:00 07/11/20 08:59 Cefepime HCl 1 gm/ Dextrose 110 ml @ 220 mls/hr Q24H IVPB 04/11/20 18:00 04/18/20 17:59 Divalproex Sodium (Depakote Sprinkles) 125 mg EVERY 8 HOURS ORAL 04/11/20 14:00 05/11/20 13:59 Ondansetron HCl (Zofran) 4 mg Q6H PRN IVP Nausea & Vomiting 04/11/20 13:15 05/11/20 13:14 Polyethylene Glycol (Miralax) 17 gm DAILYPRN PRN ORAL Constipation 04/11/20 13:15 05/11/20 13:14 Risperidone (RisperDAL) 1 mg Q8HR ORAL 04/11/20 14:00 05/26/20 13:59 Rivaroxaban (Xarelto) 15 mg DAILY ORAL 04/12/20 09:00 07/11/20 08:59 Sodium Chloride 1,000 ml @ 150 mls/hr Q6H40M IV 04/11/20 12:15 05/11/20 12:14 04/11/20 12:19 Temazepam (Restoril) 15 mg HSPRN PRN ORAL Insomnia 04/11/20 13:15 04/18/20 13:14 Vancomycin HCl (Vanco rx to dose) 1 ea DAILY PRN MISC Per rx protocol 04/11/20 13:30 05/11/20 13:29 Vancomycin HCl 1 gm/Dextrose 275 ml @ 183.3 mls/ hr ONCE ONCE IVPB 04/11/20 15:00 04/11/20 16:30 Assessment/Plan Assessment/Plan: Abx: IV Vancomycin 04/11- Cefepime 04/11- Levaquin x1 04/11 Assessment: Confirmed COVID19 (PATIENT ATTENDANT- at [facility] on 03/28) -04/11 CXR: Bilateral upper lobe streaky atelectasis. UTI -u/a wbc tnct, nit +, leuk +3; ucx p Afebrile No leukocytosis Anemia TAMMIE Dm2 HLD HTN Dementia Afib on chronic anticoagulation bipolar disorder ID resident ([facility]) Plan: -Continue empiric Cefepime #1 pending ucx -Dc empiric IV vancomycin #1 -f/u cx -Monitor CBC/CMP, temperature Thank you for consulting [facility]. Will continue to follow along with you. Lisa Altamirano M.D. April 11, 2020 14:10
[2020-04-11 14:19] VITALS: BP 84/47
--- NOTE | 2020-04-11 14:51 | Cardiology Progress Note ---
Assessment/Plan Assessment/Plan recent hospital at [facility] for covid 19 noted atypic atrial flutter spont conversted to sinus start on amio and xarelto to continue if sandee persistent sandra need to adjsut amiod dose ivf for low bp [id number] Objective Last 24 Hour Vital Signs Date Time Temp Pulse Resp B/P (MAP) Pulse Ox O2 Delivery O2 Flow Rate FiO2 04/11/20 14:20 Room Air 04/11/20 14:19 95.7 57 18 84/47 (59) 100 04/11/20 13:50 98.2 85 24 131/78 98 Room Air 04/11/20 13:10 98.0 78 24 135/75 99 Room Air 04/11/20 10:30 97.9 64 24 142/87 98 Room Air 04/11/20 10:30 64 24 Room Air 04/11/20 09:34 97.7 62 24 147/90 (109) 97 Room Air Laboratory Tests Test 04/11/20 10:36 04/11/20 10:42 White Blood Count 4.9 K/UL (4.8-10.8) Red Blood Count 2.45 M/UL (4.20-5.40) L Hemoglobin 9.3 G/DL (12.0-16.0) L Hematocrit 26.4 % (37.0-47.0) L Mean Corpuscular Volume 108 FL (80-99) H Mean Corpuscular Hemoglobin 38.1 PG (27.0-31.0) H Mean Corpuscular Hemoglobin Concent 35.3 G/DL (32.0-36.0) Red Cell Distribution Width 14.8 % (11.6-14.8) Platelet Count 253 K/UL (150-450) Mean Platelet Volume 8.9 FL (6.5-10.1) Neutrophils (%) (Auto) % (45.0-75.0) Lymphocytes (%) (Auto) % (20.0-45.0) Monocytes (%) (Auto) % (1.0-10.0) Eosinophils (%) (Auto) % (0.0-3.0) Basophils (%) (Auto) % (0.0-2.0) Differential Total Cells Counted 100 Neutrophils % (Manual) 77 % (45-75) H Lymphocytes % (Manual) 20 % (20-45) Monocytes % (Manual) 3 % (1-10) Eosinophils % (Manual) 0 % (0-3) Basophils % (Manual) 0 % (0-2) Band Neutrophils 0 % (0-8) Platelet Estimate Adequate Platelet Morphology Normal Hypochromasia 2+ Anisocytosis 1+ Macrocytosis 1+ Sodium Level 142 MMOL/L (136-145) Potassium Level 5.9 MMOL/L (3.5-5.1) H Chloride Level 107 MMOL/L (98-107) Carbon Dioxide Level 27 MMOL/L (21-32) Anion Gap 8 mmol/L (5-15) Blood Urea Nitrogen 36 mg/dL (7-18) H Creatinine 1.8 MG/DL (0.55-1.30) H Estimat Glomerular Filtration Rate 26.7 mL/min (>60) Glucose Level 98 MG/DL (74-106) Lactic Acid Level 1.40 mmol/L (0.4-2.0) Uric Acid 6.2 MG/DL (2.6-7.2) Calcium Level 8.3 MG/DL (8.5-10.1) L Total Bilirubin 0.3 MG/DL (0.2-1.0) Aspartate Amino Transf (AST/SGOT) 24 U/L (15-37) Alanine Aminotransferase (ALT/SGPT) 32 U/L (12-78) Alkaline Phosphatase 93 U/L (46-116) Total Creatine Kinase 121 U/L (26-308) Pro-B-Type Natriuretic Peptide 1635 pg/mL (0-125) H Total Protein 7.2 G/DL (6.4-8.2) Albumin 3.1 G/DL (3.4-5.0) L Globulin 4.1 g/dL Albumin/Globulin Ratio 0.8 (1.0-2.7) L Prothrombin Time 12.2 SEC (9.30-11.50) H Prothromb Time International Ratio 1.1 (0.9-1.1) Activated Partial Thromboplast Time 25 SEC (23-33) Urine Color Yellow Urine Appearance Turbid Urine pH 7 (4.5-8.0) Urine Specific [employer] 1.010 (1.005-1.035) Urine Protein 2+ (NEGATIVE) H Urine Glucose (UA) Negative (NEGATIVE) Urine Ketones Negative (NEGATIVE) Urine Blood 2+ (NEGATIVE) H Urine Nitrite Positive (NEGATIVE) H Urine Bilirubin Negative (NEGATIVE) Urine Urobilinogen Normal MG/DL (0.0-1.0) Urine Leukocyte Esterase 3+ (NEGATIVE) H Urine RBC 5-10 /HPF (0 - 2) H Urine WBC Tntc /HPF (0 - 2) H Urine Squamous Epithelial Cells Few /LPF (NONE/OCC) Urine Bacteria Many /HPF (NONE) H Erasmo Faust MD April 11, 2020 14:51
[2020-04-11] MEDS ORDERED: Vancomycin 1 GM in D5W 275 ML IVPB ONE (15:00)
[2020-04-11] MEDS ORDERED: NS 250 ML IVPB ONE (15:00)
--- NOTE | 2020-04-11 15:14 | NUR ---
NURSE NOTES: PT CAME IN FROM ER ON GURNEY, SEDATED, WITHDRAWS TO PAIN, THEN AFTER SKIN CHECK W ANOTHER RN, PT HAS BEEN ANTTEMPTING TO GET OOB , DANGLING FEET FROM THE BED, ATTEMPTING TO REMOVE IV, DR LOWERY MADE AWARE , RECEIVED ORDER FOR RESTRAINTS DRY KILN BURNER, ALSO RECEIVED ORDER FOR TRANSFER TO TELE DUE TO LOW TEMP, HYPOTENSIVE
[2020-04-11 16:00] VITALS: BP 90/50
--- NOTE | 2020-04-11 17:41 | History & Physical ---
History and Physical History & Physicial Dictated for Int Med-Dr High no. [id number]. Full code Jonas Scott MD April 11, 2020 17:41
[2020-04-11] MEDS ORDERED: Cefepime HCl 1 GM in D5W 110 ML IVPB SCH (18:00)
--- NOTE | 2020-04-11 18:11 | NUR ---
NURSE NOTES: relayed ekg to dr Faust no new order, relayed to md that pt was very combative during the ekg, per md that's ok, rn relayed to re hx afib and pt rate varies from 59-70 during the ekg
--- NOTE | 2020-04-11 18:22 | NUR ---
NURSE NOTES: RELAYED TO DR LOWERY THAT CEFEPIME WILL MOST LIKELY BE STARTED ON TELE, SINCE IT IS NOT AVAIL ON THIS FLOOR AT THIS TIME. PHARMACY MADE AWARE OF THE URGENCY OF THIS ISSUE. PT TO TRANSFER TO TELE NOW.
[2020-04-11] MEDS ORDERED: Cefepime HCl 1 GM in D5W 55 ML IVPB ONE ×2 (18:45→19:30)
--- NOTE | 2020-04-11 18:50 | NUR ---
NURSE NOTES: Received pt from DADA Rick, pt is sleeping, pt is in RA, no SOB or acute respiratory distress noted. pt has intact iv access LAC SL. Pt has multiple bruises all over the body. pt has sacral and bilateral heels redness, pt is on continues heart monitoring. all needs attended, bed is locked and is in the lowest position, call light within easy reach. will continue to monitor.
--- NOTE | 2020-04-11 19:26 | NUR ---
HAND-OFF: Report given to DADA BATEMAN. Pt is sleeping.
--- NOTE | 2020-04-11 19:40 | NUR ---
NURSE NOTES: Pt received from DADA Galdamez confused and mumbling with undiscernable speech. IV site asymptomatic and patent on R fa 22g, saline lock. Patient off of bilateral soft wrist restraints upon entering room. monitor worker off. RN reapplied cardiac cath technician and re-oriented patient but patient was unable to be re-oriented. Restraints re-applied bilaterally for safety. Light-green and light-purple bruises noted on patient on all four extremities. Sacrum intact, applied calazime and optifoam for protection. Bilateral heels intact with noted blanchable redness noted on lateral aspect of bilateral feet, optifoam placed on feet and on heels for protection. Bed in lowest position, call light and belongings within reach.
[2020-04-11 20:00] VITALS: BP 113/76
[2020-04-11] MEDS: Depakote 125mg Sprinkles ORAL SCH (21:18)
[2020-04-12] VITALS: BP 118/73
--- NOTE | 2020-04-12 | Consultation ---
DATE OF CONSULTATION: 04/11/2020 CARDIOLOGY CONSULTATION CONSULTING PHYSICIAN: Erasmo Faust MD REFERRING PHYSICIAN: Alyse Oconnor MD REASON FOR REFERRAL: History of tachycardia and anticoagulation. HISTORY OF PRESENT ILLNESS: This is an elderly female who is known to me from one prior evaluation here at the [facility]. The patient was recently hospitalized and discharged from [facility] where she was hospitalized for COVID infection and during that hospitalization was found to have some atypical atrial flutter and was started on some beta blockers and eventually converted to sinus rhythm and was maintained on anticoagulation with Xarelto 15 mg daily and had extensive hospitalization at [facility]. Extensive workup was performed during that hospitalization. Now the patient is transferred from convalescent facility for evaluation of abnormal labs. Apparently, she has remained positive for COVID. At the convalescent facility, has been not eating for the past few days and had low hemoglobin. She had no fevers or chills. No chest pain or shortness of breath. No other aggravating factors were noted. However, the patient is a poor historian. This consultation is requested for help in continuation of medications for arrhythmia. PAST MEDICAL HISTORY: As mentioned recently was hospitalization for COVID-19 infection, subsequently atrial flutter, acute kidney failure, history of coronary disease with history of coronary intervention number of years ago, history of paroxysmal episodes of atrial fibrillation, hyperlipidemia, hypertension, chronic kidney disease, gastroesophageal reflux disease, Alzheimer's, dementia, toxic metabolic encephalopathy, hypernatremia, dehydration, E. coli urinary tract infection, bipolar disorder, hyperkalemia, anemia, reflux, and sepsis. ALLERGIES: No known drug allergies. SOCIAL HISTORY: She is a resident [facility]. Smoking history is really unknown. REVIEW OF SYSTEMS: Unable to obtain. PHYSICAL EXAMINATION: GENERAL: On review of the data from the emergency room physician, who had a chance to examine the patient earlier, head was normocephalic, normal range of motion. LUNGS: Clear to auscultation. Normal breath sounds. Speaking full sentences. CARDIAC: Regular rate and rhythm. No edema was noted. ABDOMEN: Normal bowel sounds. Nontender. Soft, nondistended. No guarding. No rebound. No rigidity. BACK: No CVA tenderness that was documented by the emergency room physician. LABORATORY VALUES: White count of 4.9, hemoglobin 9.3, and platelet count of 253. Sodium is 142, potassium 5.9, chloride 107, bicarb of 27, BUN of 36, creatinine 1.8, and glucose of 98. Uric acid of 6.2. Lactic acid of 1.4. Liver function tests are normal. ProBNP 1635. Albumin of 3.1. Coags, INR 1.1 and PTT of 25. Urinalysis shows too numerous to count wbc's, 5 to 10 rbc's, 3+ leukocyte esterase, 2+ blood, and 2+ protein. IMAGING: Chest x-ray performed today showed bilateral upper lobe streaky atelectasis. The patient's electrocardiogram, which I personally reviewed, showed basically sinus bradycardia, rate of 59, left bundle-branch conduction delay in direct comparison with the EKG performed from March 17, 2020 EKG description by Cardiology at [facility]. At that time, she had atrial flutter with 2:1 block with rate in the 130s, normal axis, ST abnormality consistent with left bundle branch block. This EKG shows sinus with left bundle branch conduction delay. ASSESSMENT AND PLAN: 1. Paroxysmal episodes of atrial flutter. 2. Persistent COVID-19 infection. 3. Chronic renal insufficiency. 4. Paroxysmal episodes of atrial fibrillation and flutter. 5. Hyperlipidemia. 6. Systemic hypertension. 7. Dementia. 8. Gastroesophageal reflux disease. Dr. Oconnor, this patient was seen in cardiac consultation. The patient's blood pressure has been as low as 84/47 to 147/79. Her pulse rate is in the 57 range, temperature 95.7. There is evidence of urinary tract infection and her blood pressure needs to be monitored to see if the patient's blood pressure remains low. IV normal saline will be administered to help bring up her blood pressure. Her last attempt at an echocardiogram had failed during last hospitalization here in December due to patient being combative and was not performed at [facility] because of this COVID status recently. At the time of discharge from [facility] last week, her creatinine was 1.26, now in 1.8 range. Her hemoglobin is a bit lower as well from 10.3 before here in December down to 9.3. At [facility], the last CBC showed hemoglobin of 10.5. The patient will be needing antibiotics. Blood pressure will be followed. Further recommendations will be provided as become necessary. The patient should be maintained on her medications that she was taking prior to admission to the hospital including anticoagulation with Xarelto as well as amiodarone if that is what she was noted to be taking to maintain her in sinus rhythm. If however she does become bradycardic, then the dose of amiodarone will need to be held and dose will be adjusted. Erasmo Faust M.D. DR: Jam JOB#: [id number] CC:
--- NOTE | 2020-04-12 00:59 | History and Physical Report ---
DATE OF ADMISSION: 04/11/2020 CHIEF COMPLAINT: Patient is an 84-year-old female, who presents with a chief complaint of decreased oral intake. HISTORY OF PRESENT ILLNESS: Patient was admitted to [facility] from 03/17/2020 to 03/30/2020. Patient tested COVID positive during that stay. Patient was discharged to [facility]. According to staff at [facility], patient has not been eating for the last couple of days. Patient has been more confused than usual. Patient presented to [facility] emergency room. Patient is admitted with failure to thrive. REVIEW OF SYSTEMS: Unable to assess secondary to patient's mental status. PAST MEDICAL HISTORY: Significant for: 1. Atrial flutter. 2. Bipolar depression. 3. Coronary artery disease, status post non-ST elevated myocardial infarction. 4. Alzheimer's dementia. 5. Hypertension. 6. Gastroesophageal reflux disease. 7. Diverticulosis. 8. Cholelithiasis. PAST SURGICAL HISTORY: Patient denies. CURRENT MEDICATIONS: 1. Amiodarone 200 mg p.o. daily. 2. Atorvastatin 20 mg p.o. at bedtime. 3. Depakote 250 mg p.o. 3 times daily. 4. Heparin 5000 units subcutaneously twice daily. 5. Lactulose 30 mL p.o. twice daily. 6. Melatonin 5 mg p.o. at bedtime. 7. Pantoprazole 40 mg p.o. daily. 8. Risperidone 1 mg 1 tablet p.o. q.8h. p.r.n. 9. Xarelto 15 mg p.o. daily. 10. Toprol 25 mg p.o. twice daily. ALLERGIES: No known drug allergies. SOCIAL HISTORY: Patient is single and is a resident of [facility]. Patient denies tobacco or alcohol use. PHYSICAL EXAMINATION: VITAL SIGNS: Temperature 97.9, respirations 24, pulse 64, blood pressure 142/87, pulse ox 98% on room air. GENERAL: Patient is a well-developed, well-nourished female, who is confused and nonverbal. HEENT: Eyes, pupils are equal and responsive to light and accommodation. Extraocular movements are intact. NECK: Supple. No lymphadenopathy. CHEST: Lungs are clear to auscultation bilaterally without wheezes or rales. CARDIOVASCULAR: Regular rhythm and rate. S1, S2 are normal without murmurs, rubs, or gallops. ABDOMEN: Soft, nontender, nondistended. Positive bowel sounds. No evidence of hepatosplenomegaly. Currently, no rebound or guarding noted. EXTREMITIES: Negative for clubbing, cyanosis, or edema. RECTAL/GENITAL: Not performed. NEUROLOGICAL: Cranial nerves II through XII grossly intact without focal deficits. LABORATORY STUDIES: WBC 4.9, hemoglobin 9.3, hematocrit 26.4, platelets 253,000. Sodium 142, potassium 5.9, chloride 107, CO2 27, BUN 36, creatinine 1.8, glucose . BNP elevated at 1635. Chest x-ray was reported as bilateral upper lobe streaky atelectasis. ASSESSMENT: This is an 84-year-old female. 1. COVID-19 positive. 2. Failure to thrive. 3. Congestive heart failure. 4. Renal failure. 5. Atrial flutter. 6. Bipolar disorder. 7. Coronary artery disease. 8. Hypertension. 9. Alzheimer's dementia. 10. Gastroesophageal reflux. 11. Diverticulosis. 12. Cholelithiasis. TREATMENT: 1. COVID-19 positive. An Infectious Disease consultation has been obtained with Dr. Altamirano. We will follow recommendation of Infectious Disease. 2. Failure to thrive. This may be secondary to viral syndrome secondary to COVID-19 positive. 3. Congestive heart failure. Cardiology consultation has been obtained with Dr. Erasmo Faust. 4. Atrial flutter as above. As above, Cardiology consultation has been obtained with Dr. Erasmo Faust. 5. Renal failure. This may be dehydration versus acute on chronic renal failure. 6. Bipolar disorder. Continue Depakote and Risperdal as above. 7. Coronary artery disease. 8. Hypertension. 9. Alzheimer's dementia. 10. Gastroesophageal reflux disease. 11. Diverticulosis. 12. Cholelithiasis. Jonas Scott M.D. DR: ERLINDA JOB#: [id number] CC:
[2020-04-12 04:00] VITALS: BP 115/79
[2020-04-12] MEDS: Depakote 125mg Sprinkles ORAL SCH ×3 (05:02→21:58)
[2020-04-12 06:04] LABS: BASOPHILS % (AUTO) 1.4 % (0.0-2.0); EOSINOPHILS % (AUTO) 0.4 % (0.0-3.0); HEMOGLOBIN 9.1 G/DL (12.0-16.0); LYMPHOCYTES % (AUTO) 12.9 % (20.0-45.0); MEAN CORPUSCULAR VOLUME 109 FL (80-99); MONOCYTES % (AUTO) 8.8 % (1.0-10.0); NEUTROPHILS % (AUTO) 76.5 % (45.0-75.0); PLATELET COUNT 206 K/UL (150-450); RED CELL DISTRIBUTION WIDTH 15.2 % (11.6-14.8); WHITE BLOOD COUNT 5.1 K/UL (4.8-10.8)
[2020-04-12 06:09] LABS: INR 1.2 (0.9-1.1)
--- NOTE | 2020-04-12 06:24 | NUR ---
NURSE NOTES: RN entered room to find patient's IV line out and is still frequently attempting to get out of bed while on restraints. RN attempted to insert IV twice unsuccessfully. Will continue to monitor patient and pending attempts of re-insertion.
[2020-04-12 06:44] LABS: APPEARANCE,URINE SLIGHTLY CLOUDY; BILIRUBIN, URINE NEGATIVE (NEGATIVE); GLUCOSE, URINE (UA) NEGATIVE (NEGATIVE); KETONES,URINE 2+ (NEGATIVE); LEUKOCYTE ESTERASE ,URINE 3+ (NEGATIVE); NITRITE,URINE POSITIVE (NEGATIVE); PH,URINE 5 (4.5-8.0); PROTEIN,URINE 3+ (NEGATIVE); UROBILINOGEN,URINE NORMAL MG/DL (0.0-1.0)
[2020-04-12 06:47] LABS: ALANINE AMINOTRANSFERASE 32 U/L (12-78); ALBUMIN 2.8 G/DL (3.4-5.0); ALBUMIN/GLOBULIN RATIO 0.8 (1.0-2.7); ALKALINE PHOSPHATASE 84 U/L (46-116); ANION GAP 9 mmol/L (5-15); ASPARTATE AMINO TRANSFERASE 26 U/L (15-37); BILIRUBIN,TOTAL 0.3 MG/DL (0.2-1.0); BLOOD UREA NITROGEN 28 mg/dL (7-18); CALCIUM 7.8 MG/DL (8.5-10.1); CARBON DIOXIDE 25 MMOL/L (21-32); CHLORIDE 110 MMOL/L (98-107); CREATININE 1.5 MG/DL (0.55-1.30); POTASSIUM 4.7 MMOL/L (3.5-5.1); SODIUM 144 MMOL/L (136-145)
[2020-04-12 07:05] LABS: COLOR,URINE YELLOW
[2020-04-12 07:08] LABS: % IRON SATURATION 39 % (15-50); IRON 87 ug/dL (50-175); LACTATE DEHYDROGENASE 391 U/L (81-234); TOTAL IRON BINDING CAPACITY 221 ug/dL (250-450)
--- NOTE | 2020-04-12 07:11 | NUR ---
HAND-OFF: Report given to DADA Fernandez. Plan of care endorsed.
--- NOTE | 2020-04-12 07:30 | NUR ---
NURSE NOTES: Received report from DADA Ying. Observed pt restless on bed, trying to get out of bed. Pt A/O x1 (name). No s/sx of acute distress, breathing even and unlabored in RA. Pt on B soft wrist restraints, pulses are present. Observed several bruises on BUE and BLE. IV site DC'd per pt, will start a new IV. Bed on lowest position, call light within reach. Will continue plan of care.
[2020-04-12 08:00] VITALS: BP 137/72
[2020-04-12] MEDS: Amiodarone 200mg tab ORAL SCH (08:50)
[2020-04-12] MEDS: Xarelto 15mg tab ORAL SCH (08:50)
[2020-04-12] MEDS ORDERED: Xarelto 15mg tab ORAL SCH ×2 (09:00)
[2020-04-12] MEDS ORDERED: Amiodarone 200mg tab ORAL SCH ×2 (09:00)
--- NOTE | 2020-04-12 09:56 | NUR ---
CASE MANAGEMENT:REVIEW 85 YR OLD FEMALE [facility] CC: FTT. WEAKNESS PMH: SI: COVID 19 PNEUMONIA. DEHYDRATION 97.7 62 24 147/90 97% ON RA H/H-9.3/26.4 BUN+36 CR+1.8 K+5.9 IS: 500CC NS BOLUS IV LEVAQUIN X1 IV D50 IV INSULIN CHEST XRAY BLOOD CX COVID 19 SWAB : TO TELEMETRY UNIT DCP: RETURN TO [facility] UPON DISCHARGE PLAN: SWAB FOR COVID 19
--- NOTE | 2020-04-12 10:48 | Internal Med Progress Note ---
Subjective Date of Service: April 12, 2020 Physician Name SoniaJonas Attending Physician Ulices High MD Current Medications Medications (Trade) Dose Ordered Sig/Dewayne Route PRN Reason Start Time Stop Time Status Last Admin Dose Admin Acetaminophen (Tylenol) 650 mg Q4H PRN ORAL fever 04/11/20 19:00 05/11/20 18:59 Albuterol/ Ipratropium (Combivent Respimat) 1 puff Q4H PRN INH Shortness of Breath 04/11/20 19:00 05/11/20 18:59 Amiodarone HCl (Cordarone) 200 mg DAILY ORAL 04/12/20 09:00 07/11/20 08:59 04/12/20 08:50 Cefepime HCl 1 gm/ Dextrose 110 ml @ 220 mls/hr Q24H IVPB 04/12/20 20:00 04/18/20 19:59 Divalproex Sodium (Depakote Sprinkles) 125 mg EVERY 8 HOURS ORAL 04/11/20 22:00 05/11/20 13:59 04/12/20 05:02 Ondansetron HCl (Zofran) 4 mg Q6H PRN IVP Nausea & Vomiting 04/11/20 19:15 05/11/20 13:14 Polyethylene Glycol (Miralax) 17 gm DAILYPRN PRN ORAL Constipation 04/11/20 19:00 05/11/20 18:59 Risperidone (RisperDAL) 1 mg Q8HR ORAL 04/11/20 22:00 05/26/20 13:59 04/12/20 05:02 Rivaroxaban (Xarelto) 15 mg DAILY ORAL 04/12/20 09:00 07/11/20 08:59 04/12/20 08:50 Sodium Chloride 1,000 ml @ 150 mls/hr Q6H40M IV 04/11/20 19:00 05/11/20 12:14 04/12/20 02:38 Temazepam (Restoril) 15 mg HSPRN PRN ORAL Insomnia 04/11/20 19:00 04/18/20 18:59 Allergies: Coded Allergies: No Known Allergies (Unverified , 01/13/20) ROS Limited/Unobtainable: Yes Subjective 84 YO F with COVID 19 positive status admitted with failure to thrive. Now UTI. Transferred to [facility] due to hypotension. Cover for Int Bartolo-Dr High Objective Last Vital Signs Date Time Temp Pulse Resp B/P (MAP) Pulse Ox O2 Delivery O2 Flow Rate FiO2 04/12/20 08:00 72 18 137/72 (93) 99 04/12/20 04:00 97.7 04/11/20 21:00 Room Air Laboratory Tests Test 04/12/20 03:00 04/12/20 05:30 Urine Color Yellow Urine Appearance Slightly cloudy Urine pH 5 (4.5-8.0) Urine Specific [place] 1.020 (1.005-1.035) Urine Protein 3+ (NEGATIVE) H Urine Glucose (UA) Negative (NEGATIVE) Urine Ketones 2+ (NEGATIVE) H Urine Blood 3+ (NEGATIVE) H Urine Nitrite Positive (NEGATIVE) H Urine Bilirubin Negative (NEGATIVE) Urine Urobilinogen Normal MG/DL (0.0-1.0) Urine Leukocyte Esterase 3+ (NEGATIVE) H Urine RBC 5-10 /HPF (0 - 2) H Urine WBC 60-80 /HPF (0 - 2) H Urine Squamous Epithelial Cells Few /LPF (NONE/OCC) Urine Bacteria Many /HPF (NONE) H Urine Eosinophils None seen (NONE SEEN) Urine Random Sodium 31 mmol/L (20-110) Urine Potassium Timed 52 mmol/L (12-62) White Blood Count 5.1 K/UL (4.8-10.8) Red Blood Count 2.40 M/UL (4.20-5.40) L Hemoglobin 9.1 G/DL (12.0-16.0) L Hematocrit 26.0 % (37.0-47.0) L Mean Corpuscular Volume 109 FL (80-99) H Mean Corpuscular Hemoglobin 38.0 PG (27.0-31.0) H Mean Corpuscular Hemoglobin Concent 35.1 G/DL (32.0-36.0) Red Cell Distribution Width 15.2 % (11.6-14.8) H Platelet Count 206 K/UL (150-450) Mean Platelet Volume 9.3 FL (6.5-10.1) Neutrophils (%) (Auto) 76.5 % (45.0-75.0) H Lymphocytes (%) (Auto) 12.9 % (20.0-45.0) L Monocytes (%) (Auto) 8.8 % (1.0-10.0) Eosinophils (%) (Auto) 0.4 % (0.0-3.0) Basophils (%) (Auto) 1.4 % (0.0-2.0) Differential Total Cells Counted 100 Neutrophils % (Manual) 79 % (45-75) H Lymphocytes % (Manual) 15 % (20-45) L Monocytes % (Manual) 6 % (1-10) Eosinophils % (Manual) 0 % (0-3) Basophils % (Manual) 0 % (0-2) Band Neutrophils 0 % (0-8) Platelet Estimate Adequate Platelet Morphology Normal Anisocytosis 1+ Macrocytosis 1+ Ovalocytes Occasional Schistocytes Rare Erythrocyte Sedimentation Rate 65 MM/HR (0-30) H Reticulocyte Count 0.7 % (0.5-2.0) Prothrombin Time 13.0 SEC (9.30-11.50) H Prothromb Time International Ratio 1.2 (0.9-1.1) H Activated Partial Thromboplast Time 27 SEC (23-33) Sodium Level 144 MMOL/L (136-145) Potassium Level 4.7 MMOL/L (3.5-5.1) Chloride Level 110 MMOL/L (98-107) H Carbon Dioxide Level 25 MMOL/L (21-32) Anion Gap 9 mmol/L (5-15) Blood Urea Nitrogen 28 mg/dL (7-18) H Creatinine 1.5 MG/DL (0.55-1.30) H Estimat Glomerular Filtration Rate 32.9 mL/min (>60) Glucose Level 80 MG/DL (74-106) Calcium Level 7.8 MG/DL (8.5-10.1) L Phosphorus Level 3.0 MG/DL (2.5-4.9) Magnesium Level 2.2 MG/DL (1.8-2.4) Iron Level 87 ug/dL (50-175) Total Iron Binding Capacity 221 ug/dL (250-450) L Percent Iron Saturation 39 % (15-50) Unsaturated Iron Binding 134 ug/dL (112-346) Total Bilirubin 0.3 MG/DL (0.2-1.0) Aspartate Amino Transf (AST/SGOT) 26 U/L (15-37) Alanine Aminotransferase (ALT/SGPT) 32 U/L (12-78) Alkaline Phosphatase 84 U/L (46-116) Lactate Dehydrogenase 391 U/L (81-234) H Troponin I 0.016 ng/mL (0.000-0.056) C-Reactive Protein, Quantitative 0.8 mg/dL (0.00-0.90) Pro-B-Type Natriuretic Peptide 2793 pg/mL (0-125) H Total Protein 6.4 G/DL (6.4-8.2) Albumin 2.8 G/DL (3.4-5.0) L Globulin 3.6 g/dL Albumin/Globulin Ratio 0.8 (1.0-2.7) L Carcinoembryonic Antigen Pending Vitamin B12 Level > 2000 PG/ML (193-986) H Folate 7.3 NG/ML (8.6-58.9) L Microbiology Date/Time Source Procedure Growth Status 04/11/20 10:42 Urine,Clean Catch Urine Culture - Preliminary Gram Negative Bacillus 1 Resulted Intake and Output 04/11/20 04/12/20 19:00 07:00 Intake Total 500 ml Output Total 200 ml 301 ml Balance 300 ml -301 ml Intake IV Total 500 ml Output Urine Total 200 ml 300 ml Stool Total 1 ml # Voids 1 # Bowel Movements 2 Objective PHYSICAL EXAMINATION: GENERAL: Patient is a well-developed, well-nourished female, who is confused and nonverbal. HEENT: Eyes, pupils are equal and responsive to light and accommodation. Extraocular movements are intact. NECK: Supple. No lymphadenopathy. CHEST: Lungs are clear to auscultation bilaterally without wheezes or rales. CARDIOVASCULAR: Regular rhythm and rate. S1, S2 are normal without murmurs, rubs, or gallops. ABDOMEN: Soft, nontender, nondistended. Positive bowel sounds. No evidence of hepatosplenomegaly. Currently, no rebound or guarding noted. EXTREMITIES: Negative for clubbing, cyanosis, or edema. RECTAL/GENITAL: Not performed. NEUROLOGICAL: Cranial nerves II through XII grossly intact without focal deficits. Assessment/Plan Assessment/Plan ASSESSMENT: This is an 84-year-old female. 1. COVID-19 positive. 2. Failure to thrive. 3. Congestive heart failure. 4. Renal failure. 5. Atrial flutter. 6. Bipolar disorder. 7. Coronary artery disease. 8. Hypertension. 9. Alzheimer's dementia. 10. Gastroesophageal reflux. 11. Diverticulosis. 12. Cholelithiasis. 13. Hypotension TREATMENT: 1. COVID-19 positive. An Infectious Disease consultation has been obtained with Dr. Altamirano. We will follow recommendation of Infectious Disease. 2. Failure to thrive. This may be secondary to viral syndrome secondary to COVID-19 positive. 3. Congestive heart failure. Await echocardiogram. A Cardiology consultation has been obtained with Dr. Erasmo Faust. 4. Atrial flutter as above. As above, Cardiology consultation has been obtained with Dr. Erasmo Faust. 5. Renal failure. This may be dehydration versus acute on chronic renal failure. 6. Bipolar disorder. Continue Depakote and Risperdal as above. 7. Coronary artery disease. 8. Hypertension. 9. Alzheimer's dementia. 10. Gastroesophageal reflux disease. 11. Diverticulosis. 12. Cholelithiasis. 13. Transfer to [facility]. Received NS bolus. See cardiology discussion concerning amiodarone. Jonas Scott MD April 12, 2020 10:48
--- NOTE | 2020-04-12 11:31 | NUR ---
RD ASSESSMENT & RECOMMENDATIONS SEE CARE ACTIVITY FOR COMPLETE ASSESSMENT DAILY ESTIMATED NEEDS: Needs based on Advanced age, pulmonary 48kg 27-32 kcals/kg 4803-0763 total kcals 1.25-1.5 g protein/kg 60-72 g total protein 20-30ml/kcal mL/kg 960-1470 total fluid mLs NUTRITION DIAGNOSIS: Chewing difficulty r/t Alzheimers, h/o dysphagia as evidenced by pt on puree texture diet. (CURRENT DIET: Regular puree) PO DIET RECOMMENDATIONS: Maintain Regular diet/ Texture per COAL SCREENER ------ ADDITIONAL RECOMMENDATIONS: 1) Maintain calibrated bed weights 2) Add Ensure w/ meals 3) Monitor po intake, pt adm w/ FTT and suspected wt loss 4) rec WC eval for sacral photo .
[2020-04-12 12:00] VITALS: BP 136/88
--- NOTE | 2020-04-12 12:25 | Pulmonology Progress Note ---
Subjective ROS Limited/Unobtainable: No Constitutional: Reports: no symptoms HEENT: Repors: no symptoms Respiratory: Reports: no symptoms Allergies: Coded Allergies: No Known Allergies (Unverified , 01/13/20) Objective Last 24 Hour Vital Signs Date Time Temp Pulse Resp B/P (MAP) Pulse Ox O2 Delivery O2 Flow Rate FiO2 04/12/20 09:00 Room Air 04/12/20 08:00 72 18 137/72 (93) 99 04/12/20 07:38 83 04/12/20 04:00 97.7 77 18 115/79 (91) 96 04/12/20 04:00 80 04/12/20 00:00 74 04/12/20 00:00 97.9 69 18 118/73 (88) 97 04/11/20 21:00 Room Air 04/11/20 20:00 76 04/11/20 20:00 97.6 74 17 113/76 (88) 97 04/11/20 16:00 95.7 57 18 90/50 (63) 100 04/11/20 14:20 Room Air 04/11/20 14:19 95.7 57 18 84/47 (59) 100 04/11/20 13:50 98.2 85 24 131/78 98 Room Air 04/11/20 13:10 98.0 78 24 135/75 99 Room Air Intake and Output 04/11/20 04/12/20 19:00 07:00 Intake Total 500 ml Output Total 200 ml 301 ml Balance 300 ml -301 ml Intake IV Total 500 ml Output Urine Total 200 ml 300 ml Stool Total 1 ml # Voids 1 # Bowel Movements 2 General Appearance: cachetic HEENT: normocephalic, atraumatic Respiratory: chest wall non-tender, lungs clear Breasts: no masses Cardiovascular: normal rate Abdomen: normal bowel sounds, soft, non tender Genitourinary: normal external genitalia 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 Microbiology Date/Time Source Procedure Growth Status 04/11/20 10:42 Urine,Clean Catch Urine Culture - Preliminary Gram Negative Bacillus 1 Resulted Laboratory Tests 04/12/20 03:00: Urine Color Yellow, Urine Appearance Slightly cloudy, Urine pH 5, Urine Specific [place] 1.020, Urine Protein 3+H, Urine Glucose (UA) Negative, Urine Ketones 2+H, Urine Blood 3+H, Urine Nitrite PositiveH, Urine Bilirubin Negative , Urine Urobilinogen Normal, Urine Leukocyte Esterase 3+H, Urine RBC 5-10H, Urine WBC 60-80H, Urine Squamous Epithelial Cells Few, Urine Bacteria ManyH, Urine Eosinophils None seen, Urine Random Sodium 31, Urine Potassium Timed 52 04/12/20 05:30: White Blood Count 5.1, Red Blood Count 2.40L, Hemoglobin 9.1L, Hematocrit 26.0L , Mean Corpuscular Volume 109H, Mean Corpuscular Hemoglobin 38.0H, Mean Corpuscular Hemoglobin Concent 35.1, Red Cell Distribution Width 15.2H, Platelet Count 206, Mean Platelet Volume 9.3, Neutrophils (%) (Auto) 76.5H, Lymphocytes (%) (Auto) 12.9L, Monocytes (%) (Auto) 8.8, Eosinophils (%) (Auto) 0.4, Basophils (%) (Auto) 1.4, Differential Total Cells Counted 100, Neutrophils % (Manual) 79H, Lymphocytes % (Manual) 15L, Monocytes % (Manual) 6, Eosinophils % (Manual) 0, Basophils % (Manual) 0, Band Neutrophils 0, Platelet Estimate Adequate, Platelet Morphology Normal, Anisocytosis 1+, Macrocytosis 1+ , Ovalocytes Occasional, Schistocytes Rare, Erythrocyte Sedimentation Rate 65H, Reticulocyte Count 0.7, Prothrombin Time 13.0H, Prothromb Time International Ratio 1.2H, Activated Partial Thromboplast Time 27, Sodium Level 144, Potassium Level 4.7, Chloride Level 110H, Carbon Dioxide Level 25, Anion Gap 9, Blood Urea Nitrogen 28H, Creatinine 1.5H, Estimat Glomerular Filtration Rate 32.9, Glucose Level 80, Calcium Level 7.8L, Phosphorus Level 3.0, Magnesium Level 2.2 , Iron Level 87, Total Iron Binding Capacity 221L, Percent Iron Saturation 39, Unsaturated Iron Binding 134, Total Bilirubin 0.3, Aspartate Amino Transf (AST/ SGOT) 26, Alanine Aminotransferase (ALT/SGPT) 32, Alkaline Phosphatase 84, Lactate Dehydrogenase 391H, Troponin I 0.016, C-Reactive Protein, Quantitative 0.8, Pro-B-Type Natriuretic Peptide 2793H, Total Protein 6.4, Albumin 2.8L, Globulin 3.6, Albumin/Globulin Ratio 0.8L, Carcinoembryonic Antigen [Pending], Vitamin B12 Level > 2000H, Folate 7.3L Current Medications Medications (Trade) Dose Ordered Sig/Dewayne Route PRN Reason Start Time Stop Time Status Last Admin Dose Admin Acetaminophen (Tylenol) 650 mg Q4H PRN ORAL fever 04/11/20 19:00 05/11/20 18:59 Albuterol/ Ipratropium (Combivent Respimat) 1 puff Q4H PRN INH Shortness of Breath 04/11/20 19:00 05/11/20 18:59 Amiodarone HCl (Cordarone) 200 mg DAILY ORAL 04/12/20 09:00 07/11/20 08:59 04/12/20 08:50 Cefepime HCl 1 gm/ Dextrose 110 ml @ 220 mls/hr Q24H IVPB 04/12/20 20:00 04/18/20 19:59 Divalproex Sodium (Depakote Sprinkles) 125 mg EVERY 8 HOURS ORAL 04/11/20 22:00 05/11/20 13:59 04/12/20 05:02 Ondansetron HCl (Zofran) 4 mg Q6H PRN IVP Nausea & Vomiting 04/11/20 19:15 05/11/20 13:14 Polyethylene Glycol (Miralax) 17 gm DAILYPRN PRN ORAL Constipation 04/11/20 19:00 05/11/20 18:59 Risperidone (RisperDAL) 1 mg Q8HR ORAL 04/11/20 22:00 05/26/20 13:59 04/12/20 05:02 Rivaroxaban (Xarelto) 15 mg DAILY ORAL 04/12/20 09:00 07/11/20 08:59 04/12/20 08:50 Sodium Chloride 1,000 ml @ 150 mls/hr Q6H40M IV 04/11/20 19:00 05/11/20 12:14 04/12/20 09:45 Temazepam (Restoril) 15 mg HSPRN PRN ORAL Insomnia 04/11/20 19:00 04/18/20 18:59 Assessment/Plan Problems: (1) COVID-19 (2) Severe anemia (3) Acute encephalopathy (4) Dehydration (5) Dementia with behavioral disturbance (6) Chronic anticoagulation (7) Agitation Assessment/Plan iv fluids Urine has GNB respiratory isolation ID evaluation abx as per ID, cefepime cardio to see to optimize cardiac meds symptomatic treatment continue Xarelto dvt prophylaxis. Alyse Oconnor MD April 12, 2020 12:25
--- NOTE | 2020-04-12 12:36 | CDS Physician Query ---
Clarification is required for compliance, coding accuracy, and to reflect severity of illness for this patient Dear Dr. Jonas Scott M.D. Date: 04/12/2020 Die Engraver/CDS Name: Tae Lundberg Patient is an 84-year-old female, who presents with a chief complaint of decreased oral intake. Patient tested COVID positive during the [facility] admition from 03/17/2020 to 03/30/2020. According to staff at [facility], patient has not been eating for the last couple of days. Patient has been more confused than usual. [ H&P Jonas Scott M.D. 04/11] ASSESSMENT: Failure to thrive, COVID-19 positive. Congestive heart failure. Renal failure. Atrial flutter. Bipolar disorder. Coronary artery disease. Hypertension. Alzheimer's dementia. Gastroesophageal reflux. Diverticulosis. Cholelithiasis. Vitals: T-97.7F, P-78, RR - 24, BP 147/90 Labs: Chem; Chloride 110, Cr-1.5, Calcium - 7.8, Alb-2.8, B12 ->2000 Medications: Lorazepam 1 mg IV 04/11, Risperidone 1mg PO 04/11, Sodium Chloride IV 04/11 Please indicate the nature and chronicity of the condition below: [] Metabolic Encephalopathy [] Toxic Encephalopathy [X] Toxic - Metabolic Encephalopathy [] Encephalopathy, Other [] Dementia with Delirium [] Hypoxic encephalopathy [] Posterior reversible encephalopathy syndrome [] Other: [] Not Applicable Present on Admission: [X] Yes [] No [] Clinically Undetermined Physician signature Date Please also document in your Progress Notes and/or Discharge Summary and indicate if the condition was present on admission. MTDD
--- NOTE | 2020-04-12 12:57 | Infectious Diseases Prog Note ---
Assessment/Plan Assessment/Plan Assessment: Confirmed COVID19 (AMBULATORY CARE COORDINATOR- at [facility] on 03/28) -04/11 CXR: Bilateral upper lobe streaky atelectasis. UTI -u/a wbc tnct, nit +, leuk +3; ucx >100k GNR Afebrile No leukocytosis Anemia TAMMIE, improving Dm2 HLD HTN Dementia Afib on chronic anticoagulation bipolar disorder [place] resident ([facility]) Plan: -Continue empiric Cefepime #2 pending ucx -04/11 SP IV vancomycin #1, Levaquin x1 -f/u cx -Monitor CBC/CMP, temperature -COVID 19 isolation and testing Thank you for consulting [facility]. Will continue to follow along with you. Subjective Allergies: Coded Allergies: No Known Allergies (Unverified , 01/13/20) Subjective afebrile at RA no leukocytosis Cr improving Objective Vital Signs Last 24 Hour Vital Signs Date Time Temp Pulse Resp B/P (MAP) Pulse Ox O2 Delivery O2 Flow Rate FiO2 04/12/20 12:00 97.2 78 18 136/88 (104) 96 04/12/20 11:44 81 04/12/20 09:00 Room Air 04/12/20 08:00 72 18 137/72 (93) 99 04/12/20 07:38 83 04/12/20 04:00 97.7 77 18 115/79 (91) 96 04/12/20 04:00 80 04/12/20 00:00 74 04/12/20 00:00 97.9 69 18 118/73 (88) 97 04/11/20 21:00 Room Air 04/11/20 20:00 76 04/11/20 20:00 97.6 74 17 113/76 (88) 97 04/11/20 16:00 95.7 57 18 90/50 (63) 100 04/11/20 14:20 Room Air 04/11/20 14:19 95.7 57 18 84/47 (59) 100 04/11/20 13:50 98.2 85 24 131/78 98 Room Air 04/11/20 13:10 98.0 78 24 135/75 99 Room Air Height (Feet): 5 Height (Inches): 2.00 Weight (Pounds): 107 Objective Gen: no respiratory distress, confused Head: normocephalic Lungs: no tachypnea or use of accessory resp muscles Abd: not distended MSK: restriction in place Microbiology Date/Time Source Procedure Growth Status 04/11/20 10:42 Urine,Clean Catch Urine Culture - Preliminary Gram Negative Bacillus 1 Resulted Laboratory Tests Test 04/12/20 03:00 04/12/20 05:30 Urine Color Yellow Urine Appearance Slightly cloudy Urine pH 5 (4.5-8.0) Urine Specific [place] 1.020 (1.005-1.035) Urine Protein 3+ (NEGATIVE) H Urine Glucose (UA) Negative (NEGATIVE) Urine Ketones 2+ (NEGATIVE) H Urine Blood 3+ (NEGATIVE) H Urine Nitrite Positive (NEGATIVE) H Urine Bilirubin Negative (NEGATIVE) Urine Urobilinogen Normal MG/DL (0.0-1.0) Urine Leukocyte Esterase 3+ (NEGATIVE) H Urine RBC 5-10 /HPF (0 - 2) H Urine WBC 60-80 /HPF (0 - 2) H Urine Squamous Epithelial Cells Few /LPF (NONE/OCC) Urine Bacteria Many /HPF (NONE) H Urine Eosinophils None seen (NONE SEEN) Urine Random Sodium 31 mmol/L (20-110) Urine Potassium Timed 52 mmol/L (12-62) White Blood Count 5.1 K/UL (4.8-10.8) Red Blood Count 2.40 M/UL (4.20-5.40) L Hemoglobin 9.1 G/DL (12.0-16.0) L Hematocrit 26.0 % (37.0-47.0) L Mean Corpuscular Volume 109 FL (80-99) H Mean Corpuscular Hemoglobin 38.0 PG (27.0-31.0) H Mean Corpuscular Hemoglobin Concent 35.1 G/DL (32.0-36.0) Red Cell Distribution Width 15.2 % (11.6-14.8) H Platelet Count 206 K/UL (150-450) Mean Platelet Volume 9.3 FL (6.5-10.1) Neutrophils (%) (Auto) 76.5 % (45.0-75.0) H Lymphocytes (%) (Auto) 12.9 % (20.0-45.0) L Monocytes (%) (Auto) 8.8 % (1.0-10.0) Eosinophils (%) (Auto) 0.4 % (0.0-3.0) Basophils (%) (Auto) 1.4 % (0.0-2.0) Differential Total Cells Counted 100 Neutrophils % (Manual) 79 % (45-75) H Lymphocytes % (Manual) 15 % (20-45) L Monocytes % (Manual) 6 % (1-10) Eosinophils % (Manual) 0 % (0-3) Basophils % (Manual) 0 % (0-2) Band Neutrophils 0 % (0-8) Other Cell Type Pathologist comment Platelet Estimate Adequate Platelet Morphology Normal Anisocytosis 1+ Macrocytosis 1+ Ovalocytes Occasional Schistocytes Rare Erythrocyte Sedimentation Rate 65 MM/HR (0-30) H Reticulocyte Count 0.7 % (0.5-2.0) Prothrombin Time 13.0 SEC (9.30-11.50) H Prothromb Time International Ratio 1.2 (0.9-1.1) H Activated Partial Thromboplast Time 27 SEC (23-33) Sodium Level 144 MMOL/L (136-145) Potassium Level 4.7 MMOL/L (3.5-5.1) Chloride Level 110 MMOL/L (98-107) H Carbon Dioxide Level 25 MMOL/L (21-32) Anion Gap 9 mmol/L (5-15) Blood Urea Nitrogen 28 mg/dL (7-18) H Creatinine 1.5 MG/DL (0.55-1.30) H Estimat Glomerular Filtration Rate 32.9 mL/min (>60) Glucose Level 80 MG/DL (74-106) Calcium Level 7.8 MG/DL (8.5-10.1) L Phosphorus Level 3.0 MG/DL (2.5-4.9) Magnesium Level 2.2 MG/DL (1.8-2.4) Iron Level 87 ug/dL (50-175) Total Iron Binding Capacity 221 ug/dL (250-450) L Percent Iron Saturation 39 % (15-50) Unsaturated Iron Binding 134 ug/dL (112-346) Total Bilirubin 0.3 MG/DL (0.2-1.0) Aspartate Amino Transf (AST/SGOT) 26 U/L (15-37) Alanine Aminotransferase (ALT/SGPT) 32 U/L (12-78) Alkaline Phosphatase 84 U/L (46-116) Lactate Dehydrogenase 391 U/L (81-234) H Troponin I 0.016 ng/mL (0.000-0.056) C-Reactive Protein, Quantitative 0.8 mg/dL (0.00-0.90) Pro-B-Type Natriuretic Peptide 2793 pg/mL (0-125) H Total Protein 6.4 G/DL (6.4-8.2) Albumin 2.8 G/DL (3.4-5.0) L Globulin 3.6 g/dL Albumin/Globulin Ratio 0.8 (1.0-2.7) L Carcinoembryonic Antigen Pending Vitamin B12 Level > 2000 PG/ML (193-986) H Folate 7.3 NG/ML (8.6-58.9) L Current Medications Medications (Trade) Dose Ordered Sig/Dewayne Route PRN Reason Start Time Stop Time Status Last Admin Dose Admin Acetaminophen (Tylenol) 650 mg Q4H PRN ORAL fever 04/11/20 19:00 05/11/20 18:59 Albuterol/ Ipratropium (Combivent Respimat) 1 puff Q4H PRN INH Shortness of Breath 04/11/20 19:00 05/11/20 18:59 Amiodarone HCl (Cordarone) 200 mg DAILY ORAL 04/12/20 09:00 07/11/20 08:59 04/12/20 08:50 Cefepime HCl 1 gm/ Dextrose 110 ml @ 220 mls/hr Q24H IVPB 04/12/20 20:00 04/18/20 19:59 Divalproex Sodium (Depakote Sprinkles) 125 mg EVERY 8 HOURS ORAL 04/11/20 22:00 05/11/20 13:59 04/12/20 05:02 Ondansetron HCl (Zofran) 4 mg Q6H PRN IVP Nausea & Vomiting 04/11/20 19:15 05/11/20 13:14 Polyethylene Glycol (Miralax) 17 gm DAILYPRN PRN ORAL Constipation 04/11/20 19:00 05/11/20 18:59 Risperidone (RisperDAL) 1 mg Q8HR ORAL 04/11/20 22:00 05/26/20 13:59 04/12/20 05:02 Rivaroxaban (Xarelto) 15 mg DAILY ORAL 04/12/20 09:00 07/11/20 08:59 04/12/20 08:50 Sodium Chloride 1,000 ml @ 150 mls/hr Q6H40M IV 04/11/20 19:00 05/11/20 12:14 04/12/20 09:45 Temazepam (Restoril) 15 mg HSPRN PRN ORAL Insomnia 04/11/20 19:00 04/18/20 18:59 Lisa Altamirano M.D. April 12, 2020 12:57
[2020-04-12 16:00] VITALS: BP 141/82
--- NOTE | 2020-04-12 17:31 | NUR ---
NETWORK MGR BEDSIDE SWALLOW EVALUATION NETWORK MGR orders received for Bedside Swallow Evaluation from Dr. Oconnor INITIAL IMPRESSIONS: S/s of at least Mild Oral and Pharyngeal phase Dysphagia compounded by Patients h/o Alzheimer Dementia and cognitive behavioral deficits with delayed oral transit times, laryngeal elevation is fair, no significant overt s/s of aspiration with PO trials of thin liquids or puree solids. RISK FOR ASPIRATION AND POOR PO INTAKE DUE TO COGNITIVE BEHAVIOR DEFICITS, H/O DEMENTIA AND FTT No significant overt s/s of aspiration with PO trials of Puree solids or Thin liquids via teaspoon, cup sip, or straw. Recommendations: 1. Puree solids with Thin liquids diet texture, type per RD, with 1:1 careful handfeeding while implementing posted aspiration precautions. 2. NETWORK MGR plans to f/u 3x a week x 1 week for dysphagia tx and management 3. MBSS to objectively evaluate swallowing physiology when COVID NEG Formal report to follow. NETWORK MGR made RN aware of results, recommendations, and POC. NETWORK MGR plans to f/u tomorrow for diet tolerance and to initiate dysphagia tx.
--- NOTE | 2020-04-12 19:30 | NUR ---
NURSE NOTES: Report received from Rebecca GARLAND. Patient is awake and alert x 1. Patient noted to be on room air. Does not appear to be in respiratory distress. Patient noted to be on bilateral soft wrist restraints due to patient safety. No order renewal needed at this time. Patient noted to be on contact/droplet precautions due to covid 19 rule out. Patient had previously test positive for covid 19 on March 28, 2020 at another facility. Patient swabbed on April 11, 2020, results still pending. Patient noted to have right arm swelling due to lab draw band being left on arm too long during day shift. Endorsed to Pablo GARLAND that swelling has gone down. Will continue to monitor swelling and resume IV fluids per MD orders. Bed locked, alarmed, and in lowest position. Will continue to follow plan of care.
--- NOTE | 2020-04-12 19:58 | NUR ---
HAND-OFF: Report given to DADA Shah. Pt in stable condition, endorsed plan of care.
[2020-04-12 20:00] VITALS: BP 134/65
[2020-04-12] MEDS ORDERED: Cefepime HCl 1 GM in D5W 110 ML IVPB SCH ×4 (20:00)
--- NOTE | 2020-04-12 21:27 | Cardiology Progress Note ---
Assessment/Plan Assessment/Plan 1. Paroxysmal episodes of atrial flutter. 2. Persistent COVID-19 infection. 3. Chronic renal insufficiency. 4. Paroxysmal episodes of atrial fibrillation and flutter. 5. Hyperlipidemia. 6. Systemic hypertension. 7. Dementia. 8. Gastroesophageal reflux disease. hypotension yest fluid responsive no echo performed at [facility] or here afebril labs noted sat at 96% on room airs urine gnr amiod kenneth lewis for strok prevention tele no aflutter Subjective ROS Limited/Unobtainable: Yes Subjective Patient is awake and alert x 1. Patient noted to be on room air. Does not appear to be in respiratory distress. Patient noted to be on bilateral soft wrist restraints due to patient safety. No order renewal needed at this time. Patient noted to be on contact/droplet precautions due to covid 19 rule out. Patient had previously test positive for covid 19 on March 28, 2020 at another facility. Patient swabbed on April 11, 2020, results still pending. Patient noted to have right arm swelling due to lab draw band being left on arm too long during day shift. Endorsed to Pablo GARLAND that swelling has gone down Objective Last 24 Hour Vital Signs Date Time Temp Pulse Resp B/P (MAP) Pulse Ox O2 Delivery O2 Flow Rate FiO2 04/12/20 20:00 73 04/12/20 16:00 97.4 85 18 141/82 (101) 96 04/12/20 15:09 82 04/12/20 12:00 97.2 78 18 136/88 (104) 96 04/12/20 11:44 81 04/12/20 09:00 Room Air 04/12/20 08:00 72 18 137/72 (93) 99 04/12/20 07:38 83 04/12/20 04:00 97.7 77 18 115/79 (91) 96 04/12/20 04:00 80 04/12/20 00:00 74 04/12/20 00:00 97.9 69 18 118/73 (88) 97 Intake and Output 04/11/20 04/12/20 19:00 07:00 Intake Total 500 ml Output Total 200 ml 301 ml Balance 300 ml -301 ml IV Total 500 ml Output Urine Total 200 ml 300 ml Stool Total 1 ml # Voids 1 # Bowel Movements 2 Laboratory Tests Test 04/12/20 03:00 04/12/20 05:30 Urine Color Yellow Urine Appearance Slightly cloudy Urine pH 5 (4.5-8.0) Urine Specific Moody 1.020 (1.005-1.035) Urine Protein 3+ (NEGATIVE) H Urine Glucose (UA) Negative (NEGATIVE) Urine Ketones 2+ (NEGATIVE) H Urine Blood 3+ (NEGATIVE) H Urine Nitrite Positive (NEGATIVE) H Urine Bilirubin Negative (NEGATIVE) Urine Urobilinogen Normal MG/DL (0.0-1.0) Urine Leukocyte Esterase 3+ (NEGATIVE) H Urine RBC 5-10 /HPF (0 - 2) H Urine WBC 60-80 /HPF (0 - 2) H Urine Squamous Epithelial Cells Few /LPF (NONE/OCC) Urine Bacteria Many /HPF (NONE) H Urine Eosinophils None seen (NONE SEEN) Urine Random Sodium 31 mmol/L (20-110) Urine Potassium Timed 52 mmol/L (12-62) White Blood Count 5.1 K/UL (4.8-10.8) Red Blood Count 2.40 M/UL (4.20-5.40) L Hemoglobin 9.1 G/DL (12.0-16.0) L Hematocrit 26.0 % (37.0-47.0) L Mean Corpuscular Volume 109 FL (80-99) H Mean Corpuscular Hemoglobin 38.0 PG (27.0-31.0) H Mean Corpuscular Hemoglobin Concent 35.1 G/DL (32.0-36.0) Red Cell Distribution Width 15.2 % (11.6-14.8) H Platelet Count 206 K/UL (150-450) Mean Platelet Volume 9.3 FL (6.5-10.1) Neutrophils (%) (Auto) 76.5 % (45.0-75.0) H Lymphocytes (%) (Auto) 12.9 % (20.0-45.0) L Monocytes (%) (Auto) 8.8 % (1.0-10.0) Eosinophils (%) (Auto) 0.4 % (0.0-3.0) Basophils (%) (Auto) 1.4 % (0.0-2.0) Differential Total Cells Counted 100 Neutrophils % (Manual) 79 % (45-75) H Lymphocytes % (Manual) 15 % (20-45) L Monocytes % (Manual) 6 % (1-10) Eosinophils % (Manual) 0 % (0-3) Basophils % (Manual) 0 % (0-2) Band Neutrophils 0 % (0-8) Other Cell Type Pathologist comment Platelet Estimate Adequate Platelet Morphology Normal Anisocytosis 1+ Macrocytosis 1+ Ovalocytes Occasional Schistocytes Rare Erythrocyte Sedimentation Rate 65 MM/HR (0-30) H Reticulocyte Count 0.7 % (0.5-2.0) Prothrombin Time 13.0 SEC (9.30-11.50) H Prothromb Time International Ratio 1.2 (0.9-1.1) H Activated Partial Thromboplast Time 27 SEC (23-33) Sodium Level 144 MMOL/L (136-145) Potassium Level 4.7 MMOL/L (3.5-5.1) Chloride Level 110 MMOL/L (98-107) H Carbon Dioxide Level 25 MMOL/L (21-32) Anion Gap 9 mmol/L (5-15) Blood Urea Nitrogen 28 mg/dL (7-18) H Creatinine 1.5 MG/DL (0.55-1.30) H Estimat Glomerular Filtration Rate 32.9 mL/min (>60) Glucose Level 80 MG/DL (74-106) Calcium Level 7.8 MG/DL (8.5-10.1) L Phosphorus Level 3.0 MG/DL (2.5-4.9) Magnesium Level 2.2 MG/DL (1.8-2.4) Iron Level 87 ug/dL (50-175) Total Iron Binding Capacity 221 ug/dL (250-450) L Percent Iron Saturation 39 % (15-50) Unsaturated Iron Binding 134 ug/dL (112-346) Total Bilirubin 0.3 MG/DL (0.2-1.0) Aspartate Amino Transf (AST/SGOT) 26 U/L (15-37) Alanine Aminotransferase (ALT/SGPT) 32 U/L (12-78) Alkaline Phosphatase 84 U/L (46-116) Lactate Dehydrogenase 391 U/L (81-234) H Troponin I 0.016 ng/mL (0.000-0.056) C-Reactive Protein, Quantitative 0.8 mg/dL (0.00-0.90) Pro-B-Type Natriuretic Peptide 2793 pg/mL (0-125) H Total Protein 6.4 G/DL (6.4-8.2) Albumin 2.8 G/DL (3.4-5.0) L Globulin 3.6 g/dL Albumin/Globulin Ratio 0.8 (1.0-2.7) L Carcinoembryonic Antigen Pending Vitamin B12 Level > 2000 PG/ML (193-986) H Folate 7.3 NG/ML (8.6-58.9) L Microbiology Date/Time Source Procedure Growth Status 04/11/20 10:42 Urine,Clean Catch Urine Culture - Preliminary Gram Negative Bacillus 1 Resulted Erasmo Faust MD April 12, 2020 21:27
[2020-04-13] VITALS: BP 109/59
[2020-04-13 04:00] VITALS: BP 101/61
[2020-04-13] MEDS: Depakote 125mg Sprinkles ORAL SCH ×3 (06:14→22:46)
[2020-04-13 06:28] LABS: BASOPHILS % (AUTO) 4.1 % (0.0-2.0); EOSINOPHILS % (AUTO) 1.2 % (0.0-3.0); HEMATOCRIT 24.6 % (37.0-47.0); HEMOGLOBIN 8.5 G/DL (12.0-16.0); LYMPHOCYTES % (AUTO) 18.4 % (20.0-45.0); MEAN CORPUSCULAR VOLUME 110 FL (80-99); MONOCYTES % (AUTO) 11.6 % (1.0-10.0); NEUTROPHILS % (AUTO) 64.8 % (45.0-75.0); PLATELET COUNT 192 K/UL (150-450); RED BLOOD COUNT 2.25 M/UL (4.20-5.40); RED CELL DISTRIBUTION WIDTH 14.8 % (11.6-14.8); WHITE BLOOD COUNT 4.3 K/UL (4.8-10.8)
--- NOTE | 2020-04-13 06:30 | NUR ---
NURSE NOTES: Patient right are swelling noted to have decreased since beginning of shift. No pitting edema noted at this time.
[2020-04-13 06:44] LABS: ANION GAP 8 mmol/L (5-15); BLOOD UREA NITROGEN 21 mg/dL (7-18); CALCIUM 8.2 MG/DL (8.5-10.1); CARBON DIOXIDE 26 MMOL/L (21-32); CHLORIDE 112 MMOL/L (98-107); CREATININE 1.2 MG/DL (0.55-1.30); SODIUM 146 MMOL/L (136-145)
--- NOTE | 2020-04-13 07:30 | NUR ---
HAND-OFF: Report given to Rebecca GARLAND.
[2020-04-13 08:00] VITALS: BP 121/61
--- NOTE | 2020-04-13 08:09 | NUR ---
NURSE NOTES: Received report from DADA Shah. Pt awake, A/O x1 (name). No s/sx of acute distress, pt breathing even and unlabored in RA. Pt on bilateral soft wrist restraints, pulses are present. Swelling on R arm observed to be decreased. IV fluid running at goal. Bed on lowest position, call light within reach. Will continue plan of care.
[2020-04-13] MEDS: Amiodarone 200mg tab ORAL SCH (08:55)
[2020-04-13] MEDS: Xarelto 15mg tab ORAL SCH (08:55)
--- NOTE | 2020-04-13 11:04 | Pulmonology Progress Note ---
Subjective ROS Limited/Unobtainable: Yes Constitutional: Reports: no symptoms HEENT: Repors: no symptoms Respiratory: Reports: no symptoms Allergies: Coded Allergies: No Known Allergies (Unverified , 01/13/20) Objective Last 24 Hour Vital Signs Date Time Temp Pulse Resp B/P (MAP) Pulse Ox O2 Delivery O2 Flow Rate FiO2 04/13/20 08:00 96.6 61 20 121/61 (81) 98 04/13/20 07:33 104 04/13/20 04:00 96.6 102 18 101/61 (74) 98 04/13/20 04:00 92 04/13/20 00:00 96 04/13/20 00:00 97.7 86 16 109/59 (76) 98 04/12/20 21:00 Room Air 04/12/20 20:00 97.4 76 16 134/65 (88) 96 04/12/20 20:00 73 04/12/20 16:00 97.4 85 18 141/82 (101) 96 04/12/20 15:09 82 04/12/20 12:00 97.2 78 18 136/88 (104) 96 04/12/20 11:44 81 Intake and Output 04/12/20 04/13/20 19:00 07:00 Intake Total 600 ml 1160 ml Output Total 2 ml Balance 600 ml 1158 ml Intake Oral 600 ml IV Total 1160 ml Output Urine Total 2 ml # Voids 2 General Appearance: cachetic HEENT: normocephalic, atraumatic Respiratory: chest wall non-tender, lungs clear Breasts: no masses Cardiovascular: normal rate Abdomen: normal bowel sounds, soft, non tender Genitourinary: normal external genitalia Skin: no rash Neurologic: spool carrier II-XII grossly normal Lymphatic: no neck adenopathy Musculoskeletal: atrophy Microbiology Date/Time Source Procedure Growth Status 04/11/20 10:36 Blood Blood Culture - Preliminary NO GROWTH AFTER 24 HOURS Resulted 04/11/20 10:15 Blood Blood Culture - Preliminary NO GROWTH AFTER 24 HOURS Resulted 04/11/20 14:30 Nasal Nares 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 Complete 04/12/20 03:00 Indwelling Cath Urine Culture - Preliminary Gram Negative Bacillus 1 Resulted 04/11/20 10:42 Urine,Clean Catch Urine Culture - Preliminary Escherichia Coli Resulted 04/11/20 14:30 Rectum - Final NO CARBAPENEM-RESISTANT ENTEROBACTERI... Complete 04/11/20 14:30 Rectum VRE Culture - Final NO VANCOMYCIN RESISTANT ENTEROCOCCUS ... Complete Laboratory Tests 04/13/20 05:40: White Blood Count 4.3L, Red Blood Count 2.25L, Hemoglobin 8.5L, Hematocrit 24.6L , Mean Corpuscular Volume 110H, Mean Corpuscular Hemoglobin 37.8H, Mean Corpuscular Hemoglobin Concent 34.5, Red Cell Distribution Width 14.8, Platelet Count 192, Mean Platelet Volume 9.2, Neutrophils (%) (Auto) 64.8, Lymphocytes (% ) (Auto) 18.4L, Monocytes (%) (Auto) 11.6H, Eosinophils (%) (Auto) 1.2, Basophils (%) (Auto) 4.1H, Sodium Level 146H, Potassium Level 5.0, Chloride Level 112H, Carbon Dioxide Level 26, Anion Gap 8, Blood Urea Nitrogen 21H, Creatinine 1.2, Estimat Glomerular Filtration Rate 42.6, Glucose Level 79, Calcium Level 8.2L, Troponin I 0.019, Pro-B-Type Natriuretic Peptide 5479H Current Medications Medications (Trade) Dose Ordered Sig/Dewayne Route PRN Reason Start Time Stop Time Status Last Admin Dose Admin Acetaminophen (Tylenol) 650 mg Q4H PRN ORAL fever 04/11/20 19:00 05/11/20 18:59 Albuterol/ Ipratropium (Combivent Respimat) 1 puff Q4H PRN INH Shortness of Breath 04/11/20 19:00 05/11/20 18:59 Amiodarone HCl (Cordarone) 200 mg DAILY ORAL 04/12/20 09:00 07/11/20 08:59 04/13/20 08:55 Cefepime HCl 1 gm/ Dextrose 110 ml @ 220 mls/hr Q24H IVPB 04/12/20 20:00 04/18/20 19:59 04/12/20 21:58 Divalproex Sodium (Depakote Sprinkles) 125 mg EVERY 8 HOURS ORAL 04/11/20 22:00 05/11/20 13:59 04/13/20 06:14 Ondansetron HCl (Zofran) 4 mg Q6H PRN IVP Nausea & Vomiting 04/11/20 19:15 05/11/20 13:14 Polyethylene Glycol (Miralax) 17 gm DAILYPRN PRN ORAL Constipation 04/11/20 19:00 05/11/20 18:59 Risperidone (RisperDAL) 1 mg Q8HR ORAL 04/11/20 22:00 05/26/20 13:59 04/13/20 06:14 Rivaroxaban (Xarelto) 15 mg DAILY ORAL 04/12/20 09:00 07/11/20 08:59 04/13/20 08:55 Sodium Chloride 1,000 ml @ 150 mls/hr Q6H40M IV 04/11/20 19:00 05/11/20 12:14 04/13/20 04:40 Temazepam (Restoril) 15 mg HSPRN PRN ORAL Insomnia 04/11/20 19:00 04/18/20 18:59 Assessment/Plan Problems: (1) Acute encephalopathy (2) COVID-19 (3) Severe anemia (4) Dehydration (5) Dementia with behavioral disturbance (6) Chronic anticoagulation (7) Agitation Assessment/Plan dc iv fluids, bun/creatinine almost normal Urine has GNB respiratory isolation ID evaluation appreciated abx as per ID, cefepime cardio to see to optimize cardiac meds symptomatic treatment continue Xarelto dvt prophylaxis. Alyse Oconnor MD April 13, 2020 11:03
[2020-04-13 12:00] VITALS: BP 143/72
--- NOTE | 2020-04-13 13:00 | Infectious Diseases Prog Note ---
Assessment/Plan Assessment/Plan Assessment: Confirmed COVID19 ([employer]- at [facility] on 03/28) -04/11 CXR: Bilateral upper lobe streaky atelectasis. UTI -u/a wbc tnct, nit +, leuk +3; ucx >100k E.coli, probable ESBL (S Zosyn, Meropenem) Afebrile No leukocytosis Anemia TAMMIE, improving Dm2 HLD HTN Dementia Afib on chronic anticoagulation bipolar disorder [place] resident ([facility]) Plan: -Switch empiric Cefepime #3 to Ertapenem -04/11 SP IV vancomycin #1, Levaquin x1 -f/u cx -Monitor CBC/CMP, temperature -COVID 19 isolation and testing Thank you for consulting [facility]. Will continue to follow along with you. Subjective Allergies: Coded Allergies: No Known Allergies (Unverified , 01/13/20) Subjective afebrile at RA no leukocytosis Cr improving Objective Vital Signs Last 24 Hour Vital Signs Date Time Temp Pulse Resp B/P (MAP) Pulse Ox O2 Delivery O2 Flow Rate FiO2 04/13/20 12:00 98.1 72 18 143/72 (95) 98 04/13/20 09:00 Room Air 04/13/20 08:00 96.6 61 20 121/61 (81) 98 04/13/20 07:33 104 04/13/20 04:00 96.6 102 18 101/61 (74) 98 04/13/20 04:00 92 04/13/20 00:00 96 04/13/20 00:00 97.7 86 16 109/59 (76) 98 04/12/20 21:00 Room Air 04/12/20 20:00 97.4 76 16 134/65 (88) 96 04/12/20 20:00 73 04/12/20 16:00 97.4 85 18 141/82 (101) 96 04/12/20 15:09 82 Height (Feet): 5 Height (Inches): 2.00 Weight (Pounds): 107 Objective Gen: no respiratory distress, confused Head: normocephalic Lungs: no tachypnea or use of accessory resp muscles Abd: not distended MSK: restriction in place Microbiology Date/Time Source Procedure Growth Status 04/11/20 10:36 Blood Blood Culture - Preliminary NO GROWTH AFTER 24 HOURS Resulted 04/11/20 10:15 Blood Blood Culture - Preliminary NO GROWTH AFTER 24 HOURS Resulted 04/11/20 14:30 Nasal Nares 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 Complete 04/12/20 03:00 Indwelling Cath Urine Culture - Preliminary Gram Negative Bacillus 1 Resulted 04/11/20 10:42 Urine,Clean Catch Urine Culture - Preliminary Escherichia Coli Resulted 04/11/20 14:30 Rectum - Final NO CARBAPENEM-RESISTANT ENTEROBACTERI... Complete 04/11/20 14:30 Rectum VRE Culture - Final NO VANCOMYCIN RESISTANT ENTEROCOCCUS ... Complete Laboratory Tests Test 04/13/20 05:40 White Blood Count 4.3 K/UL (4.8-10.8) L Red Blood Count 2.25 M/UL (4.20-5.40) L Hemoglobin 8.5 G/DL (12.0-16.0) L Hematocrit 24.6 % (37.0-47.0) L Mean Corpuscular Volume 110 FL (80-99) H Mean Corpuscular Hemoglobin 37.8 PG (27.0-31.0) H Mean Corpuscular Hemoglobin Concent 34.5 G/DL (32.0-36.0) Red Cell Distribution Width 14.8 % (11.6-14.8) Platelet Count 192 K/UL (150-450) Mean Platelet Volume 9.2 FL (6.5-10.1) Neutrophils (%) (Auto) 64.8 % (45.0-75.0) Lymphocytes (%) (Auto) 18.4 % (20.0-45.0) L Monocytes (%) (Auto) 11.6 % (1.0-10.0) H Eosinophils (%) (Auto) 1.2 % (0.0-3.0) Basophils (%) (Auto) 4.1 % (0.0-2.0) H Sodium Level 146 MMOL/L (136-145) H Potassium Level 5.0 MMOL/L (3.5-5.1) Chloride Level 112 MMOL/L (98-107) H Carbon Dioxide Level 26 MMOL/L (21-32) Anion Gap 8 mmol/L (5-15) Blood Urea Nitrogen 21 mg/dL (7-18) H Creatinine 1.2 MG/DL (0.55-1.30) Estimat Glomerular Filtration Rate 42.6 mL/min (>60) Glucose Level 79 MG/DL (74-106) Calcium Level 8.2 MG/DL (8.5-10.1) L Troponin I 0.019 ng/mL (0.000-0.056) Pro-B-Type Natriuretic Peptide 5479 pg/mL (0-125) H Current Medications Medications (Trade) Dose Ordered Sig/Dewayne Route PRN Reason Start Time Stop Time Status Last Admin Dose Admin Acetaminophen (Tylenol) 650 mg Q4H PRN ORAL fever 04/11/20 19:00 05/11/20 18:59 Albuterol/ Ipratropium (Combivent Respimat) 1 puff Q4H PRN INH Shortness of Breath 04/11/20 19:00 05/11/20 18:59 Amiodarone HCl (Cordarone) 200 mg DAILY ORAL 04/12/20 09:00 07/11/20 08:59 04/13/20 08:55 Cefepime HCl 1 gm/ Dextrose 110 ml @ 220 mls/hr Q24H IVPB 04/12/20 20:00 04/18/20 19:59 04/12/20 21:58 Divalproex Sodium (Depakote Sprinkles) 125 mg EVERY 8 HOURS ORAL 04/11/20 22:00 05/11/20 13:59 04/13/20 06:14 Ondansetron HCl (Zofran) 4 mg Q6H PRN IVP Nausea & Vomiting 04/11/20 19:15 05/11/20 13:14 Polyethylene Glycol (Miralax) 17 gm DAILYPRN PRN ORAL Constipation 04/11/20 19:00 05/11/20 18:59 Risperidone (RisperDAL) 1 mg Q8HR ORAL 04/11/20 22:00 05/26/20 13:59 04/13/20 06:14 Rivaroxaban (Xarelto) 15 mg DAILY ORAL 04/12/20 09:00 07/11/20 08:59 04/13/20 08:55 Temazepam (Restoril) 15 mg HSPRN PRN ORAL Insomnia 04/11/20 19:00 04/18/20 18:59 Lisa Altamirano M.D. April 13, 2020 13:00
[2020-04-13] MEDS: Ertapenem 0.5 GM in NS 55 ML IVPB SCH (14:29)
[2020-04-13 16:00] VITALS: BP 140/56
--- NOTE | 2020-04-13 16:00 | NUR ---
NURSE NOTES: Informed Dr Faust regarding BNP results that are trending up.
--- NOTE | 2020-04-13 16:42 | Cardiology Progress Note ---
Assessment/Plan Assessment/Plan 1. Paroxysmal episodes of atrial flutter. 2. Persistent COVID-19 infection. 3. Chronic renal insufficiency. 4. Paroxysmal episodes of atrial fibrillation and flutter. 5. Hyperlipidemia. 6. Systemic hypertension. 7. Dementia. 8. Gastroesophageal reflux disease. hypotension yest fluid responsive resolved no echo performed at [facility] or here afebril labs noted sat at 96-98% on room airs urine gnr amiod daily xarelto for stroke prevention tele no aflutter bnp increased depstie cr decreasing dc ivf one charli of lasix Subjective ROS Limited/Unobtainable: Yes Subjective Pt awake, A/O x1 (name). No s/sx of acute distress, pt breathing even and unlabored in RA. Pt on bilateral soft wrist restraints, pulses are present. Swelling on R arm observed to be decreased. Objective Last 24 Hour Vital Signs Date Time Temp Pulse Resp B/P (MAP) Pulse Ox O2 Delivery O2 Flow Rate FiO2 04/13/20 16:00 96.6 88 20 140/56 (84) 96 04/13/20 12:00 98.1 72 18 143/72 (95) 98 04/13/20 11:34 72 04/13/20 09:00 Room Air 04/13/20 08:00 96.6 61 20 121/61 (81) 98 04/13/20 07:33 104 04/13/20 04:00 96.6 102 18 101/61 (74) 98 04/13/20 04:00 92 04/13/20 00:00 96 04/13/20 00:00 97.7 86 16 109/59 (76) 98 04/12/20 21:00 Room Air 04/12/20 20:00 97.4 76 16 134/65 (88) 96 04/12/20 20:00 73 Intake and Output 04/12/20 04/13/20 19:00 07:00 Intake Total 600 ml 1160 ml Output Total 2 ml Balance 600 ml 1158 ml Intake Oral 600 ml IV Total 1160 ml Output Urine Total 2 ml # Voids 2 Laboratory Tests Test 04/13/20 05:40 White Blood Count 4.3 K/UL (4.8-10.8) L Red Blood Count 2.25 M/UL (4.20-5.40) L Hemoglobin 8.5 G/DL (12.0-16.0) L Hematocrit 24.6 % (37.0-47.0) L Mean Corpuscular Volume 110 FL (80-99) H Mean Corpuscular Hemoglobin 37.8 PG (27.0-31.0) H Mean Corpuscular Hemoglobin Concent 34.5 G/DL (32.0-36.0) Red Cell Distribution Width 14.8 % (11.6-14.8) Platelet Count 192 K/UL (150-450) Mean Platelet Volume 9.2 FL (6.5-10.1) Neutrophils (%) (Auto) 64.8 % (45.0-75.0) Lymphocytes (%) (Auto) 18.4 % (20.0-45.0) L Monocytes (%) (Auto) 11.6 % (1.0-10.0) H Eosinophils (%) (Auto) 1.2 % (0.0-3.0) Basophils (%) (Auto) 4.1 % (0.0-2.0) H Sodium Level 146 MMOL/L (136-145) H Potassium Level 5.0 MMOL/L (3.5-5.1) Chloride Level 112 MMOL/L (98-107) H Carbon Dioxide Level 26 MMOL/L (21-32) Anion Gap 8 mmol/L (5-15) Blood Urea Nitrogen 21 mg/dL (7-18) H Creatinine 1.2 MG/DL (0.55-1.30) Estimat Glomerular Filtration Rate 42.6 mL/min (>60) Glucose Level 79 MG/DL (74-106) Calcium Level 8.2 MG/DL (8.5-10.1) L Troponin I 0.019 ng/mL (0.000-0.056) Pro-B-Type Natriuretic Peptide 5479 pg/mL (0-125) H Microbiology Date/Time Source Procedure Growth Status 04/11/20 10:36 Blood Blood Culture - Preliminary NO GROWTH AFTER 24 HOURS Resulted 04/11/20 10:15 Blood Blood Culture - Preliminary NO GROWTH AFTER 24 HOURS Resulted 04/11/20 14:30 Nasal Nares 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 Complete 04/12/20 03:00 Indwelling Cath Urine Culture - Preliminary Gram Negative Bacillus 1 Resulted 04/11/20 10:42 Urine,Clean Catch Urine Culture - Preliminary Escherichia Coli Resulted 04/11/20 14:30 Rectum - Final NO CARBAPENEM-RESISTANT ENTEROBACTERI... Complete 04/11/20 14:30 Rectum VRE Culture - Final NO VANCOMYCIN RESISTANT ENTEROCOCCUS ... Complete Erasmo Faust MD April 13, 2020 16:42
--- NOTE | 2020-04-13 18:00 | Internal Med Progress Note ---
Subjective Date of Service: April 13, 2020 Physician Name Scott,Jonas Attending Physician Ulices High MD Current Medications Medications (Trade) Dose Ordered Sig/Dewayne Route PRN Reason Start Time Stop Time Status Last Admin Dose Admin Acetaminophen (Tylenol) 650 mg Q4H PRN ORAL fever 04/11/20 19:00 05/11/20 18:59 Albuterol/ Ipratropium (Combivent Respimat) 1 puff Q4H PRN INH Shortness of Breath 04/11/20 19:00 05/11/20 18:59 Amiodarone HCl (Cordarone) 200 mg DAILY ORAL 04/12/20 09:00 07/11/20 08:59 04/13/20 08:55 Divalproex Sodium (Depakote Sprinkles) 125 mg EVERY 8 HOURS ORAL 04/11/20 22:00 05/11/20 13:59 04/13/20 14:30 Ertapenem 0.5 gm/ Sodium Chloride 55 ml @ 110 mls/hr Q24H IVPB 04/13/20 15:00 04/18/20 14:59 04/13/20 14:29 Furosemide (Lasix) 20 mg ONCE IV 04/13/20 16:45 04/13/20 18:00 04/13/20 16:56 Ondansetron HCl (Zofran) 4 mg Q6H PRN IVP Nausea & Vomiting 04/11/20 19:15 05/11/20 13:14 Polyethylene Glycol (Miralax) 17 gm DAILYPRN PRN ORAL Constipation 04/11/20 19:00 05/11/20 18:59 Risperidone (RisperDAL) 1 mg Q8HR ORAL 04/11/20 22:00 05/26/20 13:59 04/13/20 14:29 Rivaroxaban (Xarelto) 15 mg DAILY ORAL 04/12/20 09:00 07/11/20 08:59 04/13/20 08:55 Temazepam (Restoril) 15 mg HSPRN PRN ORAL Insomnia 04/11/20 19:00 04/18/20 18:59 Allergies: Coded Allergies: No Known Allergies (Unverified , 01/13/20) ROS Limited/Unobtainable: Yes Subjective 84 YO F with COVID 19 positive status admitted with failure to thrive. Now UTI. Transferred to [facility] due to hypotension. Cover for Int [facility]-Dr High Objective Last Vital Signs Date Time Temp Pulse Resp B/P (MAP) Pulse Ox O2 Delivery O2 Flow Rate FiO2 04/13/20 16:00 96.6 88 20 140/56 (84) 96 04/13/20 09:00 Room Air Laboratory Tests Test 04/13/20 05:40 White Blood Count 4.3 K/UL (4.8-10.8) L Red Blood Count 2.25 M/UL (4.20-5.40) L Hemoglobin 8.5 G/DL (12.0-16.0) L Hematocrit 24.6 % (37.0-47.0) L Mean Corpuscular Volume 110 FL (80-99) H Mean Corpuscular Hemoglobin 37.8 PG (27.0-31.0) H Mean Corpuscular Hemoglobin Concent 34.5 G/DL (32.0-36.0) Red Cell Distribution Width 14.8 % (11.6-14.8) Platelet Count 192 K/UL (150-450) Mean Platelet Volume 9.2 FL (6.5-10.1) Neutrophils (%) (Auto) 64.8 % (45.0-75.0) Lymphocytes (%) (Auto) 18.4 % (20.0-45.0) L Monocytes (%) (Auto) 11.6 % (1.0-10.0) H Eosinophils (%) (Auto) 1.2 % (0.0-3.0) Basophils (%) (Auto) 4.1 % (0.0-2.0) H Sodium Level 146 MMOL/L (136-145) H Potassium Level 5.0 MMOL/L (3.5-5.1) Chloride Level 112 MMOL/L (98-107) H Carbon Dioxide Level 26 MMOL/L (21-32) Anion Gap 8 mmol/L (5-15) Blood Urea Nitrogen 21 mg/dL (7-18) H Creatinine 1.2 MG/DL (0.55-1.30) Estimat Glomerular Filtration Rate 42.6 mL/min (>60) Glucose Level 79 MG/DL (74-106) Calcium Level 8.2 MG/DL (8.5-10.1) L Troponin I 0.019 ng/mL (0.000-0.056) Pro-B-Type Natriuretic Peptide 5479 pg/mL (0-125) H Microbiology Date/Time Source Procedure Growth Status 04/11/20 10:36 Blood Blood Culture - Preliminary NO GROWTH AFTER 24 HOURS Resulted 04/11/20 10:15 Blood Blood Culture - Preliminary NO GROWTH AFTER 24 HOURS Resulted 04/11/20 14:30 Nasal Nares 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 Complete 04/12/20 03:00 Indwelling Cath Urine Culture - Preliminary Gram Negative Bacillus 1 Resulted 04/11/20 10:42 Urine,Clean Catch Urine Culture - Preliminary Escherichia Coli Resulted 04/11/20 14:30 Rectum - Final NO CARBAPENEM-RESISTANT ENTEROBACTERI... Complete 04/11/20 14:30 Rectum VRE Culture - Final NO VANCOMYCIN RESISTANT ENTEROCOCCUS ... Complete Intake and Output 04/12/20 04/13/20 19:00 07:00 Intake Total 600 ml 1160 ml Output Total 2 ml Balance 600 ml 1158 ml Intake Oral 600 ml IV Total 1160 ml Output Urine Total 2 ml # Voids 2 Objective PHYSICAL EXAMINATION: GENERAL: Patient is a well-developed, well-nourished female, who is confused and nonverbal. HEENT: Eyes, pupils are equal and responsive to light and accommodation. Extraocular movements are intact. NECK: Supple. No lymphadenopathy. CHEST: Lungs are clear to auscultation bilaterally without wheezes or rales. CARDIOVASCULAR: Regular rhythm and rate. S1, S2 are normal without murmurs, rubs, or gallops. ABDOMEN: Soft, nontender, nondistended. Positive bowel sounds. No evidence of hepatosplenomegaly. Currently, no rebound or guarding noted. EXTREMITIES: Negative for clubbing, cyanosis, or edema. RECTAL/GENITAL: Not performed. NEUROLOGICAL: Cranial nerves II through XII grossly intact without focal deficits. Assessment/Plan Assessment/Plan ASSESSMENT: This is an 84-year-old female. 1. COVID-19 positive. 2. Failure to thrive. 3. Congestive heart failure. 4. Renal failure. 5. Atrial flutter. 6. Bipolar disorder. 7. Coronary artery disease. 8. Hypertension. 9. Alzheimer's dementia. 10. Gastroesophageal reflux. 11. Diverticulosis. 12. Cholelithiasis. 13. Hypotension 14. UTI=E. Coli TREATMENT: 1. COVID-19 positive. An Infectious Disease consultation has been obtained with Dr. Altamirano. We will follow recommendation of Infectious Disease. 2. Failure to thrive. This may be secondary to viral syndrome secondary to COVID-19 positive. 3. Congestive heart failure. Await echocardiogram. A Cardiology consultation has been obtained with Dr. Erasmo Faust. 4. Atrial flutter as above. As above, Cardiology consultation has been obtained with Dr. Erasmo Faust. 5. Renal failure. This may be dehydration versus acute on chronic renal failure. 6. Bipolar disorder. Continue Depakote and Risperdal as above. 7. Coronary artery disease. 8. Hypertension. 9. Alzheimer's dementia. 10. Gastroesophageal reflux disease. 11. Diverticulosis. 12. Cholelithiasis. 13. Transfer to tele. Received NS bolus. See cardiology discussion concerning amiodarone. 14. ABX=cefepime; S/P vanco; ID=Jonas Wagner MD April 13, 2020 18:00
--- NOTE | 2020-04-13 19:55 | NUR ---
HAND-OFF: Report given to DADA Fernandez. Pt in stable condition, endorsed plan of care.
[2020-04-13 20:00] VITALS: BP 139/55
--- NOTE | 2020-04-13 20:00 | NUR ---
NURSE NOTES: Report received from Rebecca GARLAND. Patient is awake and alert x 1, Egyptian speaking, does not answer questions directly.. Patient is on on room air. No s/sx of respiratory distress. Patient on bilateral soft wrist restraints due to patient safety. Md called for renewal order to be inputted. Patient noted to be on contact/droplet precautions due to covid 19. Patient tested positive for covid 19 on March 28, 2020 at nursing facility. Patient reswabbed at [facility] on April 11, 2020, results still pending. Patient has right arm swelling due to lab draw previously left on. Swelling has gone down per report. Bed locked, alarmed, and in lowest position. Will continue to follow plan of care.
[2020-04-14] VITALS: BP 127/63
--- NOTE | 2020-04-14 01:50 | NUR ---
STEPHANIE FROM [facility] CALLED WITH ESBL URINE POSTIVE RESULT, RN ALEX AWARE AND ID TO BE INFORMED.
[2020-04-14 04:00] VITALS: BP 133/53
[2020-04-14] MEDS: Depakote 125mg Sprinkles ORAL SCH ×3 (05:27→21:20)
[2020-04-14 07:01] LABS: ANION GAP 8 mmol/L (5-15); BLOOD UREA NITROGEN 17 mg/dL (7-18); CALCIUM 7.9 MG/DL (8.5-10.1); CARBON DIOXIDE 26 MMOL/L (21-32); CHLORIDE 111 MMOL/L (98-107); CREATININE 1.3 MG/DL (0.55-1.30); POTASSIUM 4.5 MMOL/L (3.5-5.1); SODIUM 145 MMOL/L (136-145)
[2020-04-14 07:16] LABS: HEMATOCRIT 22.2 % (37.0-47.0); HEMOGLOBIN 7.9 G/DL (12.0-16.0); MEAN CORPUSCULAR VOLUME 108 FL (80-99); PLATELET COUNT 177 K/UL (150-450); RED BLOOD COUNT 2.07 M/UL (4.20-5.40); RED CELL DISTRIBUTION WIDTH 14.3 % (11.6-14.8)
--- NOTE | 2020-04-14 07:29 | NUR ---
HAND-OFF: Report given to Dara GARLAND
--- NOTE | 2020-04-14 07:44 | NUR ---
NURSE NOTES: Left message for Dr Altamirano informing of pt urine - positive for ESBL. Endorsed to day nurse.
--- NOTE | 2020-04-14 07:58 | NUR ---
NURSE NOTES: Received report from Rebecca Terry RN. Patient stable, resting in bed with no s/sx of distress. RR even and unlabored on RA. Restraints on with good ROM and circulation. Sensation also appers to be intact. Side rails upx2, call light within reach, bed low and locked. Will continue to monitor.
[2020-04-14 08:00] VITALS: BP 136/64
[2020-04-14] MEDS: Amiodarone 200mg tab ORAL SCH (09:44)
[2020-04-14] MEDS: Xarelto 15mg tab ORAL SCH (09:45)
--- NOTE | 2020-04-14 10:27 | Diagnostic Imaging Report ---
Procedure: XRAY Chest 1v Reason for study: Chest pain Comparison films: None. FINDINGS: A single one view chest is obtained. Vascularity is normal. Streaky density right upper lobe either atelectasis or scarring. Mild diffuse interstitial prominence unchanged. Cardiomegaly stable. CP angles are sharp. The bony thorax appear unremarkable. IMPRESSION: NO SIGNIFICANT CHANGE COMPARED TO PREVIOUS EXAM.
--- NOTE | 2020-04-14 10:51 | NUR ---
RD ASSESSMENT & RECOMMENDATIONS SEE CARE ACTIVITY FOR COMPLETE ASSESSMENT DAILY ESTIMATED NEEDS: Needs based on Advanced age, pulmonary 48kg 27-32 kcals/kg 3399-7375 total kcals 1.25-1.5 g protein/kg 60-72 g total protein 20-30ml/kcal mL/kg 960-1470 total fluid mLs NUTRITION DIAGNOSIS: Chewing difficulty r/t Alzheimers, h/o dysphagia as evidenced by pt on puree texture diet, adm w/ FTT and w/ poor po intake from adm. CURRENT DIET: Regular puree PO DIET RECOMMENDATIONS: Maintain Regular diet + Ensure Enlive TID/ Texture per [employer] ENTERAL NUTRITION RECOMMENDATIONS: Consult RD if non oral feeds are part of POC to meet est nutritional needs ADDITIONAL RECOMMENDATIONS: 1) Maintain calibrated bed weights 2) Add Ensure w/ meals 3) Monitor po intake, pt adm w/ FTT and suspected wt loss -> Non oral feeds if part of POC 4) rec WC eval for sacral photo Addendum: 04/14/20 at [address] 48 hr kcal count not complete. Per EMR: (04/13) 25% (04/12) 50 40 50% (04/11) 0%. Per RN pt is 1:1 feeder d/t light restraints, will take applesauce. ---- Pt receiving Ensure Enlive TID (350 kcal each), intake unknown. 1:1 feeds, encourage po intake Consult RD if non oral feeds/ NGT feeds are part of POC to meet est needs
[2020-04-14 12:00] VITALS: BP 130/67
--- NOTE | 2020-04-14 12:17 | Infectious Diseases Prog Note ---
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 UTI -u/a wbc tnct, nit +, leuk +3; ucx >100k E.coli, ESBL (S Zosyn, Meropenem) Afebrile No leukocytosis Anemia TAMMIE, improving Dm2 HLD HTN Dementia Afib on chronic anticoagulation bipolar disorder [facility]) Plan: -Continue Ertapenem #2/-7 -04/13 SP Cefepime #3 -04/11 SP IV vancomycin #1, Levaquin x1 -f/u cx -Monitor CBC/CMP, temperature -COVID 19 isolation and testing; repeat test as was indeterminate Thank you for consulting [facility]. Will continue to follow along with you. Subjective Allergies: Coded Allergies: No Known Allergies (Unverified , 01/13/20) Subjective afebrile at RA no leukocytosis COVID indeterminate Objective Vital Signs Last 24 Hour Vital Signs Date Time Temp Pulse Resp B/P (MAP) Pulse Ox O2 Delivery O2 Flow Rate FiO2 04/14/20 09:00 Room Air 04/14/20 08:00 99 04/14/20 08:00 96.7 69 20 136/64 (88) 100 04/14/20 04:00 73 04/14/20 04:00 97.7 75 18 133/53 (79) 97 04/14/20 00:00 82 04/14/20 00:00 97.5 95 16 127/63 (84) 97 04/13/20 21:00 Room Air 04/13/20 20:00 97.9 89 16 139/55 (83) 93 04/13/20 20:00 93 04/13/20 16:00 96.6 88 20 140/56 (84) 96 04/13/20 15:29 93 Height (Feet): 5 Height (Inches): 2.00 Weight (Pounds): 107 Objective Gen: no respiratory distress, confused Head: normocephalic Lungs: no tachypnea or use of accessory resp muscles Abd: not distended MSK: restriction in place Microbiology Date/Time Source Procedure Growth Status 04/11/20 14:30 Nasal Nares 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 Complete 04/12/20 03:00 Indwelling Cath Urine Culture - Final Escherichia Coli - Esbl Complete 04/11/20 14:30 Rectum - Final NO CARBAPENEM-RESISTANT ENTEROBACTERI... Complete 04/11/20 14:30 Rectum VRE Culture - Final NO VANCOMYCIN RESISTANT ENTEROCOCCUS ... Complete Laboratory Tests Test 04/14/20 06:30 White Blood Count 5.0 K/UL (4.8-10.8) Red Blood Count 2.07 M/UL (4.20-5.40) L Hemoglobin 7.9 G/DL (12.0-16.0) L Hematocrit 22.2 % (37.0-47.0) L Mean Corpuscular Volume 108 FL (80-99) H Mean Corpuscular Hemoglobin 38.2 PG (27.0-31.0) H Mean Corpuscular Hemoglobin Concent 35.6 G/DL (32.0-36.0) Red Cell Distribution Width 14.3 % (11.6-14.8) Platelet Count 177 K/UL (150-450) Mean Platelet Volume 8.8 FL (6.5-10.1) Neutrophils (%) (Auto) % (45.0-75.0) Lymphocytes (%) (Auto) % (20.0-45.0) Monocytes (%) (Auto) % (1.0-10.0) Eosinophils (%) (Auto) % (0.0-3.0) Basophils (%) (Auto) % (0.0-2.0) Neutrophils % (Manual) Pending Lymphocytes % (Manual) Pending Platelet Estimate Pending Platelet Morphology Pending Sodium Level 145 MMOL/L (136-145) Potassium Level 4.5 MMOL/L (3.5-5.1) Chloride Level 111 MMOL/L (98-107) H Carbon Dioxide Level 26 MMOL/L (21-32) Anion Gap 8 mmol/L (5-15) Blood Urea Nitrogen 17 mg/dL (7-18) Creatinine 1.3 MG/DL (0.55-1.30) Estimat Glomerular Filtration Rate 38.8 mL/min (>60) Glucose Level 117 MG/DL (74-106) H Calcium Level 7.9 MG/DL (8.5-10.1) L Magnesium Level 1.9 MG/DL (1.8-2.4) Current Medications Medications (Trade) Dose Ordered Sig/Dewayne Route PRN Reason Start Time Stop Time Status Last Admin Dose Admin Acetaminophen (Tylenol) 650 mg Q4H PRN ORAL fever 04/11/20 19:00 05/11/20 18:59 Albuterol/ Ipratropium (Combivent Respimat) 1 puff Q4H PRN INH Shortness of Breath 04/11/20 19:00 05/11/20 18:59 Amiodarone HCl (Cordarone) 200 mg DAILY ORAL 04/12/20 09:00 07/11/20 08:59 04/14/20 09:44 Divalproex Sodium (Depakote Sprinkles) 125 mg EVERY 8 HOURS ORAL 04/11/20 22:00 05/11/20 13:59 04/14/20 05:27 Ertapenem 0.5 gm/ Sodium Chloride 55 ml @ 110 mls/hr Q24H IVPB 04/13/20 15:00 04/18/20 14:59 04/13/20 14:29 Ondansetron HCl (Zofran) 4 mg Q6H PRN IVP Nausea & Vomiting 04/11/20 19:15 05/11/20 13:14 Polyethylene Glycol (Miralax) 17 gm DAILYPRN PRN ORAL Constipation 04/11/20 19:00 05/11/20 18:59 Risperidone (RisperDAL) 1 mg Q8HR ORAL 04/11/20 22:00 05/26/20 13:59 04/14/20 05:28 Rivaroxaban (Xarelto) 15 mg DAILY ORAL 04/12/20 09:00 07/11/20 08:59 04/14/20 09:45 Temazepam (Restoril) 15 mg HSPRN PRN ORAL Insomnia 04/11/20 19:00 04/18/20 18:59 Lisa Altamirano M.D. April 14, 2020 12:17
--- NOTE | 2020-04-14 12:21 | NUR ---
CASE MANAGEMENT:REVIEW SI;COVID-19 POSITIVE FTT. CHF. RENAL FAILURE. 97.5 95 20 136/64 97% ON RA H/H 7.9/22.2 IS;ERTAPENEM IV Q24 HRS AMIODARONE PO QD XARELTO PO QD COMBIVENT INH Q4 HRS PRN TELE STATUS DCP;FROM [facility]
--- NOTE | 2020-04-14 13:30 | Cardiology Progress Note ---
Assessment/Plan Assessment/Plan 1. Paroxysmal episodes of atrial flutter. 2. Persistent COVID-19 infection. 3. Chronic renal insufficiency. 4. Paroxysmal episodes of atrial fibrillation and flutter. 5. Hyperlipidemia. 6. Systemic hypertension. 7. Dementia. 8. Gastroesophageal reflux disease. hypotension yest fluid responsive resolved no echo performed at [facility] or here afebril labs noted sat at 96-98% on room airs urine gnr amiod daily xarelto for stroke prevention tele no aflutter bnp increased depstie cr decreasing dc ivf one charli of lasix Subjective Subjective Pt awake, A/O x1 (name). No s/sx of acute distress, pt breathing even and unlabored in RA. Pt on bilateral soft wrist restraints, pulses are present. Swelling on R arm observed to be decreased. Objective Last 24 Hour Vital Signs Date Time Temp Pulse Resp B/P (MAP) Pulse Ox O2 Delivery O2 Flow Rate FiO2 04/14/20 12:00 98.7 70 18 130/67 (88) 98 04/14/20 09:00 Room Air 04/14/20 08:00 99 04/14/20 08:00 96.7 69 20 136/64 (88) 100 04/14/20 04:00 73 04/14/20 04:00 97.7 75 18 133/53 (79) 97 04/14/20 00:00 82 04/14/20 00:00 97.5 95 16 127/63 (84) 97 04/13/20 21:00 Room Air 04/13/20 20:00 97.9 89 16 139/55 (83) 93 04/13/20 20:00 93 04/13/20 16:00 96.6 88 20 140/56 (84) 96 04/13/20 15:29 93 Intake and Output 04/13/20 04/14/20 19:00 07:00 Output Total 140 ml Balance -140 ml Output Urine Total 140 ml # Voids 3 4 Laboratory Tests Test 04/14/20 06:30 White Blood Count 5.0 K/UL (4.8-10.8) Red Blood Count 2.07 M/UL (4.20-5.40) L Hemoglobin 7.9 G/DL (12.0-16.0) L Hematocrit 22.2 % (37.0-47.0) L Mean Corpuscular Volume 108 FL (80-99) H Mean Corpuscular Hemoglobin 38.2 PG (27.0-31.0) H Mean Corpuscular Hemoglobin Concent 35.6 G/DL (32.0-36.0) Red Cell Distribution Width 14.3 % (11.6-14.8) Platelet Count 177 K/UL (150-450) Mean Platelet Volume 8.8 FL (6.5-10.1) Neutrophils (%) (Auto) % (45.0-75.0) Lymphocytes (%) (Auto) % (20.0-45.0) Monocytes (%) (Auto) % (1.0-10.0) Eosinophils (%) (Auto) % (0.0-3.0) Basophils (%) (Auto) % (0.0-2.0) Neutrophils % (Manual) Pending Lymphocytes % (Manual) Pending Platelet Estimate Pending Platelet Morphology Pending Sodium Level 145 MMOL/L (136-145) Potassium Level 4.5 MMOL/L (3.5-5.1) Chloride Level 111 MMOL/L (98-107) H Carbon Dioxide Level 26 MMOL/L (21-32) Anion Gap 8 mmol/L (5-15) Blood Urea Nitrogen 17 mg/dL (7-18) Creatinine 1.3 MG/DL (0.55-1.30) Estimat Glomerular Filtration Rate 38.8 mL/min (>60) Glucose Level 117 MG/DL (74-106) H Calcium Level 7.9 MG/DL (8.5-10.1) L Magnesium Level 1.9 MG/DL (1.8-2.4) Microbiology Date/Time Source Procedure Growth Status 04/11/20 14:30 Nasal Nares 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 Complete 04/12/20 03:00 Indwelling Cath Urine Culture - Final Escherichia Coli - Esbl Complete 04/11/20 14:30 Rectum - Final NO CARBAPENEM-RESISTANT ENTEROBACTERI... Complete 04/11/20 14:30 Rectum VRE Culture - Final NO VANCOMYCIN RESISTANT ENTEROCOCCUS ... Complete Erasmo Faust MD April 14, 2020 13:30
--- NOTE | 2020-04-14 13:44 | Cardiology Progress Note ---
Assessment/Plan Assessment/Plan 1. Paroxysmal episodes of atrial flutter. 2. Persistent COVID-19 infection. 3. Chronic renal insufficiency. 4. Paroxysmal episodes of atrial fibrillation and flutter. 5. Hyperlipidemia. 6. Systemic hypertension. 7. Dementia. 8. Gastroesophageal reflux disease. hypotension yest fluid responsive resolved no echo performed at [facility] or here labs noted sat at 97-100 % on room air urine ecoli amiod daily xarelto for stroke prevention tele no aflutter bnp increased depstie cr decreasing no off ivf one dose of lasix yest will recheck bnp in am covid result indeterminant resent will be repeated at [facility] lab Subjective Subjective doing ok no vomit no diarrhea tolerte feed confused Objective Last 24 Hour Vital Signs Date Time Temp Pulse Resp B/P (MAP) Pulse Ox O2 Delivery O2 Flow Rate FiO2 04/14/20 12:00 98.7 70 18 130/67 (88) 98 04/14/20 09:00 Room Air 04/14/20 08:00 99 04/14/20 08:00 96.7 69 20 136/64 (88) 100 04/14/20 04:00 73 04/14/20 04:00 97.7 75 18 133/53 (79) 97 04/14/20 00:00 82 04/14/20 00:00 97.5 95 16 127/63 (84) 97 04/13/20 21:00 Room Air 04/13/20 20:00 97.9 89 16 139/55 (83) 93 04/13/20 20:00 93 04/13/20 16:00 96.6 88 20 140/56 (84) 96 04/13/20 15:29 93 General Appearance: no apparent distress Intake and Output 04/13/20 04/14/20 19:00 07:00 Output Total 140 ml Balance -140 ml Output Urine Total 140 ml # Voids 3 4 Laboratory Tests Test 04/14/20 06:30 White Blood Count 5.0 K/UL (4.8-10.8) Red Blood Count 2.07 M/UL (4.20-5.40) L Hemoglobin 7.9 G/DL (12.0-16.0) L Hematocrit 22.2 % (37.0-47.0) L Mean Corpuscular Volume 108 FL (80-99) H Mean Corpuscular Hemoglobin 38.2 PG (27.0-31.0) H Mean Corpuscular Hemoglobin Concent 35.6 G/DL (32.0-36.0) Red Cell Distribution Width 14.3 % (11.6-14.8) Platelet Count 177 K/UL (150-450) Mean Platelet Volume 8.8 FL (6.5-10.1) Neutrophils (%) (Auto) % (45.0-75.0) Lymphocytes (%) (Auto) % (20.0-45.0) Monocytes (%) (Auto) % (1.0-10.0) Eosinophils (%) (Auto) % (0.0-3.0) Basophils (%) (Auto) % (0.0-2.0) Neutrophils % (Manual) Pending Lymphocytes % (Manual) Pending Platelet Estimate Pending Platelet Morphology Pending Sodium Level 145 MMOL/L (136-145) Potassium Level 4.5 MMOL/L (3.5-5.1) Chloride Level 111 MMOL/L (98-107) H Carbon Dioxide Level 26 MMOL/L (21-32) Anion Gap 8 mmol/L (5-15) Blood Urea Nitrogen 17 mg/dL (7-18) Creatinine 1.3 MG/DL (0.55-1.30) Estimat Glomerular Filtration Rate 38.8 mL/min (>60) Glucose Level 117 MG/DL (74-106) H Calcium Level 7.9 MG/DL (8.5-10.1) L Magnesium Level 1.9 MG/DL (1.8-2.4) Microbiology Date/Time Source Procedure Growth Status 04/11/20 14:30 Nasal Nares 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 Complete 04/12/20 03:00 Indwelling Cath Urine Culture - Final Escherichia Coli - Esbl Complete 04/11/20 14:30 Rectum - Final NO CARBAPENEM-RESISTANT ENTEROBACTERI... Complete 04/11/20 14:30 Rectum VRE Culture - Final NO VANCOMYCIN RESISTANT ENTEROCOCCUS ... Complete Erasmo Faust MD April 14, 2020 13:44
[2020-04-14] MEDS: Ertapenem 0.5 GM in NS 55 ML IVPB SCH (14:28)
--- NOTE | 2020-04-14 15:47 | Internal Med Progress Note ---
Subjective Physician Name Ulices High Attending Physician Ulices High MD Current Medications Medications (Trade) Dose Ordered Sig/Dewayne Route PRN Reason Start Time Stop Time Status Last Admin Dose Admin Acetaminophen (Tylenol) 650 mg Q4H PRN ORAL fever 04/11/20 19:00 05/11/20 18:59 Albuterol/ Ipratropium (Combivent Respimat) 1 puff Q4H PRN INH Shortness of Breath 04/11/20 19:00 05/11/20 18:59 Amiodarone HCl (Cordarone) 200 mg DAILY ORAL 04/12/20 09:00 07/11/20 08:59 04/14/20 09:44 Divalproex Sodium (Depakote Sprinkles) 125 mg EVERY 8 HOURS ORAL 04/11/20 22:00 05/11/20 13:59 04/14/20 14:27 Ertapenem 0.5 gm/ Sodium Chloride 55 ml @ 110 mls/hr Q24H IVPB 04/13/20 15:00 04/18/20 14:59 04/14/20 14:28 Ondansetron HCl (Zofran) 4 mg Q6H PRN IVP Nausea & Vomiting 04/11/20 19:15 05/11/20 13:14 Polyethylene Glycol (Miralax) 17 gm DAILYPRN PRN ORAL Constipation 04/11/20 19:00 05/11/20 18:59 Risperidone (RisperDAL) 1 mg Q8HR ORAL 04/11/20 22:00 05/26/20 13:59 04/14/20 14:27 Rivaroxaban (Xarelto) 15 mg DAILY ORAL 04/12/20 09:00 07/11/20 08:59 04/14/20 09:45 Temazepam (Restoril) 15 mg HSPRN PRN ORAL Insomnia 04/11/20 19:00 04/18/20 18:59 Allergies: Coded Allergies: No Known Allergies (Unverified , 01/13/20) Subjective On isolation room, responsive, opening her eyes, no acute distress, on the room air, hemoglobin: 7.9. Objective Last Vital Signs Date Time Temp Pulse Resp B/P (MAP) Pulse Ox O2 Delivery O2 Flow Rate FiO2 04/14/20 12:00 98.7 70 18 130/67 (88) 98 5/22/20 09:00 Room Air Laboratory Tests Test 04/14/20 06:30 White Blood Count 5.0 K/UL (4.8-10.8) Red Blood Count 2.07 M/UL (4.20-5.40) L Hemoglobin 7.9 G/DL (12.0-16.0) L Hematocrit 22.2 % (37.0-47.0) L Mean Corpuscular Volume 108 FL (80-99) H Mean Corpuscular Hemoglobin 38.2 PG (27.0-31.0) H Mean Corpuscular Hemoglobin Concent 35.6 G/DL (32.0-36.0) Red Cell Distribution Width 14.3 % (11.6-14.8) Platelet Count 177 K/UL (150-450) Mean Platelet Volume 8.8 FL (6.5-10.1) Neutrophils (%) (Auto) % (45.0-75.0) Lymphocytes (%) (Auto) % (20.0-45.0) Monocytes (%) (Auto) % (1.0-10.0) Eosinophils (%) (Auto) % (0.0-3.0) Basophils (%) (Auto) % (0.0-2.0) Differential Total Cells Counted 100 Neutrophils % (Manual) 84 % (45-75) H Lymphocytes % (Manual) 10 % (20-45) L Monocytes % (Manual) 6 % (1-10) Eosinophils % (Manual) 0 % (0-3) Basophils % (Manual) 0 % (0-2) Band Neutrophils 0 % (0-8) Platelet Estimate Adequate Platelet Morphology Normal Hypochromasia 3+ Anisocytosis 1+ Macrocytosis 1+ Spherocytes 2+ Sodium Level 145 MMOL/L (136-145) Potassium Level 4.5 MMOL/L (3.5-5.1) Chloride Level 111 MMOL/L (98-107) H Carbon Dioxide Level 26 MMOL/L (21-32) Anion Gap 8 mmol/L (5-15) Blood Urea Nitrogen 17 mg/dL (7-18) Creatinine 1.3 MG/DL (0.55-1.30) Estimat Glomerular Filtration Rate 38.8 mL/min (>60) Glucose Level 117 MG/DL (74-106) H Calcium Level 7.9 MG/DL (8.5-10.1) L Magnesium Level 1.9 MG/DL (1.8-2.4) Microbiology Date/Time Source Procedure Growth Status 04/12/20 03:00 Indwelling Cath Urine Culture - Final Escherichia Coli - Esbl Complete Intake and Output 04/13/20 04/14/20 19:00 07:00 Output Total 140 ml Balance -140 ml Output Urine Total 140 ml # Voids 3 4 Objective Deferred due to the COVID-19 isolation room. Assessment/Plan Assessment/Plan ASSESSMENT: This is an 84-year-old female. 1. COVID-19 infection positive. 2. Failure to thrive. 3. Congestive heart failure. 4. TAMMIE on chrinic Renal failure. 5. Atrial flutter. 6. Bipolar disorder. 7. Coronary artery disease. 8. Hypertension. 9. Alzheimer's dementia. 10. Gastroesophageal reflux. 11. Diverticulosis. 12. Cholelithiasis. 13. Hypotension resolved. 14. Acute ESBL E. Coli UTI. 15. Anemia of chronic disease. TREATMENT: 1. COVID-19 positive. An Infectious Disease consultation has been obtained with Dr. Altamirano. We will follow recommendation of Infectious Disease. 2. Failure to thrive. This may be secondary to viral syndrome secondary to COVID-19 positive. 3. Congestive heart failure. Await echocardiogram. A Cardiology consultation has been obtained with Dr. Erasmo Faust. 4. Atrial flutter as above. As above, Cardiology consultation has been obtained with Dr. Erasmo Faust. 5. Renal failure. This may be dehydration versus acute on chronic renal failure. 6. Bipolar disorder. Continue Depakote and Risperdal as above. 7. Coronary artery disease. 8. Hypertension. 9. Alzheimer's dementia. 10. Gastroesophageal reflux disease. 11. Diverticulosis. 12. Cholelithiasis. 13. DVT prophylaxis: Xarelto 14. ABX= ertapenem IV 15. CODE STATUS: full code. Ulices High MD April 14, 2020 15:47
[2020-04-14 16:00] VITALS: BP 132/58
--- NOTE | 2020-04-14 19:02 | NUR ---
HAND-OFF: Report given to Gayathri Jackson RN. Patient stable. Plan of care endorsed.
--- NOTE | 2020-04-14 19:10 | NUR ---
NURSE NOTES: Received pt and report from DADA Diamond. Observed pt resting in bed with both eyes closed; arousable to voice.. Pt is A/Ox1. monitor car operator is in placed; pt is SR w/BBB. IV site intact, asymptomatic, and patent. Pt is on bilateral soft wrist restraints; skin is intact, pulses and sensations are present. Bed is in the lowest position and locked. Call light and bedside table is within reach. No signs/symptoms of acute distress note at this time. Will continue plan of care.
[2020-04-14 20:00] VITALS: BP 101/57
[2020-04-15] VITALS: BP 145/63
[2020-04-15 04:00] VITALS: BP 154/58
[2020-04-15] MEDS: Depakote 125mg Sprinkles ORAL SCH ×3 (05:32→22:54)
--- NOTE | 2020-04-15 07:58 | NUR ---
HAND-OFF: Report given to DADA Diamond. Plan of care endorsed.
[2020-04-15 08:00] VITALS: BP 142/69
--- NOTE | 2020-04-15 08:00 | NUR ---
NURSE NOTES: Received report from DADA Trinh. Pt awake, alert with confusion. Pt sitting semi suarez in bed with bilateral wrist restraints. No s/s of acute respiratory and cardiac distress. IV site patent and intact. Bed low, side rails up x3, call light within reach. Will continue plan of care.
--- NOTE | 2020-04-15 08:40 | Pulmonology Progress Note ---
Subjective ROS Limited/Unobtainable: Yes Allergies: Coded Allergies: No Known Allergies (Unverified , 01/13/20) Subjective on RA pulkse ox stable no signs of resp distress afebrile, no leukocytosis Objective Last 24 Hour Vital Signs Date Time Temp Pulse Resp B/P (MAP) Pulse Ox O2 Delivery O2 Flow Rate FiO2 04/15/20 04:00 96.8 77 19 154/58 (90) 94 04/15/20 04:00 90 04/15/20 00:00 96 04/15/20 00:00 97.5 89 19 145/63 (90) 94 04/14/20 21:00 Room Air 04/14/20 20:00 102 04/14/20 20:00 98.9 92 17 101/57 (72) 95 04/14/20 16:00 94 04/14/20 16:00 98.3 81 18 132/58 (82) 97 04/14/20 12:00 98 04/14/20 12:00 98.7 70 18 130/67 (88) 98 04/14/20 09:00 Room Air Intake and Output 04/14/20 04/15/20 19:00 07:00 Intake Total 175 ml Balance 175 ml Intake Oral 120 ml IV Total 55 ml # Voids 1 General Appearance: no acute distress, cachetic HEENT: normocephalic, atraumatic Respiratory: chest wall non-tender, lungs clear Breasts: no masses Cardiovascular: normal rate - SR with BBB Abdomen: normal bowel sounds, soft, non tender Genitourinary: normal external genitalia Skin: no rash Neurologic: abnormal gait, other - awake, demented, unable to provide answers to questions, moves all extremities Lymphatic: no neck adenopathy Musculoskeletal: atrophy - BLE Current Medications Medications (Trade) Dose Ordered Sig/Dewayne Route PRN Reason Start Time Stop Time Status Last Admin Dose Admin Acetaminophen (Tylenol) 650 mg Q4H PRN ORAL fever 04/11/20 19:00 05/11/20 18:59 Albuterol/ Ipratropium (Combivent Respimat) 1 puff Q4H PRN INH Shortness of Breath 04/11/20 19:00 05/11/20 18:59 Amiodarone HCl (Cordarone) 200 mg DAILY ORAL 04/12/20 09:00 07/11/20 08:59 04/14/20 09:44 Divalproex Sodium (Depakote Sprinkles) 125 mg EVERY 8 HOURS ORAL 04/11/20 22:00 05/11/20 13:59 04/15/20 05:32 Ertapenem 0.5 gm/ Sodium Chloride 55 ml @ 110 mls/hr Q24H IVPB 04/13/20 15:00 04/18/20 14:59 04/14/20 14:28 Ondansetron HCl (Zofran) 4 mg Q6H PRN IVP Nausea & Vomiting 04/11/20 19:15 05/11/20 13:14 Polyethylene Glycol (Miralax) 17 gm DAILYPRN PRN ORAL Constipation 04/11/20 19:00 05/11/20 18:59 Risperidone (RisperDAL) 1 mg Q8HR ORAL 04/11/20 22:00 05/26/20 13:59 04/15/20 05:32 Rivaroxaban (Xarelto) 15 mg DAILY ORAL 04/12/20 09:00 07/11/20 08:59 04/14/20 09:45 Temazepam (Restoril) 15 mg HSPRN PRN ORAL Insomnia 04/11/20 19:00 04/18/20 18:59 Assessment/Plan Assessment/Plan ASSESSMENT Confirmed COVID-19 infection (at [facility] 03/28/20) Toxic metabolic encephalopathy Paroxysmal A flutter and A. fib ; on chronic anticoagulation HTN DM UTI with E. coli ESBL Anemia TAMMIE Dehydration Cachexia due to protein calorie malnutrition PLAN OF CARE tele O2 , pulmonary toilet CXR 04/14 no change continue isolation abx as per ID recs COVID 19 on 04/11 indeterminate result SARS COV 2 by PCR 04/14 pending, fup with result CRP 4.3 on 04/15 monitor H&H with goal to keep Hgb> 7 continue anticoagulation and Amiodarone rate controlled fup with cardio recs BP, BS management monitor renal parameters, correct electrolytes as needed TAMMIE resolved, likely due to dehydration swallow eval noted, diet texture as per ST recs strict asp precautions diet eval and supplements as per RD recs bowel regimen supportive care case discussed and evaluated by supervising physician Rosamaria Stallings NP April 15, 2020 08:39
[2020-04-15 08:50] LABS: BASOPHILS % (AUTO) 3.4 % (0.0-2.0); EOSINOPHILS % (AUTO) 0.4 % (0.0-3.0); HEMATOCRIT 24.7 % (37.0-47.0); HEMOGLOBIN 8.8 G/DL (12.0-16.0); LYMPHOCYTES % (AUTO) 13.6 % (20.0-45.0); MEAN CORPUSCULAR VOLUME 107 FL (80-99); MONOCYTES % (AUTO) 8.6 % (1.0-10.0); PLATELET COUNT 192 K/UL (150-450); RED BLOOD COUNT 2.32 M/UL (4.20-5.40); WHITE BLOOD COUNT 4.8 K/UL (4.8-10.8)
[2020-04-15] MEDS: Amiodarone 200mg tab ORAL SCH (09:28)
[2020-04-15] MEDS: Xarelto 15mg tab ORAL SCH (09:29)
[2020-04-15 09:51] LABS: ALANINE AMINOTRANSFERASE 30 U/L (12-78); ALBUMIN 2.8 G/DL (3.4-5.0); ALBUMIN/GLOBULIN RATIO 0.8 (1.0-2.7); ALKALINE PHOSPHATASE 88 U/L (46-116); ANION GAP 12 mmol/L (5-15); ASPARTATE AMINO TRANSFERASE 30 U/L (15-37); BILIRUBIN,TOTAL 0.6 MG/DL (0.2-1.0); CALCIUM 8.4 MG/DL (8.5-10.1); CARBON DIOXIDE 23 MMOL/L (21-32); CHLORIDE 109 MMOL/L (98-107); CREATININE 1.1 MG/DL (0.55-1.30); PHOSPHORUS 2.9 MG/DL (2.5-4.9); POTASSIUM 4.4 MMOL/L (3.5-5.1); SODIUM 144 MMOL/L (136-145)
[2020-04-15 10:01] LABS: BLOOD UREA NITROGEN 18 mg/dL (7-18)
--- NOTE | 2020-04-15 11:17 | Internal Med Progress Note ---
Subjective Date of Service: April 15, 2020 Physician Name Jonas Scott Attending Physician Ulices High MD Current Medications Medications (Trade) Dose Ordered Sig/Dewayne Route PRN Reason Start Time Stop Time Status Last Admin Dose Admin Acetaminophen (Tylenol) 650 mg Q4H PRN ORAL fever 04/11/20 19:00 05/11/20 18:59 Albuterol/ Ipratropium (Combivent Respimat) 1 puff Q4H PRN INH Shortness of Breath 04/11/20 19:00 05/11/20 18:59 Amiodarone HCl (Cordarone) 200 mg DAILY ORAL 04/12/20 09:00 07/11/20 08:59 04/15/20 09:28 Divalproex Sodium (Depakote Sprinkles) 125 mg EVERY 8 HOURS ORAL 04/11/20 22:00 05/11/20 13:59 04/15/20 05:32 Ertapenem 0.5 gm/ Sodium Chloride 55 ml @ 110 mls/hr Q24H IVPB 04/13/20 15:00 04/18/20 14:59 04/14/20 14:28 Ondansetron HCl (Zofran) 4 mg Q6H PRN IVP Nausea & Vomiting 04/11/20 19:15 05/11/20 13:14 Polyethylene Glycol (Miralax) 17 gm DAILYPRN PRN ORAL Constipation 04/11/20 19:00 05/11/20 18:59 Risperidone (RisperDAL) 1 mg Q8HR ORAL 04/11/20 22:00 05/26/20 13:59 04/15/20 05:32 Rivaroxaban (Xarelto) 15 mg DAILY ORAL 04/12/20 09:00 07/11/20 08:59 04/15/20 09:29 Temazepam (Restoril) 15 mg HSPRN PRN ORAL Insomnia 04/11/20 19:00 04/18/20 18:59 Allergies: Coded Allergies: No Known Allergies (Unverified , 01/13/20) ROS Limited/Unobtainable: Yes Subjective 84 YO F with COVID 19 positive status admitted with failure to thrive. Now UTI. Tele. Cover for Int Bartolo-Dr High Objective Last Vital Signs Date Time Temp Pulse Resp B/P (MAP) Pulse Ox O2 Delivery O2 Flow Rate FiO2 04/15/20 08:00 97.9 88 22 142/69 (93) 99 04/14/20 21:00 Room Air Laboratory Tests Test 04/15/20 07:50 White Blood Count 4.8 K/UL (4.8-10.8) Red Blood Count 2.32 M/UL (4.20-5.40) L Hemoglobin 8.8 G/DL (12.0-16.0) L Hematocrit 24.7 % (37.0-47.0) L Mean Corpuscular Volume 107 FL (80-99) H Mean Corpuscular Hemoglobin 38.0 PG (27.0-31.0) H Mean Corpuscular Hemoglobin Concent 35.6 G/DL (32.0-36.0) Red Cell Distribution Width 15.0 % (11.6-14.8) H Platelet Count 192 K/UL (150-450) Mean Platelet Volume 8.1 FL (6.5-10.1) Neutrophils (%) (Auto) 74.0 % (45.0-75.0) Lymphocytes (%) (Auto) 13.6 % (20.0-45.0) L Monocytes (%) (Auto) 8.6 % (1.0-10.0) Eosinophils (%) (Auto) 0.4 % (0.0-3.0) Basophils (%) (Auto) 3.4 % (0.0-2.0) H Erythrocyte Sedimentation Rate 95 MM/HR (0-30) H Sodium Level 144 MMOL/L (136-145) Potassium Level 4.4 MMOL/L (3.5-5.1) Chloride Level 109 MMOL/L (98-107) H Carbon Dioxide Level 23 MMOL/L (21-32) Anion Gap 12 mmol/L (5-15) Blood Urea Nitrogen 18 mg/dL (7-18) Creatinine 1.1 MG/DL (0.55-1.30) Estimat Glomerular Filtration Rate 47.1 mL/min (>60) Glucose Level 88 MG/DL (74-106) Calcium Level 8.4 MG/DL (8.5-10.1) L Phosphorus Level 2.9 MG/DL (2.5-4.9) Magnesium Level 2.0 MG/DL (1.8-2.4) Total Bilirubin 0.6 MG/DL (0.2-1.0) Aspartate Amino Transf (AST/SGOT) 30 U/L (15-37) Alanine Aminotransferase (ALT/SGPT) 30 U/L (12-78) Alkaline Phosphatase 88 U/L (46-116) C-Reactive Protein, Quantitative 4.3 mg/dL (0.00-0.90) H Total Protein 6.5 G/DL (6.4-8.2) Albumin 2.8 G/DL (3.4-5.0) L Globulin 3.7 g/dL Albumin/Globulin Ratio 0.8 (1.0-2.7) L Intake and Output 04/14/20 04/15/20 19:00 07:00 Intake Total 175 ml Balance 175 ml Intake Oral 120 ml IV Total 55 ml # Voids 1 Objective PHYSICAL EXAMINATION: GENERAL: Patient is a well-developed, well-nourished female, who is confused and nonverbal. HEENT: Eyes, pupils are equal and responsive to light and accommodation. Extraocular movements are intact. NECK: Supple. No lymphadenopathy. CHEST: Lungs are clear to auscultation bilaterally without wheezes or rales. CARDIOVASCULAR: Regular rhythm and rate. S1, S2 are normal without murmurs, rubs, or gallops. ABDOMEN: Soft, nontender, nondistended. Positive bowel sounds. No evidence of hepatosplenomegaly. Currently, no rebound or guarding noted. EXTREMITIES: Negative for clubbing, cyanosis, or edema. RECTAL/GENITAL: Not performed. NEUROLOGICAL: Cranial nerves II through XII grossly intact without focal deficits. Assessment/Plan Assessment/Plan ASSESSMENT: This is an 84-year-old female. 1. COVID-19 positive. 2. Failure to thrive. 3. Congestive heart failure. 4. Renal failure. 5. Atrial flutter. 6. Bipolar disorder. 7. Coronary artery disease. 8. Hypertension. 9. Alzheimer's dementia. 10. Gastroesophageal reflux. 11. Diverticulosis. 12. Cholelithiasis. 13. Hypotension; resolved 14. UTI=ESBL E. Coli TREATMENT: 1. COVID-19 positive. An Infectious Disease consultation has been obtained with Dr. Altamirano. We will follow recommendation of Infectious Disease. 2. Failure to thrive. This may be secondary to viral syndrome secondary to COVID-19 positive. 3. Congestive heart failure. Await echocardiogram. A Cardiology consultation has been obtained with Dr. Erasmo Faust. 4. Atrial flutter as above. As above, Cardiology consultation has been obtained with Dr. Erasmo Faust. 5. Renal failure. This may be dehydration versus acute on chronic renal failure. 6. Bipolar disorder. Continue Depakote and Risperdal as above. 7. Coronary artery disease. 8. Hypertension. 9. Alzheimer's dementia. 10. Gastroesophageal reflux disease. 11. Diverticulosis. 12. Cholelithiasis. 13. Transfer to tele. Received NS bolus. See cardiology discussion concerning amiodarone. 14. ABX=ertapenem; S/P cefepime and vanco; ID=Dr Altamirano 15. Full code Jonas Scott MD April 15, 2020 11:17
[2020-04-15 12:00] VITALS: BP 153/65
--- NOTE | 2020-04-15 14:39 | Infectious Diseases Prog Note ---
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 SARS-COV2 PCR indeterminate UTI -u/a wbc tnct, nit +, leuk +3; ucx >100k E.coli, ESBL (S Zosyn, Meropenem) Afebrile No leukocytosis Anemia TAMMIE, improving Dm2 HLD HTN Dementia Afib on chronic anticoagulation bipolar disorder [place] resident ([facility]) Plan: -Continue Ertapenem #2/-7 -04/13 SP Cefepime #3 -04/11 SP IV vancomycin #1, Levaquin x1 -f/u cx -Monitor CBC/CMP, temperature -COVID 19 isolation and testing; repeat test as was indeterminate Thank you for consulting [facility]. Will continue to follow along with you. Subjective Allergies: Coded Allergies: No Known Allergies (Unverified , 01/13/20) Subjective afebrile at RA no leukocytosis COVID indeterminate Objective Vital Signs Last 24 Hour Vital Signs Date Time Temp Pulse Resp B/P (MAP) Pulse Ox O2 Delivery O2 Flow Rate FiO2 04/15/20 12:00 97.7 86 20 153/65 (94) 99 04/15/20 12:00 83 04/15/20 09:00 Room Air 04/15/20 08:00 97.9 88 22 142/69 (93) 99 04/15/20 08:00 95 04/15/20 04:00 96.8 77 19 154/58 (90) 94 04/15/20 04:00 90 04/15/20 00:00 96 04/15/20 00:00 97.5 89 19 145/63 (90) 94 04/14/20 21:00 Room Air 04/14/20 20:00 102 04/14/20 20:00 98.9 92 17 101/57 (72) 95 04/14/20 16:00 94 04/14/20 16:00 98.3 81 18 132/58 (82) 97 Height (Feet): 5 Height (Inches): 2.00 Weight (Pounds): 107 Objective Gen: no respiratory distress, confused Head: normocephalic Lungs: no tachypnea or use of accessory resp muscles Abd: not distended MSK: restriction in place Laboratory Tests Test 04/15/20 07:50 White Blood Count 4.8 K/UL (4.8-10.8) Red Blood Count 2.32 M/UL (4.20-5.40) L Hemoglobin 8.8 G/DL (12.0-16.0) L Hematocrit 24.7 % (37.0-47.0) L Mean Corpuscular Volume 107 FL (80-99) H Mean Corpuscular Hemoglobin 38.0 PG (27.0-31.0) H Mean Corpuscular Hemoglobin Concent 35.6 G/DL (32.0-36.0) Red Cell Distribution Width 15.0 % (11.6-14.8) H Platelet Count 192 K/UL (150-450) Mean Platelet Volume 8.1 FL (6.5-10.1) Neutrophils (%) (Auto) 74.0 % (45.0-75.0) Lymphocytes (%) (Auto) 13.6 % (20.0-45.0) L Monocytes (%) (Auto) 8.6 % (1.0-10.0) Eosinophils (%) (Auto) 0.4 % (0.0-3.0) Basophils (%) (Auto) 3.4 % (0.0-2.0) H Erythrocyte Sedimentation Rate 95 MM/HR (0-30) H Sodium Level 144 MMOL/L (136-145) Potassium Level 4.4 MMOL/L (3.5-5.1) Chloride Level 109 MMOL/L (98-107) H Carbon Dioxide Level 23 MMOL/L (21-32) Anion Gap 12 mmol/L (5-15) Blood Urea Nitrogen 18 mg/dL (7-18) Creatinine 1.1 MG/DL (0.55-1.30) Estimat Glomerular Filtration Rate 47.1 mL/min (>60) Glucose Level 88 MG/DL (74-106) Calcium Level 8.4 MG/DL (8.5-10.1) L Phosphorus Level 2.9 MG/DL (2.5-4.9) Magnesium Level 2.0 MG/DL (1.8-2.4) Total Bilirubin 0.6 MG/DL (0.2-1.0) Aspartate Amino Transf (AST/SGOT) 30 U/L (15-37) Alanine Aminotransferase (ALT/SGPT) 30 U/L (12-78) Alkaline Phosphatase 88 U/L (46-116) C-Reactive Protein, Quantitative 4.3 mg/dL (0.00-0.90) H Total Protein 6.5 G/DL (6.4-8.2) Albumin 2.8 G/DL (3.4-5.0) L Globulin 3.7 g/dL Albumin/Globulin Ratio 0.8 (1.0-2.7) L Current Medications Medications (Trade) Dose Ordered Sig/Dewayne Route PRN Reason Start Time Stop Time Status Last Admin Dose Admin Acetaminophen (Tylenol) 650 mg Q4H PRN ORAL fever 04/11/20 19:00 05/11/20 18:59 Albuterol/ Ipratropium (Combivent Respimat) 1 puff Q4H PRN INH Shortness of Breath 04/11/20 19:00 05/11/20 18:59 Amiodarone HCl (Cordarone) 200 mg DAILY ORAL 04/12/20 09:00 07/11/20 08:59 04/15/20 09:28 Divalproex Sodium (Depakote Sprinkles) 125 mg EVERY 8 HOURS ORAL 04/11/20 22:00 05/11/20 13:59 04/15/20 13:31 Ertapenem 0.5 gm/ Sodium Chloride 55 ml @ 110 mls/hr Q24H IVPB 04/13/20 15:00 04/18/20 14:59 04/14/20 14:28 Ondansetron HCl (Zofran) 4 mg Q6H PRN IVP Nausea & Vomiting 04/11/20 19:15 05/11/20 13:14 Polyethylene Glycol (Miralax) 17 gm DAILYPRN PRN ORAL Constipation 04/11/20 19:00 05/11/20 18:59 Risperidone (RisperDAL) 1 mg Q8HR ORAL 04/11/20 22:00 05/26/20 13:59 04/15/20 13:30 Rivaroxaban (Xarelto) 15 mg DAILY ORAL 04/12/20 09:00 07/11/20 08:59 04/15/20 09:29 Temazepam (Restoril) 15 mg HSPRN PRN ORAL Insomnia 04/11/20 19:00 04/18/20 18:59 Lisa Altamirano M.D. April 15, 2020 14:39
[2020-04-15] MEDS: Ertapenem 0.5 GM in NS 55 ML IVPB SCH (15:26)
[2020-04-15 16:00] VITALS: BP 123/71
--- NOTE | 2020-04-15 16:15 | Cardiology Progress Note ---
Assessment/Plan Assessment/Plan the patient with history of paroxysmal a fib, now is in paced atrial rhythm. Stable, no changes, anticoaguation and amiodarone. Subjective Subjective Coverage for Dr Faust The patient is confused and unable to give any history Objective Last 24 Hour Vital Signs Date Time Temp Pulse Resp B/P (MAP) Pulse Ox O2 Delivery O2 Flow Rate FiO2 04/15/20 12:00 97.7 86 20 153/65 (94) 99 04/15/20 12:00 83 04/15/20 09:00 Room Air 04/15/20 08:00 97.9 88 22 142/69 (93) 99 04/15/20 08:00 95 04/15/20 04:00 96.8 77 19 154/58 (90) 94 04/15/20 04:00 90 04/15/20 00:00 96 04/15/20 00:00 97.5 89 19 145/63 (90) 94 04/14/20 21:00 Room Air 04/14/20 20:00 102 04/14/20 20:00 98.9 92 17 101/57 (72) 95 General Appearance: lethargic, other - confused EENT: PERRL/EOMI Neck: non-tender Rhythm: other - atrial pacing Cardiovascular: normal rate, systolic murmur Respiratory/Chest: no respiratory distress Abdomen: soft Extremities: normal range of motion Intake and Output 04/14/20 04/15/20 19:00 07:00 Intake Total 175 ml Balance 175 ml Intake Oral 120 ml IV Total 55 ml # Voids 1 Laboratory Tests Test 04/15/20 07:50 White Blood Count 4.8 K/UL (4.8-10.8) Red Blood Count 2.32 M/UL (4.20-5.40) L Hemoglobin 8.8 G/DL (12.0-16.0) L Hematocrit 24.7 % (37.0-47.0) L Mean Corpuscular Volume 107 FL (80-99) H Mean Corpuscular Hemoglobin 38.0 PG (27.0-31.0) H Mean Corpuscular Hemoglobin Concent 35.6 G/DL (32.0-36.0) Red Cell Distribution Width 15.0 % (11.6-14.8) H Platelet Count 192 K/UL (150-450) Mean Platelet Volume 8.1 FL (6.5-10.1) Neutrophils (%) (Auto) 74.0 % (45.0-75.0) Lymphocytes (%) (Auto) 13.6 % (20.0-45.0) L Monocytes (%) (Auto) 8.6 % (1.0-10.0) Eosinophils (%) (Auto) 0.4 % (0.0-3.0) Basophils (%) (Auto) 3.4 % (0.0-2.0) H Erythrocyte Sedimentation Rate 95 MM/HR (0-30) H Sodium Level 144 MMOL/L (136-145) Potassium Level 4.4 MMOL/L (3.5-5.1) Chloride Level 109 MMOL/L (98-107) H Carbon Dioxide Level 23 MMOL/L (21-32) Anion Gap 12 mmol/L (5-15) Blood Urea Nitrogen 18 mg/dL (7-18) Creatinine 1.1 MG/DL (0.55-1.30) Estimat Glomerular Filtration Rate 47.1 mL/min (>60) Glucose Level 88 MG/DL (74-106) Calcium Level 8.4 MG/DL (8.5-10.1) L Phosphorus Level 2.9 MG/DL (2.5-4.9) Magnesium Level 2.0 MG/DL (1.8-2.4) Total Bilirubin 0.6 MG/DL (0.2-1.0) Aspartate Amino Transf (AST/SGOT) 30 U/L (15-37) Alanine Aminotransferase (ALT/SGPT) 30 U/L (12-78) Alkaline Phosphatase 88 U/L (46-116) C-Reactive Protein, Quantitative 4.3 mg/dL (0.00-0.90) H Total Protein 6.5 G/DL (6.4-8.2) Albumin 2.8 G/DL (3.4-5.0) L Globulin 3.7 g/dL Albumin/Globulin Ratio 0.8 (1.0-2.7) L Dory Meyer MD April 15, 2020 16:15
--- NOTE | 2020-04-15 19:05 | NUR ---
HAND-OFF: Report given to DADA Lemus. Endorsed plan of care.
--- NOTE | 2020-04-15 19:12 | NUR ---
NURSE NOTES: Received report from DADA Agee. Patient is awake lying semi-suarez's; restless. No signs of acute distress or pain noted at this time. AOx1; unable to make needs known. Primarily Turkmen speaking. Checked IV site; patent and flushed. No erythema, bleeding, or infiltration noted. Bed at lowest position, brakes on, siderails up x3. Call light within reach. Will continue to monitor.
[2020-04-15 20:00] VITALS: BP 130/75
[2020-04-16] VITALS: BP 144/63
[2020-04-16 04:00] VITALS: BP 140/72
[2020-04-16] MEDS: Depakote 125mg Sprinkles ORAL SCH ×3 (05:40→22:44)
[2020-04-16 07:09] LABS: ANION GAP 8 mmol/L (5-15); BLOOD UREA NITROGEN 16 mg/dL (7-18); CALCIUM 8.5 MG/DL (8.5-10.1); CARBON DIOXIDE 29 MMOL/L (21-32); CHLORIDE 110 MMOL/L (98-107); CREATININE 1.3 MG/DL (0.55-1.30); POTASSIUM 4.1 MMOL/L (3.5-5.1); SODIUM 147 MMOL/L (136-145)
[2020-04-16 07:10] LABS: BASOPHILS % (AUTO) 3.6 % (0.0-2.0); EOSINOPHILS % (AUTO) 0.4 % (0.0-3.0); HEMATOCRIT 25.1 % (37.0-47.0); LYMPHOCYTES % (AUTO) 8.9 % (20.0-45.0); MEAN CORPUSCULAR VOLUME 107 FL (80-99); MONOCYTES % (AUTO) 9.5 % (1.0-10.0); NEUTROPHILS % (AUTO) 77.7 % (45.0-75.0); PLATELET COUNT 203 K/UL (150-450); RED BLOOD COUNT 2.35 M/UL (4.20-5.40)
--- NOTE | 2020-04-16 07:14 | Pulmonology Progress Note ---
Subjective ROS Limited/Unobtainable: Yes Allergies: Coded Allergies: No Known Allergies (Unverified , 01/13/20) Subjective on RA pulkse ox stable no signs of resp distress afebrile, no leukocytosis Objective Last 24 Hour Vital Signs Date Time Temp Pulse Resp B/P (MAP) Pulse Ox O2 Delivery O2 Flow Rate FiO2 04/16/20 04:00 64 04/16/20 04:00 97.2 89 21 140/72 (94) 95 04/16/20 00:00 97.5 78 22 144/63 (90) 92 04/16/20 00:00 70 04/15/20 21:00 Room Air 04/15/20 20:00 68 04/15/20 20:00 97.8 85 21 130/75 (93) 94 04/15/20 16:00 98.1 98 20 123/71 (88) 97 04/15/20 16:00 90 04/15/20 12:00 97.7 86 20 153/65 (94) 99 04/15/20 12:00 83 04/15/20 09:00 Room Air 04/15/20 08:00 97.9 88 22 142/69 (93) 99 04/15/20 08:00 95 Intake and Output 04/15/20 04/16/20 19:00 07:00 Intake Total 324 ml 120 ml Balance 324 ml 120 ml Intake Oral 324 ml 120 ml # Voids 4 1 # Bowel Movements 2 2 Objective General Appearance: no acute distress, cachetic HEENT: normocephalic, atraumatic Respiratory: chest wall non-tender, lungs clear Breasts: no masses Cardiovascular: normal rate - SR with BBB Abdomen: normal bowel sounds, soft, non tender Genitourinary: normal external genitalia Skin: no rash Neurologic: abnormal gait, other - awake, demented, unable to provide answers to questions, moves all extremities Lymphatic: no neck adenopathy Musculoskeletal: atrophy - BLE Laboratory Tests 04/15/20 07:50: White Blood Count 4.8, Red Blood Count 2.32L, Hemoglobin 8.8L, Hematocrit 24.7L , Mean Corpuscular Volume 107H, Mean Corpuscular Hemoglobin 38.0H, Mean Corpuscular Hemoglobin Concent 35.6, Red Cell Distribution Width 15.0H, Platelet Count 192, Mean Platelet Volume 8.1, Neutrophils (%) (Auto) 74.0, Lymphocytes (%) (Auto) 13.6L, Monocytes (%) (Auto) 8.6, Eosinophils (%) (Auto) 0.4, Basophils (%) (Auto) 3.4H, Erythrocyte Sedimentation Rate 95H, Sodium Level 144, Potassium Level 4.4, Chloride Level 109H, Carbon Dioxide Level 23, Anion Gap 12, Blood Urea Nitrogen 18, Creatinine 1.1, Estimat Glomerular Filtration Rate 47.1, Glucose Level 88, Calcium Level 8.4L, Phosphorus Level 2.9 , Magnesium Level 2.0, Total Bilirubin 0.6, Aspartate Amino Transf (AST/SGOT) 30 , Alanine Aminotransferase (ALT/SGPT) 30, Alkaline Phosphatase 88, C-Reactive Protein, Quantitative 4.3H, Total Protein 6.5, Albumin 2.8L, Globulin 3.7, Albumin/Globulin Ratio 0.8L 04/16/20 06:35: White Blood Count [Pending], Red Blood Count [Pending], Hemoglobin [Pending], Hematocrit [Pending], Mean Corpuscular Volume [Pending], Mean Corpuscular Hemoglobin [Pending], Mean Corpuscular Hemoglobin Concent [Pending], Red Cell Distribution Width [Pending], Platelet Count [Pending], Mean Platelet Volume [ Pending], Neutrophils (%) (Auto) [Pending], Lymphocytes (%) (Auto) [Pending], Monocytes (%) (Auto) [Pending], Eosinophils (%) (Auto) [Pending], Basophils (%) (Auto) [Pending], Sodium Level 147H, Potassium Level 4.1, Chloride Level 110H, Carbon Dioxide Level 29, Anion Gap 8, Blood Urea Nitrogen 16, Creatinine 1.3, Estimat Glomerular Filtration Rate 38.8, Glucose Level 88, Calcium Level 8.5, Pro-B-Type Natriuretic Peptide [Pending] Current Medications Medications (Trade) Dose Ordered Sig/Dewayne Route PRN Reason Start Time Stop Time Status Last Admin Dose Admin Acetaminophen (Tylenol) 650 mg Q4H PRN ORAL fever 04/11/20 19:00 05/11/20 18:59 Albuterol/ Ipratropium (Combivent Respimat) 1 puff Q4H PRN INH Shortness of Breath 04/11/20 19:00 05/11/20 18:59 Amiodarone HCl (Cordarone) 200 mg DAILY ORAL 04/12/20 09:00 07/11/20 08:59 04/15/20 09:28 Divalproex Sodium (Depakote Sprinkles) 125 mg EVERY 8 HOURS ORAL 04/11/20 22:00 05/11/20 13:59 04/16/20 05:40 Ertapenem 0.5 gm/ Sodium Chloride 55 ml @ 110 mls/hr Q24H IVPB 04/13/20 15:00 04/18/20 14:59 04/15/20 15:26 Ondansetron HCl (Zofran) 4 mg Q6H PRN IVP Nausea & Vomiting 04/11/20 19:15 05/11/20 13:14 Polyethylene Glycol (Miralax) 17 gm DAILYPRN PRN ORAL Constipation 04/11/20 19:00 05/11/20 18:59 Risperidone (RisperDAL) 1 mg Q8HR ORAL 04/11/20 22:00 05/26/20 13:59 04/16/20 05:40 Rivaroxaban (Xarelto) 15 mg DAILY ORAL 04/12/20 09:00 07/11/20 08:59 04/15/20 09:29 Temazepam (Restoril) 15 mg HSPRN PRN ORAL Insomnia 04/11/20 19:00 04/18/20 18:59 Assessment/Plan Assessment/Plan ASSESSMENT Confirmed COVID-19 infection (at [facility] 03/28/20) Toxic metabolic encephalopathy Paroxysmal A flutter and A. fib ; on chronic anticoagulation HTN DM UTI with E. coli ESBL Anemia TAMMIE Dehydration Cachexia due to protein calorie malnutrition PLAN OF CARE tele O2 , pulmonary toilet CXR 04/14 no change continue isolation abx as per ID recs COVID 19 on 04/11 indeterminate result SARS COV 2 by PCR 04/14 pending, fup with result CRP 04/15 - 4.3 monitor H&H with goal to keep Hgb> 7 continue anticoagulation and Amiodarone rate controlled fup with cardio recs BP, BS management monitor renal parameters, correct electrolytes as needed TAMMIE resolved, likely due to dehydration swallow eval noted, diet texture as per ST recs strict asp precautions diet eval and protein supplements as per RD recs bowel regimen supportive care case discussed and evaluated by supervising physician Rosamaria Stallings NP April 16, 2020 07:14
--- NOTE | 2020-04-16 07:30 | NUR ---
HAND-OFF: Report given to DADA Mann and DADA Albarran. Patient is asleep lying semi-suarez's; resting comfortably. In stable condition.
--- NOTE | 2020-04-16 07:35 | NUR ---
NURSE NOTES: Received report from Mariah/RN, Patient is awake, lying semi-suarez's, resting comfortably. On room air, no acute distress/SOB noted. A/O x1. IV on left hand patent, no bleeding or infiltration noted. Bilateral Soft restraint for safety. Bed in low position and locked. Alarm engaged. side rails up x3. Call light within reach. Will continue plan of care.
[2020-04-16 08:00] VITALS: BP 152/57
[2020-04-16] MEDS: Amiodarone 200mg tab ORAL SCH (09:01)
[2020-04-16] MEDS: Xarelto 15mg tab ORAL SCH (09:01)
[2020-04-16 12:00] VITALS: BP 129/47
[2020-04-16] MEDS: Ertapenem 0.5 GM in NS 55 ML IVPB SCH (14:26)
--- NOTE | 2020-04-16 14:40 | Internal Med Progress Note ---
Subjective Date of Service: April 16, 2020 Physician Name Jonas Scott Attending Physician Ulices High MD Current Medications Medications (Trade) Dose Ordered Sig/Dewayne Route PRN Reason Start Time Stop Time Status Last Admin Dose Admin Acetaminophen (Tylenol) 650 mg Q4H PRN ORAL fever 04/11/20 19:00 05/11/20 18:59 Albuterol/ Ipratropium (Combivent Respimat) 1 puff Q4H PRN INH Shortness of Breath 04/11/20 19:00 05/11/20 18:59 Amiodarone HCl (Cordarone) 200 mg DAILY ORAL 04/12/20 09:00 07/11/20 08:59 04/16/20 09:01 Divalproex Sodium (Depakote Sprinkles) 125 mg EVERY 8 HOURS ORAL 04/11/20 22:00 05/11/20 13:59 04/16/20 14:26 Ertapenem 0.5 gm/ Sodium Chloride 55 ml @ 110 mls/hr Q24H IVPB 04/13/20 15:00 04/18/20 14:59 04/16/20 14:26 Ondansetron HCl (Zofran) 4 mg Q6H PRN IVP Nausea & Vomiting 04/11/20 19:15 05/11/20 13:14 Polyethylene Glycol (Miralax) 17 gm DAILYPRN PRN ORAL Constipation 04/11/20 19:00 05/11/20 18:59 Risperidone (RisperDAL) 1 mg Q8HR ORAL 04/11/20 22:00 05/26/20 13:59 04/16/20 14:26 Rivaroxaban (Xarelto) 15 mg DAILY ORAL 04/12/20 09:00 07/11/20 08:59 04/16/20 09:01 Temazepam (Restoril) 15 mg HSPRN PRN ORAL Insomnia 04/11/20 19:00 04/18/20 18:59 Allergies: Coded Allergies: No Known Allergies (Unverified , 01/13/20) ROS Limited/Unobtainable: Yes Subjective 84 YO F with COVID 19 positive status admitted with failure to thrive. Now UTI. Tele. Cover for Int Bartolo-Dr High Objective Last Vital Signs Date Time Temp Pulse Resp B/P (MAP) Pulse Ox O2 Delivery O2 Flow Rate FiO2 04/16/20 12:00 71 04/16/20 12:00 97.7 22 129/47 (74) 96 04/16/20 09:00 Room Air Laboratory Tests Test 04/16/20 06:35 White Blood Count 6.0 K/UL (4.8-10.8) Red Blood Count 2.35 M/UL (4.20-5.40) L Hemoglobin 9.0 G/DL (12.0-16.0) L Hematocrit 25.1 % (37.0-47.0) L Mean Corpuscular Volume 107 FL (80-99) H Mean Corpuscular Hemoglobin 38.4 PG (27.0-31.0) H Mean Corpuscular Hemoglobin Concent 36.0 G/DL (32.0-36.0) Red Cell Distribution Width 14.0 % (11.6-14.8) Platelet Count 203 K/UL (150-450) Mean Platelet Volume 7.6 FL (6.5-10.1) Neutrophils (%) (Auto) 77.7 % (45.0-75.0) H Lymphocytes (%) (Auto) 8.9 % (20.0-45.0) L Monocytes (%) (Auto) 9.5 % (1.0-10.0) Eosinophils (%) (Auto) 0.4 % (0.0-3.0) Basophils (%) (Auto) 3.6 % (0.0-2.0) H Sodium Level 147 MMOL/L (136-145) H Potassium Level 4.1 MMOL/L (3.5-5.1) Chloride Level 110 MMOL/L (98-107) H Carbon Dioxide Level 29 MMOL/L (21-32) Anion Gap 8 mmol/L (5-15) Blood Urea Nitrogen 16 mg/dL (7-18) Creatinine 1.3 MG/DL (0.55-1.30) Estimat Glomerular Filtration Rate 38.8 mL/min (>60) Glucose Level 88 MG/DL (74-106) Calcium Level 8.5 MG/DL (8.5-10.1) Pro-B-Type Natriuretic Peptide 6080 pg/mL (0-125) H Intake and Output 04/15/20 04/16/20 19:00 07:00 Intake Total 324 ml 120 ml Balance 324 ml 120 ml Intake Oral 324 ml 120 ml # Voids 4 1 # Bowel Movements 2 2 Objective PHYSICAL EXAMINATION: GENERAL: Patient is a well-developed, well-nourished female, who is confused and nonverbal. HEENT: Eyes, pupils are equal and responsive to light and accommodation. Extraocular movements are intact. NECK: Supple. No lymphadenopathy. CHEST: Lungs are clear to auscultation bilaterally without wheezes or rales. CARDIOVASCULAR: Regular rhythm and rate. S1, S2 are normal without murmurs, rubs, or gallops. ABDOMEN: Soft, nontender, nondistended. Positive bowel sounds. No evidence of hepatosplenomegaly. Currently, no rebound or guarding noted. EXTREMITIES: Negative for clubbing, cyanosis, or edema. RECTAL/GENITAL: Not performed. NEUROLOGICAL: Cranial nerves II through XII grossly intact without focal deficits. Assessment/Plan Assessment/Plan ASSESSMENT: This is an 84-year-old female. 1. COVID-19 positive. 2. Failure to thrive. 3. Congestive heart failure. 4. Renal failure. 5. Atrial flutter. 6. Bipolar disorder. 7. Coronary artery disease. 8. Hypertension. 9. Alzheimer's dementia. 10. Gastroesophageal reflux. 11. Diverticulosis. 12. Cholelithiasis. 13. Hypotension; resolved 14. UTI=ESBL E. Coli 15. Hypernatremia TREATMENT: 1. COVID-19 positive. An Infectious Disease consultation has been obtained with Dr. Altamirano. We will follow recommendation of Infectious Disease. 2. Failure to thrive. This may be secondary to viral syndrome secondary to COVID-19 positive. 3. Congestive heart failure. Await echocardiogram. A Cardiology consultation has been obtained with Dr. Erasmo Faust. 4. Atrial flutter as above. As above, Cardiology consultation has been obtained with Dr. Erasmo Faust. 5. Renal failure. This may be dehydration versus acute on chronic renal failure. 6. Bipolar disorder. Continue Depakote and Risperdal as above. 7. Coronary artery disease. 8. Hypertension. 9. Alzheimer's dementia. 10. Gastroesophageal reflux disease. 11. Diverticulosis. 12. Cholelithiasis. 13. Transfer to [facility]. Received NS bolus. See cardiology discussion concerning amiodarone. 14. ABX=ertapenem; S/P cefepime and vanco; ID=Dr Evelia Tee. Full code 16. start D5 11/25 Jonas Coffman MD April 16, 2020 14:40
[2020-04-16 16:00] VITALS: BP 124/62
[2020-04-16] MEDS: Potassium Chloride 10 MEQ in D5 1/2NS 1,000 ML IV SCH (16:36)
--- NOTE | 2020-04-16 19:20 | NUR ---
HAND-OFF: Report given to Mariah/RN, Patient is in stable condition. Endorsed plan of care.
--- NOTE | 2020-04-16 19:31 | NUR ---
NURSE NOTES: Received report from DADA Mann. Patient is awake lying supine; restless and resistive to care. No signs of acute distress or pain noted at this time. AOx1; unable to make needs known, but patient can follow commands to a very limited degree in Indonesian. Checked IV site, lines, and IV rate; patent and running. No erythema, bleeding, or infiltration noted. Bed at lowest position, brakes on, siderails up x3. Call light within reach. Will continue to monitor.
[2020-04-16 20:00] VITALS: BP 121/84
[2020-04-17] VITALS: BP 133/70
[2020-04-17 04:00] VITALS: BP 102/46
[2020-04-17] MEDS: Depakote 125mg Sprinkles ORAL SCH ×3 (06:24→21:34)
--- NOTE | 2020-04-17 07:22 | NUR ---
HAND-OFF: Report given to DADA Mae. Patient is awake lying supine; restless. In stable condition otherwise.
--- NOTE | 2020-04-17 07:33 | NUR ---
NURSE NOTES: Received report from DADA Lemus. Patient in bed resting, no active s/s cardiac, respiratory distress noticed at this time. Patient AOx0-1, confused, room air, SR with BBB with HR 98. IV on left hand 24G, intact. Patient on bilateral soft wrist restraints, able to move, cap refill <3sec. Bed in lowest position, side rails upx3, call light within reach, bed alarm on. Will continue to monitor.
[2020-04-17 07:38] LABS: BASOPHILS % (AUTO) 1.3 % (0.0-2.0); EOSINOPHILS % (AUTO) 1.2 % (0.0-3.0); HEMATOCRIT 23.5 % (37.0-47.0); HEMOGLOBIN 8.4 G/DL (12.0-16.0); MEAN CORPUSCULAR VOLUME 107 FL (80-99); MONOCYTES % (AUTO) 10.1 % (1.0-10.0); NEUTROPHILS % (AUTO) 73.5 % (45.0-75.0); PLATELET COUNT 218 K/UL (150-450); RED CELL DISTRIBUTION WIDTH 14.3 % (11.6-14.8); WHITE BLOOD COUNT 5.3 K/UL (4.8-10.8)
[2020-04-17 08:00] VITALS: BP 146/78
[2020-04-17 08:02] LABS: ANION GAP 8 mmol/L (5-15); BLOOD UREA NITROGEN 12 mg/dL (7-18); CALCIUM 8.2 MG/DL (8.5-10.1); CARBON DIOXIDE 27 MMOL/L (21-32); CHLORIDE 110 MMOL/L (98-107); CREATININE 1.1 MG/DL (0.55-1.30); SODIUM 145 MMOL/L (136-145)
[2020-04-17] MEDS: Xarelto 15mg tab ORAL SCH (08:16)
[2020-04-17] MEDS: Amiodarone 200mg tab ORAL SCH (08:16)
--- NOTE | 2020-04-17 09:12 | Pulmonology Progress Note ---
Subjective ROS Limited/Unobtainable: Yes Allergies: Coded Allergies: No Known Allergies (Unverified , 01/13/20) Subjective on RA pulse ox stable no signs of resp distress afebrile, no leukocytosis Objective Last 24 Hour Vital Signs Date Time Temp Pulse Resp B/P (MAP) Pulse Ox O2 Delivery O2 Flow Rate FiO2 04/17/20 08:00 97.7 78 20 146/78 (100) 98 04/17/20 04:00 62 04/17/20 04:00 97.8 79 20 102/46 (64) 93 04/17/20 00:00 98.2 98 18 133/70 (91) 94 04/17/20 00:00 72 04/16/20 21:00 Room Air 04/16/20 20:00 69 04/16/20 20:00 98.2 94 18 121/84 (96) 92 04/16/20 16:00 97.6 72 20 124/62 (82) 98 04/16/20 16:00 64 04/16/20 12:00 71 04/16/20 12:00 97.7 87 22 129/47 (74) 96 Intake and Output 04/16/20 04/17/20 19:00 07:00 Intake Total 250 ml 250 ml Balance 250 ml 250 ml Intake Oral 200 ml IV Total 50 ml 250 ml # Voids 4 2 # Bowel Movements 1 Objective General Appearance: no acute distress, cachetic HEENT: normocephalic, atraumatic Respiratory: chest wall non-tender, lungs clear Breasts: no masses Cardiovascular: normal rate - SR with BBB Abdomen: normal bowel sounds, soft, non tender Genitourinary: normal external genitalia Skin: no rash Neurologic: abnormal gait, other - awake, demented, unable to provide answers to questions, moves all extremities Lymphatic: no neck adenopathy Musculoskeletal: atrophy - BLE Laboratory Tests 04/17/20 06:50: White Blood Count 5.3, Red Blood Count 2.20L, Hemoglobin 8.4L, Hematocrit 23.5L , Mean Corpuscular Volume 107H, Mean Corpuscular Hemoglobin 38.0H, Mean Corpuscular Hemoglobin Concent 35.6, Red Cell Distribution Width 14.3, Platelet Count 218, Mean Platelet Volume 7.8, Neutrophils (%) (Auto) 73.5, Lymphocytes (% ) (Auto) 14.0L, Monocytes (%) (Auto) 10.1H, Eosinophils (%) (Auto) 1.2, Basophils (%) (Auto) 1.3, Sodium Level 145, Potassium Level 4.0, Chloride Level 110H, Carbon Dioxide Level 27, Anion Gap 8, Blood Urea Nitrogen 12, Creatinine 1.1, Estimat Glomerular Filtration Rate 47.1, Glucose Level 103, Calcium Level 8.2L Current Medications Medications (Trade) Dose Ordered Sig/Dewayne Route PRN Reason Start Time Stop Time Status Last Admin Dose Admin Acetaminophen (Tylenol) 650 mg Q4H PRN ORAL fever 04/11/20 19:00 05/11/20 18:59 Albuterol/ Ipratropium (Combivent Respimat) 1 puff Q4H PRN INH Shortness of Breath 04/11/20 19:00 05/11/20 18:59 Amiodarone HCl (Cordarone) 200 mg DAILY ORAL 04/12/20 09:00 07/11/20 08:59 04/17/20 08:16 Divalproex Sodium (Depakote Sprinkles) 125 mg EVERY 8 HOURS ORAL 04/11/20 22:00 05/11/20 13:59 04/17/20 06:24 Ertapenem 0.5 gm/ Sodium Chloride 55 ml @ 110 mls/hr Q24H IVPB 04/13/20 15:00 04/18/20 23:59 04/16/20 14:26 Ondansetron HCl (Zofran) 4 mg Q6H PRN IVP Nausea & Vomiting 04/11/20 19:15 05/11/20 13:14 Polyethylene Glycol (Miralax) 17 gm DAILYPRN PRN ORAL Constipation 04/11/20 19:00 05/11/20 18:59 Potassium Chloride 10 meq/ Dextrose/Sodium Chloride 1,005 ml @ 50 mls/hr Q20H6M IV 04/16/20 15:30 05/16/20 15:29 04/16/20 16:36 Risperidone (RisperDAL) 1 mg Q8HR ORAL 04/11/20 22:00 05/26/20 13:59 04/17/20 06:24 Rivaroxaban (Xarelto) 15 mg DAILY ORAL 04/12/20 09:00 07/11/20 08:59 04/17/20 08:16 Temazepam (Restoril) 15 mg HSPRN PRN ORAL Insomnia 04/11/20 19:00 04/18/20 18:59 04/16/20 23:30 Assessment/Plan Assessment/Plan ASSESSMENT Confirmed COVID-19 infection (at [facility] 03/28/20) Toxic metabolic encephalopathy Paroxysmal A flutter and A. fib ; on chronic anticoagulation HTN DM UTI with E. coli ESBL Anemia TAMMIE Dehydration Cachexia due to protein calorie malnutrition PLAN OF CARE tele O2 , pulmonary toilet CXR 04/14 no change continue isolation COVID 19 on 04/11 indeterminate result SARS COV 2 by PCR 04/14 pending, fup with result CRP 04/15 - 4.3 UCX+E coli ESBL abx as per ID recs monitor H&H with goal to keep Hgb> 7 continue anticoagulation and Amiodarone rate controlled fup with cardio recs BP, BS management monitor renal parameters, correct electrolytes as needed TAMMIE resolved, likely due to dehydration swallow eval noted, diet texture as per ST recs strict asp precautions diet eval and protein supplements as per RD recs bowel regimen supportive care case discussed and evaluated by supervising physician Rosamaria Stallings NP April 17, 2020 09:12
[2020-04-17 12:00] VITALS: BP 140/79
--- NOTE | 2020-04-17 13:55 | Internal Med Progress Note ---
Subjective Date of Service: April 17, 2020 Physician Name Scott,Jonas Attending Physician Ulices High MD Current Medications Medications (Trade) Dose Ordered Sig/Dewayne Route PRN Reason Start Time Stop Time Status Last Admin Dose Admin Acetaminophen (Tylenol) 650 mg Q4H PRN ORAL fever 04/11/20 19:00 05/11/20 18:59 Albuterol/ Ipratropium (Combivent Respimat) 1 puff Q4H PRN INH Shortness of Breath 04/11/20 19:00 05/11/20 18:59 Amiodarone HCl (Cordarone) 200 mg DAILY ORAL 04/12/20 09:00 07/11/20 08:59 04/17/20 08:16 Divalproex Sodium (Depakote Sprinkles) 125 mg EVERY 8 HOURS ORAL 04/11/20 22:00 05/11/20 13:59 04/17/20 06:24 Ertapenem 0.5 gm/ Sodium Chloride 55 ml @ 110 mls/hr Q24H IVPB 04/13/20 15:00 04/18/20 23:59 04/16/20 14:26 Ondansetron HCl (Zofran) 4 mg Q6H PRN IVP Nausea & Vomiting 04/11/20 19:15 05/11/20 13:14 Polyethylene Glycol (Miralax) 17 gm DAILYPRN PRN ORAL Constipation 04/11/20 19:00 05/11/20 18:59 Potassium Chloride 10 meq/ Dextrose/Sodium Chloride 1,005 ml @ 50 mls/hr Q20H6M IV 04/16/20 15:30 05/16/20 15:29 04/16/20 16:36 Risperidone (RisperDAL) 1 mg Q8HR ORAL 04/11/20 22:00 05/26/20 13:59 04/17/20 06:24 Rivaroxaban (Xarelto) 15 mg DAILY ORAL 04/12/20 09:00 07/11/20 08:59 04/17/20 08:16 Temazepam (Restoril) 15 mg HSPRN PRN ORAL Insomnia 04/11/20 19:00 04/18/20 18:59 04/16/20 23:30 Allergies: Coded Allergies: No Known Allergies (Unverified , 01/13/20) ROS Limited/Unobtainable: Yes Subjective 84 YO F with COVID 19 positive status admitted with failure to thrive. Now UTI. Tele. Cover for Int Bartolo-Dr High Objective Last Vital Signs Date Time Temp Pulse Resp B/P (MAP) Pulse Ox O2 Delivery O2 Flow Rate FiO2 04/17/20 12:00 98.7 68 20 140/79 (99) 96 04/17/20 09:00 Room Air Laboratory Tests Test 04/17/20 06:50 White Blood Count 5.3 K/UL (4.8-10.8) Red Blood Count 2.20 M/UL (4.20-5.40) L Hemoglobin 8.4 G/DL (12.0-16.0) L Hematocrit 23.5 % (37.0-47.0) L Mean Corpuscular Volume 107 FL (80-99) H Mean Corpuscular Hemoglobin 38.0 PG (27.0-31.0) H Mean Corpuscular Hemoglobin Concent 35.6 G/DL (32.0-36.0) Red Cell Distribution Width 14.3 % (11.6-14.8) Platelet Count 218 K/UL (150-450) Mean Platelet Volume 7.8 FL (6.5-10.1) Neutrophils (%) (Auto) 73.5 % (45.0-75.0) Lymphocytes (%) (Auto) 14.0 % (20.0-45.0) L Monocytes (%) (Auto) 10.1 % (1.0-10.0) H Eosinophils (%) (Auto) 1.2 % (0.0-3.0) Basophils (%) (Auto) 1.3 % (0.0-2.0) Sodium Level 145 MMOL/L (136-145) Potassium Level 4.0 MMOL/L (3.5-5.1) Chloride Level 110 MMOL/L (98-107) H Carbon Dioxide Level 27 MMOL/L (21-32) Anion Gap 8 mmol/L (5-15) Blood Urea Nitrogen 12 mg/dL (7-18) Creatinine 1.1 MG/DL (0.55-1.30) Estimat Glomerular Filtration Rate 47.1 mL/min (>60) Glucose Level 103 MG/DL (74-106) Calcium Level 8.2 MG/DL (8.5-10.1) L Microbiology Date/Time Source Procedure Growth Status 04/14/20 14:30 Nasopharynx Coronavirus COVID-19 PCR ([facility]) - Final Complete Intake and Output 04/16/20 04/17/20 19:00 07:00 Intake Total 250 ml 250 ml Balance 250 ml 250 ml Intake Oral 200 ml IV Total 50 ml 250 ml # Voids 4 2 # Bowel Movements 1 Objective PHYSICAL EXAMINATION: GENERAL: Patient is a well-developed, well-nourished female, who is confused and nonverbal. HEENT: Eyes, pupils are equal and responsive to light and accommodation. Extraocular movements are intact. NECK: Supple. No lymphadenopathy. CHEST: Lungs are clear to auscultation bilaterally without wheezes or rales. CARDIOVASCULAR: Regular rhythm and rate. S1, S2 are normal without murmurs, rubs, or gallops. ABDOMEN: Soft, nontender, nondistended. Positive bowel sounds. No evidence of hepatosplenomegaly. Currently, no rebound or guarding noted. EXTREMITIES: Negative for clubbing, cyanosis, or edema. RECTAL/GENITAL: Not performed. NEUROLOGICAL: Cranial nerves II through XII grossly intact without focal deficits. Assessment/Plan Assessment/Plan ASSESSMENT: This is an 84-year-old female. 1. COVID-19 positive. 2. Failure to thrive. 3. Congestive heart failure. 4. Renal failure. 5. Atrial flutter. 6. Bipolar disorder. 7. Coronary artery disease. 8. Hypertension. 9. Alzheimer's dementia. 10. Gastroesophageal reflux. 11. Diverticulosis. 12. Cholelithiasis. 13. Hypotension; resolved 14. UTI=ESBL E. Coli 15. Hypernatremia TREATMENT: 1. COVID-19 positive. An Infectious Disease consultation has been obtained with Dr. Altamirano. We will follow recommendation of Infectious Disease. 2. Failure to thrive. This may be secondary to viral syndrome secondary to COVID-19 positive. 3. Congestive heart failure. Await echocardiogram. A Cardiology consultation has been obtained with Dr. Erasmo Faust. 4. Atrial flutter as above. As above, Cardiology consultation has been obtained with Dr. Erasmo Faust. 5. Renal failure. This may be dehydration versus acute on chronic renal failure. 6. Bipolar disorder. Continue Depakote and Risperdal as above. 7. Coronary artery disease. 8. Hypertension. 9. Alzheimer's dementia. 10. Gastroesophageal reflux disease. 11. Diverticulosis. 12. Cholelithiasis. 13. Transfer to tele. Received NS bolus. See cardiology discussion concerning amiodarone. 14. ABX=ertapenem; S/P cefepime and vanco; ID=Dr Altamirano 15. Full code 16. start D5 11/25 Jonas Coffman MD April 17, 2020 13:55
[2020-04-17] MEDS: Potassium Chloride 10 MEQ in D5 1/2NS 1,000 ML IV SCH (15:40)
[2020-04-17 16:00] VITALS: BP 143/89
--- NOTE | 2020-04-17 16:25 | Cardiology Progress Note ---
Assessment/Plan Assessment/Plan the patient with history of paroxysmal a fib, now is in sinsu rhythm Stable, no changes, anticoaguation and amiodarone. consider change Xarelto to 20 mg, her creatinine improved Subjective Subjective The patient is very weak and lethargic Objective Last 24 Hour Vital Signs Date Time Temp Pulse Resp B/P (MAP) Pulse Ox O2 Delivery O2 Flow Rate FiO2 04/17/20 12:00 98.7 68 20 140/79 (99) 96 04/17/20 12:00 81 04/17/20 09:00 Room Air 04/17/20 08:00 97.7 78 20 146/78 (100) 98 04/17/20 08:00 80 04/17/20 04:00 62 04/17/20 04:00 97.8 79 20 102/46 (64) 93 04/17/20 00:00 98.2 98 18 133/70 (91) 94 04/17/20 00:00 72 04/16/20 21:00 Room Air 04/16/20 20:00 69 04/16/20 20:00 98.2 94 18 121/84 (96) 92 General Appearance: lethargic, patient on isolation EENT: PERRL/EOMI Neck: no JVD Rhythm: NSR Cardiovascular: regularly irregular Respiratory/Chest: crackles/rales Abdomen: non tender Extremities: normal capillary refill Intake and Output 04/16/20 04/17/20 18:59 06:59 Intake Total 200 ml 300 ml Balance 200 ml 300 ml Intake Oral 200 ml IV Total 300 ml # Voids 4 2 # Bowel Movements 1 Laboratory Tests Test 04/17/20 06:50 White Blood Count 5.3 K/UL (4.8-10.8) Red Blood Count 2.20 M/UL (4.20-5.40) L Hemoglobin 8.4 G/DL (12.0-16.0) L Hematocrit 23.5 % (37.0-47.0) L Mean Corpuscular Volume 107 FL (80-99) H Mean Corpuscular Hemoglobin 38.0 PG (27.0-31.0) H Mean Corpuscular Hemoglobin Concent 35.6 G/DL (32.0-36.0) Red Cell Distribution Width 14.3 % (11.6-14.8) Platelet Count 218 K/UL (150-450) Mean Platelet Volume 7.8 FL (6.5-10.1) Neutrophils (%) (Auto) 73.5 % (45.0-75.0) Lymphocytes (%) (Auto) 14.0 % (20.0-45.0) L Monocytes (%) (Auto) 10.1 % (1.0-10.0) H Eosinophils (%) (Auto) 1.2 % (0.0-3.0) Basophils (%) (Auto) 1.3 % (0.0-2.0) Sodium Level 145 MMOL/L (136-145) Potassium Level 4.0 MMOL/L (3.5-5.1) Chloride Level 110 MMOL/L (98-107) H Carbon Dioxide Level 27 MMOL/L (21-32) Anion Gap 8 mmol/L (5-15) Blood Urea Nitrogen 12 mg/dL (7-18) Creatinine 1.1 MG/DL (0.55-1.30) Estimat Glomerular Filtration Rate 47.1 mL/min (>60) Glucose Level 103 MG/DL (74-106) Calcium Level 8.2 MG/DL (8.5-10.1) L Dory Meyer MD April 17, 2020 16:25
--- NOTE | 2020-04-17 16:25 | Infectious Diseases Prog Note ---
Assessment/Plan Assessment/Plan Assessment: Confirmed COVID19 ([facility]- at [facility] on 03/28) -04/14 SARS-COV2 PCR neg (1st neg) -04/11 CXR: Bilateral upper lobe streaky atelectasis. SARS-COV2 PCR indeterminate UTI -u/a wbc tnct, nit +, leuk +3; ucx >100k E.coli, ESBL (S Zosyn, Meropenem) Afebrile No leukocytosis Anemia TAMMIE, improving Dm2 HLD HTN Dementia Afib on chronic anticoagulation bipolar disorder [place] resident ([facility]) Plan: -Continue Ertapenem #4/5 -04/13 SP Cefepime #3 -04/11 SP IV vancomycin #1, Levaquin x1 -f/u cx -Monitor CBC/CMP, temperature -COVID 19 isolation and testing; one neg; needs 2 negative for dc isolation Thank you for consulting [facility]. Will continue to follow along with you. Subjective Allergies: Coded Allergies: No Known Allergies (Unverified , 01/13/20) Subjective afebrile at RA no leukocytosis Objective Vital Signs Last 24 Hour Vital Signs Date Time Temp Pulse Resp B/P (MAP) Pulse Ox O2 Delivery O2 Flow Rate FiO2 04/17/20 12:00 98.7 68 20 140/79 (99) 96 04/17/20 12:00 81 04/17/20 09:00 Room Air 04/17/20 08:00 97.7 78 20 146/78 (100) 98 04/17/20 08:00 80 04/17/20 04:00 62 04/17/20 04:00 97.8 79 20 102/46 (64) 93 04/17/20 00:00 98.2 98 18 133/70 (91) 94 04/17/20 00:00 72 04/16/20 21:00 Room Air 04/16/20 20:00 69 04/16/20 20:00 98.2 94 18 121/84 (96) 92 Height (Feet): 5 Height (Inches): 2.00 Weight (Pounds): 107 Objective Gen: no respiratory distress, confused Head: normocephalic Lungs: no tachypnea or use of accessory resp muscles Abd: not distended MSK: restriction in place Laboratory Tests Test 04/17/20 06:50 White Blood Count 5.3 K/UL (4.8-10.8) Red Blood Count 2.20 M/UL (4.20-5.40) L Hemoglobin 8.4 G/DL (12.0-16.0) L Hematocrit 23.5 % (37.0-47.0) L Mean Corpuscular Volume 107 FL (80-99) H Mean Corpuscular Hemoglobin 38.0 PG (27.0-31.0) H Mean Corpuscular Hemoglobin Concent 35.6 G/DL (32.0-36.0) Red Cell Distribution Width 14.3 % (11.6-14.8) Platelet Count 218 K/UL (150-450) Mean Platelet Volume 7.8 FL (6.5-10.1) Neutrophils (%) (Auto) 73.5 % (45.0-75.0) Lymphocytes (%) (Auto) 14.0 % (20.0-45.0) L Monocytes (%) (Auto) 10.1 % (1.0-10.0) H Eosinophils (%) (Auto) 1.2 % (0.0-3.0) Basophils (%) (Auto) 1.3 % (0.0-2.0) Sodium Level 145 MMOL/L (136-145) Potassium Level 4.0 MMOL/L (3.5-5.1) Chloride Level 110 MMOL/L (98-107) H Carbon Dioxide Level 27 MMOL/L (21-32) Anion Gap 8 mmol/L (5-15) Blood Urea Nitrogen 12 mg/dL (7-18) Creatinine 1.1 MG/DL (0.55-1.30) Estimat Glomerular Filtration Rate 47.1 mL/min (>60) Glucose Level 103 MG/DL (74-106) Calcium Level 8.2 MG/DL (8.5-10.1) L Current Medications Medications (Trade) Dose Ordered Sig/Dewayne Route PRN Reason Start Time Stop Time Status Last Admin Dose Admin Acetaminophen (Tylenol) 650 mg Q4H PRN ORAL fever 04/11/20 19:00 05/11/20 18:59 Albuterol/ Ipratropium (Combivent Respimat) 1 puff Q4H PRN INH Shortness of Breath 04/11/20 19:00 05/11/20 18:59 Amiodarone HCl (Cordarone) 200 mg DAILY ORAL 04/12/20 09:00 07/11/20 08:59 04/17/20 08:16 Divalproex Sodium (Depakote Sprinkles) 125 mg EVERY 8 HOURS ORAL 04/11/20 22:00 05/11/20 13:59 04/17/20 15:40 Ertapenem 0.5 gm/ Sodium Chloride 55 ml @ 110 mls/hr Q24H IVPB 04/13/20 15:00 04/18/20 23:59 04/16/20 14:26 Ondansetron HCl (Zofran) 4 mg Q6H PRN IVP Nausea & Vomiting 04/11/20 19:15 05/11/20 13:14 Polyethylene Glycol (Miralax) 17 gm DAILYPRN PRN ORAL Constipation 04/11/20 19:00 05/11/20 18:59 Potassium Chloride 10 meq/ Dextrose/Sodium Chloride 1,005 ml @ 50 mls/hr Q20H6M IV 04/16/20 15:30 05/16/20 15:29 04/17/20 15:40 Risperidone (RisperDAL) 1 mg Q8HR ORAL 04/11/20 22:00 05/26/20 13:59 04/17/20 15:40 Rivaroxaban (Xarelto) 15 mg DAILY ORAL 04/12/20 09:00 07/11/20 08:59 04/17/20 08:16 Temazepam (Restoril) 15 mg HSPRN PRN ORAL Insomnia 04/11/20 19:00 04/18/20 18:59 04/16/20 23:30 Lisa Altamirano M.D. April 17, 2020 16:24
[2020-04-17] MEDS: Ertapenem 0.5 GM in NS 55 ML IVPB SCH (16:38)
--- NOTE | 2020-04-17 16:50 | NUR ---
NURSE NOTES: COVID specimen sent to lab per Dr. Altamirano.
--- NOTE | 2020-04-17 19:20 | NUR ---
HAND-OFF: Report given to DADA Ring. Endorsed plan of care.
--- NOTE | 2020-04-17 19:22 | NUR ---
NURSE NOTES: Received report from DADA Mae. Patient is awake, alert and oriented x 1. Patient is on regular diet, pureed moist, may crush medications. IV site on right upper arm G-22 running fluid of D5 1/2 NS + 10 meqs KCL @ 50 cc/hour that is patent and intact. Patient isn on room air and no SOB noted at this time. 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 Safety measures are in placed, bed in lowest and locked position, Bed alarm is on, side rails up x 3. Call light and bedside table within reach. Will continue plan of care.
[2020-04-17 20:00] VITALS: BP 145/84
--- NOTE | 2020-04-17 21:30 | Progress Note ---
DATE: 04/16/2020 SUBJECTIVE: The patient is resting in bed. She is very weak and lethargic. PHYSICAL EXAMINATION: VITAL SIGNS: Her blood pressure was 140/72 and her heart rate 64 beats per minute. She is afebrile, is saturating 95% on 2 liters of oxygen. NECK: Supple. Her jugular venous pressure is not elevated. LUNGS: She has rhonchi bilaterally. HEART: Regular with loud A2. ABDOMEN: Soft. Slightly distended. EXTREMITIES: Lower extremity, no edema and distal pulses palpable. LABS AND IMAGING: Her rhythm strip revealed presence of sinus rhythm. Her laboratory data revealed hemoglobin of 9 and platelets 203 and her chemistry did not reveal any significant abnormalities. Her ProBNP level is 6080, which is considered to be high. IMPRESSION AND RECOMMENDATION: Paroxysmal atrial fibrillation. The patient right now is in sinus rhythm. She is on amiodarone. The patient is also anticoagulated with Xarelto 1.5 mg in consideration that she probably will require a higher dose because her creatinine is down previously. Her creatinine was elevated, but now her creatinine is 1.1, so I am going to discuss with Dr. Faust and she is on amiodarone. She did not demonstrate any significant arrhythmias, in particular no atrial fibrillation while she was on telemetry. Dory Meyer M.D. DR: CARL JOB#: [id number] CC:
[2020-04-18] VITALS: BP 144/78
[2020-04-18 04:00] VITALS: BP 141/63
[2020-04-18] MEDS: Depakote 125mg Sprinkles ORAL SCH ×2 (06:29→14:53)
[2020-04-18 06:50] LABS: HEMATOCRIT 22.3 % (37.0-47.0); HEMOGLOBIN 7.8 G/DL (12.0-16.0); MEAN CORPUSCULAR VOLUME 107 FL (80-99); PLATELET COUNT 225 K/UL (150-450); RED BLOOD COUNT 2.08 M/UL (4.20-5.40); RED CELL DISTRIBUTION WIDTH 14.2 % (11.6-14.8); WHITE BLOOD COUNT 5.6 K/UL (4.8-10.8)
[2020-04-18 07:06] LABS: ANION GAP 8 mmol/L (5-15); BLOOD UREA NITROGEN 13 mg/dL (7-18); CALCIUM 8.2 MG/DL (8.5-10.1); CARBON DIOXIDE 28 MMOL/L (21-32); CHLORIDE 107 MMOL/L (98-107); CREATININE 1.1 MG/DL (0.55-1.30); POTASSIUM 4.3 MMOL/L (3.5-5.1); SODIUM 142 MMOL/L (136-145)
--- NOTE | 2020-04-18 07:36 | NUR ---
HAND-OFF: Report given to Dara/Cyndie GARLAND. Patient is awake on stable condition. Bilateral soft wrist restraints still on. Plan of care endorsed.
[2020-04-18] MEDS: Potassium Chloride 10 MEQ in D5 1/2NS 1,000 ML IV SCH (07:42)
[2020-04-18 08:00] VITALS: BP 145/70
--- NOTE | 2020-04-18 08:28 | NUR ---
NURSE NOTES: Received report from DADA Ring. Pt asleep comfortably in bed. Pt easily awaken, A/Ox1. No signs of acute respiratory and cardiac distress. Currently on bilateral soft wrist restraints. IV fluids infusing on right upper arm 22 G. Bed in low position, side rails x3, bed alarm on and call light within reach. Will continue with plan of care.
--- NOTE | 2020-04-18 09:19 | NUR ---
RD ASSESSMENT & RECOMMENDATIONS SEE CARE ACTIVITY FOR COMPLETE ASSESSMENT DAILY ESTIMATED NEEDS: Needs based on Advanced age, pulmonary 48kg 27-32 kcals/kg 5745-7351 total kcals 1.25-1.5 g protein/kg 60-72 g total protein 20-30ml/kcal mL/kg 960-1470 total fluid mLs NUTRITION DIAGNOSIS: Chewing difficulty r/t Alzheimers, h/o dysphagia as evidenced by pt on puree texture diet, adm w/ FTT, w/ improving PO intake CURRENT DIET: Regular puree PO DIET RECOMMENDATIONS: Maintain Regular diet/ Texture per SASH REPAIRER ADDITIONAL RECOMMENDATIONS: 1) Maintain calibrated bed weights 2) Add Ensure w/ meals 3) Monitor po intake, pt adm w/ FTT and suspected wt loss -> monitor for continued improved PO intake 4) rec WC eval for sacral photo 5) MVI x 1 as supplement
[2020-04-18] MEDS: Xarelto 15mg tab ORAL SCH (09:35)
[2020-04-18] MEDS: Amiodarone 200mg tab ORAL SCH (09:35)
--- NOTE | 2020-04-18 10:35 | NUR ---
RADIOLOGY: PCXR COMPLETED 1000HRS. NF
--- NOTE | 2020-04-18 11:28 | Diagnostic Imaging Report ---
Indication: Shortness of breath Technique: One view of the chest Comparison: 04/14/2020 Findings: Right upper lung linear opacities likely represent scarring. Less optimal inspiration currently. There is some crowding of the bronchovascular markings at the lung bases. There is questionably hazy right basilar opacity, not evident previously. The pleural spaces are clear. The heart size is normal Impression: Questionable hazy right basilar opacity, could indicate mild infiltrate if real Other findings as noted
[2020-04-18 12:00] VITALS: BP 137/62
--- NOTE | 2020-04-18 12:12 | NUR ---
*-*DISCHARGE PLANNING*-* PATIENT HAS BEEN REFERRED TO: [facility] P: [phone] F: [phone] Addendum: 04/18/20 at 1609 by SEBASTIÁN GREGORIO CM *-*DISCHARGE PLANNING*-* PATIENT HAS BEEN REFERRED TO: [facility] P: [phone] S/W NIKOS, NEED 2ND COVID TEST, STILL PENDING.
--- NOTE | 2020-04-18 12:20 | NUR ---
NURSE NOTES: Informed Dr. High of hemoglobin of 7.7. No new orders given.
--- NOTE | 2020-04-18 12:35 | Pulmonology Progress Note ---
Subjective ROS Limited/Unobtainable: Yes Allergies: Coded Allergies: No Known Allergies (Unverified , 01/13/20) Objective Last 24 Hour Vital Signs Date Time Temp Pulse Resp B/P (MAP) Pulse Ox O2 Delivery O2 Flow Rate FiO2 04/18/20 09:00 69 04/18/20 09:00 Room Air 04/18/20 08:00 98.0 68 20 145/70 (95) 95 04/18/20 04:00 63 04/18/20 04:00 98.2 81 18 141/63 (89) 92 04/18/20 00:00 97.9 88 20 144/78 (100) 91 04/18/20 00:00 87 04/17/20 21:00 Room Air 04/17/20 20:00 90 04/17/20 20:00 97.7 95 18 145/84 (104) 92 04/17/20 16:00 96.8 57 20 143/89 (107) 98 04/17/20 16:00 74 Intake and Output 04/17/20 04/18/20 19:00 07:00 Intake Total 50 ml 470 ml Output Total 1200 ml Balance 50 ml -730 ml Intake Oral 120 ml IV Total 50 ml 350 ml Output Urine Total 1200 ml # Voids 6 # Bowel Movements 1 General Appearance: cachetic HEENT: normocephalic, atraumatic Respiratory: chest wall non-tender, lungs clear Breasts: no masses Cardiovascular: normal peripheral pulses, normal rate Abdomen: normal bowel sounds, soft, non tender Genitourinary: normal external genitalia Extremities: no cyanosis Skin: no rash Neurologic: fibreglass laminator II-XII grossly normal Laboratory Tests 04/18/20 04:30: White Blood Count 5.6, Red Blood Count 2.08L, Hemoglobin 7.8L, Hematocrit 22.3L , Mean Corpuscular Volume 107H, Mean Corpuscular Hemoglobin 37.5H, Mean Corpuscular Hemoglobin Concent 35.1, Red Cell Distribution Width 14.2, Platelet Count 225, Mean Platelet Volume 7.3, Neutrophils (%) (Auto) , Lymphocytes (%) ( Auto) , Monocytes (%) (Auto) , Eosinophils (%) (Auto) , Basophils (%) (Auto) , Differential Total Cells Counted 100, Neutrophils % (Manual) 81H, Lymphocytes % (Manual) 10L, Monocytes % (Manual) 9, Eosinophils % (Manual) 0, Basophils % ( Manual) 0, Band Neutrophils 0, Platelet Estimate Adequate, Platelet Morphology Normal, Hypochromasia 1+, Anisocytosis 1+, Macrocytosis 1+, Ovalocytes Occasional, Sodium Level 142, Potassium Level 4.3, Chloride Level 107, Carbon Dioxide Level 28, Anion Gap 8, Blood Urea Nitrogen 13, Creatinine 1.1, Estimat Glomerular Filtration Rate 47.1, Glucose Level 87, Calcium Level 8.2L Current Medications Medications (Trade) Dose Ordered Sig/Dweayne Route PRN Reason Start Time Stop Time Status Last Admin Dose Admin Acetaminophen (Tylenol) 650 mg Q4H PRN ORAL fever 04/11/20 19:00 05/11/20 18:59 Albuterol/ Ipratropium (Combivent Respimat) 1 puff Q4H PRN INH Shortness of Breath 04/11/20 19:00 05/11/20 18:59 Amiodarone HCl (Cordarone) 200 mg DAILY ORAL 04/12/20 09:00 07/11/20 08:59 04/18/20 09:35 Divalproex Sodium (Depakote Sprinkles) 125 mg EVERY 8 HOURS ORAL 04/11/20 22:00 05/11/20 13:59 04/18/20 06:29 Ertapenem 0.5 gm/ Sodium Chloride 55 ml @ 110 mls/hr Q24H IVPB 04/13/20 15:00 04/18/20 23:59 04/17/20 16:38 Ondansetron HCl (Zofran) 4 mg Q6H PRN IVP Nausea & Vomiting 04/11/20 19:15 05/11/20 13:14 Polyethylene Glycol (Miralax) 17 gm DAILYPRN PRN ORAL Constipation 04/11/20 19:00 05/11/20 18:59 Potassium Chloride 10 meq/ Dextrose/Sodium Chloride 1,005 ml @ 50 mls/hr Q20H6M IV 04/16/20 15:30 05/16/20 15:29 04/17/20 15:40 Risperidone (RisperDAL) 1 mg Q8HR ORAL 04/11/20 22:00 05/26/20 13:59 04/18/20 06:29 Rivaroxaban (Xarelto) 15 mg DAILY ORAL 04/12/20 09:00 07/11/20 08:59 04/18/20 09:35 Temazepam (Restoril) 15 mg HSPRN PRN ORAL Insomnia 04/11/20 19:00 04/18/20 18:59 04/16/20 23:30 Assessment/Plan Problems: (1) COVID-19 (2) Acute encephalopathy (3) Severe anemia (4) Dehydration (5) Dementia with behavioral disturbance (6) Chronic anticoagulation (7) Agitation Assessment/Plan no new complains respiratory isolation ID f/u, check cultures abx as per ID, on Ertapenem optimize cardiac meds symptomatic treatment continue Xarelto dvt prophylaxis. Alyse Oconnor MD April 18, 2020 12:35
[2020-04-18] MEDS: Ertapenem 0.5 GM in NS 55 ML IVPB SCH (14:54)
--- NOTE | 2020-04-18 15:06 | Cardiology Progress Note ---
Assessment/Plan Assessment/Plan 1. Paroxysmal episodes of atrial flutter. 2. Persistent COVID-19 infection. 3. Chronic renal insufficiency. 4. Paroxysmal episodes of atrial fibrillation and flutter. 5. Hyperlipidemia. 6. Systemic hypertension. 7. Dementia. 8. Gastroesophageal reflux disease. bp is now fine no echo performed at [facility] or here labs noted sat at 97-100 % on room air urine ecoli amiod daily xarelto for stroke prevention tele no aflutter al sinsu reviewed personally now off ivf repeat covid neg with a sensitivity of 67% Subjective Subjective per rn note Pt easily awaken, A/Ox1. No signs of acute respiratory and cardiac distress. Currently on bilateral soft wrist restraints Objective Last 24 Hour Vital Signs Date Time Temp Pulse Resp B/P (MAP) Pulse Ox O2 Delivery O2 Flow Rate FiO2 04/18/20 12:00 64 04/18/20 12:00 97.9 61 18 137/62 (87) 96 04/18/20 09:00 69 04/18/20 09:00 Room Air 04/18/20 08:00 98.0 68 20 145/70 (95) 95 04/18/20 04:00 63 04/18/20 04:00 98.2 81 18 141/63 (89) 92 04/18/20 00:00 97.9 88 20 144/78 (100) 91 04/18/20 00:00 87 04/17/20 21:00 Room Air 04/17/20 20:00 90 04/17/20 20:00 97.7 95 18 145/84 (104) 92 04/17/20 16:00 96.8 57 20 143/89 (107) 98 04/17/20 16:00 74 Intake and Output 04/17/20 04/18/20 19:00 07:00 Intake Total 50 ml 470 ml Output Total 1200 ml Balance 50 ml -730 ml Intake Oral 120 ml IV Total 50 ml 350 ml Output Urine Total 1200 ml # Voids 6 # Bowel Movements 1 Laboratory Tests Test 04/18/20 04:30 White Blood Count 5.6 K/UL (4.8-10.8) Red Blood Count 2.08 M/UL (4.20-5.40) L Hemoglobin 7.8 G/DL (12.0-16.0) L Hematocrit 22.3 % (37.0-47.0) L Mean Corpuscular Volume 107 FL (80-99) H Mean Corpuscular Hemoglobin 37.5 PG (27.0-31.0) H Mean Corpuscular Hemoglobin Concent 35.1 G/DL (32.0-36.0) Red Cell Distribution Width 14.2 % (11.6-14.8) Platelet Count 225 K/UL (150-450) Mean Platelet Volume 7.3 FL (6.5-10.1) Neutrophils (%) (Auto) % (45.0-75.0) Lymphocytes (%) (Auto) % (20.0-45.0) Monocytes (%) (Auto) % (1.0-10.0) Eosinophils (%) (Auto) % (0.0-3.0) Basophils (%) (Auto) % (0.0-2.0) Differential Total Cells Counted 100 Neutrophils % (Manual) 81 % (45-75) H Lymphocytes % (Manual) 10 % (20-45) L Monocytes % (Manual) 9 % (1-10) Eosinophils % (Manual) 0 % (0-3) Basophils % (Manual) 0 % (0-2) Band Neutrophils 0 % (0-8) Platelet Estimate Adequate Platelet Morphology Normal Hypochromasia 1+ Anisocytosis 1+ Macrocytosis 1+ Ovalocytes Occasional Sodium Level 142 MMOL/L (136-145) Potassium Level 4.3 MMOL/L (3.5-5.1) Chloride Level 107 MMOL/L (98-107) Carbon Dioxide Level 28 MMOL/L (21-32) Anion Gap 8 mmol/L (5-15) Blood Urea Nitrogen 13 mg/dL (7-18) Creatinine 1.1 MG/DL (0.55-1.30) Estimat Glomerular Filtration Rate 47.1 mL/min (>60) Glucose Level 87 MG/DL (74-106) Calcium Level 8.2 MG/DL (8.5-10.1) Erasmo Salazar MD April 18, 2020 15:06
--- NOTE | 2020-04-18 15:56 | NUR ---
Patient being seen for ongoing dysphagia management and tx. VITALS: on room air: HR:61; RR: 18; SP02 96% Per RN, Patient is consuming current diet recommendations puree solids and thin liquids with no overt s/s of aspiration, per chart review, Patient inconsistently consumes >75% of diet recommendations. E COMMERCE MARKETING ANALYST plans to f/u with Patient next therapeutic day for PO trials to determine appropriateness for diet texture upgrade. Continue skilled dysphagia management and tx. RN is aware of aspiration precautions and oral care needs.
[2020-04-18 16:00] VITALS: BP 142/86
--- NOTE | 2020-04-18 16:15 | NUR ---
DISCHARGE PLANNING [facility] WILL NOT ACCEPT PATIENT BACK WITH OUT TWO NEGATIVE COVID 19 RESULTS SECOND RESULT PENDING
--- NOTE | 2020-04-18 17:14 | Internal Med Progress Note ---
Subjective Date of Service: April 18, 2020 Physician Name Scott,Jonas Attending Physician Ulices High MD Current Medications Medications (Trade) Dose Ordered Sig/Dewayne Route PRN Reason Start Time Stop Time Status Last Admin Dose Admin Acetaminophen (Tylenol) 650 mg Q4H PRN ORAL fever 04/11/20 19:00 05/11/20 18:59 Albuterol/ Ipratropium (Combivent Respimat) 1 puff Q4H PRN INH Shortness of Breath 04/11/20 19:00 05/11/20 18:59 Amiodarone HCl (Cordarone) 200 mg DAILY ORAL 04/12/20 09:00 07/11/20 08:59 04/18/20 09:35 Divalproex Sodium (Depakote Sprinkles) 125 mg EVERY 8 HOURS ORAL 04/11/20 22:00 05/11/20 13:59 04/18/20 14:53 Ertapenem 0.5 gm/ Sodium Chloride 55 ml @ 110 mls/hr Q24H IVPB 04/13/20 15:00 04/18/20 23:59 04/18/20 14:54 Ondansetron HCl (Zofran) 4 mg Q6H PRN IVP Nausea & Vomiting 04/11/20 19:15 05/11/20 13:14 Polyethylene Glycol (Miralax) 17 gm DAILYPRN PRN ORAL Constipation 04/11/20 19:00 05/11/20 18:59 Potassium Chloride 10 meq/ Dextrose/Sodium Chloride 1,005 ml @ 50 mls/hr Q20H6M IV 04/16/20 15:30 05/16/20 15:29 04/17/20 15:40 Risperidone (RisperDAL) 1 mg Q8HR ORAL 04/11/20 22:00 05/26/20 13:59 04/18/20 14:53 Rivaroxaban (Xarelto) 15 mg DAILY ORAL 04/12/20 09:00 07/11/20 08:59 04/18/20 09:35 Temazepam (Restoril) 15 mg HSPRN PRN ORAL Insomnia 04/11/20 19:00 04/18/20 18:59 04/16/20 23:30 Allergies: Coded Allergies: No Known Allergies (Unverified , 01/13/20) ROS Limited/Unobtainable: Yes Subjective 84 YO F with previous COVID 19 positive status admitted with failure to thrive. Now UTI. Tele. Cover for Int [facility]-Dr High Objective Last Vital Signs Date Time Temp Pulse Resp B/P (MAP) Pulse Ox O2 Delivery O2 Flow Rate FiO2 04/18/20 12:00 64 04/18/20 12:00 97.9 18 137/62 (87) 96 04/18/20 09:00 Room Air Laboratory Tests Test 04/18/20 04:30 White Blood Count 5.6 K/UL (4.8-10.8) Red Blood Count 2.08 M/UL (4.20-5.40) L Hemoglobin 7.8 G/DL (12.0-16.0) L Hematocrit 22.3 % (37.0-47.0) L Mean Corpuscular Volume 107 FL (80-99) H Mean Corpuscular Hemoglobin 37.5 PG (27.0-31.0) H Mean Corpuscular Hemoglobin Concent 35.1 G/DL (32.0-36.0) Red Cell Distribution Width 14.2 % (11.6-14.8) Platelet Count 225 K/UL (150-450) Mean Platelet Volume 7.3 FL (6.5-10.1) Neutrophils (%) (Auto) % (45.0-75.0) Lymphocytes (%) (Auto) % (20.0-45.0) Monocytes (%) (Auto) % (1.0-10.0) Eosinophils (%) (Auto) % (0.0-3.0) Basophils (%) (Auto) % (0.0-2.0) Differential Total Cells Counted 100 Neutrophils % (Manual) 81 % (45-75) H Lymphocytes % (Manual) 10 % (20-45) L Monocytes % (Manual) 9 % (1-10) Eosinophils % (Manual) 0 % (0-3) Basophils % (Manual) 0 % (0-2) Band Neutrophils 0 % (0-8) Platelet Estimate Adequate Platelet Morphology Normal Hypochromasia 1+ Anisocytosis 1+ Macrocytosis 1+ Ovalocytes Occasional Sodium Level 142 MMOL/L (136-145) Potassium Level 4.3 MMOL/L (3.5-5.1) Chloride Level 107 MMOL/L (98-107) Carbon Dioxide Level 28 MMOL/L (21-32) Anion Gap 8 mmol/L (5-15) Blood Urea Nitrogen 13 mg/dL (7-18) Creatinine 1.1 MG/DL (0.55-1.30) Estimat Glomerular Filtration Rate 47.1 mL/min (>60) Glucose Level 87 MG/DL (74-106) Calcium Level 8.2 MG/DL (8.5-10.1) L Intake and Output 04/17/20 04/18/20 19:00 07:00 Intake Total 50 ml 470 ml Output Total 1200 ml Balance 50 ml -730 ml Intake Oral 120 ml IV Total 50 ml 350 ml Output Urine Total 1200 ml # Voids 6 # Bowel Movements 1 Objective PHYSICAL EXAMINATION: GENERAL: Patient is a well-developed, well-nourished female, who is confused and nonverbal. HEENT: Eyes, pupils are equal and responsive to light and accommodation. Extraocular movements are intact. NECK: Supple. No lymphadenopathy. CHEST: Lungs are clear to auscultation bilaterally without wheezes or rales. CARDIOVASCULAR: Regular rhythm and rate. S1, S2 are normal without murmurs, rubs, or gallops. ABDOMEN: Soft, nontender, nondistended. Positive bowel sounds. No evidence of hepatosplenomegaly. Currently, no rebound or guarding noted. EXTREMITIES: Negative for clubbing, cyanosis, or edema. RECTAL/GENITAL: Not performed. NEUROLOGICAL: Cranial nerves II through XII grossly intact without focal deficits. Assessment/Plan Assessment/Plan ASSESSMENT: This is an 84-year-old female. 1. History of COVID-19 positive; now negative 2. Failure to thrive. 3. Congestive heart failure. 4. Renal failure. 5. Atrial flutter. 6. Bipolar disorder. 7. Coronary artery disease. 8. Hypertension. 9. Alzheimer's dementia. 10. Gastroesophageal reflux. 11. Diverticulosis. 12. Cholelithiasis. 13. Hypotension; resolved 14. UTI=ESBL E. Coli 15. Hypernatremia TREATMENT: 1. COVID-19 negative. An Infectious Disease consultation has been obtained with Dr. Altamirano. We will follow recommendation of Infectious Disease. 2. Failure to thrive. This may be secondary to viral syndrome secondary to COVID-19 positive. 3. Congestive heart failure. Await echocardiogram. A Cardiology consultation has been obtained with Dr. Erasmo Faust. 4. Atrial flutter as above. As above, Cardiology consultation has been obtained with Dr. Erasmo Faust. 5. Renal failure. This may be dehydration versus acute on chronic renal failure. 6. Bipolar disorder. Continue Depakote and Risperdal as above. 7. Coronary artery disease. 8. Hypertension. 9. Alzheimer's dementia. 10. Gastroesophageal reflux disease. 11. Diverticulosis. 12. Cholelithiasis. 13. Transfer to [facility]. Received NS bolus. See cardiology discussion concerning amiodarone. 14. ABX=ertapenem; S/P cefepime and vanco; ID=Dr Altamirano 15. Full code 16. start D5 /2 Jonas Coffman MD April 18, 2020 17:14
--- NOTE | 2020-04-18 19:10 | NUR ---
HAND-OFF: Report given to DADA Muñoz. Endorsed plan of care. Addendum: 04/18/20 at 1930 by STACIE GONZALEZ RN Patient just cleaned. IV started and restraints readjusted.
--- NOTE | 2020-04-18 19:20 | NUR ---
NURSE NOTES: Pt received from STACIE GARLAND and hector. pt remains stable. pt is AO times 1, no acute neuro abnormalities. pt is on personnel monitor, showing SR, no acute cardiac abnormalities. pt is on room air, satting 98%, no acute resp abnormalities. pt bed is low, locked, armed, bed rails up times 3, call light within reach. will follow plan of care.
[2020-04-18 20:00] VITALS: BP 138/74
--- NOTE | 2020-04-18 20:04 | NUR ---
HAND-OFF: Report given to MARICHUY GARLANDPIANO PROFESSOR /TELE.
--- NOTE | 2020-04-18 20:05 | NUR ---
NURSE NOTES: Received patient in bed, oriented x1, on room air, patient has soft bilateral wrist restraints, IV sites are clean dry and intact, no acute distress noted, call light is within reach, bed is lowered, locked, alarm is on, will continue to monitor for comfort and safety.
[2020-04-18] MEDS: Depakote 500mg tab ORAL SCH (20:41)
[2020-04-19] VITALS: BP 129/74
--- NOTE | 2020-04-19 00:23 | Initial Psychiatric Evaluation ---
Psychiatry Consultation Psychiatry Consultation Chief Complaint: General Complaint History of Present Illness: 84-year-old female, who presents with a chief complaint of decreased oral intake. the pt is confused an disorganized. the pt is agitated on bilat restraints. the pt has poor memory/ the pt is not suicidal/homicidal . Allergies: Coded Allergies: No Known Allergies (Unverified , 01/13/20) Medication History Scheduled Amiodarone Hcl* (Cordarone*), 200 MG ORAL DAILY, (Reported) Atorvastatin Calcium* (Atorvastatin Calcium*), 20 MG ORAL BEDTIME, (Reported) Divalproex Sodium* (Depakote Er*), 125 MG ORAL EVERY 8 HOURS, (Reported) Docusate Sodium* (Docusate Sodium*), 100 MG ORAL TWICE A DAY, (Reported) Heparin Sod (Porcine) (Heparin Sodium*), 5,000 UNITS SUBQ EVERY 12 HOURS, ( Reported) Metoprolol Tartrate* (Metoprolol Tartrate*), 25 MG ORAL EVERY 12 HOURS, ( Reported) Pantoprazole* (Pantoprazole*), 40 MG ORAL DAILY, (Reported) Risperidone* (Risperdal*), 1 MG PO Q8HR, (Reported) Rivaroxaban (Xarelto*), 15 MG ORAL DAILY, (Reported) [Toprol XL], 25 MG PO BID, (Reported) Scheduled PRN Acetaminophen* (Acetaminophen 325MG Tablet*), 650 MG ORAL Q4H PRN for , ( Reported) Melatonin (Melatonin), 5 MG SL BEDTIME PRN for Insomnia, (Reported) Miscellaneous Medications Lactulose (Lactulose*), 30 ML ORAL, (Reported) Patient History Limited by: medical condition History Provided By: Medical Record, PMD Objective Data Height (Feet): 5 Height (Inches): 2.00 Weight (Pounds): 107 Behavior Mannerisms: poor eye contact Affect: constricted Mood: agitated Thought Process: illogical, confusion, disorganized Suicidal Ideation: not present Assessment/Plan Problem List: (1) Dementia with behavioral disturbance ICD Codes: F03.91 - Unspecified dementia with behavioral disturbance SNOMED: 9013970661766 (2) Acute encephalopathy ICD Codes: G93.40 - Encephalopathy, unspecified SNOMED: 07650914, [id number] Assessment/Plan: Berenice chamberlain nurse Cornelia Lynn MD April 19, 2020:22
[2020-04-19] MEDS: Potassium Chloride 10 MEQ in D5 1/2NS 1,000 ML IV SCH ×2 (03:48→17:55)
[2020-04-19 04:00] VITALS: BP 127/98
[2020-04-19 07:09] LABS: HEMATOCRIT 21.5 % (37.0-47.0); HEMOGLOBIN 7.7 G/DL (12.0-16.0); MEAN CORPUSCULAR VOLUME 107 FL (80-99); PLATELET COUNT 243 K/UL (150-450); RED BLOOD COUNT 2.02 M/UL (4.20-5.40); RED CELL DISTRIBUTION WIDTH 13.9 % (11.6-14.8)
--- NOTE | 2020-04-19 07:14 | NUR ---
HAND-OFF: Report given to Dara GARLAND.
--- NOTE | 2020-04-19 07:37 | NUR ---
NURSE NOTES: Report received from Chinyere GARLAND. Pt asleep comfortably in bed. On bilateral soft wrist restraints. With good circulation, range of motion and sensation. IV fluid infusing on ROSE 22G. Bed in low position, side rails up x3 and call light within reach. Will continue plan of care.
[2020-04-19 07:41] LABS: ALANINE AMINOTRANSFERASE 29 U/L (12-78); ALBUMIN 2.5 G/DL (3.4-5.0); ALBUMIN/GLOBULIN RATIO 0.7 (1.0-2.7); ALKALINE PHOSPHATASE 84 U/L (46-116); ANION GAP 6 mmol/L (5-15); ASPARTATE AMINO TRANSFERASE 21 U/L (15-37); BILIRUBIN,TOTAL 0.5 MG/DL (0.2-1.0); BLOOD UREA NITROGEN 9 mg/dL (7-18); CALCIUM 8.1 MG/DL (8.5-10.1); CARBON DIOXIDE 28 MMOL/L (21-32); CHLORIDE 108 MMOL/L (98-107); CREATININE 1.1 MG/DL (0.55-1.30); PHOSPHORUS 3.3 MG/DL (2.5-4.9); POTASSIUM 4.3 MMOL/L (3.5-5.1); SODIUM 142 MMOL/L (136-145)
[2020-04-19 08:00] VITALS: BP 178/76
[2020-04-19] MEDS: Depakote 500mg tab ORAL SCH ×2 (09:22→20:40)
[2020-04-19] MEDS: Amiodarone 200mg tab ORAL SCH (09:22)
[2020-04-19] MEDS: Xarelto 15mg tab ORAL SCH (09:22)
--- NOTE | 2020-04-19 11:11 | NUR ---
CORRECTIVE THERAPIST WEEKLY PROGRESS REPORT Patient being seen by CORRECTIVE THERAPIST for dysphagia tx and management. Current Diet: Puree Solids with Thin Liquids. Recent intake per Chart: 04/15/20B: 50% L: 50% D: 50% 04/16/20B: 50% L: 75% D: ?? 04/17/20 B: ??L: ??D: 75% 04/18/20 B: 0%L: 0%D: 10% CXR 04/18/20; Comparison: 04/14/2020 Findings: Right upper lung linear opacities likely represent scarring. Less optimal inspiration currently. There is some crowding of the bronchovascular markings at the lung bases. There is questionably hazy right basilar opacity, not evident previously. The pleural spaces are clear. The heart size is normal. Impression: Questionable hazy right basilar opacity, could indicate mild infiltrate if real. Other findings as noted PROGRESS TOWARDS GOALS: -GOAL MET: Patient and nursing staff have been trained and educated on aspiration precautions and safe swallow strategies. -GOAL NOT MET: Patient does not consistency consume >75% of recommended diet. -GOAL NOT MET: MBSS has not been completed, at this time this is not indicated for Patient. Patient was being cleaned by RN when CORRECTIVE THERAPIST attempted to see the Patient. RN states Patient required encouragement to continue consuming breakfast meal, however, good intake when given verbal and tactile cues to increase intake. PLAN: 1. Trial lunch tray of Mechanical soft-chopped with Thin Liquids, continue implementing 1:1 feeding for encouragement and implementing safe swallow strategies/aspiration precautions. 2. Continue skilled dysphagia management and intervention 3x a week x 1 week 3. CORRECTIVE THERAPIST plans to monitor Patient's intake with upgraded consistency and f/u for dysphagia tx. CORRECTIVE THERAPIST made RN aware of results and recommendations. RD Assessment 04/18/20 PO DIET RECOMMENDATIONS: Maintain Regular diet/ Texture per CORRECTIVE THERAPIST ADDITIONAL RECOMMENDATIONS: 1) Maintain calibrated bed weights 2) Add Ensure w/ meals 3) Monitor po intake, pt adm w/ FTT and suspected wt loss -> monitor for continued improved PO intake 4) rec WC eval for sacral photo 5) MVI x 1 as supplement
[2020-04-19 12:00] VITALS: BP 107/56
--- NOTE | 2020-04-19 12:29 | Internal Med Progress Note ---
Subjective Date of Service: April 19, 2020 Physician Name SoniaJonas Attending Physician Ulices High MD Current Medications Medications (Trade) Dose Ordered Sig/Dewayne Route PRN Reason Start Time Stop Time Status Last Admin Dose Admin Acetaminophen (Tylenol) 650 mg Q4H PRN ORAL fever 04/11/20 19:00 05/11/20 18:59 Albuterol/ Ipratropium (Combivent Respimat) 1 puff Q4H PRN INH Shortness of Breath 04/11/20 19:00 05/11/20 18:59 Amiodarone HCl (Cordarone) 200 mg DAILY ORAL 04/12/20 09:00 07/11/20 08:59 04/19/20 09:22 Divalproex Sodium (Depakote) 500 mg Q12HR ORAL 04/18/20 21:00 06/02/20 20:59 04/19/20 09:22 Olanzapine (ZyPREXA) 5 mg BEDTIME ORAL 04/18/20 21:00 06/02/20 20:59 04/18/20 20:41 Ondansetron HCl (Zofran) 4 mg Q6H PRN IVP Nausea & Vomiting 04/11/20 19:15 05/11/20 13:14 Polyethylene Glycol (Miralax) 17 gm DAILYPRN PRN ORAL Constipation 04/11/20 19:00 05/11/20 18:59 Potassium Chloride 10 meq/ Dextrose/Sodium Chloride 1,005 ml @ 50 mls/hr Q20H6M IV 04/16/20 15:30 05/16/20 15:29 04/17/20 15:40 Rivaroxaban (Xarelto) 15 mg DAILY ORAL 04/12/20 09:00 07/11/20 08:59 04/19/20 09:22 Allergies: Coded Allergies: No Known Allergies (Unverified , 01/13/20) ROS Limited/Unobtainable: Yes Subjective 84 YO F with previous COVID 19 positive status admitted with failure to thrive. Now UTI. Tele. Cover for Int [facility]-Dr High Objective Last Vital Signs Date Time Temp Pulse Resp B/P (MAP) Pulse Ox O2 Delivery O2 Flow Rate FiO2 04/19/20 08:16 Room Air 04/19/20 08:00 58 04/19/20 08:00 97.8 22 178/76 (110) 98 Laboratory Tests Test 04/19/20 06:30 White Blood Count 5.0 K/UL (4.8-10.8) Red Blood Count 2.02 M/UL (4.20-5.40) L Hemoglobin 7.7 G/DL (12.0-16.0) L Hematocrit 21.5 % (37.0-47.0) L Mean Corpuscular Volume 107 FL (80-99) H Mean Corpuscular Hemoglobin 38.2 PG (27.0-31.0) H Mean Corpuscular Hemoglobin Concent 35.8 G/DL (32.0-36.0) Red Cell Distribution Width 13.9 % (11.6-14.8) Platelet Count 243 K/UL (150-450) Mean Platelet Volume 7.8 FL (6.5-10.1) Neutrophils (%) (Auto) % (45.0-75.0) Lymphocytes (%) (Auto) % (20.0-45.0) Monocytes (%) (Auto) % (1.0-10.0) Eosinophils (%) (Auto) % (0.0-3.0) Basophils (%) (Auto) % (0.0-2.0) Differential Total Cells Counted 100 Neutrophils % (Manual) 72 % (45-75) Lymphocytes % (Manual) 19 % (20-45) L Monocytes % (Manual) 8 % (1-10) Eosinophils % (Manual) 1 % (0-3) Basophils % (Manual) 0 % (0-2) Band Neutrophils 0 % (0-8) Platelet Estimate Adequate Platelet Morphology Normal Hypochromasia 1+ Macrocytosis 1+ Ovalocytes Occasional Erythrocyte Sedimentation Rate 82 MM/HR (0-30) H Sodium Level 142 MMOL/L (136-145) Potassium Level 4.3 MMOL/L (3.5-5.1) Chloride Level 108 MMOL/L (98-107) H Carbon Dioxide Level 28 MMOL/L (21-32) Anion Gap 6 mmol/L (5-15) Blood Urea Nitrogen 9 mg/dL (7-18) Creatinine 1.1 MG/DL (0.55-1.30) Estimat Glomerular Filtration Rate 47.1 mL/min (>60) Glucose Level 81 MG/DL (74-106) Calcium Level 8.1 MG/DL (8.5-10.1) L Phosphorus Level 3.3 MG/DL (2.5-4.9) Magnesium Level 1.8 MG/DL (1.8-2.4) Total Bilirubin 0.5 MG/DL (0.2-1.0) Aspartate Amino Transf (AST/SGOT) 21 U/L (15-37) Alanine Aminotransferase (ALT/SGPT) 29 U/L (12-78) Alkaline Phosphatase 84 U/L (46-116) C-Reactive Protein, Quantitative 2.3 mg/dL (0.00-0.90) H Total Protein 6.1 G/DL (6.4-8.2) L Albumin 2.5 G/DL (3.4-5.0) L Globulin 3.6 g/dL Albumin/Globulin Ratio 0.7 (1.0-2.7) L Intake and Output 04/18/20 04/19/20 19:00 07:00 Intake Total 655 ml Balance 655 ml IV Total 655 ml # Voids 2 Objective PHYSICAL EXAMINATION: GENERAL: Patient is a well-developed, well-nourished female, who is confused and nonverbal. HEENT: Eyes, pupils are equal and responsive to light and accommodation. Extraocular movements are intact. NECK: Supple. No lymphadenopathy. CHEST: Lungs are clear to auscultation bilaterally without wheezes or rales. CARDIOVASCULAR: Regular rhythm and rate. S1, S2 are normal without murmurs, rubs, or gallops. ABDOMEN: Soft, nontender, nondistended. Positive bowel sounds. No evidence of hepatosplenomegaly. Currently, no rebound or guarding noted. EXTREMITIES: Negative for clubbing, cyanosis, or edema. RECTAL/GENITAL: Not performed. NEUROLOGICAL: Cranial nerves II through XII grossly intact without focal deficits. Assessment/Plan Assessment/Plan ASSESSMENT: This is an 84-year-old female. 1. History of COVID-19 positive; now negative 2. Failure to thrive. 3. Congestive heart failure. 4. Renal failure. 5. Atrial flutter. 6. Bipolar disorder. 7. Coronary artery disease. 8. Hypertension. 9. Alzheimer's dementia. 10. Gastroesophageal reflux. 11. Diverticulosis. 12. Cholelithiasis. 13. Hypotension; resolved 14. UTI=ESBL E. Coli 15. Hypernatremia 16. severe anemia TREATMENT: 1. COVID-19 negative. An Infectious Disease consultation has been obtained with Dr. Altamirano. We will follow recommendation of Infectious Disease. 2. Failure to thrive. This may be secondary to viral syndrome secondary to COVID-19 positive. 3. Congestive heart failure. Await echocardiogram. A Cardiology consultation has been obtained with Dr. Erasmo Faust. 4. Atrial flutter as above. As above, Cardiology consultation has been obtained with Dr. Erasmo Faust. 5. Renal failure. This may be dehydration versus acute on chronic renal failure. 6. Bipolar disorder. Continue Depakote and Risperdal as above. 7. Coronary artery disease. 8. Hypertension. 9. Alzheimer's dementia. 10. Gastroesophageal reflux disease. 11. Diverticulosis. 12. Cholelithiasis. 13. Transfer to [facility]. Received NS bolus. See cardiology discussion concerning amiodarone. 14. ABX=ertapenem; S/P cefepime and vanco; ID=Dr Altamirano 15. Full code 16. start D5 1/2 NS 17. GI consult=DR Sloan ?PEG? 18. Transfuse 1 unit PRBC today Jonas Scott MD April 19, 2020 12:29
--- NOTE | 2020-04-19 14:26 | NUR ---
CASE MANAGEMENT:REVIEW 04/19/20 SI: ACUTE ENCEPHALOPATHY SEVERE ANEMIA. DEHYDRATION 97.9 66 20 107/56 97% ON RA H/H-7.7/21.5 CA-8.1 IS: TRANSFUSE 1 UNIT PRBC'S XARELTO PO QD ZYPREXA PO QHS DEPAKOTE PO Q12 IVF+KCL@50/HR AMIODARONE PO QD : TELEMETRY STATUS DCP: [facility] PL[facility]: [facility] COUNT DISCHARGE PLANNING ......WAITING FOR SECOND COVID NEGATIVE.....[facility] WILL NOT ACCEPT W/O 2ND COVID
--- NOTE | 2020-04-19 14:43 | Pulmonology Progress Note ---
Subjective ROS Limited/Unobtainable: Yes Allergies: Coded Allergies: No Known Allergies (Unverified , 01/13/20) Objective Last 24 Hour Vital Signs Date Time Temp Pulse Resp B/P (MAP) Pulse Ox O2 Delivery O2 Flow Rate FiO2 04/19/20 12:00 97.9 66 20 107/56 (73) 97 04/19/20 12:00 64 04/19/20 08:16 Room Air 04/19/20 08:00 58 04/19/20 08:00 97.8 87 22 178/76 (110) 98 04/19/20 04:00 76 04/19/20 04:00 98.7 78 18 127/98 (108) 98 04/19/20 00:00 98.7 78 18 129/74 (92) 98 04/19/20 00:00 81 04/18/20 21:17 Room Air 04/18/20 20:00 98.7 87 18 138/74 (95) 98 04/18/20 20:00 61 04/18/20 16:00 97.5 104 20 142/86 (104) 95 04/18/20 16:00 99 Intake and Output 04/18/20 04/19/20 19:00 07:00 Intake Total 655 ml Balance 655 ml IV Total 655 ml # Voids 2 General Appearance: cachetic HEENT: normocephalic, atraumatic Respiratory: chest wall non-tender, lungs clear Breasts: no masses Cardiovascular: normal peripheral pulses, normal rate Abdomen: normal bowel sounds, soft, non tender Genitourinary: normal external genitalia Extremities: no cyanosis Skin: no rash 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 Laboratory Tests 04/19/20 06:30: White Blood Count 5.0, Red Blood Count 2.02L, Hemoglobin 7.7L, Hematocrit 21.5L , Mean Corpuscular Volume 107H, Mean Corpuscular Hemoglobin 38.2H, Mean Corpuscular Hemoglobin Concent 35.8, Red Cell Distribution Width 13.9, Platelet Count 243, Mean Platelet Volume 7.8, Neutrophils (%) (Auto) , Lymphocytes (%) ( Auto) , Monocytes (%) (Auto) , Eosinophils (%) (Auto) , Basophils (%) (Auto) , Differential Total Cells Counted 100, Neutrophils % (Manual) 72, Lymphocytes % ( Manual) 19L, Monocytes % (Manual) 8, Eosinophils % (Manual) 1, Basophils % ( Manual) 0, Band Neutrophils 0, Platelet Estimate Adequate, Platelet Morphology Normal, Hypochromasia 1+, Macrocytosis 1+, Ovalocytes Occasional, Erythrocyte Sedimentation Rate 82H, Sodium Level 142, Potassium Level 4.3, Chloride Level 108H, Carbon Dioxide Level 28, Anion Gap 6, Blood Urea Nitrogen 9, Creatinine 1.1, Estimat Glomerular Filtration Rate 47.1, Glucose Level 81, Calcium Level 8.1L, Phosphorus Level 3.3, Magnesium Level 1.8, Total Bilirubin 0.5, Aspartate Amino Transf (AST/SGOT) 21, Alanine Aminotransferase (ALT/SGPT) 29, Alkaline Phosphatase 84, C-Reactive Protein, Quantitative 2.3H, Total Protein 6.1L, Albumin 2.5L, Globulin 3.6, Albumin/Globulin Ratio 0.7L Current Medications Medications (Trade) Dose Ordered Sig/Dewayne Route PRN Reason Start Time Stop Time Status Last Admin Dose Admin Acetaminophen (Tylenol) 650 mg Q4H PRN ORAL fever 04/11/20 19:00 05/11/20 18:59 Albuterol/ Ipratropium (Combivent Respimat) 1 puff Q4H PRN INH Shortness of Breath 04/11/20 19:00 05/11/20 18:59 Amiodarone HCl (Cordarone) 200 mg DAILY ORAL 04/12/20 09:00 07/11/20 08:59 04/19/20 09:22 Amlodipine Besylate (Norvasc) 2.5 mg DAILYPRN PRN ORAL SBP>155 04/19/20 13:15 05/19/20 13:14 Divalproex Sodium (Depakote) 500 mg Q12HR ORAL 04/18/20 21:00 06/02/20 20:59 04/19/20 09:22 Olanzapine (ZyPREXA) 5 mg BEDTIME ORAL 04/18/20 21:00 06/02/20 20:59 04/18/20 20:41 Ondansetron HCl (Zofran) 4 mg Q6H PRN IVP Nausea & Vomiting 04/11/20 19:15 05/11/20 13:14 Polyethylene Glycol (Miralax) 17 gm DAILYPRN PRN ORAL Constipation 04/11/20 19:00 05/11/20 18:59 Potassium Chloride 10 meq/ Dextrose/Sodium Chloride 1,005 ml @ 50 mls/hr Q20H6M IV 04/16/20 15:30 05/16/20 15:29 04/17/20 15:40 Rivaroxaban (Xarelto) 15 mg DAILY ORAL 04/20/20 09:00 07/11/20 08:59 Assessment/Plan Problems: (1) Acute encephalopathy (2) COVID-19 (3) Severe anemia (4) Dehydration (5) Dementia with behavioral disturbance (6) Chronic anticoagulation (7) Agitation (8) Nosocomial pneumonia Assessment/Plan cxr reviewed: hazy right basilar opacity no new complains respiratory isolation ID f/u, check cultures abx as per ID, on Ertapenem optimize cardiac meds symptomatic treatment continue Xarelto dvt prophylaxis. Alyse Oconnor MD April 19, 2020 14:43
--- NOTE | 2020-04-19 15:30 | NUR ---
NURSE NOTES: Called daughter Crystal Lee to get consent for blood transfusion and left a message on VM to return call.
[2020-04-19 16:00] VITALS: BP 111/54
--- NOTE | 2020-04-19 16:56 | NUR ---
Called daughter Crystal Lee again to get consent and no answer.
--- NOTE | 2020-04-19 18:13 | Infectious Diseases Prog Note ---
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 SARS-COV2 PCR indeterminate UTI -u/a wbc tnct, nit +, leuk +3; ucx >100k E.coli, ESBL (S Zosyn, Meropenem) Afebrile No leukocytosis Anemia TAMMIE, improving Dm2 HLD HTN Dementia Afib on chronic anticoagulation bipolar disorder [place] resident ([facility]) Plan: -Continue to monitor off abx -04/18 SP Ertapenem #5 -04/13 SP Cefepime #3 -04/11 SP IV vancomycin #1, Levaquin x1 -f/u cx -Monitor CBC/CMP, temperature - isolation and testing; one neg; needs 2 negative for dc isolation; awaiting repeat Thank you for consulting [facility]. Will continue to follow along with you. Subjective Allergies: Coded Allergies: No Known Allergies (Unverified , 01/13/20) Subjective afebrile at RA no leukocytosis Objective Vital Signs Last 24 Hour Vital Signs Date Time Temp Pulse Resp B/P (MAP) Pulse Ox O2 Delivery O2 Flow Rate FiO2 04/19/20 16:00 97.9 81 20 111/54 (73) 100 04/19/20 16:00 63 04/19/20 12:00 97.9 66 20 107/56 (73) 97 04/19/20 12:00 64 04/19/20 08:16 Room Air 04/19/20 08:00 58 04/19/20 08:00 97.8 87 22 178/76 (110) 98 04/19/20 04:00 76 04/19/20 04:00 98.7 78 18 127/98 (108) 98 04/19/20 00:00 98.7 78 18 129/74 (92) 98 04/19/20 00:00 81 04/18/20 21:17 Room Air 04/18/20 20:00 98.7 87 18 138/74 (95) 98 04/18/20 20:00 61 Height (Feet): 5 Height (Inches): 2.00 Weight (Pounds): 107 Objective Gen: no respiratory distress, confused Head: normocephalic Lungs: no tachypnea or use of accessory resp muscles Abd: not distended MSK: restriction in place Laboratory Tests Test 04/19/20 06:30 White Blood Count 5.0 K/UL (4.8-10.8) Red Blood Count 2.02 M/UL (4.20-5.40) L Hemoglobin 7.7 G/DL (12.0-16.0) L Hematocrit 21.5 % (37.0-47.0) L Mean Corpuscular Volume 107 FL (80-99) H Mean Corpuscular Hemoglobin 38.2 PG (27.0-31.0) H Mean Corpuscular Hemoglobin Concent 35.8 G/DL (32.0-36.0) Red Cell Distribution Width 13.9 % (11.6-14.8) Platelet Count 243 K/UL (150-450) Mean Platelet Volume 7.8 FL (6.5-10.1) Neutrophils (%) (Auto) % (45.0-75.0) Lymphocytes (%) (Auto) % (20.0-45.0) Monocytes (%) (Auto) % (1.0-10.0) Eosinophils (%) (Auto) % (0.0-3.0) Basophils (%) (Auto) % (0.0-2.0) Differential Total Cells Counted 100 Neutrophils % (Manual) 72 % (45-75) Lymphocytes % (Manual) 19 % (20-45) L Monocytes % (Manual) 8 % (1-10) Eosinophils % (Manual) 1 % (0-3) Basophils % (Manual) 0 % (0-2) Band Neutrophils 0 % (0-8) Platelet Estimate Adequate Platelet Morphology Normal Hypochromasia 1+ Macrocytosis 1+ Ovalocytes Occasional Erythrocyte Sedimentation Rate 82 MM/HR (0-30) H Sodium Level 142 MMOL/L (136-145) Potassium Level 4.3 MMOL/L (3.5-5.1) Chloride Level 108 MMOL/L (98-107) H Carbon Dioxide Level 28 MMOL/L (21-32) Anion Gap 6 mmol/L (5-15) Blood Urea Nitrogen 9 mg/dL (7-18) Creatinine 1.1 MG/DL (0.55-1.30) Estimat Glomerular Filtration Rate 47.1 mL/min (>60) Glucose Level 81 MG/DL (74-106) Calcium Level 8.1 MG/DL (8.5-10.1) L Phosphorus Level 3.3 MG/DL (2.5-4.9) Magnesium Level 1.8 MG/DL (1.8-2.4) Total Bilirubin 0.5 MG/DL (0.2-1.0) Aspartate Amino Transf (AST/SGOT) 21 U/L (15-37) Alanine Aminotransferase (ALT/SGPT) 29 U/L (12-78) Alkaline Phosphatase 84 U/L (46-116) C-Reactive Protein, Quantitative 2.3 mg/dL (0.00-0.90) H Total Protein 6.1 G/DL (6.4-8.2) L Albumin 2.5 G/DL (3.4-5.0) L Globulin 3.6 g/dL Albumin/Globulin Ratio 0.7 (1.0-2.7) L Current Medications Medications (Trade) Dose Ordered Sig/Dewayne Route PRN Reason Start Time Stop Time Status Last Admin Dose Admin Acetaminophen (Tylenol) 650 mg Q4H PRN ORAL fever 04/11/20 19:00 05/11/20 18:59 Albuterol/ Ipratropium (Combivent Respimat) 1 puff Q4H PRN INH Shortness of Breath 04/11/20 19:00 05/11/20 18:59 Amiodarone HCl (Cordarone) 200 mg DAILY ORAL 04/12/20 09:00 07/11/20 08:59 04/19/20 09:22 Amlodipine Besylate (Norvasc) 2.5 mg DAILYPRN PRN ORAL SBP>155 04/19/20 13:15 05/19/20 13:14 Divalproex Sodium (Depakote) 500 mg Q12HR ORAL 04/18/20 21:00 06/02/20 20:59 04/19/20 09:22 Olanzapine (ZyPREXA) 5 mg BEDTIME ORAL 04/18/20 21:00 06/02/20 20:59 04/18/20 20:41 Ondansetron HCl (Zofran) 4 mg Q6H PRN IVP Nausea & Vomiting 04/11/20 19:15 05/11/20 13:14 Polyethylene Glycol (Miralax) 17 gm DAILYPRN PRN ORAL Constipation 04/11/20 19:00 05/11/20 18:59 Potassium Chloride 10 meq/ Dextrose/Sodium Chloride 1,005 ml @ 50 mls/hr Q20H6M IV 04/16/20 15:30 05/16/20 15:29 04/19/20 17:55 Rivaroxaban (Xarelto) 15 mg DAILY ORAL 04/20/20 09:00 07/11/20 08:59 Lisa Altamirano M.D. April 19, 2020 18:13
--- NOTE | 2020-04-19 18:18 | Cardiology Progress Note ---
Assessment/Plan Assessment/Plan 1. Paroxysmal episodes of atrial flutter. 2. Persistent COVID-19 infection. 3. Chronic renal insufficiency. 4. Paroxysmal episodes of atrial fibrillation and flutter. 5. Hyperlipidemia. 6. Systemic hypertension. 7. Dementia. 8. Gastroesophageal reflux disease. 9. anemia bp was elevated earlier , rn called me orderd for prn Norvasc given but bp returned to normal without medication no echo performed at [facility] or here labs noted sat at 97-100 % on room air urine ecoli amiod daily xarelto for stroke prevention tele no aflutter al sherif reviewed personally repeat covid neg with a sensitivity of 67% await possible prbc tx for anemia no clear source of anemia Subjective Subjective per rn not complaining ,feeds ok no cough no desat no vomit no diarrhea Objective Last 24 Hour Vital Signs Date Time Temp Pulse Resp B/P (MAP) Pulse Ox O2 Delivery O2 Flow Rate FiO2 04/19/20 16:00 97.9 81 20 111/54 (73) 100 04/19/20 16:00 63 04/19/20 12:00 97.9 66 20 107/56 (73) 97 04/19/20 12:00 64 04/19/20 08:16 Room Air 04/19/20 08:00 58 04/19/20 08:00 97.8 87 22 178/76 (110) 98 04/19/20 04:00 76 04/19/20 04:00 98.7 78 18 127/98 (108) 98 04/19/20 00:00 98.7 78 18 129/74 (92) 98 04/19/20 00:00 81 04/18/20 21:17 Room Air 04/18/20 20:00 98.7 87 18 138/74 (95) 98 04/18/20 20:00 61 Intake and Output 04/18/20 04/19/20 19:00 07:00 Intake Total 655 ml Balance 655 ml IV Total 655 ml # Voids 2 Laboratory Tests Test 04/19/20 06:30 White Blood Count 5.0 K/UL (4.8-10.8) Red Blood Count 2.02 M/UL (4.20-5.40) L Hemoglobin 7.7 G/DL (12.0-16.0) L Hematocrit 21.5 % (37.0-47.0) L Mean Corpuscular Volume 107 FL (80-99) H Mean Corpuscular Hemoglobin 38.2 PG (27.0-31.0) H Mean Corpuscular Hemoglobin Concent 35.8 G/DL (32.0-36.0) Red Cell Distribution Width 13.9 % (11.6-14.8) Platelet Count 243 K/UL (150-450) Mean Platelet Volume 7.8 FL (6.5-10.1) Neutrophils (%) (Auto) % (45.0-75.0) Lymphocytes (%) (Auto) % (20.0-45.0) Monocytes (%) (Auto) % (1.0-10.0) Eosinophils (%) (Auto) % (0.0-3.0) Basophils (%) (Auto) % (0.0-2.0) Differential Total Cells Counted 100 Neutrophils % (Manual) 72 % (45-75) Lymphocytes % (Manual) 19 % (20-45) L Monocytes % (Manual) 8 % (1-10) Eosinophils % (Manual) 1 % (0-3) Basophils % (Manual) 0 % (0-2) Band Neutrophils 0 % (0-8) Platelet Estimate Adequate Platelet Morphology Normal Hypochromasia 1+ Macrocytosis 1+ Ovalocytes Occasional Erythrocyte Sedimentation Rate 82 MM/HR (0-30) H Sodium Level 142 MMOL/L (136-145) Potassium Level 4.3 MMOL/L (3.5-5.1) Chloride Level 108 MMOL/L (98-107) H Carbon Dioxide Level 28 MMOL/L (21-32) Anion Gap 6 mmol/L (5-15) Blood Urea Nitrogen 9 mg/dL (7-18) Creatinine 1.1 MG/DL (0.55-1.30) Estimat Glomerular Filtration Rate 47.1 mL/min (>60) Glucose Level 81 MG/DL (74-106) Calcium Level 8.1 MG/DL (8.5-10.1) L Phosphorus Level 3.3 MG/DL (2.5-4.9) Magnesium Level 1.8 MG/DL (1.8-2.4) Total Bilirubin 0.5 MG/DL (0.2-1.0) Aspartate Amino Transf (AST/SGOT) 21 U/L (15-37) Alanine Aminotransferase (ALT/SGPT) 29 U/L (12-78) Alkaline Phosphatase 84 U/L (46-116) C-Reactive Protein, Quantitative 2.3 mg/dL (0.00-0.90) H Total Protein 6.1 G/DL (6.4-8.2) L Albumin 2.5 G/DL (3.4-5.0) L Globulin 3.6 g/dL Albumin/Globulin Ratio 0.7 (1.0-2.7) L Objective per dr laird note CHEST: Lungs are clear to auscultation bilaterally without wheezes or rales. CARDIOVASCULAR: Regular rhythm and rate. S1, S2 are normal without murmurs, rubs, or gallops. ABDOMEN: Soft, nontender, nondistended. Positive bowel sounds. No evidence of hepatosplenomegaly. Currently, no rebound or guarding noted. EXTREMITIES: Negative for clubbing, cyanosis, or edema. Erasmo Faust MD April 19, 2020 18:18
--- NOTE | 2020-04-19 19:19 | NUR ---
HAND-OFF: Report given to DADA Lemus.Endorsed that unable to get a hold of daughter for blood transfusion consent. Endorsed plan of care.
--- NOTE | 2020-04-19 19:25 | NUR ---
NURSE NOTES: Received report from DADA Agee. Patient is asleep lying semi-suarez's; slightly restless. No signs of acute distress or pain noted at this time. AOx1; unable to make needs known. Primarily Bulgarian speaking. Checked IV site, lines, and IV rate; patent and running. No erythema, bleeding, or infiltration noted. Bed at lowest position, brakes on, siderails up x3. Call light within reach. Will continue to monitor.
[2020-04-19 20:00] VITALS: BP 112/57
--- NOTE | 2020-04-19 22:48 | NUR ---
NURSE NOTES: Called Crystal Gurrola, patient's daughter, twice for blood transfusion consent, but no response both times. Left message.
[2020-04-20] VITALS: BP 142/71
[2020-04-20 04:00] VITALS: BP 155/66
[2020-04-20 07:19] LABS: ANION GAP 7 mmol/L (5-15); BLOOD UREA NITROGEN 13 mg/dL (7-18); CALCIUM 7.9 MG/DL (8.5-10.1); CARBON DIOXIDE 29 MMOL/L (21-32); CHLORIDE 108 MMOL/L (98-107); CREATININE 1.1 MG/DL (0.55-1.30); POTASSIUM 4.2 MMOL/L (3.5-5.1); SODIUM 144 MMOL/L (136-145)
--- NOTE | 2020-04-20 07:28 | NUR ---
HAND-OFF: Report given to DADA Galdamez. Patient is lying in bed resting comfortably. In stable condition. Notified Dr. High that patient's daughter was called for blood transfusion consent several times, but could not be reached. Endorsed to oncoming shift RN regarding the situation; verbalized understanding.
[2020-04-20 07:30] LABS: HEMATOCRIT 21.8 % (37.0-47.0); HEMOGLOBIN 7.8 G/DL (12.0-16.0); MEAN CORPUSCULAR VOLUME 106 FL (80-99); PLATELET COUNT 261 K/UL (150-450); RED BLOOD COUNT 2.06 M/UL (4.20-5.40); RED CELL DISTRIBUTION WIDTH 14.1 % (11.6-14.8); WHITE BLOOD COUNT 4.8 K/UL (4.8-10.8)
--- NOTE | 2020-04-20 07:30 | NUR ---
NURSE NOTES: Received pt from DADA Lemus. Pt is confused, pt is in RA, no SOB or acute respiratory distress noted. pt has intact iv access ROSE 22Gg is running well. Pt is on continues heart monitoring. a SIEBEL ADMINISTRATOR is feeding pt. RN called pt's daughter JERMAIN DUBOSE and left massage regarding permission for blood transfusion. Dr High is aware. all needs attended, bed is locked and is in the lowest position, call light within easy reach. will continue to monitor.
[2020-04-20 08:00] VITALS: BP 135/84
[2020-04-20] MEDS: Xarelto 15mg tab ORAL SCH (08:55)
[2020-04-20] MEDS: Amiodarone 200mg tab ORAL SCH (08:56)
[2020-04-20] MEDS: Depakote 500mg tab ORAL SCH ×2 (08:56→20:30)
--- NOTE | 2020-04-20 09:20 | NUR ---
DISCHARGE PLANNING WAITING FOR LAST COVID RESULT SO PATIENT CAN DISCHARGE BACK TO [facility] CALLED OUR LAB AND THEY SAID THEY WILL CONTACT [facility] FOR RESULTS
--- NOTE | 2020-04-20 10:00 | NUR ---
NURSE NOTES: Dr Altamirano is aware about covid positive, no new order to RN. Will continue to monitor.
--- NOTE | 2020-04-20 10:41 | NUR ---
NURSE NOTES: RN called Dr Sloan and asked him if pt needs both Xarelto and heparin and Dr answered pt needs both of them because pt is on Megace which cause dvt, pharmacist is aware. will continue to monitor.
--- NOTE | 2020-04-20 10:49 | NUR ---
NURSE NOTES: RN again called Dr Sloan and mentioned him that pt has ecchymosis on the body and HB 7.8, and Dr ordered to D/C heparin, noted and carried out. will continue to monitor.
--- NOTE | 2020-04-20 11:54 | NUR ---
DISCHARGE PLANNING NOTE RECENT COVID RESULT IS POSITIVE PATIENT IS TO RETURN TO [facility] ROOM 47 HAS BEEN ASSIGNED T: [phone] FOR NURSE TO NURSE REPORT WAITING FOR DISCHARGE ORDER
[2020-04-20 12:00] VITALS: BP 129/79
--- NOTE | 2020-04-20 12:06 | Pulmonology Progress Note ---
Subjective ROS Limited/Unobtainable: Yes Constitutional: Reports: no symptoms HEENT: Repors: no symptoms Allergies: Coded Allergies: No Known Allergies (Unverified , 01/13/20) Objective Last 24 Hour Vital Signs Date Time Temp Pulse Resp B/P (MAP) Pulse Ox O2 Delivery O2 Flow Rate FiO2 04/20/20 09:00 Room Air 04/20/20 08:00 97.1 68 20 135/84 (101) 99 04/20/20 07:40 53 04/20/20 04:00 96.3 68 20 155/66 (95) 100 04/20/20 04:00 59 04/20/20 00:00 97.0 67 22 142/71 (94) 100 04/20/20 00:00 63 04/19/20 21:00 Room Air 04/19/20 20:00 97.7 81 20 112/57 (75) 99 04/19/20 20:00 62 04/19/20 16:00 97.9 81 20 111/54 (73) 100 04/19/20 16:00 63 Intake and Output 04/19/20 04/20/20 18:59 06:59 Intake Total 600 ml Balance 600 ml IV Total 600 ml # Voids 4 2 # Bowel Movements 4 General Appearance: cachetic HEENT: normocephalic, atraumatic Respiratory: chest wall non-tender, lungs clear Breasts: no masses Cardiovascular: normal peripheral pulses, normal rate Abdomen: normal bowel sounds, soft, non tender Genitourinary: normal external genitalia Extremities: no cyanosis Skin: no rash Neurologic: glass cleaner II-XII grossly normal Microbiology Date/Time Source Procedure Growth Status 04/17/20 16:45 Nasopharynx Coronavirus COVID-19 PCR (MILI) - Final Complete Laboratory Tests 04/20/20 05:42: White Blood Count 4.8, Red Blood Count 2.06L, Hemoglobin 7.8L, Hematocrit 21.8L , Mean Corpuscular Volume 106H, Mean Corpuscular Hemoglobin 37.8H, Mean Corpuscular Hemoglobin Concent 35.7, Red Cell Distribution Width 14.1, Platelet Count 261, Mean Platelet Volume 6.8, Neutrophils (%) (Auto) , Lymphocytes (%) ( Auto) , Monocytes (%) (Auto) , Eosinophils (%) (Auto) , Basophils (%) (Auto) , Differential Total Cells Counted 100, Neutrophils % (Manual) 73, Lymphocytes % ( Manual) 16L, Monocytes % (Manual) 9, Eosinophils % (Manual) 1, Basophils % ( Manual) 1, Band Neutrophils 0, Platelet Estimate Adequate, Platelet Morphology Normal, Hypochromasia 3+, Anisocytosis 1+, Macrocytosis 1+, Spherocytes 3+, Sodium Level 144, Potassium Level 4.2, Chloride Level 108H, Carbon Dioxide Level 29, Anion Gap 7, Blood Urea Nitrogen 13, Creatinine 1.1, Estimat Glomerular Filtration Rate 47.1, Glucose Level 77, Calcium Level 7.9L Current Medications Medications (Trade) Dose Ordered Sig/Dewayne Route PRN Reason Start Time Stop Time Status Last Admin Dose Admin Acetaminophen (Tylenol) 650 mg Q4H PRN ORAL fever 04/11/20 19:00 05/11/20 18:59 Albuterol/ Ipratropium (Combivent Respimat) 1 puff Q4H PRN INH Shortness of Breath 04/11/20 19:00 05/11/20 18:59 Amiodarone HCl (Cordarone) 200 mg DAILY ORAL 04/12/20 09:00 07/11/20 08:59 04/20/20 08:56 Amlodipine Besylate (Norvasc) 2.5 mg DAILYPRN PRN ORAL SBP>155 04/19/20 13:15 05/19/20 13:14 Divalproex Sodium (Depakote) 500 mg Q12HR ORAL 04/18/20 21:00 06/02/20 20:59 04/20/20 08:56 Megestrol Acetate (Megace) 400 mg DAILY ORAL 04/21/20 09:00 07/20/20 08:59 Olanzapine (ZyPREXA) 5 mg BEDTIME ORAL 04/18/20 21:00 06/02/20 20:59 04/19/20 20:40 Ondansetron HCl (Zofran) 4 mg Q6H PRN IVP Nausea & Vomiting 04/11/20 19:15 05/11/20 13:14 Polyethylene Glycol (Miralax) 17 gm DAILYPRN PRN ORAL Constipation 04/11/20 19:00 05/11/20 18:59 Potassium Chloride 10 meq/ Dextrose/Sodium Chloride 1,005 ml @ 50 mls/hr Q20H6M IV 04/16/20 15:30 05/16/20 15:29 04/19/20 17:55 Rivaroxaban (Xarelto) 15 mg DAILY ORAL 04/20/20 09:00 07/11/20 08:59 04/20/20 08:55 Assessment/Plan Problems: (1) Acute encephalopathy (2) COVID-19 (3) Severe anemia (4) Dehydration (5) Dementia with behavioral disturbance (6) Chronic anticoagulation (7) Agitation (8) Nosocomial pneumonia Assessment/Plan on restrains cxr reviewed: hazy right basilar opacity no new complains respiratory isolation ID f/u, check cultures abx as per ID, on Ertapenem optimize cardiac meds symptomatic treatment continue Xarelto dvt prophylaxis. pt needs blood transfusion. there are no family members to consent for it. Alyse Oconnor MD April 20, 2020 12:06
--- NOTE | 2020-04-20 13:13 | NUR ---
attempted to call daughter Crystal Lee, ; this is apparently a wrong number, Left message for Mr. Sha Cabrera, ; to please call back if he can provide with other phone # for Pt. family. Dr. Oconnor aware of situation, documented Pt's. need for blood transfusion. will continue to monitor & follow.
--- NOTE | 2020-04-20 13:42 | NUR ---
NEWSPAPER WRITER DAILY TX NOTE Patient seen at bedside, is alert, has BUE soft restraints due to agitation and pulling lines; Patient is on room air. VITALS:HR: 73; RR: 22; SP02 98%. VSS for the duration of the session. Ongoing concern for Patient's ability to consume adequate PO. Per chart review, previous diet consistency at living facility was Puree solids with Holden Thick Liquids. Patient's current diet texture is mechanical soft ground with thin liquids. BIOFUELS PLANT SUPERINTENDENT reports Patient has difficulty masticating some of the larger pieces of chicken. Also, RN reports that Patient had good intake with puree apple sauce. Given trials of thin liquids, no significant overt s/s of aspiration noted, Patient noted to typically drink via sequential swallows independently. No overt s/s of aspiration with Ensure Enlive at bedside either. PLAN: 1. Downgrade diet texture to puree solids, continue thin liquids, type and supplements per RD. 2. Continue NEWSPAPER WRITER dysphagia management and tx. NEWSPAPER WRITER educated RN on results, recommendations, and plan. 04/18/[address] ASSESSMENT ADDITIONAL RECOMMENDATIONS: 1) Maintain calibrated bed weights 2) Add Ensure w/ meals 3) Monitor po intake, pt adm w/ FTT and suspected wt loss -> monitor for continued improved PO intake 4) rec WC eval for sacral photo 5) MVI x 1 as supplement
--- NOTE | 2020-04-20 14:20 | NUR ---
RADIO ADJUSTER NOTE SW received a call from investigating public guardian Julio that the case is currently pending.
--- NOTE | 2020-04-20 15:26 | NUR ---
*-*DISCHARGE PLANNING *-* RECENT COVID RESULT IS POSITIVE PATIENT HAS BEEN ACCEPTED AND WILL RETURN TO ROOM [facility] HAS BEEN ASSIGNED T: [phone] FOR NURSE TO NURSE REPORT RECENT COVID RESULT IS POSITIVE WAITING FOR DISCHARGE ORDER Addendum: 04/20/20 at 1531 by SEBASTIÁN GREGORIO CM DISREGARD NOTE ABOVE.
--- NOTE | 2020-04-20 15:27 | NUR ---
*-*DISCHARGE PLANNING *-* PATIENT HAS BEEN ACCEPTED AND IS EXPECTED RETURN TO: [facility] P: [phone] FOR NURSE TO NURSE REPORT ROOM 47.C RECENT COVID RESULT IS POSITIVE ~~~WAITING FOR DISCHARGE ORDER~~~WIRELESS COMMUNICATIONS ENGINEER WILL FOLLOW UP TOMORROW.
[2020-04-20 16:00] VITALS: BP 146/51
[2020-04-20] MEDS: Potassium Chloride 10 MEQ in D5 1/2NS 1,000 ML IV SCH (16:21)
--- NOTE | 2020-04-20 16:21 | NUR ---
NURSE NOTES: blood transfusion started 1400 and finished 1620, no reaction noted. V/S stable. will continue to monitor.
--- NOTE | 2020-04-20 17:05 | Internal Med Progress Note ---
Subjective Date of Service: April 20, 2020 Physician Name Jonas Scott Attending Physician Ulices High MD Current Medications Medications (Trade) Dose Ordered Sig/Dewayne Route PRN Reason Start Time Stop Time Status Last Admin Dose Admin Acetaminophen (Tylenol) 650 mg Q4H PRN ORAL fever 04/11/20 19:00 05/11/20 18:59 Albuterol/ Ipratropium (Combivent Respimat) 1 puff Q4H PRN INH Shortness of Breath 04/11/20 19:00 05/11/20 18:59 Amiodarone HCl (Cordarone) 200 mg DAILY ORAL 04/12/20 09:00 07/11/20 08:59 04/20/20 08:56 Amlodipine Besylate (Norvasc) 2.5 mg DAILYPRN PRN ORAL SBP>155 04/19/20 13:15 05/19/20 13:14 Divalproex Sodium (Depakote) 500 mg Q12HR ORAL 04/18/20 21:00 06/02/20 20:59 04/20/20 08:56 Olanzapine (ZyPREXA) 5 mg BEDTIME ORAL 04/18/20 21:00 06/02/20 20:59 04/19/20 20:40 Ondansetron HCl (Zofran) 4 mg Q6H PRN IVP Nausea & Vomiting 04/11/20 19:15 05/11/20 13:14 Polyethylene Glycol (Miralax) 17 gm DAILYPRN PRN ORAL Constipation 04/11/20 19:00 05/11/20 18:59 Potassium Chloride 10 meq/ Dextrose/Sodium Chloride 1,005 ml @ 50 mls/hr Q20H6M IV 04/16/20 15:30 05/16/20 15:29 04/20/20 16:21 Rivaroxaban (Xarelto) 15 mg DAILY ORAL 04/20/20 09:00 07/11/20 08:59 04/20/20 08:55 Allergies: Coded Allergies: No Known Allergies (Unverified , 01/13/20) ROS Limited/Unobtainable: Yes Subjective 84 YO F with previous COVID 19 positive status admitted with failure to thrive. Now UTI. Tele. Cover for Int Med-Dr High Objective Last Vital Signs Date Time Temp Pulse Resp B/P (MAP) Pulse Ox O2 Delivery O2 Flow Rate FiO2 04/20/20 16:00 97.6 67 20 146/51 (82) 99 04/20/20 09:00 Room Air Laboratory Tests Test 04/20/20 05:42 White Blood Count 4.8 K/UL (4.8-10.8) Red Blood Count 2.06 M/UL (4.20-5.40) L Hemoglobin 7.8 G/DL (12.0-16.0) L Hematocrit 21.8 % (37.0-47.0) L Mean Corpuscular Volume 106 FL (80-99) H Mean Corpuscular Hemoglobin 37.8 PG (27.0-31.0) H Mean Corpuscular Hemoglobin Concent 35.7 G/DL (32.0-36.0) Red Cell Distribution Width 14.1 % (11.6-14.8) Platelet Count 261 K/UL (150-450) Mean Platelet Volume 6.8 FL (6.5-10.1) Neutrophils (%) (Auto) % (45.0-75.0) Lymphocytes (%) (Auto) % (20.0-45.0) Monocytes (%) (Auto) % (1.0-10.0) Eosinophils (%) (Auto) % (0.0-3.0) Basophils (%) (Auto) % (0.0-2.0) Differential Total Cells Counted 100 Neutrophils % (Manual) 73 % (45-75) Lymphocytes % (Manual) 16 % (20-45) L Monocytes % (Manual) 9 % (1-10) Eosinophils % (Manual) 1 % (0-3) Basophils % (Manual) 1 % (0-2) Band Neutrophils 0 % (0-8) Platelet Estimate Adequate Platelet Morphology Normal Hypochromasia 3+ Anisocytosis 1+ Macrocytosis 1+ Spherocytes 3+ Sodium Level 144 MMOL/L (136-145) Potassium Level 4.2 MMOL/L (3.5-5.1) Chloride Level 108 MMOL/L (98-107) H Carbon Dioxide Level 29 MMOL/L (21-32) Anion Gap 7 mmol/L (5-15) Blood Urea Nitrogen 13 mg/dL (7-18) Creatinine 1.1 MG/DL (0.55-1.30) Estimat Glomerular Filtration Rate 47.1 mL/min (>60) Glucose Level 77 MG/DL (74-106) Calcium Level 7.9 MG/DL (8.5-10.1) L Intake and Output 04/19/20 04/20/20 19:00 07:00 Intake Total 50 ml 600 ml Balance 50 ml 600 ml IV Total 50 ml 600 ml # Voids 4 2 # Bowel Movements 4 Objective PHYSICAL EXAMINATION: GENERAL: Patient is a well-developed, well-nourished female, who is confused and nonverbal. HEENT: Eyes, pupils are equal and responsive to light and accommodation. Extraocular movements are intact. NECK: Supple. No lymphadenopathy. CHEST: Lungs are clear to auscultation bilaterally without wheezes or rales. CARDIOVASCULAR: Regular rhythm and rate. S1, S2 are normal without murmurs, rubs, or gallops. ABDOMEN: Soft, nontender, nondistended. Positive bowel sounds. No evidence of hepatosplenomegaly. Currently, no rebound or guarding noted. EXTREMITIES: Negative for clubbing, cyanosis, or edema. RECTAL/GENITAL: Not performed. NEUROLOGICAL: Cranial nerves II through XII grossly intact without focal deficits. Assessment/Plan Assessment/Plan ASSESSMENT: This is an 84-year-old female. 1. History of COVID-19 positive; now negative 2. Failure to thrive. 3. Congestive heart failure. 4. Renal failure. 5. Atrial flutter. 6. Bipolar disorder. 7. Coronary artery disease. 8. Hypertension. 9. Alzheimer's dementia. 10. Gastroesophageal reflux. 11. Diverticulosis. 12. Cholelithiasis. 13. Hypotension; resolved 14. UTI=ESBL E. Coli 15. Hypernatremia 16. severe anemia TREATMENT: 1. COVID-19 negative. An Infectious Disease consultation has been obtained with Dr. Altamirano. We will follow recommendation of Infectious Disease. 2. Failure to thrive. This may be secondary to viral syndrome secondary to COVID-19 positive. 3. Congestive heart failure. Await echocardiogram. A Cardiology consultation has been obtained with Dr. Erasmo Faust. 4. Atrial flutter as above. As above, Cardiology consultation has been obtained with Dr. Erasmo Faust. 5. Renal failure. This may be dehydration versus acute on chronic renal failure. 6. Bipolar disorder. Continue Depakote and Risperdal as above. 7. Coronary artery disease. 8. Hypertension. 9. Alzheimer's dementia. 10. Gastroesophageal reflux disease. 11. Diverticulosis. 12. Cholelithiasis. 13. Transfer to tele. Received NS bolus. See cardiology discussion concerning amiodarone. 14. ABX=ertapenem; S/P cefepime and vanco; ID=Dr Altamirano 15. Full code 16. start D5 1/2 NS 17. GI consult=DR Sloan ?PEG? 18. S/P Transfusion 1 unit PRBC 04/20/20 19. Discharge to [facility] when bed available Jonas Scott MD April 20, 2020 17:05
--- NOTE | 2020-04-20 17:29 | NUR ---
NURSE NOTES: OB sent to lab but lab stated specimen isn't enough. will F/U.
--- NOTE | 2020-04-20 17:45 | Consultation ---
DATE OF CONSULTATION: 04/20/2020 CONSULTING PHYSICIAN: Yomi Sloan MD. CHIEF COMPLAINT: Failure to thrive. HISTORY OF PRESENT ILLNESS: Most of history per chart. This is an 85-year-old [facility]dc patient. History of COVID positive. Actually was COVID positive today also in this hospital, admitted to the hospital mainly for failure to thrive. PAST MEDICAL HISTORY: 1. Atrial fibrillation. 2. Bipolar disorder. 3. Coronary artery disease. 4. Alzheimer dementia. 5. Hypertension. 6. GERD. 7. Diverticulosis. 8. Gallstones. 9. Anemia. 10. COVID positive pneumonia. ALLERGIES: No known allergies. MEDICATIONS: Please see medication reconciliation list. PAST SURGICAL HISTORY: None. REVIEW OF SYSTEMS: Limited. FAMILY HISTORY: Noncontributory. SOCIAL HISTORY: Currently lives in a [facility]dc. No recent history of tobacco, alcohol, or IV drug abuse. PHYSICAL EXAMINATION: VITAL SIGNS: Temperature is 97.1, pulse 68, respirations 20, blood pressure is 130/84. HEENT: Normocephalic, atraumatic. Pale conjunctivae. NECK: Supple. No evidence of obvious lymphadenopathy. CARDIOVASCULAR: Regular rate and rhythm. Plus S1 and S2. LUNGS: Decreased breath sounds bilaterally diffusely on the supine exam. ABDOMEN: Soft, nontender. No rebound. No guarding. No peritoneal sign. EXTREMITIES: No cyanosis, no clubbing, no edema. LABORATORY DATA: White count is 4.8, hemoglobin 7.8, hematocrit 21, platelet count is 261. Chem-7 sodium 144, potassium 4.2, BUN is 13, creatinine is 1.1. ASSESSMENT AND PLAN: This is an 85-year-old female with macrocytic anemia, failure to thrive, COVID positive pneumonia. Plan, anemia workup ordered. In terms of diet, patient is currently on regular diet. Speech evaluation appreciated. We are going to add Megace 400 mg daily. Add subcutaneous heparin to Xarelto for better DVT prophylaxis given patient is going to go on Megace. We are going to add Ensure 1 can p.o. t.i.d. We will order product marketing consultant consult. Calorie count. If patient has inadequate p.o. intake despite of above, we will consider NG tube placement and possibly PEG placement if needed. I want to thank Dr. Ulices High for this kind referral. Yomi Clay Sloan DR: FOREST JOB#: [id number] CC: Ulices High M.D.; Fax#: [phone]
--- NOTE | 2020-04-20 19:19 | NUR ---
HAND-OFF: Report given to DADA Lemus. pt is awake and stable. endorsed to F/U for OB. Endorsed plan of care.
--- NOTE | 2020-04-20 19:28 | NUR ---
NURSE NOTES: Received report from DADA Galdamez. Patient is awake lying semi-suarez's restless and attempting to get out of bed. Put patient back in bed with bilateral soft wrist restraints applied for safety. No signs of acute distress noted; denies pain at this time. AOx1; able to make needs known to a limited degree. Primarily Armenian speaking. Checked IV site, lines, and IV rate; patent and running. No erythema, bleeding, or infiltration noted. Bed at lowest position, brakes on, siderails up x3. Bed alarms on. Call light within reach. Will continue to monitor.
[2020-04-20 20:00] VITALS: BP 141/45
[2020-04-20] MEDS ORDERED: Heparin 5000 units/ml inj SUBQ SCH (21:00)
--- NOTE | 2020-04-20 23:53 | NUR ---
HAND-OFF: Report given to DADA Edwards. Patient is awake lying semi-suarez's; resting comfortably. In stable condition.
[2020-04-21] VITALS: BP 147/59
--- NOTE | 2020-04-21 00:15 | Progress Note ---
DATE: 04/20/2020 SUBJECTIVE: The patient is in bed, on bilateral soft restraints, Kinyarwanda speaking. The patient is more manageable, less agitated, still attempting to come out of bed. MENTAL STATUS EXAMINATION: Alert and oriented times self. Mood is less agitated. Affect is flat. Thought process, disorganized. Thought content, no suicidal or homicidal ideation. Cognition is impaired. Insight and judgment impaired. ASSESSMENT: Dementia with behavior disturbance. PLAN: 1. Zyprexa 5 at bedtime. 2. Depakote 500 b.i.d. 3. Continue to follow and readjust the medications. Cornelia Lynn M.D. DR: Derick JOB#: [id number] CC:
[2020-04-21 04:00] VITALS: BP 149/62
[2020-04-21 06:21] LABS: BASOPHILS % (AUTO) 5.5 % (0.0-2.0); EOSINOPHILS % (AUTO) 0.6 % (0.0-3.0); HEMATOCRIT 26.1 % (37.0-47.0); HEMOGLOBIN 9.4 G/DL (12.0-16.0); MEAN CORPUSCULAR VOLUME 101 FL (80-99); MONOCYTES % (AUTO) 12.9 % (1.0-10.0); PLATELET COUNT 271 K/UL (150-450); RED BLOOD COUNT 2.58 M/UL (4.20-5.40); RED CELL DISTRIBUTION WIDTH 16.8 % (11.6-14.8); WHITE BLOOD COUNT 5.5 K/UL (4.8-10.8)
[2020-04-21 07:01] LABS: ALBUMIN 2.3 G/DL (3.4-5.0); ALBUMIN/GLOBULIN RATIO 0.7 (1.0-2.7); ALKALINE PHOSPHATASE 73 U/L (46-116); ANION GAP 7 mmol/L (5-15); ASPARTATE AMINO TRANSFERASE 19 U/L (15-37); BILIRUBIN,TOTAL 0.5 MG/DL (0.2-1.0); BLOOD UREA NITROGEN 13 mg/dL (7-18); CALCIUM 7.8 MG/DL (8.5-10.1); CARBON DIOXIDE 28 MMOL/L (21-32); CHLORIDE 107 MMOL/L (98-107); SODIUM 142 MMOL/L (136-145)
--- NOTE | 2020-04-21 07:30 | NUR ---
NURSE NOTES: Received report from DADA Edwards. Pt A/O x1 (name), no s/sx of acute distress, breathing even and unlabored in RA. Pt on B soft wrist restraints, pulses present. IV site present, patent and asymptomatic, running IVF as ordered. Bed in lowest position, call light within reach. Will continue plan of care.
--- NOTE | 2020-04-21 07:44 | NUR ---
HAND-OFF: Report given to DADA Fernandez. patient shows no signs of distress or pain at the time. Endorsed plan of care.
[2020-04-21 07:55] LABS: % IRON SATURATION 49 % (15-50); IRON 72 ug/dL (50-175); TOTAL IRON BINDING CAPACITY 146 ug/dL (250-450)
[2020-04-21 08:00] VITALS: BP 155/57
[2020-04-21 08:00] LABS: ALANINE AMINOTRANSFERASE 24 U/L (12-78)
--- NOTE | 2020-04-21 08:09 | General Progress Note ---
Assessment/Plan Assessment/Plan: 1. Atrial fibrillation. 2. Bipolar disorder. 3. Coronary artery disease. 4. Alzheimer dementia. 5. Hypertension. 6. GERD. 7. Diverticulosis. 8. Gallstones. 9. Anemia. 10. COVID positive pneumonia. on megace taking ensures fu labs abx per id hold peg plans for now on Xeralto heparin dc given ecchymosis Subjective ROS Limited/Unobtainable: No Allergies: Coded Allergies: No Known Allergies (Unverified , 01/13/20) Objective Last 24 Hour Vital Signs Date Time Temp Pulse Resp B/P (MAP) Pulse Ox O2 Delivery O2 Flow Rate FiO2 04/21/20 04:00 58 04/21/20 04:00 97.7 64 20 149/62 (91) 98 04/21/20 00:00 78 04/21/20 00:00 97.8 58 18 147/59 (88) 98 04/20/20 21:00 Room Air 04/20/20 20:00 69 04/20/20 20:00 97.7 97 16 141/45 (77) 99 04/20/20 16:00 97.6 67 20 146/51 (82) 99 04/20/20 15:51 58 04/20/20 12:00 97.5 73 22 129/79 (96) 98 04/20/20 11:33 65 04/20/20 09:00 Room Air Intake and Output 04/20/20 04/21/20 19:00 07:00 Intake Total 1300 ml 200 ml Balance 1300 ml 200 ml Intake Oral 800 ml IV Total 500 ml 200 ml # Voids 5 2 # Bowel Movements 2 3 Laboratory Tests 04/20/20 20:08: Stool Occult Blood [Pending] 04/21/20 05:32: White Blood Count 5.5, Red Blood Count 2.58L, Hemoglobin 9.4L, Hematocrit 26.1L , Mean Corpuscular Volume 101H, Mean Corpuscular Hemoglobin 36.5H, Mean Corpuscular Hemoglobin Concent 36.1H, Red Cell Distribution Width 16.8H, Platelet Count 271, Mean Platelet Volume 6.7, Neutrophils (%) (Auto) 66.0, Lymphocytes (%) (Auto) 15.0L, Monocytes (%) (Auto) 12.9H, Eosinophils (%) (Auto ) 0.6, Basophils (%) (Auto) 5.5H, Erythrocyte Sedimentation Rate [Pending], Sodium Level 142, Potassium Level 4.0, Chloride Level 107, Carbon Dioxide Level 28, Anion Gap 7, Blood Urea Nitrogen 13, Creatinine 1.0, Estimat Glomerular Filtration Rate 52.5, Glucose Level 96, Calcium Level 7.8L, Phosphorus Level [ Pending], Magnesium Level [Pending], Iron Level 72, Total Iron Binding Capacity 146L, Percent Iron Saturation 49, Unsaturated Iron Binding 74L, Total Bilirubin 0.5, Aspartate Amino Transf (AST/SGOT) 19, Alanine Aminotransferase (ALT/SGPT) 24, Alkaline Phosphatase 73, C-Reactive Protein, Quantitative [Pending], Total Protein 5.7L, Albumin 2.3L, Globulin 3.4, Albumin/Globulin Ratio 0.7L, Vitamin B12 Level 1477H, Folate 4.5L Height (Feet): 5 Height (Inches): 2.00 Weight (Pounds): 107 General Appearance: lethargic EENT: normal ENT inspection Neck: supple Cardiovascular: normal rate Respiratory/Chest: lungs clear Abdomen: hypoactive bowel sounds Extremities: non-tender Yomi Sloan MD April 21, 2020 08:09
[2020-04-21 08:11] LABS: PHOSPHORUS 3.2 MG/DL (2.5-4.9)
[2020-04-21] MEDS ORDERED: Megace 400mg/10ml Susp ORAL SCH (09:00)
[2020-04-21] MEDS: Xarelto 15mg tab ORAL SCH (09:21)
[2020-04-21] MEDS: Depakote 500mg tab ORAL SCH (09:21)
[2020-04-21] MEDS: Amiodarone 200mg tab ORAL SCH (09:21)
--- NOTE | 2020-04-21 10:04 | NUR ---
CASE MANAGEMENT:REVIEW 04/21/20 SI: CHF. COVID 19 POSITIVE X2 ANEMIA...S/P 1 UNIT PRBC'S. UTI 97.9 89 18 155/57 100% ON RA H/H-9.4/26.1 CA-7.8 CRP+1.4 IS: IVF+KCL @50/HR XARELTO PO QD ZYPREXA PO QHS DEPAKOTE PO Q12 AMIODARONE PO QD : TELEMETRY STATUS DCP: FROM [facility] PLAN: WAITING FOR DC ORDER
--- NOTE | 2020-04-21 10:56 | NUR ---
RD ASSESSMENT & RECOMMENDATIONS SEE CARE ACTIVITY FOR COMPLETE ASSESSMENT (VEL COUNT X 48 HRS) Vel count x 48 hrs completed- incomplete data. Able to obtain 4 meal tickets out of 6, only two are recorded, other two without recorded % intake of each meal. 04/19 breakfast: 100% oj 50% hot cereal 10% scrambled egg 04/19 lunch: meal ticket missing not recorded in EMR 04/19 dinner; meal ticket not completed not recorded in EMR 04/20 breakfast meal ticket missing 25% per EMR 04/20 lunch meal ticket missing 25% per EMR 04/20 dinner meal ticket not completed 25% per EMR 04/21 50% hot cereal 50% Ensure Data is incomplete to assess accurate amount of kcal pt is consuming daily. However, it is evident that pt has poor and variable PO intake, appears to not meet est nutritional needs. Ensure Enlive TID has been added, unsure of acceptance on each bottle received, but per RN this AM, pt consumed 50% for breakfast this AM, will cont to encourage pt to drink the rest. Noted megace was added, but now dc'ed. Cont to monitor PO intake, will benefit from appetite stimulant given consistently variable and poor PO intake. DAILY ESTIMATED NEEDS: Needs based on Advanced age, pulmonary 48kg 27-32 kcals/kg 0547-1349 total kcals 1.25-1.5 g protein/kg 60-72 g total protein 20-30ml/kcal mL/kg 960-1470 total fluid mLs NUTRITION DIAGNOSIS: Chewing difficulty r/t Alzheimers, h/o dysphagia as evidenced by pt on puree texture diet, adm w/ FTT, w/ variable PO intake CURRENT DIET: Regular puree PO DIET RECOMMENDATIONS: Maintain Regular diet/ Texture per REAL ESTATE ACCOUNTANT ADDITIONAL RECOMMENDATIONS: 1) Maintain calibrated bed weights 2) Continue Ensure Enlive w/ meals (350kcal/20g prot per bottle) 3) Monitor po intake, pt adm w/ FTT and suspected wt loss -> rec appetite stimulant given consistently poor and variable PO 4) rec WC eval for sacral photo 5) MVI x 1 as supplement 6) Vel count x 48 hrs done (04/11-04/13) and (04/19-04/21): INADEQUATE PO
--- NOTE | 2020-04-21 11:18 | NUR ---
*-*DISCHARGE PLANNED*-* PATIENT HAS BEEN ACCEPTED AND WILL BE DISCHARGED BACK TO: [facility] P: [phone] FOR NURSE TO NURSE REPORT ROOM 47.[facility] TRANSPORTATION SET FOR 12:30PM S/W QUIANA [id number] S/W PATIENTS OCEANOGRAPHY PROFESSOR PAU DUENAS, WHO IS IN AGREEMENT WITH DISCHARGE PLAN.
--- NOTE | 2020-04-21 11:30 | NUR ---
NURSE NOTES:WOUND CARE NOTES:Pt presented with areas of non-blanching erythema without induration Sacrum, R and L Gluteal cheeks. Partial thickness shearing noted to R gluteal cheek. Non-blanching erythema without induration/fluctuance both heels. No other skin concerns noted. Tx.Plan: Apply Moisture Barrier Paste to Sacrum, R and L Buttocks. Cover with Optifoam drsg. Change every 3 days and prn. Apply Cavilon Skin Barrier to both heels. Cover each Heel with Optifoam drsg. Change every 7 days and prn. Reposition at least every 2hours or as tolerated. Off-load heels with pillow.
[2020-04-21 12:00] VITALS: BP 147/61
--- NOTE | 2020-04-21 12:06 | NUR ---
NURSE NOTES: Called [facility] to give report. No one is available to get report. Will call again.
--- NOTE | 2020-04-21 12:43 | NUR ---
NURSE NOTES: Gave report to DADA Barnett at [facility]. Awaiting for ambulance personnel to pickup the pt.
--- NOTE | 2020-04-21 13:22 | Pulmonology Progress Note ---
Subjective ROS Limited/Unobtainable: No Constitutional: Reports: no symptoms HEENT: Repors: no symptoms Respiratory: Reports: no symptoms Allergies: Coded Allergies: No Known Allergies (Unverified , 01/13/20) Objective Last 24 Hour Vital Signs Date Time Temp Pulse Resp B/P (MAP) Pulse Ox O2 Delivery O2 Flow Rate FiO2 04/21/20 09:00 Room Air 04/21/20 08:00 97.9 89 18 155/57 (89) 100 04/21/20 07:52 56 04/21/20 04:00 58 04/21/20 04:00 97.7 64 20 149/62 (91) 98 04/21/20 00:00 78 04/21/20 00:00 97.8 58 18 147/59 (88) 98 04/20/20 21:00 Room Air 04/20/20 20:00 69 04/20/20 20:00 97.7 97 16 141/45 (77) 99 04/20/20 16:00 97.6 67 20 146/51 (82) 99 04/20/20 15:51 58 Intake and Output 04/20/20 04/21/20 18:59 06:59 Intake Total 1300 ml 250 ml Balance 1300 ml 250 ml Intake Oral 800 ml IV Total 500 ml 250 ml # Voids 5 2 # Bowel Movements 2 3 General Appearance: cachetic HEENT: normocephalic, atraumatic Respiratory: chest wall non-tender, lungs clear Breasts: no masses Cardiovascular: normal peripheral pulses, normal rate Abdomen: normal bowel sounds, soft, non tender Genitourinary: normal external genitalia Extremities: no cyanosis Skin: no rash Neurologic: speech clinician II-XII grossly normal Laboratory Tests 04/20/20 20:08: Stool Occult Blood Negative 04/21/20 05:32: White Blood Count 5.5, Red Blood Count 2.58L, Hemoglobin 9.4L, Hematocrit 26.1L , Mean Corpuscular Volume 101H, Mean Corpuscular Hemoglobin 36.5H, Mean Corpuscular Hemoglobin Concent 36.1H, Red Cell Distribution Width 16.8H, Platelet Count 271, Mean Platelet Volume 6.7, Neutrophils (%) (Auto) 66.0, Lymphocytes (%) (Auto) 15.0L, Monocytes (%) (Auto) 12.9H, Eosinophils (%) (Auto ) 0.6, Basophils (%) (Auto) 5.5H, Erythrocyte Sedimentation Rate 71H, Sodium Level 142, Potassium Level 4.0, Chloride Level 107, Carbon Dioxide Level 28, Anion Gap 7, Blood Urea Nitrogen 13, Creatinine 1.0, Estimat Glomerular Filtration Rate 52.5, Glucose Level 96, Calcium Level 7.8L, Phosphorus Level 3.2 , Magnesium Level 1.8, Iron Level 72, Total Iron Binding Capacity 146L, Percent Iron Saturation 49, Unsaturated Iron Binding 74L, Total Bilirubin 0.5, Aspartate Amino Transf (AST/SGOT) 19, Alanine Aminotransferase (ALT/SGPT) 24, Alkaline Phosphatase 73, C-Reactive Protein, Quantitative 1.4H, Total Protein 5.7L, Albumin 2.3L, Globulin 3.4, Albumin/Globulin Ratio 0.7L, Vitamin B12 Level 1477H, Folate 4.5L Current Medications Medications (Trade) Dose Ordered Sig/Dewayne Route PRN Reason Start Time Stop Time Status Last Admin Dose Admin Acetaminophen (Tylenol) 650 mg Q4H PRN ORAL fever 04/11/20 19:00 05/11/20 18:59 Albuterol/ Ipratropium (Combivent Respimat) 1 puff Q4H PRN INH Shortness of Breath 04/11/20 19:00 05/11/20 18:59 Amiodarone HCl (Cordarone) 200 mg DAILY ORAL 04/12/20 09:00 07/11/20 08:59 04/21/20 09:21 Amlodipine Besylate (Norvasc) 2.5 mg DAILYPRN PRN ORAL SBP>155 04/19/20 13:15 05/19/20 13:14 Divalproex Sodium (Depakote) 500 mg Q12HR ORAL 04/18/20 21:00 06/02/20 20:59 04/21/20 09:21 Olanzapine (ZyPREXA) 5 mg BEDTIME ORAL 04/18/20 21:00 06/02/20 20:59 04/20/20 20:30 Ondansetron HCl (Zofran) 4 mg Q6H PRN IVP Nausea & Vomiting 04/11/20 19:15 05/11/20 13:14 Polyethylene Glycol (Miralax) 17 gm DAILYPRN PRN ORAL Constipation 04/11/20 19:00 05/11/20 18:59 Potassium Chloride 10 meq/ Dextrose/Sodium Chloride 1,005 ml @ 50 mls/hr Q20H6M IV 04/16/20 15:30 05/16/20 15:29 04/20/20 16:21 Rivaroxaban (Xarelto) 15 mg DAILY ORAL 04/20/20 09:00 07/11/20 08:59 04/21/20 09:21 Assessment/Plan Problems: (1) Acute encephalopathy (2) COVID-19 (3) Severe anemia (4) Dehydration (5) Dementia with behavioral disturbance (6) Chronic anticoagulation (7) Agitation (8) Nosocomial pneumonia Assessment/Plan still on restrains got blood transfusion yesterday no new complains respiratory isolation ID f/u, check cultures abx as per ID, on Ertapenem optimize cardiac meds symptomatic treatment continue Xarelto dvt prophylaxis. Alyse Ocnonor MD April 21, 2020 13:22
--- NOTE | 2020-04-21 14:00 | NUR ---
NURSE NOTES: Pt left in stable condition, picked up by ambulance personnel. Report given to Ericka GARLAND of [facility] and ambulance personnel. Belongings checked and complete, pt unable to sign. Pt on isolation precaution for + Covid-19, mask provided to the pt. Tele monitor and IV removed, no bleeding noted. DC meds and instructions discussed with Ericka GARLAND. Addendum: 04/21/20 at 1850 by Rebecca Maradiaga RN Picture taken before pt left the unit. The date on the ruler was labeled 04/20, but it was taken on 04/21.
--- NOTE | 2020-04-21 14:57 | Internal Med Progress Note ---
Subjective Physician Name Ulices High Attending Physician Ulices High MD Allergies: Coded Allergies: No Known Allergies (Unverified , 01/13/20) Subjective On [facility] [place]- isolation room, responsive, opening her eyes, no acute distress, on the room air. Objective Last Vital Signs Date Time Temp Pulse Resp B/P (MAP) Pulse Ox O2 Delivery O2 Flow Rate FiO2 04/21/20 12:00 96.4 111 18 147/61 (89) 99 04/21/20 09:00 Room Air Laboratory Tests Test 04/20/20 20:08 04/21/20 05:32 Stool Occult Blood Negative (NEGATIVE) White Blood Count 5.5 K/UL (4.8-10.8) Red Blood Count 2.58 M/UL (4.20-5.40) L Hemoglobin 9.4 G/DL (12.0-16.0) L Hematocrit 26.1 % (37.0-47.0) L Mean Corpuscular Volume 101 FL (80-99) H Mean Corpuscular Hemoglobin 36.5 PG (27.0-31.0) H Mean Corpuscular Hemoglobin Concent 36.1 G/DL (32.0-36.0) H Red Cell Distribution Width 16.8 % (11.6-14.8) H Platelet Count 271 K/UL (150-450) Mean Platelet Volume 6.7 FL (6.5-10.1) Neutrophils (%) (Auto) 66.0 % (45.0-75.0) Lymphocytes (%) (Auto) 15.0 % (20.0-45.0) L Monocytes (%) (Auto) 12.9 % (1.0-10.0) H Eosinophils (%) (Auto) 0.6 % (0.0-3.0) Basophils (%) (Auto) 5.5 % (0.0-2.0) H Erythrocyte Sedimentation Rate 71 MM/HR (0-30) H Sodium Level 142 MMOL/L (136-145) Potassium Level 4.0 MMOL/L (3.5-5.1) Chloride Level 107 MMOL/L (98-107) Carbon Dioxide Level 28 MMOL/L (21-32) Anion Gap 7 mmol/L (5-15) Blood Urea Nitrogen 13 mg/dL (7-18) Creatinine 1.0 MG/DL (0.55-1.30) Estimat Glomerular Filtration Rate 52.5 mL/min (>60) Glucose Level 96 MG/DL (74-106) Calcium Level 7.8 MG/DL (8.5-10.1) L Phosphorus Level 3.2 MG/DL (2.5-4.9) Magnesium Level 1.8 MG/DL (1.8-2.4) Iron Level 72 ug/dL (50-175) Total Iron Binding Capacity 146 ug/dL (250-450) L Percent Iron Saturation 49 % (15-50) Unsaturated Iron Binding 74 ug/dL (112-346) L Total Bilirubin 0.5 MG/DL (0.2-1.0) Aspartate Amino Transf (AST/SGOT) 19 U/L (15-37) Alanine Aminotransferase (ALT/SGPT) 24 U/L (12-78) Alkaline Phosphatase 73 U/L (46-116) C-Reactive Protein, Quantitative 1.4 mg/dL (0.00-0.90) H Total Protein 5.7 G/DL (6.4-8.2) L Albumin 2.3 G/DL (3.4-5.0) L Globulin 3.4 g/dL Albumin/Globulin Ratio 0.7 (1.0-2.7) L Vitamin B12 Level 1477 PG/ML (193-986) H Folate 4.5 NG/ML (8.6-58.9) L Intake and Output 04/20/20 04/21/20 19:00 07:00 Intake Total 1300 ml 200 ml Balance 1300 ml 200 ml Intake Oral 800 ml IV Total 500 ml 200 ml # Voids 5 2 # Bowel Movements 2 3 Objective Deferred due to the COVID-19 isolation room. Assessment/Plan Assessment/Plan ASSESSMENT: This is an 84-year-old female. 1. COVID-19 infection positive. 2. Failure to thrive. 3. Congestive heart failure. 4. TAMMIE on chrinic Renal failure. 5. Atrial flutter. 6. Bipolar disorder. 7. Coronary artery disease. 8. Hypertension. 9. Alzheimer's dementia. 10. Gastroesophageal reflux. 11. Diverticulosis. 12. Cholelithiasis. 13. Hypotension resolved. 14. Acute ESBL E. Coli UTI. 15. Anemia of chronic disease. TREATMENT: 1. COVID-19 positive. An Infectious Disease consultation has been obtained with Dr. Altamirano. We will follow recommendation of Infectious Disease. 2. Failure to thrive. This may be secondary to viral syndrome secondary to COVID-19 positive. 3. Congestive heart failure. Await echocardiogram. A Cardiology consultation has been obtained with Dr. Erasmo Faust. 4. Atrial flutter as above. As above, Cardiology consultation has been obtained with Dr. Erasmo Faust. 5. Renal failure. This may be dehydration versus acute on chronic renal failure. 6. Bipolar disorder. Continue Depakote and Risperdal as above. 7. Coronary artery disease. 8. Hypertension. 9. Alzheimer's dementia. 10. Gastroesophageal reflux disease. 11. Diverticulosis. 12. Cholelithiasis. 13. DVT prophylaxis: Xarelto 14. ABX= Off 15. CODE STATUS: full code. DC to SNF today Ulices High MD April 21, 2020 14:57
--- NOTE | 2020-04-21 23:15 | Progress Note ---
DATE: 04/21/2020 SUBJECTIVE: The patient is in bed. He is still confused and has episode of agitation, more manageable, more responsive, able to be redirected. MENTAL STATUS EXAMINATION: Awake and disoriented. Mood is agitated. Affect is flat. Thought process is concrete. Thought content, no suicidal or homicidal ideation. Cognition is impaired. Insight and judgment is impaired. ASSESSMENT: Dementia with behavior disturbance. PLAN: 1. Continue Zyprexa. 2. Discussed with the nurse. Cornelia Lynn M.D. DR: Derick JOB#: [id number] CC:
--- NOTE | 2020-04-24 00:41 | Discharge Summary ---
Discharge Summary Discharge Summary _ DATE OF ADMISSION: 04/11/2020 DATE OF DISCHARGE: 04/21/2020 DISCHARGED BY: Dr. Ulices High CONSULTANTS: Dr. Cornelia Altamirano [facility] HOSPITAL COURSE: Patient is an 84-year-old female, who presented with chief complaint of decreased oral intake. Patient was admitted to [facility] from 03/17/2020 through 03/30/2020. Patient tested positive for cocaine during that stay. She was then discharged to [facility]. According to the staff at the nursing facility, patient has not been eating for a couple of days. Patient has been more confused than usual. She was then taken to [facility] for further evaluation. She has medical history significant for atrial flutter, bipolar depression, CAD status post non-ST elevated ME, Alzheimer's dementia, hypertension, GERD, diverticulosis and cholelithiasis. Upon evaluation at ED, patient was placed on isolation. Blood work did not show any leukocytosis. Hemoglobin and hematocrit stable. Potassium 5.9. BUN 36 and creatinine 1.8. EKG showed sinus bradycardia with no acute ischemic changes. Chest x-ray showed bilateral atelectasis. COVID swab was sent. She was started on empiric antibiotics and was given insulin D50. She was given Haldol and Ativan for sedation. She was then admitted to medical floor due to COVID-19, pneumonia and dehydration. ID was consulted. She was given empiric antibiotics. Office Support was consulted due to paroxysmal atrial flutter and low blood pressure. She was then transferred to telemetry. She will Pulmicort she was given IV normal saline to help bring up blood pressure. Her last attempt at echocardiogram last December failed due to patient being combative and echocardiogram was not performed at [facility] because of COVID status. During hospitalization and [facility], patient had atypical atrial flutter and was started on beta-angella but eventually converted to sinus rhythm. She was maintained on anticoagulation with Xarelto. She was continued on amiodarone. Urine culture showed growth of probable ESBL E. coli. Cefepime was switched to ertapenem. Repeat COVID testing was indeterminate. Repeat testing was done. Acute kidney injury improved with hydration. There was increase of BNP. IV fluid was discontinued. She was given Lasix. Patient was agitated. She was placed on bilateral wrist restraints. Psychiatric evaluation was done. She was given Zyprexa. She was eventually started on Depakote 500 mg twice daily. She had episodes of drop in hemoglobin. GI was consulted. She received 1 unit packed RBC blood transfusion. Patient also has failure to thrive. She was given Megace. Subcutaneous heparin was added to Xarelto for better DVT prophylaxis. She was eating better with Megace and has been taking Ensure. Heparin was discontinued due to ecchymosis. Initial SARS-CoV-2 on 04/14/2020 was negative, repeat SARS-CoV-2 PCR was positive. Patient was off antibiotics and was accepted back to care home. FINAL DIAGNOSES: Toxic metabolic encephalopathy, present on admission COVID-19 positive UTI with ESBL E. coli Acute kidney injury Failure to thrive with cachexia due to protein calorie malnutrition Paroxysmal atrial flutter on chronic anticoagulation Anemia status post blood transfusion Bipolar disorder Dehydration Dementia with behavioral disturbance Coronary artery disease Hypertension Hyperlipidemia Systemic hypertension Alzheimer's dementia GERD Diverticulosis Cholelithiasis DISPOSITION: DC to SNF. DISCHARGE MEDICATIONS: Refer to Discharge Medication List. I have been assigned to complete a discharge summary on this account, I was not involved with the patient's management.--NEHA Lamb Jacqueline Robles NP Apr 24, 2020 00:41
== END 2020-04-21 14:30 | DRG 177 ==
LOC: EDUNIT# 09:33 → EDBD 09:33 → EMR 09:58 → 4E 10:02 → EDBEDREQ 12:46 → 4E 16:24 → 2E 18:55
PROC: 30233N1 Transfusion of Nonautologous Red Blood Cells into Peripheral Vein, Percutaneous Approach (ICD-10-PCS; principal; 2020-04-20)
DX: U07.1 COVID-19 (principal); G92 Toxic encephalopathy; J12.89 Other viral pneumonia; N39.0 Urinary tract infection, site not specified; I13.0 Hypertensive heart and chronic kidney disease with heart failure and stage 1 through stage 4 chronic kidney disease, or unspecified chronic kidney disease; N17.9 Acute kidney failure, unspecified; E46 Unspecified protein-calorie malnutrition; Z68.1 Body mass index [BMI] 19.9 or less, adult; Z16.12 Extended spectrum beta lactamase (ESBL) resistance; I48.92 Unspecified atrial flutter; F02.81 Dementia in other diseases classified elsewhere, unspecified severity, with behavioral disturbance; I48.0 Paroxysmal atrial fibrillation; E86.0 Dehydration; K21.9 Gastro-esophageal reflux disease without esophagitis; K57.90 Diverticulosis of intestine, part unspecified, without perforation or abscess without bleeding; K80.20 Calculus of gallbladder without cholecystitis without obstruction; G30.9 Alzheimer's disease, unspecified; Z79.01 Long term (current) use of anticoagulants; D63.8 Anemia in other chronic diseases classified elsewhere; D64.9 Anemia, unspecified; I25.10 Atherosclerotic heart disease of native coronary artery without angina pectoris; I25.2 Old myocardial infarction; B96.20 Unspecified Escherichia coli [E. coli] as the cause of diseases classified elsewhere; I10 Essential (primary) hypertension; I95.9 Hypotension, unspecified; N18.9 Chronic kidney disease, unspecified; F31.9 Bipolar disorder, unspecified; E11.22 Type 2 diabetes mellitus with diabetic chronic kidney disease; E78.5 Hyperlipidemia, unspecified
CPT/HCPCS: 36415; 71045; 80048; 80053; 81001; 81003; 82270; 82378; 82550; 82607; 82746; 83540; 83550; 83605; 83615; 83735; 83880; 84100; 84133; 84300; 84484; 84550; 85007; 85025; 85044; 85060; 85610; 85651; 85730; 86140; 86850; 86900; 86901; 86920; 87040; 87081; 87086; 87181; 87635; 89050; 96361; 96365; 96372; 96375; 99285; J7030